=== PATIENT | female | born 1945 | race Two or more races ===

== ENCOUNTER 2024-02-01 18:48 | Inpatient (IN) | payer MEDICARE, MEDICAID ==
[~2024-02-01] VITALS: Ht 170.2 cm; Wt 106.0 kg
[~2024-02-01 18:48] MED LIST: ALBU108A5 IN; BRIM0.2S17 EACHEYE; CLOT1CRE7 EX; DICL1GEL73 TD; FLUT115A IN; FOLI-119 PO; FURO40TA4 PO; INSUINJ37 SC; LATA0.008 EACHEYE; LEFL20TA PO; MAGN400T40 PO; METH2.5T PO; METO25TA93 PO; MONT-8 PO; OMEP-448 PO; SEMA2INJ3 SC; TRAM50TA2 PO
[2024-02-01] MEDS: NOREPINEPHRINE 8 MG/250ML KIT 250 ML IV SCH (19:00)
[2024-02-01] MEDS: MIDAZOLAM DRIP 50 mg/50mL 50 ML IV SCH (19:00)
[2024-02-01] MEDS: MIDAZOLAM DRIP 50 mg/50mL 50 ML IV ONE (19:05)
--- NOTE | 2024-02-01 19:05 | ED.PDOC ---
CPR-HPI HPI Comments 78-year-old female with available history of COPD, Asthma brought in by EMS presents s/p cardiac arrest. Per EMS, initial call was to [facility] for patient having SOB and difficulty breathing. Per EMS, patient was slowly declining en route to ER and then lost pulses on their arrival at 1847. CPR commenced as EMS was wheeling patient into the ER. ROSC was obtained in the ER after CPR and intubation. No family at bedside to provide further medical information at this time. 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 Family History Family History: Unknown, Unobtainable Social History Smoker: Unknown, Unobtainable Alcohol: Unknown, Unobtainable Drugs: Unknown, Unobtainable Lives In: Correction Constitutional: denies: chills, diaphoresis, fatigue, fever, malaise, sweats, weakness, others EENTM: denies: blurred vision, double vision, ear bleeding, ear discharge, ear drainage, ear pain, ear ringing, eye pain, eye redness, hearing loss, mouth pain, mouth swelling, nasal discharge, nose bleeding, nose congestion, nose pain, photophobia, tearing, throat pain, throat swelling, voice changes, others Respiratory: denies: cough, hemoptysis, orthopnea, SOB at rest, shortness of breath, SOB with excertion, stridor, wheezing, others Cardiovascular: denies: chest pain, dizzy spells, diaphoresis, Dyspnea on exertion, edema, irregular heart beat, left arm pain, lightheadedness, palpitations, PND, syncope, others Gastrointestinal: denies: abdomen distended, abdominal pain, blood streaked bowels, constipated, diarrhea, dysphagia, difficulty swallowing, hematemesis, melena, nausea, poor appetite, poor fluid intake, rectal bleeding, rectal pain, vomiting, others Genitourinary: denies: abnormal vagina bleeding, burning, dyspareunia, dysuria, flank pain, frequency, hematuria, incontinence, pain, , vagina discharge, urgency, others Neurological: denies: dizziness, fainting, headache, left sided numbness, left sided weakness, numbness, paresthesia, pre-existing deficit, right sided numbness, right sided weakness, seizure, speech problems, tingling, tremors, weakness, others Musculoskeletal: denies: back pain, gout, joint pain, joint swelling, muscle pain, muscle stiffness, neck pain, others Integumetry: denies: bruises, change in color, change in hair/nails, dryness, laceration, lesions, lumps, rash, wounds, others Allergic/Immunocompromised: denies: Difficulty Healing, Frequent Infections, Hives, Itching, others Hematologic/Lymphatic: denies: anemia, blood clots, easy bleeding, easy bruising, swollen glands, others Endocrine: denies: excessive hunger, excessive sweating, excessive thirst, excessive urination, flushing, intolerance to cold, intolerance to heat, unex plained weight gain, unexplained weight loss, others Psychiatric: denies: anxiety, bipolar disorder, depression, hopeless, panic disorder, schizophrenia, sleepless, suicidal, others Unable to Obtain due to: Medical Urgency All Other Systems: Reviewed and Negative Physical Exam General Appearance: Other (CPR in progress) HEENT: PERRL/EOMI Neck: Full Range of Motion, Non-Tender, Normal, Normal Inspection Respiratory: Other (Patient was being bagged) Cardiovascular: Other (CPR in progress) Breast Exam: Deferred Gastrointestinal: No Organomegaly, Non Tender, No Pulsatile Mass, Normal Bowel Sounds, Soft Genitalia: Deferred Pelvic: Deferred Rectal: Deferred Extremities: No calf tenderness, Normal capillary refill, Normal inspection, Normal range of motion, Non-tender, No pedal edema Neurologic: Other (Patient unresponsive) Cerebellar Function: NOT DONE Reflexes: NOT DONE Skin: Dry, Normal Color, Warm Lymphatic: No Adenopathy Was a procedure done? Was a procedure done?: No Differential Dx CPR Differential Diagnosis: Cardiopulmonary arrest, Cardiogenic shock, Dysrhythmia, Electrolyte disorder, Myocardial Infarction, Pneumothorax, Respiratory Failure X-Ray, Labs, Meds, VS Vital Signs Date Time Temp Pulse Resp B/P (MAP) Pulse Ox O2 Delivery O2 Flow Rate FiO2 02/01/24 20:45 106 17 131/58 (82) 99 02/01/24 20:30 101 18 154/73 (100) 100 02/01/24 20:30 154/73 02/01/24 20:25 101 18 154/73 (100) 99 50 02/01/24 20:15 98.8 101 17 117/69 (85) 100 98.8 02/01/24 20:00 99 15 77/41 (53) 100 02/01/24 20:00 77/41 02/01/24 20:00 77/41 02/01/24 19:58 71/41 02/01/24 19:55 101 13 71/41 (51) 95 02/01/24 19:50 Mechanical Ventilator+ 100 100 02/01/24 19:45 124/68 02/01/24 19:42 176 Ambu-Bag 02/01/24 19:40 90 17 117/52 (73) 97 02/01/24 19:40 129/57 02/01/24 19:35 86 19 117/52 (73) 95 02/01/24 19:33 86 02/01/24 19:30 97.8 86 17 125/63 (83) 100 97.8 02/01/24 19:30 125/53 02/01/24 19:05 131 25 156/86 (109) 100 100 02/01/24 19:01 140 14 156/86 (109) 100 02/01/24 19:00 0 0 0/0 (0) 0 02/01/24 19:00 135/80 02/01/24 19:00 135/80 02/01/24 19:00 Mechanical Ventilator+ 100 100 02/01/24 18:54 186 02/01/24 18:54 145 18 159/115 (130) 88 Lab Test 02/01/24 20:35 02/01/24 20:18 02/01/24 19:51 02/01/24 19:42 Range/Units Lactic Acid Level 1.1 0.4-2.0 mmol/L Blood Gas Specimen Type Arterial Blood Gas Sample Site Left radial Blood Gas Patient Temperature 37.0 Arterial Blood Date Drawn [id number] Arterial Blood pH 7.316 L 7.350-7.450 Arterial Blood Partial Pressure CO2 64.3 *H 32.0-45.0 mmHg Arterial Blood Partial Pressure O2 403.6 *H 83.0-108.0 mmHg Arterial Blood HCO3 32.1 H 21.0-28.0 mmol/L Arterial Blood Oxygen Saturation 97.9 94.0-98.0 % Arterial Blood Base Excess 4.7 H -2.0-3.0 mmol/L Arterial Blood Oxyhemoglobin 96.9 94.0-98.0 % Arterial Blood Carboxyhemoglobin 0.9 0.5-1.5 % Arterial Blood Methemoglobin 0.1 0.0-1.5 % Maximino Test Modified Blood Gas Total Hemoglobin 9.90 L 12.0-16.0 g/dL Blood Gas Set Respiration Rate 18.0 Blood Gas Modality Vent - ac FiO2 % 100.0 Blood Gas Tidal Volume 450.0 Blood Gas PEEP or CPAP 5.0 Blood Gas Critical Value Read Back Yes Blood Gas Notified Whom Dr. pilo dougherty Blood Gas Notified Time [id number] Blood Gas Notified By Rt b meet Troponin I High Sensitivity 9 </=34 ng/L Urine Color Light-yellow Yellow Urine Clarity Clear Clear Urine pH 6.0 5.0-9.0 Urine Specific [place] 1.009 1.001-1.035 Urine Protein Negative Negative Urine Ketones Negative Negative Urine Blood Negative Negative /uL Urine Nitrite Negative Negative Urine Bilirubin Negative Negative Urine Urobilinogen Normal Negative mg/dL Urine Leukocyte Esterase Negative Negative /uL Urine RBC 1 0 - 4 /hpf Urine WBC <1 0 - 5 /hpf Urine Squamous Epithelial Cells Few <5 /hpf Urine Bacteria None seen None Seen /hpf Urine Glucose Normal Normal mg/dL Test 02/01/24 19:05 Range/Units White Blood Count 9.0 4.4-10.8 10^3/uL Red Blood Count 3.77 L 4.0-5.20 10^6/uL Hemoglobin 11.0 L 12.2-16.2 g/dL Hematocrit 36.3 36.0-46.0 % Mean Corpuscular Volume 96.3 80.0-100.0 fL Mean Corpuscular Hemoglobin 29.2 28.0-32.0 pg Mean Corpuscular Hemoglobin Concent 30.3 L 32.0-36.0 g/dL Red Cell Distribution Width 17.0 H 11.8-14.3 % Platelet Count 221 140-450 10^3/uL Mean Platelet Volume 9.6 6.9-10.8 fL Neutrophils (%) (Auto) 37.0-80.0 % Lymphocytes (%) (Auto) 10.0-50.0 % Monocytes (%) (Auto) 0.0-12.0 % Basophils (%) (Auto) 0.0-2.0 % Neutrophils # (Auto) 1.6-8.6 10 ^3/uL Lymphocytes # (Auto) 0.4-5.4 10 ^3/uL Monocytes # (Auto) 0-1.3 10 ^3/uL Differential Total Cells Counted 100.0 100 Neutrophils % (Manual) 29 L 37.0-80.0 Band Neutrophils % (Manual) 0 Lymphocytes % (Manual) 51 H 10.0-50.0 Monocytes % (Manual) 10 0-12 Eosinophils % (Manual) 10 H 0-7 Basophils % (Manual) 0 0.0-2.0 Metamyelocytes % (manual) 0 Myelocytes % (Manual) 0 Promyelocytes % (Manual) 0 Blast Cells % (Manual) 0 Reactive Lymphocytes 0 Platelet Estimate Adequate Poikilocytosis (manual) Slight Anisocytosis (manual) Slight Prothrombin Time 10.3 9.3-11.8 sec Prothrombin Time INR 0.97 0.9-1.15 Activated Partial Thromboplast Time 23.1 L 24.5-34.5 SEC D-Dimer, Quantitative > 35.20 H 0.0-0.49 mg/L FEU Sodium Level 143 136-145 mmol/L Potassium Level 5.9 *H 3.5-5.1 mmol/L Chloride Level 100 98-107 mmol/L Carbon Dioxide Level 32 H 20-31 mmol/L Anion Gap 11 5-15 Blood Urea Nitrogen 23 9-23 mg/dL Creatinine 1.34 H 0.550-1.02 mg/dL Glomerular Filtration Rate Calc 41 >90 mL/min BUN/Creatinine Ratio 17.2 10.0-20.0 Serum Glucose 217 H 74-106 mg/dL Lactic Acid Level 5.5 *H 0.4-2.0 mmol/L Calcium Level 11.0 H 8.7-10.4 mg/dL Total Bilirubin 0.2 0.2-1.0 mg/dL Aspartate Amino Transferase (AST) 75 H 13-40 U/L Alanine Aminotransferase (ALT) 99 H 7-40 U/L Alkaline Phosphatase 80 46-116 U/L Troponin I High Sensitivity 7 </=34 ng/L B-Type Natriuretic Peptide 68.68 0-100 pg/mL Total Protein 6.8 5.7-8.2 g/dL Albumin 4.4 3.2-4.8 g/dL Lipase 31 12-53 U/L Current Medications Medications (Trade) Dose Ordered Sig/Anastacio Route Start Time Stop Time Status Last Admin Albuterol (Ventolin Medneb) 5 mg ONCE ONCE NEB 02/01/24 19:15 02/01/24 19:16 DC 02/01/24 19:35 Ipratropium [place] (Atrovent Medneb) 0.5 mg ONCE ONCE NEB 02/01/24 19:15 02/01/24 19:16 DC 02/01/24 19:35 Methylprednisolone Sodium Succinate (Solu Medrol) 125 mg ONCE ONCE IV 02/01/24 19:15 02/01/24 19:16 DC 02/01/24 20:30 Midazolam HCl 50 ml @ 1 mls/hr Q24H IV 02/01/24 19:00 02/02/24 05:50 Norepinephrine Bitartrate 250 ml @ 3.75 mls/hr Q24H IV 02/01/24 19:00 02/01/24 19:00 Vancomycin HCl 250 ml @ 250 mls/hr ONCE ONCE IV 02/01/24 20:00 02/01/24 20:59 DC 02/01/24 20:38 Piperacillin Sod/ Tazobactam Sod 100 ml @ 100 mls/hr ONCE ONCE IV 02/01/24 20:00 02/01/24 20:59 DC 02/01/24 20:52 Insulin Human Regular (InsuLIN R) 10 units ONCE ONCE IV 02/01/24 20:15 02/01/24 20:58 DC 02/01/24 22:16 Dextrose 50 ml ONCE ONCE IV 02/01/24 20:15 02/01/24 20:58 DC 02/01/24 22:25 Sodium Bicarbonate 50 ml ONCE ONCE IV 02/01/24 20:15 02/01/24 20:58 DC 02/01/24 22:29 Furosemide (Lasix Injection) 40 mg ONCE ONCE IV 02/01/24 20:15 02/01/24 20:58 DC 02/01/24 22:34 Calcium Gluconate/ Sodium Chloride 50 ml @ 120 mls/hr ONCE ONCE IV 02/01/24 20:15 02/01/24 20:58 DC 02/01/24 22:06 Fentanyl Citrate 250 ml @ 2.5 mls/hr Q24H IV 02/01/24 20:15 02/01/24 21:10 Time of 1ST Reevaluation: 19:17 Reevaluation 1ST: Unchanged Patient Education/Counseling: Pt Unresponsive Family Education/Counseling: Diagnosis, Treatment, Prognosis Departure 1 Departure Time of Disposition: 06:15 (Patient presented as a cardiac arrest. Ross was achieved. Patient was intubated central line placed emergently. Patient was admitted to the ICU for further workup) Impression: Primary Impression: Cardiac arrest Additional Impression: Acute respiratory failure Qualified Codes: J96.01 - Acute respiratory failure with hypoxia Disposition: ADMITTED INPATIENT Admit to: ICU Condition: Critical Critical Care Note Critical Care Time?: Yes Critical care comment: Ross Authorized and Performed by: Junaid Dougherty MD Total critical care time: Approximately 144 minutes Due to a high probability of clinically significant, life threatening deterioration, the patient required my highest level of preparedness to intervene emergently and I personally spent this critical care time directly and personally managing the patient. This critical care time included obtaining a history; examining the patient; pulse oximetry; ordering and review of studies; arranging urgent treatment with development of a management plan; evaluation of patient's response to treatment; frequent reassessment; and, discussions with other providers. This critical care time was performed to assess and manage the high probability of imminent, life-threatening deterioration that could result in multi-organ failure. It was exclusive of separately billable procedures and treating other patients and teaching time. Please see my other sections and the rest of the note for further information on patient assessment and treatment. Heart Score Heart Score: Heart Score Response (Comments) Value History N/A 0 EKG N/A 0 Age N/A 0 Risk Factors N/A 0 Troponin N/A 0 Total 0 Stability Stability form required: No I personally scribed for JUNAID DOUGHERTY MD ([email or web address]) on 02/01/24 at 19:05. Electronically submitted by Alton Morillo ([email or web address]). JUNAID DOUGHERTY MD Feb 01, 2024 19:05
[2024-02-01 19:30] LABS: Hematocrit 36.3 % (36.0-46.0); Mean Corpuscular Hemoglobin 29.2 pg (28.0-32.0); Mean Corpuscular Hgb Conc. 30.3 g/dL (32.0-36.0); Mean Corpuscular Volume 96.3 fL (80.0-100.0); Platelet Count (auto) 221 10^3/uL (140-450); Red Blood Cells 3.77 10^6/uL (4.0-5.20)
[2024-02-01 19:33] LABS: Band Neutrophils % (manual) 0; Basophils % (manual) 0 (0.0-2.0); Blast Cells 0; Metamyelocytes % 0; Myelocytes % 0; Promyelocytes % 0; Reactive Lymphocytes 0
[2024-02-01] MEDS: ALBUTEROL SULF 2.5 MG/0.5ML(0.5%) NEB SOLN NEB ONE ×2 (19:35→20:15)
[2024-02-01] MEDS: IPRATROPIUM BROM 0.5 MG/2.5ML INH SOL NEB ONE (19:35)
--- NOTE | 2024-02-01 19:38 | DVH ---
CHEST RADIOGRAPH Indication: s/p rosc Technique: Single frontal view of the chest was obtained Comparison: None FINDINGS: Lines and Tubes: Endotracheal tube terminating 4.5 cm above the lois. Enteric tube crosses the diap hragm near midline and descends into the left upper quadrant. Right neck central venous catheter term inates over the SVC. Lungs: No focal consolidation. Diffuse bilateral interstitial opacities. Pleura: No effusion. No pneumothorax. Cardiomediastinal contours: Unremarkable Bones: No acute osseous abnormality. IMPRESSION: 1. Lines and tubes as described. 2. Nonspecific diffuse bilateral interstitial opacities. HS:Y
--- NOTE | 2024-02-01 19:42 | RESUS ---
CODE BLUE ASSESSSMENT History of Events History of Events: Patient to ER via EMS. Per EMS, initial call was made for complaints of shortness of breath. EMS patient was alert, oriented and responsive en route ER requiring 5LPM O2 NC. EMS reports she became unresponsive and pulseless upon arriving to ER. CPR in progress upon arrival to ER bed 9. Dr Ramesh and nursing staff at bedside ACLS protocols resumed. Initial Information Date: Feb 01, 2024 Time: 18:48 Location of Arrest: ER Arrest Witnessed: Yes CPR started initial time: 18:46 CPR started by whom: EMS Last seen well: 1845 Pre-Hospital Care: ACLS Type of arrest: Cardiac, Respiratory Spontaneous Respirations: No Pulse Present: No Monitoring: Pulse Oximetry, Telemetry Crash Cart Opened and Supplies: Yes Airway Ventilation Breathing at Onset: Apneic Oxygen Delivery Method: Ambu-Bag Artificial Ventilation: Bag/Endo tube Intubation Time: 18:53 Intubation Size: 8.0 cuffed Intubated by: DR RAMESH Intubation Attempts: 1 Intubated orally: Yes Circulation Circulation : Time: 18:52 Pulse Rate (adult): 176 Blood Pressure Systolic: 159 Blood Pressure Diastolic: 115 Procedure - IV Procedure - IV : IV start time: 18:50 IV Side: Right IV Location: Wrist IV Catheter Type: Peripheral IV IV Placed: In Hospital IV Placed by EMMA ORTIZ IV Gauge: 22 IV Line Care: Saline Flush Medications & Response Medications and Responses : Medication Time: 18:51 ADULT Medications Given ADULT: Epinephrine 1 mg Route of Administration: IV EKG Rhythm: Asystole Nurses Notes [place] Coma Scale Eye Opening: None (1) [place] Coma Scale Verbal: None (1) [place] Coma Scale Motor: None (1) [place] Total: 3 Pupil Reaction: Sluggish Bedside Blood Glucose: 210 EKG Rhythm: Sinus Tachycardia Time Code Ended Time Code Ended: 18:52 Post Arrest Status: Unconscious, Ventilated Outcome of code: Successful Family notified: Yes Code Team [facility] Marian Garcia Feb 01, 2024 19:42
--- NOTE | 2024-02-01 19:44 | DVHNC2 ---
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 physician ) Room prepared for procedure: Yes Mechanical Engineering Specialist performed hand hygien: Yes Maximal sterile barrier precau: Mask/Eye shield, Sterile gown, Cap, Sterlie gloves, Large sterlie drape Skin Preparation: Chlorhexidine gluconate Skin preparation completely dr: Yes Insertion site: Right, Internal jugular Central line catheter type: [id number] dialysis Number of lumens: 3 Post Assessment: Chest X-Ray, Proper placement Intubation Indication: Respiratory Insufficiency Prep: Preoxygenation Medicated with: Other (etomidate and rocuronium) Intubation Approach: Orotracheal (8cm) Intubation size: cm (8cm ) Date of Service: Feb 01, 2024 Billing Provider: ALEXANDER SPENCE Common Visit Codes: PROCEDURE ONLY Procedure Codes: 82944-[id number], 88993-QOOPQH NON-TUNNEL CV CATH ALEXANDER SPENCE Feb 01, 2024 19:44
[2024-02-01 19:47] LABS: Alkaline Phosphatase 80 U/L (46-116); Anion Gap 11 (5-15); BUN/Creatinine Ratio 17.2 (10.0-20.0); Blood Urea Nitrogen 23 mg/dL (9-23); Chloride 100 mmol/L (98-107); Lipase 31 U/L (12-53); Sodium 143 mmol/L (136-145)
[2024-02-01 19:48] LABS: Albumin 4.4 g/dL (3.2-4.8); Bilirubin, Total 0.2 mg/dL (0.2-1.0); Total Protein 6.8 g/dL (5.7-8.2)
[2024-02-01 19:55] LABS: Alanine Aminotransferase 99 U/L (7-40); Aspartate Aminotransferase 75 U/L (13-40); Carbon Dioxide 32 mmol/L (20-31); Glucose 217 mg/dL (74-106)
[2024-02-01 20:06] LABS: Potassium 5.9 mmol/L (3.5-5.1)
[2024-02-01 20:07] LABS: Lactic Acid w/Reflex 5.5 mmol/L (0.4-2.0)
[2024-02-01 20:11] LABS: Anisocytosis Slight; Eosinophils % (manual) 10 (0-7); Lymphocytes % (manual) 51 (10.0-50.0); Monocytes % (manual) 10 (0-12); Platelet Estimate Adequate
[2024-02-01 20:20] LABS: INR 0.97 (0.9-1.15); Partial Thromboplastin Time 23.1 SEC (24.5-34.5); Prothrombin Time 10.3 sec (9.3-11.8)
[2024-02-01 20:22] LABS: Urine Bacteria None Seen /hpf (None Seen)
[2024-02-01] MEDS: methylPREDNISolone SOD SUCC 125 MG/2 ML VL IV ONE (20:30)
[2024-02-01 20:32] LABS: Base Excess 4.7 mmol/L (-2.0-3.0)
--- NOTE | 2024-02-01 20:35 | DVH ---
Bilateral lower extremity venous duplex Clinical History: rule out DVT Comparison: None Technique: Duplex Doppler evaluation of the deep venous systems of both lower extremities from the common femora l veins to the popliteal veins including color Doppler and spectral/pulsed waveform analysis was perf ormed. Findings: RIGHT SIDE: The common femoral vein demonstrates appropriate compressibility and waveform variability. There is compressibility/patency of the great saphenous vein at the proximal thigh. The femoral vein demonstrates appropriate compressibility and waveform variability. The deep femoral vein demonstrates appropriate compressibility and waveform variability. The popliteal vein demonstrates appropriate compressibility and waveform variability. There is normal compressibility at the tibioperoneal trunk. LEFT SIDE: The common femoral vein demonstrates appropriate compressibility and waveform variability. There is compressibility/patency of the great saphenous vein at the proximal thigh. The femoral vein demonstrates appropriate compressibility and waveform variability. The deep femoral vein demonstrates appropriate compressibility and waveform variability. The popliteal vein demonstrates appropriate compressibility and waveform variability. There is normal compressibility at the tibioperoneal trunk. Impression: 1. No right or left femoropopliteal venous thrombosis. HS:Y
[2024-02-01] MEDS: VANCOMYCIN 1GM/250ML KIT 250 ML IV ONE (20:38)
[2024-02-01] MEDS: PIPERACILLIN-TAZO 4.5GM 100 ML IV ONE (20:52)
[2024-02-01] MEDS ORDERED: NITROGLYCERIN 0.4 MG SL TAB SL PRN ×2 (21:00→21:45)
[2024-02-01] MEDS ORDERED: MORPHINE SULFATE INJ 2 MG/ml SYRG IV PRN ×2 (21:00→21:45)
[2024-02-01] MEDS: fentaNYL Drip 2500mCg/250mlNS 250 ML IV SCH (21:10)
[2024-02-01 21:31] LABS: Urine Blood Negative /uL (Negative); Urine Clarity Clear (Clear); Urine Color Light-Yellow (Yellow); Urine Protein, UAD Negative (Negative); Urine Specific Gravity 1.009 (1.001-1.035); Urine Urobilinogen Normal (Negative); Urine WBC <1 /hpf (0 - 5)
[2024-02-01] MEDS ORDERED: ACETAMINOPHEN 325 MG TAB PO PRN (21:45)
--- NOTE | 2024-02-01 21:53 | DVHHP2 ---
Admitting Diagnosis: Admission date: 02/01/2024 S/P Cardiac arrest History of Present Illness Patient is a 78-year-old female with a history of COPD and asthma who came to the ED through EMS and presents status postcardiac arrest. EMS states that the initial call was to [facility] due to patient having difficulty breathing and shortness of breath. EMS states on arrival to the ED patient was slowly declining and then lost pulses on arrival at 1847. CPR continued as EMS was willing patient into the ER. ROSC was obtained in the ER after intubation and CPR. Patient has no family at bedside to provide more information at this time. While in the emergency department the patient was evaluated by the provider, As per provider: Labs, vital signs, and imagining monitored. Patient will be admitted for further evaluation and treatment. I discussed admission with the patient/family and is in agreement to treatment plan Allergies: Coded Allergies: UNOBTAINABLE (Unverified , 02/01/24) Home Meds Reported Medications Clotrimazole (Topical) (Clotrimazole Anti-Fungal) 1 % Cre, 1 APPLIC EX UD for 30 Days, #45 02/02/24 Fluticasone-Salmeterol (Advair Hfa 115-21 Mcg/Act) 1 Aer Aer, 1 AER IN UD for 90 Days, #12 02/02/24 Diclofenac Sodium (Topical) (Diclofenac Sodium) 1 % Gel, 1 APPLIC TD UD for 30 Days, #100 02/02/24 Insulin Glargine (Lantus Solostar) 100 Unit/Ml Inj, UNIT SC UD for 60 Days, #15 02/02/24 Montelukast Sodium (MONTELUKAST SODIUM) 10 Mg Tab, 1 TAB PO DAILY for 90 Days, #90 02/02/24 Semaglutide (Ozempic) 2 Mg/3 Ml Inj, 0.5 MG SC QWEEKLY for 28 Days, #3 02/02/24 Brinzolamide (Brinzolamide) 1 % Libby, 1 DROP LEFTEYE TID for 55 Days, #10 02/02/24 Folic Acid (Folic Acid) 1 Mg Tab, 1 TAB PO DAILY for 30 Days, #30 02/02/24 Magnesium Oxide (MAGNESIUM OXIDE) 400 Mg Tab, 1 TAB PO QPM for 30 Days, #30 02/02/24 Brimonidine Tartrate (Brimonidine Tartrate) 0.2 % Sydni, 1 DROP EACHEYE Q8HR for 30 Days, #5 02/02/24 Latanoprost (LATANOPROST) 0.005 % Sydni, 1 DROP EACHEYE QPM for 30 Days, #2.5 02/02/24 Furosemide (Furosemide) 40 Mg Tab, 1 TAB PO DAILY for 30 Days, #30 02/02/24 Tramadol Hcl (Tramadol Hcl) 50 Mg Tab, 1 TAB PO BID PRN for 15 Days, #30 02/02/24 Omeprazole (Omeprazole Dr) 40 Mg Cap, 1 CAP PO DAILY for 30 Days, #30 02/02/24 Leflunomide (Arava) 20 Mg Tab, 1 TAB PO DAILY for 30 Days, #30 02/02/24 Metoprolol Succinate (Metoprolol Succinate Er) 25 Mg Tab, 1 TAB PO DAILY for 30 Days, #30 02/02/24 Albuterol Sulfate (Albuterol Sulfate Hfa) 108 Mcg/Act Aer, 2 PUFF IN Q6HR PRN for 25 Days, #18 02/02/24 Methotrexate (Methotrexate) 2.5 Mg Tab, 4 TAB PO QWEEKLY for 28 Days, #16 02/02/24 Current Medications Current Medications Medications (Trade) Dose Ordered Sig/Anastacio Route PRN Reason Start Time Stop Time Status Last Admin Fentanyl Citrate 250 ml @ 2.5 mls/hr Q24H IV 02/01/24 20:15 02/01/24 21:10 Nitroglycerin (Ntrostat Sublingual) 0.4 mg Q5MINP PRN SL FOR CHEST PAIN 02/01/24 21:00 02/01/24 22:05 DC Morphine Sulfate 2 mg Q30M PRN IV FOR CHEST PAIN 02/01/24 21:00 Acetaminophen/ Hydrocodone Bitart ([place] 5/325MG Tab) 1 tab Q4HP PRN PO MODERATE PAIN (4-6 PAIN SCALE) 02/01/24 21:45 Ondansetron HCl (Zofran) 4 mg Q4HP PRN IV NAUSEA / VOMITING 02/01/24 21:45 Acetaminophen (Tylenol Tablet) 650 mg Q6HP PRN PO PAIN SCALE 1-3 OR TEMP>100.4 02/01/24 21:45 Morphine Sulfate 2 mg Q4HPRN PRN IV SEVERE PAIN (7-10 PAIN SCALE) 02/01/24 21:45 Enoxaparin Sodium (Lovenox) 40 mg DAILY SC 02/02/24 10:00 02/02/24 14:11 DC 02/02/24 10:28 Nitroglycerin (Ntrostat Sublingual) 0.4 mg Q5MINP PRN SL FOR CHEST PAIN 02/01/24 21:45 Morphine Sulfate 2 mg Q30M PRN IV FOR CHEST PAIN 02/01/24 21:45 Piperacillin Sod/ Tazobactam Sod 100 ml @ 25 mls/hr Q8HR IV 02/01/24 22:00 02/02/24 15:57 Pantoprazole Sodium (Protonix) 40 mg DAILY IV 02/02/24 10:00 02/02/24 10:28 Atorvastatin Calcium (Lipitor) 10 mg HS PO 02/02/24 22:00 Aspirin 81 mg DAILY NG 02/02/24 10:00 02/02/24 11:22 Enoxaparin Sodium (Lovenox) 100 mg DAILY SC 02/03/24 10:00 Sodium Chloride 1,000 ml @ 60 mls/hr [id number] IV 02/02/24 14:45 02/02/24 15:17 Review of Systems Constitutional: denies chills, denies fever, denies malaise Eyes: denies eye pain, denies vision change ENT: denies ear pain, denies headache, denies nasal congestion, denies painful swallowing, denies voice change Cardiovascular: denies chest pain, denies edema, denies orthopnea, denies palpitations, denies paroxysmal nocturnal dyspnea Respiratory: denies cough, denies shortness of breath Gastrointestinal: denies constipation, denies diarrhea, denies nausea, denies vomiting Genitourinary: denies dysuria, denies frequent urination, denies urethral discharge Musculoskeletal: denies back pain, denies joint pain, denies muscle pain Skin: denies bruising, denies itching, denies rash Neurological: denies focal weakness, denies headache, denies sensory changes Psychiatric: denies anxiety, denies depression Endocrine: denies polydipsia, denies polyuria Hematologic/Lymphatic: denies easy bleeding, denies easy bruising, denies enlarged lymph nodes Allergic/Immunologic: denies allergy, denies hives Vital Signs Vital Signs Date Time Temp Pulse Resp B/P (MAP) Pulse Ox O2 Delivery O2 Flow Rate FiO2 02/02/24 19:18 133/56 02/02/24 18:30 96 18 02/02/24 18:00 97 02/02/24 16:03 30 02/02/24 07:45 97.6 97.6 02/02/24 07:45 Mechanical Ventilator+ Physical Exam General Appearance: alert, no distress HEENT: EOMI, PERRLA, normal external inspect of ears, no icterus, no nasal sukhdeep inage Neck: no carotid bruit, no jugular venous distention (JVD), no lymphadenopathy Chest: normal thorax Respiratory: clear to auscultation, normal air movement Cardiovascular: regular rate and rhythm, no diastolic murmur, no jugular venous distention (JVD), no rub, no systolic murmur Abdominal: soft, no hepatomegaly, no mass, no splenomegaly, no tenderness Genitourinary: grossly normal external Musculoskeletal: no joint tenderness, no swelling Extremities: normal pulses, no calf tenderness, no clubbing, no cyanosis, no edema Skin: no bruising, no jaundice, no rash Neurological: alert, No focal deficit Results Labs Test 02/02/24 08:55 02/02/24 06:50 02/02/24 04:30 02/02/24 00:30 Range/Units Blood Gas Specimen Type Arterial Blood Gas Sample Site Right radial Blood Gas Patient Temperature 37.0 Arterial Blood Date Drawn [id number] Arterial Blood pH 7.508 H 7.350-7.450 Arterial Blood Partial Pressure CO2 44.6 32.0-45.0 mmHg Arterial Blood Partial Pressure O2 73.7 L 83.0-108.0 mmHg Arterial Blood HCO3 34.6 H 21.0-28.0 mmol/L Arterial Blood Oxygen Saturation 92.8 L 94.0-98.0 % Arterial Blood Base Excess 10.5 H -2.0-3.0 mmol/L Arterial Blood Oxyhemoglobin 91.0 L 94.0-98.0 % Arterial Blood Carboxyhemoglobin 1.9 H 0.5-1.5 % Arterial Blood Methemoglobin 0.0 0.0-1.5 % Maximino Test Modified Blood Gas Total Hemoglobin 9.60 L 12.0-16.0 g/dL Blood Gas Set Respiration Rate 18.0 Blood Gas Modality Vent - ac FiO2 % 30.0 Blood Gas Tidal Volume 500.0 Blood Gas PEEP or CPAP 5.0 Influenza Type A Antigen Negative Negative Influenza Type B Antigen Negative Negative SARS-CoV-2 Antigen (Rapid) Negative NEGATIVE White Blood Count 9.4 4.4-10.8 10^3/uL Red Blood Count 3.95 L 4.0-5.20 10^6/uL Hemoglobin 11.5 L 12.2-16.2 g/dL Hematocrit 36.8 36.0-46.0 % Mean Corpuscular Volume 93.2 80.0-100.0 fL Mean Corpuscular Hemoglobin 29.1 28.0-32.0 pg Mean Corpuscular Hemoglobin Concent 31.2 L 32.0-36.0 g/dL Red Cell Distribution Width 16.4 H 11.8-14.3 % Platelet Count 219 140-450 10^3/uL Mean Platelet Volume 9.1 6.9-10.8 fL Neutrophils (%) (Auto) 88.1 H 37.0-80.0 % Lymphocytes (%) (Auto) 7.0 L 10.0-50.0 % Monocytes (%) (Auto) 4.4 0.0-12.0 % Eosinophils (%) (Auto) 0.3 0.0-7.0 % Basophils (%) (Auto) 0.2 0.0-2.0 % Neutrophils # (Auto) 8.3 1.6-8.6 10 ^3/uL Lymphocytes # (Auto) 0.7 0.4-5.4 10 ^3/uL Monocytes # (Auto) 0.4 0-1.3 10 ^3/uL Eosinophils # (Auto) 0 0-0.8 10 ^3/uL Basophils # (Auto) 0 0-0.2 10 ^3/uL Nucleated Red Blood Cells 0.1 % Sodium Level 142 136-145 mmol/L Potassium Level 4.7 3.5-5.1 mmol/L Chloride Level 96 L 98-107 mmol/L Carbon Dioxide Level 37 H 20-31 mmol/L Anion Gap 9 5-15 Blood Urea Nitrogen 25 H 9-23 mg/dL Creatinine 1.33 H 0.550-1.02 mg/dL Glomerular Filtration Rate Calc 41 >90 mL/min BUN/Creatinine Ratio 18.8 10.0-20.0 Serum Glucose 232 H 74-106 mg/dL Calcium Level 11.0 H 8.7-10.4 mg/dL Total Bilirubin 0.4 0.2-1.0 mg/dL Aspartate Amino Transferase (AST) 94 H 13-40 U/L Alanine Aminotransferase (ALT) 135 H 7-40 U/L Alkaline Phosphatase 88 46-116 U/L Total Protein 6.9 5.7-8.2 g/dL Albumin 4.4 3.2-4.8 g/dL Triglycerides Level 55 < 150 mg/dL Cholesterol Level 125 < 200 mg/dL LDL Cholesterol 48 < 100 mg/dL HDL Cholesterol 55 40-59 mg/dL Thyroid Stimulating Hormone (TSH) 0.96 0.55-4.78 uIU/mL Troponin I High Sensitivity 39 *H </=34 ng/L Test 02/01/24 21:58 02/01/24 20:35 02/01/24 20:18 02/01/24 19:42 Range/Units Lactic Acid Level 1.1 0.4-2.0 mmol/L Blood Gas Critical Value Read Back Yes Blood Gas Notified Whom Dr. pilo dougherty Blood Gas Notified Time [id number] Blood Gas Notified By Rt b meet Urine Color Light-yellow Yellow Urine Clarity Clear Clear Urine pH 6.0 5.0-9.0 Urine Specific [place] 1.009 1.001-1.035 Urine Protein Negative Negative Urine Ketones Negative Negative Urine Blood Negative Negative /uL Urine Nitrite Negative Negative Urine Bilirubin Negative Negative Urine Urobilinogen Normal Negative mg/dL Urine Leukocyte Esterase Negative Negative /uL Urine RBC 1 0 - 4 /hpf Urine WBC <1 0 - 5 /hpf Urine Squamous Epithelial Cells Few <5 /hpf Urine Bacteria None seen None Seen /hpf Urine Glucose Normal Normal mg/dL Test 02/01/24 19:05 Range/Units Differential Total Cells Counted 100.0 100 Neutrophils % (Manual) 29 L 37.0-80.0 Band Neutrophils % (Manual) 0 Lymphocytes % (Manual) 51 H 10.0-50.0 Monocytes % (Manual) 10 0-12 Eosinophils % (Manual) 10 H 0-7 Basophils % (Manual) 0 0.0-2.0 Metamyelocytes % (manual) 0 Myelocytes % (Manual) 0 Promyelocytes % (Manual) 0 Blast Cells % (Manual) 0 Reactive Lymphocytes 0 Platelet Estimate Adequate Poikilocytosis (manual) Slight Anisocytosis (manual) Slight Prothrombin Time 10.3 9.3-11.8 sec Prothrombin Time INR 0.97 0.9-1.15 Activated Partial Thromboplast Time 23.1 L 24.5-34.5 SEC D-Dimer, Quantitative > 35.20 H 0.0-0.49 mg/L FEU B-Type Natriuretic Peptide 68.68 0-100 pg/mL Lipase 31 12-53 U/L Microbiology Date/Time Source Procedure Growth Status 02/01/24 19:42 Voided Urine Urine Culture - Preliminary Resulted 02/01/24 19:42 Sputum Gram Stain Pending Resulted 02/01/24 19:42 Sputum Respiratory Culture - Preliminary Resulted Plan 1. Acute hypoxic respiratory failure Monitor, pulmonary consult 2. Status post cardio pulmonology arrest Monitor, cardiology consult, neurology consult, echocardiogram, CTA of chest, Doppler BLE to rule out DVT, full dose Lovenox 3. COPD exacerbation Monitor, IV antibiotics, IV fluids 4. Obesity Monitor, PPI 5. Benign essential hypertension Monitor Plan discussed with: Patient, Other JORY LINDSEY NP Feb 01, 2024 21:53
[2024-02-01] MEDS: CALCIUM GLUC 1,000mg/50ml-NS 50 ML IV ONE (22:06)
[2024-02-01 22:16] VITALS: BP 143/67; PULSE 104; RESP 18; O2SAT 99
[2024-02-01] MEDS: InsuLIN REG 1unit/0.01ml Soln (100units/ml) IV ONE (22:16)
[2024-02-01 22:23] VITALS: BP 143/67; PULSE 104; RESP 18; O2SAT 99
[2024-02-01 22:23] LABS: Base Excess 3.2 mmol/L (-2.0-3.0)
[2024-02-01] MEDS: DEXTROSE (50%) 50ML SYRG IV ONE (22:25)
[2024-02-01] MEDS: SODIUM BICARB 8.4% 50Meq/50ml SYR INJ IV ONE (22:29)
[2024-02-01] MEDS: FUROSEMIDE 40 MG/4 ML VIAL IV ONE (22:34)
[2024-02-01] MEDS: PIPERACILLIN-TAZOB 3.375GM 100 ML IV SCH (23:03)
[2024-02-02] VITALS (14 sets, daily range): BP systolic 109–151; BP diastolic 44–89; PULSE 69–101; RESP 18–19; O2SAT 94–100
[2024-02-02 04:44] LABS: Basophils # (auto) 0 10 ^3/uL (0-0.2); Basophils % (auto) 0.2 % (0.0-2.0); Eosinophils # (auto) 0 10 ^3/uL (0-0.8); Eosinophils % (auto) 0.3 % (0.0-7.0); Hematocrit 36.8 % (36.0-46.0); Hemoglobin 11.5 g/dL (12.2-16.2); Lymphocytes # (auto) 0.7 10 ^3/uL (0.4-5.4); Mean Corpuscular Hemoglobin 29.1 pg (28.0-32.0); Mean Corpuscular Hgb Conc. 31.2 g/dL (32.0-36.0); Mean Corpuscular Volume 93.2 fL (80.0-100.0); Monocytes # (auto) 0.4 10 ^3/uL (0-1.3); Monocytes % (auto) 4.4 % (0.0-12.0); Neutrophils # (auto) 8.3 10 ^3/uL (1.6-8.6); Neutrophils % (auto) 88.1 % (37.0-80.0); Nucleated Red Blood Cells % 0.1 %; Platelet Count (auto) 219 10^3/uL (140-450); Red Blood Cells 3.95 10^6/uL (4.0-5.20); Red Cell Distribution Width 16.4 % (11.8-14.3); White Blood Cell 9.4 10^3/uL (4.4-10.8)
[2024-02-02 04:57] LABS: Albumin 4.4 g/dL (3.2-4.8); Alkaline Phosphatase 88 U/L (46-116); Anion Gap 9 (5-15); BUN/Creatinine Ratio 18.8 (10.0-20.0); Bilirubin, Total 0.4 mg/dL (0.2-1.0); Potassium 4.7 mmol/L (3.5-5.1); Sodium 142 mmol/L (136-145); Total Protein 6.9 g/dL (5.7-8.2)
[2024-02-02 05:02] LABS: Alanine Aminotransferase 135 U/L (7-40); Aspartate Aminotransferase 94 U/L (13-40); Blood Urea Nitrogen 25 mg/dL (9-23); Carbon Dioxide 37 mmol/L (20-31); Chloride 96 mmol/L (98-107); Glucose 232 mg/dL (74-106)
--- NOTE | 2024-02-02 06:43 | ECG ---
[facility] Test Date: 2024-02-01 Test Time: 19:33:17 Pat Name: INESSA GODOY Department: ED Room: [address] [place] [address] Gender: F Nitrogen Operator: JOSE MARTIN : 1945 Requested By: ALEXANDER SPENCE Order Number: [id number] Reading MD: Ren Benavides Measurements Intervals [place] Rate: 86 P: 81 NV: 141 QRS: 70 QRSD: 84 T: 66 QT: 360 QTc: 431 Interpretive Statements Sinus rhythm Low voltage, precordial leads Abnormal R-wave progression, early transition Baseline wander in lead(s) V5 Electronically Signed On 02-04-2024 12:40:04 PST by Ren Benavides Please click the below link to view image of tracing.
[2024-02-02 07:43] LABS: Rapid Influenza A Negative (Negative); Rapid Influenza B Negative (Negative)
[2024-02-02 07:44] LABS: COVID19 ANTIGEN SOFIA FIA NEGATIVE (NEGATIVE)
[2024-02-02 08:59] LABS: Base Excess 10.5 mmol/L (-2.0-3.0)
[2024-02-02] MEDS ORDERED: ASPirin 300 MG RECTAL SUPP PR ONE (09:00)
[2024-02-02 09:20] LABS: Triglycerides 55 mg/dL (< 150)
[2024-02-02 09:21] LABS: LDL Cholesterol 48 mg/dL (< 100)
[2024-02-02 09:22] LABS: Cholesterol 125 mg/dL (< 200); HDL Cholesterol 55 mg/dL (40-59)
--- NOTE | 2024-02-02 09:40 | DVHINCON2 ---
Date of service: Feb 01, 2024 Referring Physician Rhea Gibson NP Reason for Consultation Cardiopulmonary arrest, acute hypoxic/hypercarbic respiratory failure requiring mechanical ventilator. History of Present Illness A 78-year-old woman with past medical history of COPD and asthma who presents to the ED via EMS status post cardiac arrest. EMS states that the initial call was to [facility] due to patient having difficulty breathing and shortness of breath. Per EMS, on arrival to the ED patient was slowly declining and then lost pulses on arrival at 1847. CPR continued as EMS was wheeling patient into the ER. ROSC was obtained in the ER after intubation and CPR. Patient has no family at bedside to provide more information at this time. Patient was admitted for further care and pulmonary consultation is requested for evaluation and management of acute hypoxic/hypercarbic respiratory failure requiring mechanical ventilator. Review of Systems: Unable to be obtained d/t intubated status. Past Medical History: COPD and asthma Past Surgical History: Unknown. Medications: Reviewed. Allergies: No known drug allergies. Family History: Unable to be obtained d/t intubated status. Social History: Nonsmoker. No alcohol or illicit drug use. Allergies: Coded Allergies: UNOBTAINABLE (Unverified , 02/01/24) Home Meds Reported Medications Clotrimazole (Topical) (Clotrimazole Anti-Fungal) 1 % Cre, 1 APPLIC EX UD for 30 Days, #45 02/02/24 Fluticasone-Salmeterol (Advair Hfa 115-21 Mcg/Act) 1 Aer Aer, 1 AER IN UD for 90 Days, #12 02/02/24 Diclofenac Sodium (Topical) (Diclofenac Sodium) 1 % Gel, 1 APPLIC TD UD for 30 Days, #100 02/02/24 Insulin Glargine (Lantus Solostar) 100 Unit/Ml Inj, UNIT SC UD for 60 Days, #15 02/02/24 Montelukast Sodium (MONTELUKAST SODIUM) 10 Mg Tab, 1 TAB PO DAILY for 90 Days, #90 02/02/24 Semaglutide (Ozempic) 2 Mg/3 Ml Inj, 0.5 MG SC QWEEKLY for 28 Days, #3 02/02/24 Brinzolamide (Brinzolamide) 1 % Libby, 1 DROP LEFTEYE TID for 55 Days, #10 02/02/24 Folic Acid (Folic Acid) 1 Mg Tab, 1 TAB PO DAILY for 30 Days, #30 02/02/24 Magnesium Oxide (MAGNESIUM OXIDE) 400 Mg Tab, 1 TAB PO QPM for 30 Days, #30 02/02/24 Brimonidine Tartrate (Brimonidine Tartrate) 0.2 % Sydni, 1 DROP EACHEYE Q8HR for 30 Days, #5 02/02/24 Latanoprost (LATANOPROST) 0.005 % Sydni, 1 DROP EACHEYE QPM for 30 Days, #2.5 02/02/24 Furosemide (Furosemide) 40 Mg Tab, 1 TAB PO DAILY for 30 Days, #30 02/02/24 Tramadol Hcl (Tramadol Hcl) 50 Mg Tab, 1 TAB PO BID PRN for 15 Days, #30 02/02/24 Omeprazole (Omeprazole Dr) 40 Mg Cap, 1 CAP PO DAILY for 30 Days, #30 02/02/24 Leflunomide (Arava) 20 Mg Tab, 1 TAB PO DAILY for 30 Days, #30 02/02/24 Metoprolol Succinate (Metoprolol Succinate Er) 25 Mg Tab, 1 TAB PO DAILY for 30 Days, #30 02/02/24 Albuterol Sulfate (Albuterol Sulfate Hfa) 108 Mcg/Act Aer, 2 PUFF IN Q6HR PRN for 25 Days, #18 02/02/24 Methotrexate (Methotrexate) 2.5 Mg Tab, 4 TAB PO QWEEKLY for 28 Days, #16 02/02/24 Current Medications Current Medications Medications (Trade) Dose Ordered Sig/Anastacio Route PRN Reason Start Time Stop Time Status Last Admin Midazolam HCl 50 ml @ 1 mls/hr Q24H IV 02/01/24 19:00 02/02/24 09:24 Norepinephrine Bitartrate 250 ml @ 3.75 mls/hr Q24H IV 02/01/24 19:00 02/01/24 19:00 Fentanyl Citrate 250 ml @ 2.5 mls/hr Q24H IV 02/01/24 20:15 02/01/24 21:10 Nitroglycerin (Ntrostat Sublingual) 0.4 mg Q5MINP PRN SL FOR CHEST PAIN 02/01/24 21:00 02/01/24 22:05 DC Morphine Sulfate 2 mg Q30M PRN IV FOR CHEST PAIN 02/01/24 21:00 Acetaminophen/ Hydrocodone Bitart ([place] 5/325MG Tab) 1 tab Q4HP PRN PO MODERATE PAIN (4-6 PAIN SCALE) 02/01/24 21:45 Ondansetron HCl (Zofran) 4 mg Q4HP PRN IV NAUSEA / VOMITING 02/01/24 21:45 Acetaminophen (Tylenol Tablet) 650 mg Q6HP PRN PO PAIN SCALE 1-3 OR TEMP>100.4 02/01/24 21:45 Morphine Sulfate 2 mg Q4HPRN PRN IV SEVERE PAIN (7-10 PAIN SCALE) 02/01/24 21:45 Enoxaparin Sodium (Lovenox) 40 mg DAILY SC 02/02/24 10:00 Nitroglycerin (Ntrostat Sublingual) 0.4 mg Q5MINP PRN SL FOR CHEST PAIN 02/01/24 21:45 Morphine Sulfate 2 mg Q30M PRN IV FOR CHEST PAIN 02/01/24 21:45 Piperacillin Sod/ Tazobactam Sod 100 ml @ 25 mls/hr Q8HR IV 02/01/24 22:00 02/02/24 06:42 Pantoprazole Sodium (Protonix) 40 mg DAILY IV 02/02/24 10:00 Atorvastatin Calcium (Lipitor) 10 mg HS PO 02/02/24 22:00 Aspirin 81 mg DAILY NG 02/02/24 10:00 Vital Signs Vital Signs Date Time Temp Pulse Resp B/P (MAP) Pulse Ox O2 Delivery O2 Flow Rate FiO2 02/02/24 09:24 126/46 02/02/24 09:00 92 18 97 02/02/24 08:18 30 02/02/24 07:45 97.6 97.6 02/02/24 07:45 Mechanical Ventilator+ Physical Exam Gen.: Patient lying in bed in medical ICU. Sedated, intubated on mechanical ventilator. Head: Normocephalic, atraumatic. Eyes: PERRLA. Ears: Normal external anatomy. Throat: Endotracheal tube and orogastric tube in place. Neck: Supple, trachea midline. Chest: Transmitted breath sounds bilaterally. Decreased air entry bilaterally. No wheezing. Bibasilar crackles. Cardiovascular: Positive S1, positive S2. Regular rate and rhythm. Abdomen: Positive bowel sounds in all 4 quadrants. Soft, nontender, nondistended. : Méndez in place. Normal external genitalia. Rectal: Deferred. Skin: Warm, dry. Intact. Extremities: 2+ radial pulses bilaterally. No lower extremity edema. Neuro: Sedated. Labs/Diagnostic Data Labs Test 02/02/24 08:55 02/02/24 06:50 02/02/24 04:30 02/02/24 00:30 Range/Units Blood Gas Specimen Type Arterial Blood Gas Sample Site Right radial Blood Gas Patient Temperature 37.0 Arterial Blood Date Drawn [id number] Arterial Blood pH 7.508 H 7.350-7.450 Arterial Blood Partial Pressure CO2 44.6 32.0-45.0 mmHg Arterial Blood Partial Pressure O2 73.7 L 83.0-108.0 mmHg Arterial Blood HCO3 34.6 H 21.0-28.0 mmol/L Arterial Blood Oxygen Saturation 92.8 L 94.0-98.0 % Arterial Blood Base Excess 10.5 H -2.0-3.0 mmol/L Arterial Blood Oxyhemoglobin 91.0 L 94.0-98.0 % Arterial Blood Carboxyhemoglobin 1.9 H 0.5-1.5 % Arterial Blood Methemoglobin 0.0 0.0-1.5 % Maximino Test Modified Blood Gas Total Hemoglobin 9.60 L 12.0-16.0 g/dL Blood Gas Set Respiration Rate 18.0 Blood Gas Modality Vent - ac FiO2 % 30.0 Blood Gas Tidal Volume 500.0 Blood Gas PEEP or CPAP 5.0 Influenza Type A Antigen Negative Negative Influenza Type B Antigen Negative Negative SARS-CoV-2 Antigen (Rapid) Negative NEGATIVE White Blood Count 9.4 4.4-10.8 10^3/uL Red Blood Count 3.95 L 4.0-5.20 10^6/uL Hemoglobin 11.5 L 12.2-16.2 g/dL Hematocrit 36.8 36.0-46.0 % Mean Corpuscular Volume 93.2 80.0-100.0 fL Mean Corpuscular Hemoglobin 29.1 28.0-32.0 pg Mean Corpuscular Hemoglobin Concent 31.2 L 32.0-36.0 g/dL Red Cell Distribution Width 16.4 H 11.8-14.3 % Platelet Count 219 140-450 10^3/uL Mean Platelet Volume 9.1 6.9-10.8 fL Neutrophils (%) (Auto) 88.1 H 37.0-80.0 % Lymphocytes (%) (Auto) 7.0 L 10.0-50.0 % Monocytes (%) (Auto) 4.4 0.0-12.0 % Eosinophils (%) (Auto) 0.3 0.0-7.0 % Basophils (%) (Auto) 0.2 0.0-2.0 % Neutrophils # (Auto) 8.3 1.6-8.6 10 ^3/uL Lymphocytes # (Auto) 0.7 0.4-5.4 10 ^3/uL Monocytes # (Auto) 0.4 0-1.3 10 ^3/uL Eosinophils # (Auto) 0 0-0.8 10 ^3/uL Basophils # (Auto) 0 0-0.2 10 ^3/uL Nucleated Red Blood Cells 0.1 % Sodium Level 142 136-145 mmol/L Potassium Level 4.7 3.5-5.1 mmol/L Chloride Level 96 L 98-107 mmol/L Carbon Dioxide Level 37 H 20-31 mmol/L Anion Gap 9 5-15 Blood Urea Nitrogen 25 H 9-23 mg/dL Creatinine 1.33 H 0.550-1.02 mg/dL Glomerular Filtration Rate Calc 41 >90 mL/min BUN/Creatinine Ratio 18.8 10.0-20.0 Serum Glucose 232 H 74-106 mg/dL Calcium Level 11.0 H 8.7-10.4 mg/dL Total Bilirubin 0.4 0.2-1.0 mg/dL Aspartate Amino Transferase (AST) 94 H 13-40 U/L Alanine Aminotransferase (ALT) 135 H 7-40 U/L Alkaline Phosphatase 88 46-116 U/L Total Protein 6.9 5.7-8.2 g/dL Albumin 4.4 3.2-4.8 g/dL Triglycerides Level 55 < 150 mg/dL Cholesterol Level 125 < 200 mg/dL LDL Cholesterol 48 < 100 mg/dL HDL Cholesterol 55 40-59 mg/dL Troponin I High Sensitivity 39 *H </=34 ng/L Test 02/01/24 21:58 02/01/24 20:35 02/01/24 20:18 02/01/24 19:42 Range/Units Lactic Acid Level 1.1 0.4-2.0 mmol/L Blood Gas Critical Value Read Back Yes Blood Gas Notified Whom Dr. pilo dougherty Blood Gas Notified Time [id number] Blood Gas Notified By Rt b dsouza Urine Color Light-yellow Yellow Urine Clarity Clear Clear Urine pH 6.0 5.0-9.0 Urine Specific [place] 1.009 1.001-1.035 Urine Protein Negative Negative Urine Ketones Negative Negative Urine Blood Negative Negative /uL Urine Nitrite Negative Negative Urine Bilirubin Negative Negative Urine Urobilinogen Normal Negative mg/dL Urine Leukocyte Esterase Negative Negative /uL Urine RBC 1 0 - 4 /hpf Urine WBC <1 0 - 5 /hpf Urine Squamous Epithelial Cells Few <5 /hpf Urine Bacteria None seen None Seen /hpf Urine Glucose Normal Normal mg/dL Test 02/01/24 19:05 Range/Units Differential Total Cells Counted 100.0 100 Neutrophils % (Manual) 29 L 37.0-80.0 Band Neutrophils % (Manual) 0 Lymphocytes % (Manual) 51 H 10.0-50.0 Monocytes % (Manual) 10 0-12 Eosinophils % (Manual) 10 H 0-7 Basophils % (Manual) 0 0.0-2.0 Metamyelocytes % (manual) 0 Myelocytes % (Manual) 0 Promyelocytes % (Manual) 0 Blast Cells % (Manual) 0 Reactive Lymphocytes 0 Platelet Estimate Adequate Poikilocytosis (manual) Slight Anisocytosis (manual) Slight Prothrombin Time 10.3 9.3-11.8 sec Prothrombin Time INR 0.97 0.9-1.15 Activated Partial Thromboplast Time 23.1 L 24.5-34.5 SEC D-Dimer, Quantitative > 35.20 H 0.0-0.49 mg/L FEU B-Type Natriuretic Peptide 68.68 0-100 pg/mL Lipase 31 12-53 U/L Microbiology Date/Time Source Procedure Growth Status 02/01/24 19:42 Sputum Gram Stain Pending Resulted 02/01/24 19:42 Sputum Respiratory Culture - Preliminary Resulted Assessment Impression: Acute hypoxic respiratory failure Acute hypercarbic respiratory failure On mechanical ventilator S/p cardiopulmonary arrest Elevated troponin Septic shock Obesity BMI 38.3 Pulmonary edema Plan: s/p intubation on mechanical ventilator. CXR image and report reviewed. Devices in place. Nonspecific diffuse bilateral interstitial opacities.. No pneumothorax. No pleural effusion. ABG reviewed, notable for acidemia d/t hypercarbia. On AC mode; RR 18, VT 500, PEEP 5, FiO2 100% Titrate FIO2 to keep O2 saturation above 90%. VAP bundle. Daily ABG and CXR while intubated Sedate for ventilator synchrony - On Versed and Fentanyl S/p right IJ central line placement. Elevated troponin - Follow up Cardiology recommendations. Continue antibiotics. F/u cultures. On pressors (Levophed) for hemodynamic support Titrate to keep mean arterial pressure greater than 65 mmHg. Monitor renal function Monitor electrolytes. Supplement as necessary. Monitor ins and outs. GI/DVT prophylaxis. Prognosis: Poor given patient's multiple co-morbidities. Condition: Critical Rest of plan per hospitalist and other consultants. A total of 35 minutes of critical care time was spent reviewing the patient record, examining the patient, making a diagnostic and therapeutic plan, discussing this plan with the medical personnel, following up on diagnostic studies and following the patient for clinical stability excluding any and all procedures. At least 50% of this time was spent in direct, [id number] contact. Thank you, Rhea Gibson NP, for allowing me to participate in this patient's care. Further recommendations will depend on the patient's clinical course. Please do not hesitate to contact me if you have any questions or concerns. This medical document was created using an electronic medical record system with [employer] dictation system. Although these documentations are being carefully reviewed, there may still be some phonetic and typographical changes. The errors are purely typographical, due to imperfection on the software progr am, and do not reflect any compromise in the patient's medical care. Plan discussed with: Other (RN/AMIRA Gibson/) MARI KILGORE MD Feb 02, 2024 09:40
--- NOTE | 2024-02-02 09:47 | DVHINCON2 ---
Date of service: Feb 02, 2024 History of Present Illness HPI Patient is a 78-year-old female who presented with shortness of breath. She is intubated at the time of evaluation and not source of history. Information was obtained by reviewing the chart and communicating with staff. Reportedly, the patient lives in a nursing facility and EMS were called because the patient had used all of her medications for asthma and was still short of breath. Repor tedly, while transferring the patient to the hospital the patient suffered Arrest and CPR was performed successfully. Patient was intubated. There has been no tele/EKG rhythm at the time of arrest to review. At the time of evaluation patient is nonresponsive. Cardiology is involved for cardiac aspects of care. There is questionable old history of myocardial infarction as per s taff. Review of the transfer notes from nursing facility do not comment on any coronary artery disease. Past Medical History Others Reported past medical history includes COPD/asthma, cataract, osteoarthritis, diabetes mellitus, obstructive sleep apnea. As per communications from nursing facility, the patient uses walker for ambulation and reportedly patient has been frail prior to this presentation. Family History As the patient is intubated and noncommunicative, family history can not be obtained Review of Systems Comments As the patient is intubated and noncommunicative, family history/social history/review of system can not be obtained H&P Exam Vital Signs Vital Signs Date Time Temp Pulse Resp B/P (MAP) Pulse Ox O2 Delivery O2 Flow Rate FiO2 02/02/24 09:24 126/46 02/02/24 09:00 92 18 97 02/02/24 08:18 30 02/02/24 07:45 97.6 97.6 02/02/24 07:45 Mechanical Ventilator+ General Appeara: Other (Intubated) Pulmonary/Respiratory: Rhonci, Wheezing Cardiovascular/Chest: Normal inspection, Systolic murmur Peripheral Pulses: 2+ carotid (R), 2+ carotid (L), 2+ femoral (R), 2+ femoral (L), 2+ dorsalis pedis (R), 2+ dorsalis pedis (L), 2+ Radial (R), 2+ Radial (L) Abdominal Exam: Normal bowel sounds, Soft Labs/Xrays Labs Test 02/02/24 08:55 02/02/24 06:50 02/02/24 04:02/02/24 00:30 Range/Units Blood Gas Specimen Type Arterial Blood Gas Sample Site Right radial Blood Gas Patient Temperature 37.0 Arterial Blood Date Drawn [id number] Arterial Blood pH 7.508 H 7.350-7.450 Arterial Blood Partial Pressure CO2 44.6 32.0-45.0 mmHg Arterial Blood Partial Pressure O2 73.7 L 83.0-108.0 mmHg Arterial Blood HCO3 34.6 H 21.0-28.0 mmol/L Arterial Blood Oxygen Saturation 92.8 L 94.0-98.0 % Arterial Blood Base Excess 10.5 H -2.0-3.0 mmol/L Arterial Blood Oxyhemoglobin 91.0 L 94.0-98.0 % Arterial Blood Carboxyhemoglobin 1.9 H 0.5-1.5 % Arterial Blood Methemoglobin 0.0 0.0-1.5 % Maximino Test Modified Blood Gas Total Hemoglobin 9.60 L 12.0-16.0 g/dL Blood Gas Set Respiration Rate 18.0 Blood Gas Modality Vent - ac FiO2 % 30.0 Blood Gas Tidal Volume 500.0 Blood Gas PEEP or CPAP 5.0 Influenza Type A Antigen Negative Negative Influenza Type B Antigen Negative Negative SARS-CoV-2 Antigen (Rapid) Negative NEGATIVE White Blood Count 9.4 4.4-10.8 10^3/uL Red Blood Count 3.95 L 4.0-5.20 10^6/uL Hemoglobin 11.5 L 12.2-16.2 g/dL Hematocrit 36.8 36.0-46.0 % Mean Corpuscular Volume 93.2 80.0-100.0 fL Mean Corpuscular Hemoglobin 29.1 28.0-32.0 pg Mean Corpuscular Hemoglobin Concent 31.2 L 32.0-36.0 g/dL Red Cell Distribution Width 16.4 H 11.8-14.3 % Platelet Count 219 140-450 10^3/uL Mean Platelet Volume 9.1 6.9-10.8 fL Neutrophils (%) (Auto) 88.1 H 37.0-80.0 % Lymphocytes (%) (Auto) 7.0 L 10.0-50.0 % Monocytes (%) (Auto) 4.4 0.0-12.0 % Eosinophils (%) (Auto) 0.3 0.0-7.0 % Basophils (%) (Auto) 0.2 0.0-2.0 % Neutrophils # (Auto) 8.3 1.6-8.6 10 ^3/uL Lymphocytes # (Auto) 0.7 0.4-5.4 10 ^3/uL Monocytes # (Auto) 0.4 0-1.3 10 ^3/uL Eosinophils # (Auto) 0 0-0.8 10 ^3/uL Basophils # (Auto) 0 0-0.2 10 ^3/uL Nucleated Red Blood Cells 0.1 % Sodium Level 142 136-145 mmol/L Potassium Level 4.7 3.5-5.1 mmol/L Chloride Level 96 L 98-107 mmol/L Carbon Dioxide Level 37 H 20-31 mmol/L Anion Gap 9 5-15 Blood Urea Nitrogen 25 H 9-23 mg/dL Creatinine 1.33 H 0.550-1.02 mg/dL Glomerular Filtration Rate Calc 41 >90 mL/min BUN/Creatinine Ratio 18.8 10.0-20.0 Serum Glucose 232 H 74-106 mg/dL Calcium Level 11.0 H 8.7-10.4 mg/dL Total Bilirubin 0.4 0.2-1.0 mg/dL Aspartate Amino Transferase (AST) 94 H 13-40 U/L Alanine Aminotransferase (ALT) 135 H 7-40 U/L Alkaline Phosphatase 88 46-116 U/L Total Protein 6.9 5.7-8.2 g/dL Albumin 4.4 3.2-4.8 g/dL Triglycerides Level 55 < 150 mg/dL Cholesterol Level 125 < 200 mg/dL LDL Cholesterol 48 < 100 mg/dL HDL Cholesterol 55 40-59 mg/dL Troponin I High Sensitivity 39 *H </=34 ng/L Test 02/01/24 21:58 02/01/24 20:35 02/01/24 20:18 02/01/24 19:42 Range/Units Lactic Acid Level 1.1 0.4-2.0 mmol/L Blood Gas Critical Value Read Back Yes Blood Gas Notified Whom Dr. pilo dougherty Blood Gas Notified Time [id number] Blood Gas Notified By Rt don dsouza Urine Color Light-yellow Yellow Urine Clarity Clear Clear Urine pH 6.0 5.0-9.0 Urine Specific [place] 1.009 1.001-1.035 Urine Protein Negative Negative Urine Ketones Negative Negative Urine Blood Negative Negative /uL Urine Nitrite Negative Negative Urine Bilirubin Negative Negative Urine Urobilinogen Normal Negative mg/dL Urine Leukocyte Esterase Negative Negative /uL Urine RBC 1 0 - 4 /hpf Urine WBC <1 0 - 5 /hpf Urine Squamous Epithelial Cells Few <5 /hpf Urine Bacteria None seen None Seen /hpf Urine Glucose Normal Normal mg/dL Test 02/01/24 19:05 Range/Units Differential Total Cells Counted 100.0 100 Neutrophils % (Manual) 29 L 37.0-80.0 Band Neutrophils % (Manual) 0 Lymphocytes % (Manual) 51 H 10.0-50.0 Monocytes % (Manual) 10 0-12 Eosinophils % (Manual) 10 H 0-7 Basophils % (Manual) 0 0.0-2.0 Metamyelocytes % (manual) 0 Myelocytes % (Manual) 0 Promyelocytes % (Manual) 0 Blast Cells % (Manual) 0 Reactive Lymphocytes 0 Platelet Estimate Adequate Poikilocytosis (manual) Slight Anisocytosis (manual) Slight Prothrombin Time 10.3 9.3-11.8 sec Prothrombin Time INR 0.97 0.9-1.15 Activated Partial Thromboplast Time 23.1 L 24.5-34.5 SEC D-Dimer, Quantitative > 35.20 H 0.0-0.49 mg/L FEU B-Type Natriuretic Peptide 68.68 0-100 pg/mL Lipase 31 12-53 U/L Assessment/Plan Plan Patient is a 78-year-old female who presented with shortness of breath. She is intubated at the time of evaluation and not source of history. Information was obtained by reviewing the chart and communicating with staff. Reportedly, the patient lives in a nursing facility and EMS were called because the patient had used all of her medications for asthma and was still short of breath. Reportedly, while transferring the patient to the hospital the patient suffered Arrest and CPR was performed successfully. Patient was intubated. There has been no tele/EKG rhythm at the time of arrest to review. At the time of evaluation patient is nonresponsive. Cardiology is involved for cardiac aspects of care. There is questionable old history of myocardial infarction as per staff. Review of the transfer notes from nursing facility do not comment on any coronary artery disease. female, intubated. No JVD. Left pupil is small. Right pupil does have a oval-shaped in favor of prior eye problems. No JVD. Mucosa is pink and wet. Scattered rhonchi in the lungs is heard. Cardiac: Regular, no thrill/gallop. Systolic murmur 2/6 in apex is heard. Abdomen is soft. Bowel sound is positive. There is no gross mass/hepatomegaly. Extremities do not r eveal edema. Dorsalis pedis is 1+ bilateral Reported past medical history includes COPD/asthma, cataract, osteoarthritis, diabetes mellitus, obstructive sleep apnea. As per communications from nursing facility, the patient uses walker for ambulation and reportedly patient has been frail prior to this presentation. Creatinine: 1.34 - 1.33 Potassium: 5.9 - 3.9 - 4.7 Lactic acid: 5.5 - 1.1 AST/ALT: 75/99 - 94/135 BNP: 68.68 Troponin (high sensitive): 7 - 9 - 26 - 39 LDL: 48 D-dimer: >35 Chest x-ray revealed: Lines and Tubes: Endotracheal tube terminating 4.5 cm above the lois. Enteric tube crosses the diaphragm near midline and descends into the left upper quadrant. Right neck central venous catheter terminates over the SVC. Lungs: No focal consolidation. Diffuse bilateral interstitial opacities. Pleura: No effusion. No pneumothorax. Cardiomediastinal contours: Unremarkable Bones: No acute osseous abnormality. IMPRESSION: 1. Lines and tubes as described. 2. Nonspecific diffuse bilateral interstitial opacities. Venous Doppler of lower extremities reported: Impression: 1. No right or left femoropopliteal venous thrombosis. EKG revealed sinus rhythm with no ST-T changes Tele reveals sinus rhythm Patient is a 78-year-old female who presented to the hospital with shortness of breath/respiratory distress. Reportedly, the patient had arrest. She is intubated and on vent support. At the time of evaluation patient is nonresponsive and there is question of encephalopathy. Presentation and troponin is against acute coronary syndrome. Patient's D-dimer has been elevated and pulmonary emboli as a cause for presentation should be ruled out. It is of note that venous Doppler of lower extremities have been nonrevealing. Evaluation and management depends on regaining higher brain function status Arrest Respiratory failure, acute History of asthma/COPD Encephalopathy, anoxic? Diabetes mellitus Cataract Osteoarthritis Cardiac suggestion for management: Manage in unit Follow-up electrolytes and kidney function tests and correct abnormalities. Keep potassium above 4 and magnesium above 2. Avoid hyperkalemia. Echocardiogram CT angiography of the lungs to rule out pulmonary emboli suggested Request for thyroid function test Aspirin: 81 mg daily suggested Lipitor: 10 mg at night is suggested Lovenox for now Pulmonary evaluation is suggested Neurology evaluation is suggested Cardiac evaluation and management depends on regaining higher brain function Further evaluation and management depends on the above and clinical course Thank you for consultation A total of 75 minutes was spent reviewing the patient record, examining the patient, making a diagnostic and therapeutic plan, discussing this plan with medical personnel, following up on diagnostic studies and following the patient for clinical stability excluding any and all procedures. At least 50% of this time was spent in direct, [id number] contact. Thank you for allowing me to participate in this patient's care. Further recommendations will depend on patient's clinical course. Please do not hesitate to contact me if you have any questions or concerns. This medical document was created using electronic medical record system with [employer] computerized dictation system. Although this document has been carefully reviewed, there may still be some phonetic and typographical errors. These areas are purely typographical due to the imperfection of the software programs, and do not reflect any compromise in the patient's medical care. Plan discussed with: Other (Nurse) DEBORAH FREIRE MD Feb 02, 2024 09:47
[2024-02-02] MEDS: ENOXAPARIN SOD 40 MG/0.4 ML SYRINGE SC SCH (10:28)
[2024-02-02] MEDS: PANTOPRAZOLE 40 MG/10 ML VIAL INJ IV SCH (10:28)
[2024-02-02] MEDS: ASPirin 81 mg TAB NG SCH (11:22)
--- NOTE | 2024-02-02 13:21 | DVH ---
EXAM: CT HEAD WITHOUT CONTRAST HISTORY: POST CARDIAC ARREST COMPARISON: None TECHNIQUE: Axial images of the head were obtained and reformatted in coronal and sagittal planes. All CT scans at this medical facility are performed using dose modulation techniques as appropriate t o a performed exam including the following: Automated exposure control was utilized; adjustment of th e MA and/or KV according to patient size; and use of iterative reconstruction technique. CT Dose: CTDI volume is 63.79 mGy. Dose-length product is 1384.45 mGy*cm FINDINGS: There is no evidence of acute intracranial hemorrhage, mass, mass effect midline shift. There is no h ydrocephalus or extra-axial fluid collection. Coleman-white matter differentiation is maintained. There is mild mucosal thickening in the paranasal sinuses. Mastoid air cells are clear. The mastoid air cells are clear. An endotracheal and enteric tube are in place. The calvarium is intact. IMPRESSION: 1. No acute intracranial process. HS:Y
--- NOTE | 2024-02-02 14:39 | DVHPN2 ---
Progress Note - Dictate Date Seen: Feb 02, 2024 Medical Necessity Reason Pt with a Central, PICC or Fol: No vital signs Vital Sign Date Time Temp Pulse Resp B/P (MAP) Pulse Ox O2 Delivery O2 Flow Rate FiO2 02/02/24 14:00 139/54 02/02/24 13:52 94 18 96 30 02/02/24 07:45 97.6 97.6 02/02/24 07:45 Mechanical Ventilator+ Total Intake and Output 02/01/24 02/01/24 02/02/24 15:00 23:00 07:00 Intake Total 89.0 ml 72.5 ml Output Total 2700 ml Balance 89.0 ml -2627.5 ml medications Current Medications Medications Dose Ordered Sig/Anastacio Route Start Time Stop Time Status Last Admin Dose Admin Midazolam HCl 50 ml @ 1 mls/hr Q24H IV 02/01/24 19:00 02/02/24 09:24 1 MLS/HR Norepinephrine Bitartrate 250 ml @ 3.75 mls/hr Q24H IV 02/01/24 19:00 02/01/24 19:00 3.75 MLS/HR Fentanyl Citrate 250 ml @ 2.5 mls/hr Q24H IV 02/01/24 20:15 02/01/24 21:10 2.5 MLS/HR Morphine Sulfate 2 mg Q30M PRN IV 02/01/24 21:00 Acetaminophen/ Hydrocodone Bitart 1 tab Q4HP PRN PO 02/01/24 21:45 Ondansetron HCl 4 mg Q4HP PRN IV 02/01/24 21:45 Acetaminophen 650 mg Q6HP PRN PO 02/01/24 21:45 Morphine Sulfate 2 mg Q4HPRN PRN IV 02/01/24 21:45 Nitroglycerin 0.4 mg Q5MINP PRN SL 02/01/24 21:45 Morphine Sulfate 2 mg Q30M PRN IV 02/01/24 21:45 Piperacillin Sod/ Tazobactam Sod 100 ml @ 25 mls/hr Q8HR IV 02/01/24 22:00 02/02/24 06:42 25 MLS/HR Pantoprazole Sodium 40 mg DAILY IV 02/02/24 10:00 02/02/24 10:28 40 MG Atorvastatin Calcium 10 mg HS PO 02/02/24 22:00 Aspirin 81 mg DAILY NG 02/02/24 10:00 02/02/24 11:22 81 MG Enoxaparin Sodium 100 mg DAILY SC 02/03/24 10:00 objective General Appearance: alert, no distress HEENT: EOMI, PERRLA, normal external inspect of ears, no icterus, no nasal drainage Neck: no carotid bruit, no jugular venous distention (JVD), no lymphadenopathy Chest: normal thorax Respiratory: clear to auscultation, normal air movement Cardiovascular: regular rate and rhythm, no diastolic murmur, no jugular venous distention (JVD), no rub, no systolic murmur Abdominal: soft, no hepatomegaly, no mass, no splenomegaly, no tenderness Genitourinary: grossly normal external Musculoskeletal: no joint tenderness, no swelling Extremities: normal pulses, no calf tenderness, no clubbing, no cyanosis, no edema Skin: no bruising, no jaundice, no rash Neurological: alert, No focal deficit laboratory and microbiology Laboratory Tests 02/02/24 04:30 Test 02/02/24 04:30 Range/Units Serum Glucose 232 H 74-106 mg/dL Problem List 1. Acute hypoxic respiratory failure Monitor, pulmonary consult 2. Status post cardio pulmonology arrest Monitor, cardiology consult, neurology consult, echocardiogram, CTA of chest, Doppler BLE to rule out DVT, full dose Lovenox 3. COPD exacerbation Monitor, IV antibiotics, IV fluids 4. Obesity Monitor, PPI 5. Benign essential hypertension Monitor Assessment/Plan Subjective: Patient remains intubated and sedated on the ventilator. Objective: Patient was admitted status post cardiac arrest. Patient apparently lives at assisted living facility. Patient lives at [facility] assisted living facility. Patient has a history of COPD and asthma. Patient has an elevated D-dimer. Per family, patient is allergic to contrast. Unable to do VQ scan at this time due to to patient being intubated. Pulmonary has been consulted for ventilator management. Patient was started on IV antibiotics. Plan: Neurology consult. Cardiology recommendations appreciated. Echocardiogram is pending. Continue antibiotics. Continue Med-Neb treatments. IV steroids. Plan discussed with: Patient, Other JORY LINDSEY NP Feb 02, 2024 14:39
[2024-02-02] MEDS ORDERED: BRIN1SUS LEFTEYE (15:14)
[2024-02-02] MEDS: SODIUM CHLORIDE 0.9% 1,000 ML IV SCH (15:17)
--- NOTE | 2024-02-02 20:01 | DVHINCON2 ---
Date of service: Feb 02, 2024 Referring Physician Rhea Reason for Consultation Cardiac arrest History of Present Illness Ms. Hardwick is a 78 years old female with a history of hypertension, diabetes, asthma, COPD, the patient was brought to the [facility] from her retirement for altered mental status/cardiopulmonary arrest. At that time, she was sedated, on pressor drip, sedation, the history is obtained from her son, the chart review, her nurse Apparently, the patient was experiencing respiratory distress, and she was mentally altered, when EMS came over, her problems deteriorated, and the on the way to the hospital, she coded but was resuscitated, but unfortunately, she coded again for 4 minutes (Blue code, 02/01/2024 18:48 - 02/01/2024 18:52) in the ER UDS, 02/01/2024: Urinalysis, 02/01/2024: Unremarkable ABG, 02/01/2024: Respiratory acidosis WBC/HB/PLT/MCV, 02/02/2024: 9.4/11.5/219/93.2 HCO3, 02/01/2024: 32, 02/02/2024: 37 BUN/CR, 02/01/2024: 23/1.34. 02/02/2024: 25/1.33 Lactic acid, 02/01/2024: 5.5 TG/HDL/LDL/HDL, 02/02/2024: 55/125/48/55 CT head, 02/02/2024:No acute intracranial process Hypertension, diabetes, asthma, COPD She has a surgical scar in the stomach Hypertension, diabetes She does not smoke, no history of alcohol or recreational substance abuse Unobtainable The patient is well-nourished and well-developed with no distress. The patient is intubated HEENT: Normocephalic, neck supple, no carotid bruits Lungs: Clear to auscultation Cardiovascular: Regular rate and region, S1, S2, no murmurs Abdomen: Soft, nontender, normal bowel sounds MENTAL STATUS: Responsive to strong painful stimuli CRANIAL NERVES: Pupils are equal, round and nonreactive, small. There are c orneal reflexes and doll's eyes phenomenon. No signs of facial weakness. There are gagging or coughing reflexes SENSATION: Responses to pain stimuli. MOTOR: Normal tone in the upper and lower extremity. Normal muscle bulk. No fasciculations. No spontaneous movement. REFLEXES: Deep tendon reflexes are symmetrical. No pathological reflexes. CEREBELLAR/COORDINATION: Deferred GAIT/STATION: deferred. Coma Hypoxic encephalopathy Metabolic encephalopathy Respiratory failure Respiratory acidosis Chronic kidney failure Monitoring Supportive treatment EEG Follow-up CT brain scan ICU care Stabilize vitals/pressor drip Respiratory support/vent management Oxygen GI prophylaxis Cardiology on case Pulmonology on case More recommendation per clinical course Progress: Guarded This medical document was created using an electronic medical record system with [employer] dictation system. Although this document has been carefully reviewed, there may still be some phonetic and typographical errors. These areas are purely typographical due to imperfections of the software programs, and do not reflect any compromise in the patient's medical care. Past Medical History Hypertension, diabetes, asthma, COPD Past Surgical History She has a surgical scar in the stomach Family History Hypertension, diabetes Social History She does not smoke, no history of alcohol or recreational substance abuse Allergies: Coded Allergies: UNOBTAINABLE (Unverified , 02/01/24) Home Meds Reported Medications Clotrimazole (Topical) (Clotrimazole Anti-Fungal) 1 % Cre, 1 APPLIC EX UD for 30 Days, #45 02/02/24 Fluticasone-Salmeterol (Advair Hfa 115-21 Mcg/Act) 1 Aer Aer, 1 AER IN UD for 90 Days, #12 02/02/24 Diclofenac Sodium (Topical) (Diclofenac Sodium) 1 % Gel, 1 APPLIC TD UD for 30 Days, #100 02/02/24 Insulin Glargine (Lantus Solostar) 100 Unit/Ml Inj, UNIT SC UD for 60 Days, #15 02/02/24 Montelukast Sodium (MONTELUKAST SODIUM) 10 Mg Tab, 1 TAB PO DAILY for 90 Days, #90 02/02/24 Semaglutide (Ozempic) 2 Mg/3 Ml Inj, 0.5 MG SC QWEEKLY for 28 Days, #3 02/02/24 Brinzolamide (Brinzolamide) 1 % Libby, 1 DROP LEFTEYE TID for 55 Days, #10 02/02/24 Folic Acid (Folic Acid) 1 Mg Tab, 1 TAB PO DAILY for 30 Days, #30 02/02/24 Magnesium Oxide (MAGNESIUM OXIDE) 400 Mg Tab, 1 TAB PO QPM for 30 Days, #30 02/02/24 Brimonidine Tartrate (Brimonidine Tartrate) 0.2 % Sydni, 1 DROP EACHEYE Q8HR for 30 Days, #5 02/02/24 Latanoprost (LATANOPROST) 0.005 % Sydni, 1 DROP EACHEYE QPM for 30 Days, #2.5 02/02/24 Furosemide (Furosemide) 40 Mg Tab, 1 TAB PO DAILY for 30 Days, #30 02/02/24 Tramadol Hcl (Tramadol Hcl) 50 Mg Tab, 1 TAB PO BID PRN for 15 Days, #30 02/02/24 Omeprazole (Omeprazole Dr) 40 Mg Cap, 1 CAP PO DAILY for 30 Days, #30 02/02/24 Leflunomide (Arava) 20 Mg Tab, 1 TAB PO DAILY for 30 Days, #30 02/02/24 Metoprolol Succinate (Metoprolol Succinate Er) 25 Mg Tab, 1 TAB PO DAILY for 30 Days, #30 02/02/24 Albuterol Sulfate (Albuterol Sulfate Hfa) 108 Mcg/Act Aer, 2 PUFF IN Q6HR PRN for 25 Days, #18 02/02/24 Methotrexate (Methotrexate) 2.5 Mg Tab, 4 TAB PO QWEEKLY for 28 Days, #16 02/02/24 Current Medications Current Medications Medications (Trade) Dose Ordered Sig/Anastacio Route PRN Reason Start Time Stop Time Status Last Admin Fentanyl Citrate 250 ml @ 2.5 mls/hr Q24H IV 02/01/24 20:15 02/01/24 21:10 Nitroglycerin (Ntrostat Sublingual) 0.4 mg Q5MINP PRN SL FOR CHEST PAIN 02/01/24 21:00 02/01/24 22:05 DC Morphine Sulfate 2 mg Q30M PRN IV FOR CHEST PAIN 02/01/24 21:00 Acetaminophen/ Hydrocodone Bitart (Reedy 5/325MG Tab) 1 tab Q4HP PRN PO MODERATE PAIN (4-6 PAIN SCALE) 02/01/24 21:45 Ondansetron HCl (Zofran) 4 mg Q4HP PRN IV NAUSEA / VOMITING 02/01/24 21:45 Acetaminophen (Tylenol Tablet) 650 mg Q6HP PRN PO PAIN SCALE 1-3 OR TEMP>100.4 02/01/24 21:45 Morphine Sulfate 2 mg Q4HPRN PRN IV SEVERE PAIN (7-10 PAIN SCALE) 02/01/24 21:45 Enoxaparin Sodium (Lovenox) 40 mg DAILY SC 02/02/24 10:00 02/02/24 14:11 DC 02/02/24 10:28 Nitroglycerin (Ntrostat Sublingual) 0.4 mg Q5MINP PRN SL FOR CHEST PAIN 02/01/24 21:45 Morphine Sulfate 2 mg Q30M PRN IV FOR CHEST PAIN 02/01/24 21:45 Piperacillin Sod/ Tazobactam Sod 100 ml @ 25 mls/hr Q8HR IV 02/01/24 22:00 02/02/24 15:57 Pantoprazole Sodium (Protonix) 40 mg DAILY IV 02/02/24 10:00 02/02/24 10:28 Atorvastatin Calcium (Lipitor) 10 mg HS PO 02/02/24 22:00 Aspirin 81 mg DAILY NG 02/02/24 10:00 02/02/24 11:22 Enoxaparin Sodium (Lovenox) 100 mg DAILY SC 02/03/24 10:00 Sodium Chloride 1,000 ml @ 60 mls/hr [id number] IV 02/02/24 14:45 02/02/24 15:17 Review of Systems Unobtainable Vital Signs Vital Signs Date Time Temp Pulse Resp B/P (MAP) Pulse Ox O2 Delivery O2 Flow Rate FiO2 02/02/24 19:18 133/56 02/02/24 19:06 95 18 97 30 02/02/24 07:45 97.6 97.6 02/02/24 07:45 Mechanical Ventilator+ Physical Exam The patient is well-nourished and well-developed with no distress. The patient is intubated HEENT: Normocephalic, neck supple, no carotid bruits Lungs: Clear to auscultation Cardiovascular: Regular rate and region, S1, S2, no murmurs Abdomen: Soft, nontender, normal bowel sounds MENTAL STATUS: Responsive to strong painful stimuli CRANIAL NERVES: Pupils are equal, round and nonreactive, small. There are corneal reflexes and doll's eyes phenomenon. No signs of facial weakness. There are gagging or coughing reflexes SENSATION: Responses to pain stimuli. MOTOR: Normal tone in the upper and lower extremity. Normal muscle bulk. No fasciculations. No spontaneous movement. REFLEXES: Deep tendon reflexes are symmetrical. No pathological reflexes. CEREBELLAR/COORDINATION: Deferred GAIT/STATION: deferred. Labs/Diagnostic Data Labs Test 02/02/24 08:55 02/02/24 06:50 02/02/24 04:30 02/02/24 00:30 Range/Units Blood Gas Specimen Type Arterial Blood Gas Sample Site Right radial Blood Gas Patient Temperature 37.0 Arterial Blood Date Drawn [id number] Arterial Blood pH 7.508 H 7.350-7.450 Arterial Blood Partial Pressure CO2 44.6 32.0-45.0 mmHg Arterial Blood Partial Pressure O2 73.7 L 83.0-108.0 mmHg Arterial Blood HCO3 34.6 H 21.0-28.0 mmol/L Arterial Blood Oxygen Saturation 92.8 L 94.0-98.0 % Arterial Blood Base Excess 10.5 H -2.0-3.0 mmol/L Arterial Blood Oxyhemoglobin 91.0 L 94.0-98.0 % Arterial Blood Carboxyhemoglobin 1.9 H 0.5-1.5 % Arterial Blood Methemoglobin 0.0 0.0-1.5 % Maximino Test Modified Blood Gas Total Hemoglobin 9.60 L 12.0-16.0 g/dL Blood Gas Set Respiration Rate 18.0 Blood Gas Modality Vent - ac FiO2 % 30.0 Blood Gas Tidal Volume 500.0 Blood Gas PEEP or CPAP 5.0 Influenza Type A Antigen Negative Negative Influenza Type B Antigen Negative Negative SARS-CoV-2 Antigen (Rapid) Negative NEGATIVE White Blood Count 9.4 4.4-10.8 10^3/uL Red Blood Count 3.95 L 4.0-5.20 10^6/uL Hemoglobin 11.5 L 12.2-16.2 g/dL Hematocrit 36.8 36.0-46.0 % Mean Corpuscular Volume 93.2 80.0-100.0 fL Mean Corpuscular Hemoglobin 29.1 28.0-32.0 pg Mean Corpuscular Hemoglobin Concent 31.2 L 32.0-36.0 g/dL Red Cell Distribution Width 16.4 H 11.8-14.3 % Platelet Count 219 140-450 10^3/uL Mean Platelet Volume 9.1 6.9-10.8 fL Neutrophils (%) (Auto) 88.1 H 37.0-80.0 % Lymphocytes (%) (Auto) 7.0 L 10.0-50.0 % Monocytes (%) (Auto) 4.4 0.0-12.0 % Eosinophils (%) (Auto) 0.3 0.0-7.0 % Basophils (%) (Auto) 0.2 0.0-2.0 % Neutrophils # (Auto) 8.3 1.6-8.6 10 ^3/uL Lymphocytes # (Auto) 0.7 0.4-5.4 10 ^3/uL Monocytes # (Auto) 0.4 0-1.3 10 ^3/uL Eosinophils # (Auto) 0 0-0.8 10 ^3/uL Basophils # (Auto) 0 0-0.2 10 ^3/uL Nucleated Red Blood Cells 0.1 % Sodium Level 142 136-145 mmol/L Potassium Level 4.7 3.5-5.1 mmol/L Chloride Level 96 L 98-107 mmol/L Carbon Dioxide Level 37 H 20-31 mmol/L Anion Gap 9 5-15 Blood Urea Nitrogen 25 H 9-23 mg/dL Creatinine 1.33 H 0.550-1.02 mg/dL Glomerular Filtration Rate Calc 41 >90 mL/min BUN/Creatinine Ratio 18.8 10.0-20.0 Serum Glucose 232 H 74-106 mg/dL Calcium Level 11.0 H 8.7-10.4 mg/dL Total Bilirubin 0.4 0.2-1.0 mg/dL Aspartate Amino Transferase (AST) 94 H 13-40 U/L Alanine Aminotransferase (ALT) 135 H 7-40 U/L Alkaline Phosphatase 88 46-116 U/L Total Protein 6.9 5.7-8.2 g/dL Albumin 4.4 3.2-4.8 g/dL Triglycerides Level 55 < 150 mg/dL Cholesterol Level 125 < 200 mg/dL LDL Cholesterol 48 < 100 mg/dL HDL Cholesterol 55 40-59 mg/dL Thyroid Stimulating Hormone (TSH) 0.96 0.55-4.78 uIU/mL Troponin I High Sensitivity 39 *H </=34 ng/L Test 02/01/24 21:58 02/01/24 20:35 02/01/24 20:18 02/01/24 19:42 Range/Units Lactic Acid Level 1.1 0.4-2.0 mmol/L Blood Gas Critical Value Read Back Yes Blood Gas Notified Whom Dr. pilo dougherty Blood Gas Notified Time [id number] Blood Gas Notified By Rt b meet Urine Color Light-yellow Yellow Urine Clarity Clear Clear Urine pH 6.0 5.0-9.0 Urine Specific Bejou 1.009 1.001-1.035 Urine Protein Negative Negative Urine Ketones Negative Negative Urine Blood Negative Negative /uL Urine Nitrite Negative Negative Urine Bilirubin Negative Negative Urine Urobilinogen Normal Negative mg/dL Urine Leukocyte Esterase Negative Negative /uL Urine RBC 1 0 - 4 /hpf Urine WBC <1 0 - 5 /hpf Urine Squamous Epithelial Cells Few <5 /hpf Urine Bacteria None seen None Seen /hpf Urine Glucose Normal Normal mg/dL Test 02/01/24 19:05 Range/Units Differential Total Cells Counted 100.0 100 Neutrophils % (Manual) 29 L 37.0-80.0 Band Neutrophils % (Manual) 0 Lymphocytes % (Manual) 51 H 10.0-50.0 Monocytes % (Manual) 10 0-12 Eosinophils % (Manual) 10 H 0-7 Basophils % (Manual) 0 0.0-2.0 Metamyelocytes % (manual) 0 Myelocytes % (Manual) 0 Promyelocytes % (Manual) 0 Blast Cells % (Manual) 0 Reactive Lymphocytes 0 Platelet Estimate Adequate Poikilocytosis (manual) Slight Anisocytosis (manual) Slight Prothrombin Time 10.3 9.3-11.8 sec Prothrombin Time INR 0.97 0.9-1.15 Activated Partial Thromboplast Time 23.1 L 24.5-34.5 SEC D-Dimer, Quantitative > 35.20 H 0.0-0.49 mg/L FEU B-Type Natriuretic Peptide 68.68 0-100 pg/mL Lipase 31 12-53 U/L Microbiology Date/Time Source Procedure Growth Status 02/01/24 19:42 Voided Urine Urine Culture - Preliminary Resulted 02/01/24 19:42 Sputum Gram Stain Pending Resulted 02/01/24 19:42 Sputum Respiratory Culture - Preliminary Resulted Assessment Coma Hypoxic encephalopathy Metabolic encephalopathy Respiratory failure Respiratory acidosis Chronic kidney failure Plan/Recommendation Monitoring Supportive treatment EEG Follow-up CT brain scan ICU care Stabilize vitals/pressor drip Respiratory support/vent management Oxygen GI prophylaxis Cardiology on case Pulmonology on case More recommendation per clinical course Progress: Guarded Critical care time spent is 45 minutes This medical document was created using an electronic medical record system with [employer] dictation system. Although this document has been carefully reviewed, there may still be some phonetic and typographical errors. These areas are purely typographical due to imperfections of the software programs, and do not reflect any compromise in the patient's medical care. Plan discussed with: Amy Jain QUANWEI MD Feb 02, 2024 20:01
[2024-02-02] MEDS: NOREPINEPHRINE 8 MG/250ML KIT 250 ML IV ONE (21:01)
[2024-02-02] MEDS: ATORVASTATIN 20 MG TAB PO SCH (22:00)
--- NOTE | 2024-02-02 22:48 | DVHPN2 ---
Progress Note - Dictate Date Seen: Feb 02, 2024 Medical Necessity Reason Pt with a Central, PICC or Fol: No Subjective Patient seen and examined at bedside. Sedated, intubated on mechanical ventilator. Overnight events reviewed. vital signs Vital Sign Date Time Temp Pulse Resp B/P (MAP) Pulse Ox O2 Delivery O2 Flow Rate FiO2 02/02/24 22:02 101 18 139/63 (88) 97 30 02/02/24 07:45 97.6 97.6 02/02/24 07:45 Mechanical Ventilator+ Total Intake and Output 02/01/24 02/01/24 02/02/24 15:00 23:00 07:00 Intake Total 89.0 ml 72.5 ml Output Total 2700 ml Balance 89.0 ml -2627.5 ml medications Current Medications Medications Dose Ordered Sig/Anastacio Route Start Time Stop Time Status Last Admin Dose Admin Midazolam HCl 50 ml @ 1 mls/hr Q24H IV 02/01/24 19:00 02/02/24 19:18 15 MLS/HR Norepinephrine Bitartrate 250 ml @ 3.75 mls/hr Q24H IV 02/01/24 19:00 02/01/24 19:00 3.75 MLS/HR Fentanyl Citrate 250 ml @ 2.5 mls/hr Q24H IV 02/01/24 20:15 02/01/24 21:10 2.5 MLS/HR Morphine Sulfate 2 mg Q30M PRN IV 02/01/24 21:00 Acetaminophen/ Hydrocodone Bitart 1 tab Q4HP PRN PO 02/01/24 21:45 Ondansetron HCl 4 mg Q4HP PRN IV 02/01/24 21:45 Acetaminophen 650 mg Q6HP PRN PO 02/01/24 21:45 Morphine Sulfate 2 mg Q4HPRN PRN IV 02/01/24 21:45 Nitroglycerin 0.4 mg Q5MINP PRN SL 02/01/24 21:45 Morphine Sulfate 2 mg Q30M PRN IV 02/01/24 21:45 Piperacillin Sod/ Tazobactam Sod 100 ml @ 25 mls/hr Q8HR IV 02/01/24 22:00 02/02/24 22:31 25 MLS/HR Pantoprazole Sodium 40 mg DAILY IV 02/02/24 10:00 02/02/24 10:28 40 MG Atorvastatin Calcium 10 mg HS PO 02/02/24 22:00 Aspirin 81 mg DAILY NG 02/02/24 10:00 02/02/24 11:22 81 MG Enoxaparin Sodium 100 mg DAILY SC 02/03/24 10:00 Sodium Chloride 1,000 ml @ 60 mls/hr [id number] IV 02/02/24 14:45 02/02/24 15:17 60 MLS/HR objective Gen.: Patient lying in bed in medical ICU. Sedated, intubated on mechanical ventilator. Head: Normocephalic, atraumatic. Eyes: PERRLA. Ears: Normal external anatomy. Throat: Endotracheal tube and orogastric tube in place. Neck: Supple, trachea midline. Chest: Transmitted breath sounds bilaterally. Decreased air entry bilaterally. No wheezing. Bibasilar crackles. Cardiovascular: Positive S1, positive S2. Regular rate and rhythm. Abdomen: Positive bowel sounds in all 4 quadrants. Soft, nontender, nondistended. : Méndez in place. Normal external genitalia. Rectal: Deferred. Skin: Warm, dry. Intact. Extremities: 2+ radial pulses bilaterally. No lower extremity edema. Neuro: Sedated. laboratory and microbiology Laboratory Tests 02/02/24 04:30 Test 02/02/24 04:30 Range/Units Serum Glucose 232 H 74-106 mg/dL Assessment/Plan Impression: Acute hypoxic respiratory failure On mechanical ventilator S/p cardiopulmonary arrest Acute hypercarbic respiratory failure Elevated troponin Septic shock Obesity Events: Remains on vent support On AC mode; RR 18, VT 500, PEEP 5, FiO2 30% Sedated on Versed On pressors for hemodynamic support On Levophed 2 mcg/min Titrate to keep mean arterial pressure greater than 65 mmHg. ABG reviewed, notable for alkalemia Follow up urine tox screen. Cardiology recs appreciated. Continue antibiotics F/u cultures. Labs and imaging reviewed. Rest of plan as noted below. Plan: s/p intubation on mechanical ventilator. CXR image and report reviewed. Devices in place. Nonspecific diffuse bilateral interstitial opacities.. No pneumothorax. No pleural effusion. On AC mode; RR 18, VT 500, PEEP 5, FiO2 30% Titrate FIO2 to keep O2 saturation above 90%. VAP bundle. Daily ABG and CXR while intubated Sedate for ventilator synchrony S/p right IJ central line placement. Elevated troponin - Cardiology recommendations appreciated. Continue antibiotics. F/u cultures. On pressors (Levophed) for hemodynamic support Titrate to keep mean arterial pressure greater than 65 mmHg. Monitor renal function Monitor electrolytes. Supplement as necessary. Monitor ins and outs. GI/DVT prophylaxis. Prognosis: Poor given patient's multiple co-morbidities. Condition: Critical Rest of plan per hospitalist and other consultants. A total of 35 minutes of critical care time was spent reviewing the patient record, examining the patient, making a diagnostic and therapeutic plan, discussing this plan with the medical personnel, following up on diagnostic studies and following the patient for clinical stability excluding any and all procedures. At least 50% of this time was spent in direct, [id number] contact. Thank you, Rhea Gibson NP, for allowing me to participate in this patient's care. Further recommendations will depend on the patient's clinical course. Please do not hesitate to contact me if you have any questions or concerns. This medical document was created using an electronic medical record system with [employer] dictation system. Although these documentations are being carefully reviewed, there may still be some phonetic and typographical changes. The errors are purely typographical, due to imperfection on the software program, and do not reflect any compromise in the patient's medical care. Plan discussed with: Other ([facility]) Critical Care Time(min): 35 MARI KILGORE MD Feb 02, 2024 22:48
[2024-02-03] VITALS (75 sets, daily range): BP systolic 102–152; BP diastolic 33–76; PULSE 67–111; RESP 14–23; TEMP 96.8–99.3; O2SAT 92–100
[2024-02-03] MEDS: ALBUTEROL SULF 2.5 MG/0.5ML(0.5%) NEB SOLN ONE (02:33)
[2024-02-03] MEDS: ALBUTEROL SULF 2.5 MG/0.5ML(0.5%) NEB SOLN NEB ONE (02:33)
--- NOTE | 2024-02-03 04:00 | DVH ---
CHEST RADIOGRAPH Indication: TUBE PLACEMENT Technique: Single frontal view of the chest was obtained Comparison: XY CHEST PORTABLE on DOS: 02/01/24, XY CHEST PORTABLE on DOS: 02/01/24 FINDINGS: Lines and Tubes: Endotracheal tube terminating 4.5 cm above the lois. Enteric tube crosses the diap hragm near midline and descends into the left upper quadrant. Right neck central venous catheter term inates over the SVC. Lungs: No focal consolidation. Diffuse bilateral interstitial opacities. Pleura: No effusion. No pneumothorax. Cardiomediastinal contours: Unremarkable Bones: No acute osseous abnormality. IMPRESSION: 1. Lines and tubes as described. 2. Nonspecific diffuse bilateral interstitial opacities.
[2024-02-03 05:23] LABS: Triglycerides 105 mg/dL (< 150)
[2024-02-03 05:24] LABS: LDL Cholesterol 38 mg/dL (< 100)
[2024-02-03 05:26] LABS: Cholesterol 101 mg/dL (< 200)
[2024-02-03 05:30] LABS: HDL Cholesterol 38 mg/dL (40-59)
--- NOTE | 2024-02-03 08:04 | DVHSR ---
APPROVED REPORT EXAM: Two-dimensional and M-mode echocardiogram with Doppler and color Doppler. Blood Pressure: 125/49 mmHg INDICATION Eval RISK FACTORS Obesity: Height: 5' 7", Weight: 220 DIMENSIONS LVDd3.5 (3.8-5.7cm)LA (2D)3.2 (1.9-4.0cm)Aortic Root (2.0-3.7cm) LVDs2.5 (2.5-4.0cm)LA (MM) (1.9-4.0cm)Aortic Cusp Exc (1.5-2.0cm) EF (%) 56.0 (55-70%)Rt. Atrium2.9 (1.9-4.0cm)Asc. Aorta cm IVSd1.0 (0.7-1.1cm)RV (D) (1.8-2.4cm) PWd1.0 (0.7-1.1cm) Mitral Valve MitralMitral Stenosis E wave0.70m/sMV Mean GR.mmHg A wave1.10m/sMV Peak GR.mmHg E/A ratio0.62D MVAcm2 Aortic Valve Aortic ValveAortic Stenosis V11.10m/Daisy Mean GR.3mmHg V21.10m/Daisy Peak GR.5mmHg LVOT Diameter2.0 (1.8-2.4cm)Doppler AVA3.14cm2 Tricuspid Valve TR Velocity2.60m/s [id number] Other Information Quality : Technically LimitedRhythm : Technically limited study due to on vent. Conclusion Left ventricle: Left ventricular systolic function was preserved. LDL was around 60% predicted ther e was no gross wall motion abnormality. Right ventricle was normal size with normal systolic function. Both atria were normal size. Aortic valve was not well visualized. There was no aortic insufficiency/stenosis. There was trivial mitral/tricuspid regurgitation. Pulmonic valve was not well visualized. Right ventricular systolic pressure was assessed around 38 mm Hg. There was no pericardial effusion.
--- NOTE | 2024-02-03 08:19 | DVHPN2 ---
Progress Note - Dictate Date Seen: Feb 03, 2024 Medical Necessity Reason Pt with a Central, PICC or Fol: Yes vital signs Vital Sign Date Time Temp Pulse Resp B/P (MAP) Pulse Ox O2 Delivery O2 Flow Rate FiO2 02/03/24 06:56 91 18 111/54 (73) 92 50 02/03/24 06:45 97.0 97.0 02/03/24 06:00 Mechanical Ventilator+ Total Intake and Output 02/02/24 02/02/24 02/03/24 15:00 23:00 07:00 Intake Total 95 ml 592.50 ml 654.25 ml Output Total 1100 ml 550 ml Balance 95 ml -507.50 ml 104.25 ml medications Current Medications Medications Dose Ordered Sig/Anastacio Route Start Time Stop Time Status Last Admin Dose Admin Midazolam HCl 50 ml @ 1 mls/hr Q24H IV 02/01/24 19:00 02/03/24 06:20 15 MLS/HR Norepinephrine Bitartrate 250 ml @ 3.75 mls/hr Q24H IV 02/01/24 19:00 02/01/24 19:00 3.75 MLS/HR Fentanyl Citrate 250 ml @ 2.5 mls/hr Q24H IV 02/01/24 20:15 02/01/24 21:10 2.5 MLS/HR Morphine Sulfate 2 mg Q30M PRN IV 02/01/24 21:00 Acetaminophen/ Hydrocodone Bitart 1 tab Q4HP PRN PO 02/01/24 21:45 Ondansetron HCl 4 mg Q4HP PRN IV 02/01/24 21:45 Acetaminophen 650 mg Q6HP PRN PO 02/01/24 21:45 Morphine Sulfate 2 mg Q4HPRN PRN IV 02/01/24 21:45 Nitroglycerin 0.4 mg Q5MINP PRN SL 02/01/24 21:45 Morphine Sulfate 2 mg Q30M PRN IV 02/01/24 21:45 Piperacillin Sod/ Tazobactam Sod 100 ml @ 25 mls/hr Q8HR IV 02/01/24 22:00 02/03/24 06:20 25 MLS/HR Pantoprazole Sodium 40 mg DAILY IV 02/02/24 10:00 02/02/24 10:28 40 MG Atorvastatin Calcium 10 mg HS PO 02/02/24 22:00 Aspirin 81 mg DAILY NG 02/02/24 10:00 02/02/24 11:22 81 MG Enoxaparin Sodium 100 mg DAILY SC 02/03/24 10:00 Sodium Chloride 1,000 ml @ 60 mls/hr [id number] IV 02/02/24 14:45 02/03/24 08:00 60 MLS/HR Albuterol 2.5 mg Q6HPRN PRN NEB 02/03/24 03:30 laboratory and microbiology Laboratory Tests 02/02/24 04:30 Test 02/02/24 04:30 Range/Units Serum Glucose 232 H 74-106 mg/dL Assessment/Plan Patient is a 78-year-old female who presented with shortness of breath. She is intubated at the time of evaluation and not source of history. Information was obtained by reviewing the chart and communicating with staff. Reportedly, the patient lives in a nursing facility and EMS were called because the patient had used all of her medications for asthma and was still short of breath. Reportedly, while transferring the patient to the hospital the patient suffered Arrest and CPR was performed successfully. Patient was intubated. There has been no tele/EKG rhythm at the time of arrest to review. At the time of evaluation patient is nonresponsive. Cardiology is involved for cardiac aspects of care. There is questionable old history of myocardial infarction as per staff. Review of the transfer notes from nursing facility do not comment on any coronary artery disease. female, intubated. No JVD. Left pupil is small. Right pupil does have a oval-shaped in favor of prior eye problems. No JVD. Mucosa is pink and wet. Scattered rhonchi in the lungs is heard. Cardiac: Regular, no thrill/gallop. Systolic murmur 2/6 in apex is heard. Abdomen is soft. Bowel sound is positive. There is no gross mass/hepatomegaly. Extremities do not reveal edema. Dorsalis pedis is 1+ bilateral Reported past medical history includes COPD/asthma, cataract, osteoarthritis, diabetes mellitus, obstructive sleep apnea. As per communications from nursing facility, the patient uses walker for ambulation and reportedly patient has been frail prior to this presentation. Creatinine: 1.34 - 1.33 Potassium: 5.9 - 3.9 - 4.7 Lactic acid: 5.5 - 1.1 AST/ALT: 75/99 - 94/135 BNP: 68.68 - 61.15 Troponin (high sensitive): 7 - 9 - 26 - 39 LDL: 48 - 38 TSH: 0.96 - 1.36 HgbA1c: 7.0 D-dimer: >35.20 Chest x-ray revealed: Lines and Tubes: Endotracheal tube terminating 4.5 cm above the lois. Enteric tube crosses the diaphragm near midline and descends into the left upper quadrant. Right neck central venous catheter terminates over the SVC. Lungs: No focal consolidation. Diffuse bilateral interstitial opacities. Pleura: No effusion. No pneumothorax. Cardiomediastinal contours: Unremarkable Bones: No acute osseous abnormality. IMPRESSION: 1. Lines and tubes as described. 2. Nonspecific diffuse bilateral interstitial opacities. Repeat chest xry reported: Lines and Tubes: Endotracheal tube terminating 4.5 cm above the lois. Enteric tube crosses the diaphragm near midline and descends into the left upper quadrant. Right neck central venous catheter terminates over the SVC. Lungs: No focal consolidation. Diffuse bilateral interstitial opacities. Pleura: No effusion. No pneumothorax. Cardiomediastinal contours: Unremarkable Bones: No acute osseous abnormality. IMPRESSION: 1. Lines and tubes as described. 2. Nonspecific diffuse bilateral interstitial opacities. CT of head reported: IMPRESSION: 1. No acute intracranial process. Venous Doppler of lower extremities reported: Impression: 1. No right or left femoropopliteal venous thrombosis. EKG revealed sinus rhythm with no ST-T changes Tele reveals sinus rhythm Echocardiogram revealed: Left ventricle: Left ventricular systolic function was preserved. LDL was around 60% predicted there was no gross wall motion abnormality. Right ventricle was normal size with normal systolic function. Both atria were normal size. Aortic valve was not well visualized. There was no aortic insufficiency/stenosis. There was trivial mitral/tricuspid regurgitation. Pulmonic valve was not well visualized. Right ventricular systolic pressure was assessed around 38 mm Hg. There was no pericardial effusion. Patient is a 78-year-old female who presented to the hospital with shortness of breath/respiratory distress. Reportedly, the patient had arrest. She is intubated and on vent support. At the time of evaluation patient is nonresponsive and there is question of encephalopathy. Presentation and troponin is against acute coronary syndrome. Patient's D-dimer has been elevated and pulmonary emboli as a cause for presentation should be ruled out. It is of note that venous Doppler of lower extremities have been nonrevealing. Evaluation and management depends on regaining higher brain function status. Also, as per son, patient had been specifically refusing any contrast/iodine related tests/CT scans (which by comparison include cardiac cath). Family wanted us to wait until patient regains consciousness and decide herself. Echo revealed good LV systolic function, valves are working ok. Patient is seen by Neurology who is contemplating Hypoxic Encephalopathy. Pulmonary on the case. For now, V/Q scan is suggested. Arrest Respiratory failure, acute History of asthma/COPD Encephalopathy, anoxic? Diabetes mellitus Cataract Osteoarthritis Septic shock Cardiac suggestion for management: Manage in unit Follow-up electrolytes and kidney function tests and correct abnormalities. Keep potassium above 4 and magnesium above 2. Avoid hyperkalemia. Aspirin: 81 mg daily suggested Lipitor: 10 mg at night is suggested Lovenox for now Pressure support to keep MAP above 65 mmHg Consider V/Q scan Pulmonary follow up Neurology follow up Cardiac evaluation and management depends on regaining higher brain function Further evaluation and management depends on the above and clinical course A total of 75 minutes was spent reviewing the patient record, examining the patient, making a diagnostic and therapeutic plan, discussing this plan with medical personnel, following up on diagnostic studies and following the patient for clinical stability excluding any and all procedures. At least 50% of this time was spent in direct, [id number] contact. Thank you for allowing me to participate in this patient's care. Further recommendations will depend on patient's clinical course. Please do not hesitate to contact me if you have any questions or concerns. This medical document was created using electronic medical record system with [employer] computerized dictation system. Although this document has been carefully reviewed, there may still be some phonetic and typographical errors. These areas are purely typographical due to the imperfection of the software programs, and do not reflect any compromise in the patient's medical care. Plan discussed with: Other (nurse) DEBORAH FREIRE MD Feb 03, 2024 08:19
[2024-02-03] MEDS: ALBUTEROL SULF 2.5 MG/0.5ML(0.5%) NEB SOLN NEB PRN (08:42)
--- NOTE | 2024-02-03 08:51 | DVHPN2 ---
Progress Note - Dictate Date Seen: Feb 03, 2024 Medical Necessity Reason Pt with a Central, PICC or Fol: Yes Subjective Ms. Hardwick is a 78 years old female with a history of hypertension, diabetes, asthma, COPD, the patient was brought to the [facility] for altered mental status/cardiopulmonary arrest. I have seen and examined the patient, discussed with her nurse, and respiratory therapist. The patient was remained sedated, intubated, only responsive to stroke painful stimuli his slightly, Fentanyl 75 mcg/hour UDS, 02/01/2024: Urinalysis, 02/01/2024: Unremarkable ABG, 02/01/2024: Respiratory acidosis WBC/HB/PLT/MCV, 02/02/2024: 9.4/11.5/219/93.2 HCO3, 02/01/2024: 32, 02/02/2024: 37 BUN/CR, 02/01/2024: 23/1.34. 02/02/2024: 25/1.33 Lactic acid, 02/01/2024: 5.5 TG/HDL/LDL/HDL, 02/02/2024: 55/125/48/55 TSH, 02/03/2024: 1.36 CT head, 02/02/2024:No acute intracranial process vital signs Vital Sign Date Time Temp Pulse Resp B/P (MAP) Pulse Ox O2 Delivery O2 Flow Rate FiO2 02/03/24 08:45 95 18 95 02/03/24 08:33 118/63 (81) 50 02/03/24 06:45 97.0 97.0 02/03/24 06:00 Mechanical Ventilator+ Total Intake and Output 02/02/24 02/02/24 02/03/24 15:00 23:00 07:00 Intake Total 95 ml 592.50 ml 654.25 ml Output Total 1100 ml 550 ml Balance 95 ml -507.50 ml 104.25 ml medications Current Medications Medications Dose Ordered Sig/Anastacio Route Start Time Stop Time Status Last Admin Dose Admin Midazolam HCl 50 ml @ 1 mls/hr Q24H IV 02/01/24 19:00 02/03/24 06:20 15 MLS/HR Norepinephrine Bitartrate 250 ml @ 3.75 mls/hr Q24H IV 02/01/24 19:00 02/01/24 19:00 3.75 MLS/HR Fentanyl Citrate 250 ml @ 2.5 mls/hr Q24H IV 02/01/24 20:15 02/01/24 21:10 2.5 MLS/HR Morphine Sulfate 2 mg Q30M PRN IV 02/01/24 21:00 Acetaminophen/ Hydrocodone Bitart 1 tab Q4HP PRN PO 02/01/24 21:45 Ondansetron HCl 4 mg Q4HP PRN IV 02/01/24 21:45 Acetaminophen 650 mg Q6HP PRN PO 02/01/24 21:45 Morphine Sulfate 2 mg Q4HPRN PRN IV 02/01/24 21:45 Nitroglycerin 0.4 mg Q5MINP PRN SL 02/01/24 21:45 Morphine Sulfate 2 mg Q30M PRN IV 02/01/24 21:45 Piperacillin Sod/ Tazobactam Sod 100 ml @ 25 mls/hr Q8HR IV 02/01/24 22:00 02/03/24 06:20 25 MLS/HR Pantoprazole Sodium 40 mg DAILY IV 02/02/24 10:00 02/02/24 10:28 40 MG Atorvastatin Calcium 10 mg HS PO 02/02/24 22:00 Aspirin 81 mg DAILY NG 02/02/24 10:00 02/02/24 11:22 81 MG Enoxaparin Sodium 100 mg DAILY SC 02/03/24 10:00 Sodium Chloride 1,000 ml @ 60 mls/hr [id number] IV 02/02/24 14:45 02/03/24 08:00 60 MLS/HR Albuterol 2.5 mg Q6HPRN PRN NEB 02/03/24 03:30 02/03/24 08:42 2.5 MG objective The patient is well-nourished and well-developed with no distress. The patient is intubated MENTAL STATUS: Responsive to strong painful stimuli CRANIAL NERVES: Pupils are equal, round and nonreactive, small. There are corneal reflexes and doll's eyes phenomenon. No signs of facial weakness. There are gagging or coughing reflexes SENSATION: Responses to pain stimuli. MOTOR: Normal tone in the upper and lower extremity. Normal muscle bulk. No fasciculations. No spontaneous movement. REFLEXES: Deep tendon reflexes are symmetrical. No pathological reflexes. CEREBELLAR/COORDINATION: Deferred GAIT/STATION: deferred. laboratory and microbiology Laboratory Tests 02/02/24 04:30 Test 02/02/24 04:30 Range/Units Serum Glucose 232 H 74-106 mg/dL Problem List Coma Hypoxic encephalopathy Metabolic encephalopathy Respiratory failure Respiratory acidosis Chronic kidney failure Assessment/Plan Monitoring Supportive treatment EEG Follow-up CT brain scan ICU care Stabilize vitals/pressor drip Respiratory support/vent management Oxygen GI prophylaxis Cardiology on case Pulmonology on case More recommendation per clinical course This medical document was created using an electronic medical record system with [employer] dictation system. Although this document has been carefully reviewed, there may still be some phonetic and typographical errors. These areas are purely typographical due to imperfections of the software programs, and do not reflect any compromise in the patient's medical care. Prognosis Guarded Plan discussed with: Other Critical Care Time(min): 35 SARAH LALA MD Feb 03, 2024 08:51
[2024-02-03 09:42] LABS: Base Excess 3.7 mmol/L (-2.0-3.0)
[2024-02-03] MEDS: ENOXAPARIN SOD 100 MG/1 ML SYRINGE SC SCH (09:44)
--- NOTE | 2024-02-03 12:53 | DVHPN2 ---
Progress Note - Dictate Date Seen: Feb 03, 2024 Medical Necessity Reason Pt with a Central, PICC or Fol: Yes vital signs Vital Sign Date Time Temp Pulse Resp B/P (MAP) Pulse Ox O2 Delivery O2 Flow Rate FiO2 02/03/24 12:01 96 18 133/61 (85) 93 50 02/03/24 10:15 97.3 207.1 02/03/24 10:00 Mechanical Ventilator+ Total Intake and Output 02/02/24 02/02/24 02/03/24 15:00 23:00 07:00 Intake Total 95 ml 592.50 ml 654.25 ml Output Total 1100 ml 550 ml Balance 95 ml -507.50 ml 104.25 ml medications Current Medications Medications Dose Ordered Sig/Anastacio Route Start Time Stop Time Status Last Admin Dose Admin Midazolam HCl 50 ml @ 1 mls/hr Q24H IV 02/01/24 19:00 02/03/24 09:44 7.5 MLS/HR Norepinephrine Bitartrate 250 ml @ 3.75 mls/hr Q24H IV 02/01/24 19:00 02/01/24 19:00 3.75 MLS/HR Fentanyl Citrate 250 ml @ 2.5 mls/hr Q24H IV 02/01/24 20:15 02/01/24 21:10 2.5 MLS/HR Morphine Sulfate 2 mg Q30M PRN IV 02/01/24 21:00 Acetaminophen/ Hydrocodone Bitart 1 tab Q4HP PRN PO 02/01/24 21:45 Ondansetron HCl 4 mg Q4HP PRN IV 02/01/24 21:45 Acetaminophen 650 mg Q6HP PRN PO 02/01/24 21:45 Morphine Sulfate 2 mg Q4HPRN PRN IV 02/01/24 21:45 Nitroglycerin 0.4 mg Q5MINP PRN SL 02/01/24 21:45 Morphine Sulfate 2 mg Q30M PRN IV 02/01/24 21:45 Piperacillin Sod/ Tazobactam Sod 100 ml @ 25 mls/hr Q8HR IV 02/01/24 22:00 02/03/24 06:20 25 MLS/HR Pantoprazole Sodium 40 mg DAILY IV 02/02/24 10:00 02/03/24 09:44 40 MG Atorvastatin Calcium 10 mg HS PO 02/02/24 22:00 Aspirin 81 mg DAILY NG 02/02/24 10:00 02/03/24 09:45 81 MG Enoxaparin Sodium 100 mg DAILY SC 02/03/24 10:00 02/03/24 09:44 100 MG Sodium Chloride 1,000 ml @ 60 mls/hr [id number] IV 02/02/24 14:45 02/03/24 08:00 60 MLS/HR Albuterol 2.5 mg Q6HPRN PRN NEB 02/03/24 03:30 02/03/24 08:42 2.5 MG objective General Appearance: alert, no distress HEENT: EOMI, PERRLA, normal external inspect of ears, no icterus, no nasal drainage Neck: no carotid bruit, no jugular venous distention (JVD), no lymphadenopathy Chest: normal thorax Respiratory: clear to auscultation, normal air movement Cardiovascular: regular rate and rhythm, no diastolic murmur, no jugular venous distention (JVD), no rub, no systolic murmur Abdominal: soft, no hepatomegaly, no mass, no splenomegaly, no tenderness Genitourinary: grossly normal external Musculoskeletal: no joint tenderness, no swelling Extremities: normal pulses, no calf tenderness, no clubbing, no cyanosis, no edema Skin: no bruising, no jaundice, no rash Neurological: alert, No focal deficit laboratory and microbiology Laboratory Tests 02/02/24 04:30 Test 02/02/24 04:30 Range/Units Serum Glucose 232 H 74-106 mg/dL Problem List 1. Acute hypoxic respiratory failure Monitor, pulmonary consult 2. Status post cardio pulmonology arrest Monitor, cardiology consult, neurology consult, echocardiogram, CTA of chest, Doppler BLE to rule out DVT, full dose Lovenox 3. COPD exacerbation Monitor, IV antibiotics, IV fluids 4. Obesity Monitor, PPI 5. Benign essential hypertension Monitor 6. Pneumonia Monitor, Pulmonary consult, IV antibiotics, Med-Neb treatments 7. Septic shock Monitor, IV antibiotics, IV fluids, vasopressors as needed 8. Elevated troponins Monitor, Cardiology consult, trend troponin levels, monitor EKG 9. Elevated D-dimer Monitor, VQ scan Assessment/Plan Subjective: Patient remains intubated and currently off sedation. Objective: Patient was admitted for acute hypoxic respiratory failure status post cardiac arrest. Patient does have an elevated D-dimer. Unable to do CTA of the chest due to family refusing IV contrast. Patient will need VQ scan once extubated. Plan: Continue IV antibiotics. Ventilator management per pulmonary. Monitor daily labs. Monitor EKG. Plan discussed with: Patient, Other JORY LINDSEY NP Feb 03, 2024 12:53
[2024-02-03] MEDS ORDERED: VANCOMYCIN PER PHARMACY 0 MG IV SCH (13:45)
[2024-02-03] MEDS: VANCOMYCIN 1GM/250mL NS or D5W KIT IV SCH (15:42)
[2024-02-03] MEDS: MUPIROCIN 2% OINT 15gm or 22gm FOR MRSA NARES EACHNOSTRI SCH (22:00)
--- NOTE | 2024-02-03 23:06 | DVHPN2 ---
Progress Note - Dictate Date Seen: Feb 03, 2024 Medical Necessity Reason Pt with a Central, PICC or Fol: Yes The following are medically ne: Meng Catheter Reason for meng catheter: Strict I&O Subjective Patient seen and examined at bedside. Sedated, intubated on mechanical ventilator. Overnight events reviewed. vital signs Vital Sign Date Time Temp Pulse Resp B/P (MAP) Pulse Ox O2 Delivery O2 Flow Rate FiO2 02/03/24 22:30 99.1 108 21 115/67 (83) 210.4 02/03/24 22:15 93 30 02/03/24 22:00 Mechanical Ventilator+ 02/03/24 10:00 30.0 Total Intake and Output 02/02/24 02/02/24 02/03/24 15:00 23:00 07:00 Intake Total 95 ml 592.50 ml 736.75 ml Output Total 1100 ml 550 ml Balance 95 ml -507.50 ml 186.75 ml medications Current Medications Medications Dose Ordered Sig/Anastacio Route Start Time Stop Time Status Last Admin Dose Admin Midazolam HCl 50 ml @ 1 mls/hr Q24H IV 02/01/24 19:00 02/03/24 09:44 7.5 MLS/HR Norepinephrine Bitartrate 250 ml @ 3.75 mls/hr Q24H IV 02/01/24 19:00 02/01/24 19:00 3.75 MLS/HR Fentanyl Citrate 250 ml @ 2.5 mls/hr Q24H IV 02/01/24 20:15 02/01/24 21:10 2.5 MLS/HR Morphine Sulfate 2 mg Q30M PRN IV 02/01/24 21:00 Acetaminophen/ Hydrocodone Bitart 1 tab Q4HP PRN PO 02/01/24 21:45 Ondansetron HCl 4 mg Q4HP PRN IV 02/01/24 21:45 Acetaminophen 650 mg Q6HP PRN PO 02/01/24 21:45 Morphine Sulfate 2 mg Q4HPRN PRN IV 02/01/24 21:45 Nitroglycerin 0.4 mg Q5MINP PRN SL 02/01/24 21:45 Morphine Sulfate 2 mg Q30M PRN IV 02/01/24 21:45 Piperacillin Sod/ Tazobactam Sod 100 ml @ 25 mls/hr Q8HR IV 02/01/24 22:00 02/03/24 22:15 25 MLS/HR Pantoprazole Sodium 40 mg DAILY IV 02/02/24 10:00 02/03/24 09:44 40 MG Atorvastatin Calcium 10 mg HS PO 02/02/24 22:00 02/03/24 22:15 10 MG Aspirin 81 mg DAILY NG 02/02/24 10:00 02/03/24 09:45 81 MG Enoxaparin Sodium 100 mg DAILY SC 02/03/24 10:00 02/03/24 09:44 100 MG Sodium Chloride 1,000 ml @ 60 mls/hr [id number] IV 02/02/24 14:45 02/03/24 08:00 60 MLS/HR Albuterol 2.5 mg Q6HPRN PRN NEB 02/03/24 03:30 02/03/24 08:42 2.5 MG Vancomycin HCl 0 ml @ 0 mls/hr UD IV 02/03/24 13:45 Mupirocin 1 applic BID EACHNOSTRI 02/03/24 22:00 02/08/24 21:59 Vancomycin HCl 250 ml @ 200 mls/hr Q18H IV 02/04/24 10:00 objective Gen.: Patient lying in bed in medical ICU. Sedated, intubated on mechanical ventilator. Head: Normocephalic, atraumatic. Eyes: PERRLA. Ears: Normal external anatomy. Throat: Endotracheal tube and orogastric tube in place. Neck: Supple, trachea midline. Chest: Transmitted breath sounds bilaterally. Decreased air entry bilaterally. No wheezing. Bibasilar crackles. Cardiovascular: Positive S1, positive S2. Regular rate and rhythm. Abdomen: Positive bowel sounds in all 4 quadrants. Soft, nontender, nondistended. : Meng in place. Normal external genitalia. Rectal: Deferred. Skin: Warm, dry. Intact. Extremities: 2+ radial pulses bilaterally. No lower extremity edema. Neuro: Sedated. laboratory and microbiology Laboratory Tests 02/02/24 04:30 Test 02/02/24 04:30 Range/Units Serum Glucose 232 H 74-106 mg/dL Assessment/Plan Impression: Acute hypoxic respiratory failure On mechanical ventilator S/p cardiopulmonary arrest Acute hypercarbic respiratory failure Elevated troponin Septic shock Obesity Pulmonary edema Events: Remains on vent support On AC mode; RR 18, VT 450, PEEP 5, FiO2 30% Sedated on Versed, Fentanyl Off Levophed, hemodynamically stable. ABG reviewed, compensated. Continue antibiotics Blood cultures w/ no growth after 48 hours. IV fluids at 60 ml/hr. Cardiology recs appreciated. CTA refused by family. We will obtain V/Q scan to r/o pulmonary embolism. Taper sedation as tolerated CPAP trial w/ PS 8, PEEP of 5 Obtain ABG in 1 hour Labs and imaging reviewed. Rest of plan as noted below. Plan: s/p intubation on mechanical ventilator. CXR image and report reviewed. Devices in place. Nonspecific diffuse bilateral interstitial opacities.. No pneumothorax. No pleural effusion. On AC mode; RR 18, VT 450, PEEP 5, FiO2 30% Titrate FIO2 to keep O2 saturation above 90%. VAP bundle. Daily ABG and CXR while intubated Sedate for ventilator synchrony S/p right IJ central line placement. Elevated troponin - Cardiology recommendations appreciated. Continue antibiotics. F/u cultures. Pressors as necessary for hemodynamic support Titrate to keep mean arterial pressure greater than 65 mmHg - currently off, hemodynamically stable. Monitor renal function Monitor electrolytes. Supplement as necessary. Monitor ins and outs. GI/DVT prophylaxis. Prognosis: Poor given patient's multiple co-morbidities. Condition: Critical Rest of plan per hospitalist and other consultants. A total of 35 minutes of critical care time was spent reviewing the patient record, examining the patient, making a diagnostic and therapeutic plan, discussing this plan with the medical personnel, following up on diagnostic studies and following the patient for clinical stability excluding any and all procedures. At least 50% of this time was spent in direct, [id number] contact. Thank you, Rhea Gibson NP, for allowing me to participate in this patient's care. Further recommendations will depend on the patient's clinical course. Please do not hesitate to contact me if you have any questions or concerns. This medical document was created using an electronic medical record system with [employer] system. Although these documentations are being carefully reviewed, there may still be some phonetic and typographical changes. The errors are purely typographical, due to imperfection on the software program, and do not reflect any compromise in the patient's medical care. Plan discussed with: Other ([facility]MA Ferreira) Critical Care Time(min): 35 MARI KILGORE MD Feb 03, 2024 23:06
[2024-02-04] VITALS (98 sets, daily range): BP systolic 104–172; BP diastolic 41–90; PULSE 98–115; RESP 10–39; TEMP 97.9–100.6; O2SAT 94–97
[2024-02-04 04:10] LABS: Basophils # (auto) 0.1 10 ^3/uL (0-0.2); Eosinophils # (auto) 0.6 10 ^3/uL (0-0.8); Eosinophils % (auto) 8.2 % (0.0-7.0); Hematocrit 28.4 % (36.0-46.0); Hemoglobin 8.9 g/dL (12.2-16.2); Lymphocytes # (auto) 0.8 10 ^3/uL (0.4-5.4); Lymphocytes % (auto) 11.8 % (10.0-50.0); Mean Corpuscular Hemoglobin 29.2 pg (28.0-32.0); Mean Corpuscular Hgb Conc. 31.5 g/dL (32.0-36.0); Mean Corpuscular Volume 92.7 fL (80.0-100.0); Monocytes # (auto) 0.7 10 ^3/uL (0-1.3); Monocytes % (auto) 10.7 % (0.0-12.0); Neutrophils # (auto) 4.7 10 ^3/uL (1.6-8.6); Neutrophils % (auto) 68.3 % (37.0-80.0); Platelet Count (auto) 164 10^3/uL (140-450); Red Blood Cells 3.06 10^6/uL (4.0-5.20); Red Cell Distribution Width 16.2 % (11.8-14.3); White Blood Cell 6.9 10^3/uL (4.4-10.8)
[2024-02-04] MEDS: ONDANSETRON HCL 4 MG/2 ML VIAL IV PRN (04:15)
[2024-02-04 04:19] LABS: Calcium 9.5 mg/dL (8.7-10.4); Potassium 3.9 mmol/L (3.5-5.1)
[2024-02-04 04:24] LABS: Albumin 3.3 g/dL (3.2-4.8)
[2024-02-04 04:26] LABS: BUN/Creatinine Ratio 17.4 (10.0-20.0)
[2024-02-04 04:28] LABS: Phosphorus 2.3 mg/dL (2.4-5.1)
--- NOTE | 2024-02-04 06:11 | DVHPN2 ---
Progress Note - Dictate Date Seen: Feb 04, 2024 Medical Necessity Reason Pt with a Central, PICC or Fol: Yes The following are medically ne: Meng Catheter Reason for meng catheter: Strict I&O vital signs Vital Sign Date Time Temp Pulse Resp B/P (MAP) Pulse Ox O2 Delivery O2 Flow Rate FiO2 02/04/24 04:30 98.8 115 22 159/77 (104) 209.8 02/04/24 04:00 96 Mechanical Ventilator+ 30 30 02/03/24 10:00 30.0 Total Intake and Output 02/03/24 02/03/24 02/04/24 15:00 23:00 07:00 Intake Total 501.25 ml 1055 ml 460 ml Output Total 800 ml Balance 501.25 ml 255 ml 460 ml medications Current Medications Medications Dose Ordered Sig/Anastacio Route Start Time Stop Time Status Last Admin Dose Admin Midazolam HCl 50 ml @ 1 mls/hr Q24H IV 02/01/24 19:00 02/03/24 09:44 7.5 MLS/HR Norepinephrine Bitartrate 250 ml @ 3.75 mls/hr Q24H IV 02/01/24 19:00 02/01/24 19:00 3.75 MLS/HR Fentanyl Citrate 250 ml @ 2.5 mls/hr Q24H IV 02/01/24 20:15 02/01/24 21:10 2.5 MLS/HR Morphine Sulfate 2 mg Q30M PRN IV 02/01/24 21:00 Acetaminophen/ Hydrocodone Bitart 1 tab Q4HP PRN PO 02/01/24 21:45 Ondansetron HCl 4 mg Q4HP PRN IV 02/01/24 21:45 02/04/24 04:15 4 MG Acetaminophen 650 mg Q6HP PRN PO 02/01/24 21:45 Morphine Sulfate 2 mg Q4HPRN PRN IV 02/01/24 21:45 Nitroglycerin 0.4 mg Q5MINP PRN SL 02/01/24 21:45 Morphine Sulfate 2 mg Q30M PRN IV 02/01/24 21:45 Piperacillin Sod/ Tazobactam Sod 100 ml @ 25 mls/hr Q8HR IV 02/01/24 22:00 02/03/24 22:15 25 MLS/HR Pantoprazole Sodium 40 mg DAILY IV 02/02/24 10:00 02/03/24 09:44 40 MG Atorvastatin Calcium 10 mg HS PO 02/02/24 22:00 02/03/24 22:15 10 MG Aspirin 81 mg DAILY NG 02/02/24 10:00 02/03/24 09:45 81 MG Enoxaparin Sodium 100 mg DAILY SC 02/03/24 10:00 02/03/24 09:44 100 MG Sodium Chloride 1,000 ml @ 60 mls/hr [id number] IV 02/02/24 14:45 02/04/24 00:44 60 MLS/HR Albuterol 2.5 mg Q6HPRN PRN NEB 02/03/24 03:30 02/03/24 08:42 2.5 MG Vancomycin HCl 0 ml @ 0 mls/hr UD IV 02/03/24 13:45 Mupirocin 1 applic BID EACHNOSTRI 02/03/24 22:00 02/08/24 21:59 Vancomycin HCl 250 ml @ 200 mls/hr Q18H IV 02/04/24 10:00 laboratory and microbiology Laboratory Tests 02/04/24 03:43 Test 02/04/24 03:43 Range/Units Serum Glucose 194 H 74-106 mg/dL Assessment/Plan Patient is a 78-year-old female who presented with shortness of breath. She is intubated at the time of evaluation and not source of history. Information was obtained by reviewing the chart and communicating with staff. Reportedly, the patient lives in a nursing facility and EMS were called because the patient had used all of her medications for asthma and was still short of breath. Reportedly, while transferring the patient to the hospital the patient suffered Arrest and CPR was performed successfully. Patient was intubated. There has been no tele/EKG rhythm at the time of arrest to review. At the time of evaluation patient is nonresponsive. Cardiology is involved for cardiac aspects of care. There is questionable old history of myocardial infarction as per staff. Review of the transfer notes from nursing facility do not comment on any coronary artery disease. female, intubated. No JVD. Left pupil is small. Right pupil does have a oval-shaped in favor of prior eye problems. No JVD. Mucosa is pink and wet. Scattered rhonchi in the lungs is heard. Cardiac: Regular, no thrill/gallop. Systolic murmur 2/6 in apex is heard. Abdomen is soft. Bowel sound is positive. There is no gross mass/hepatomegaly. Extremities do not reveal edema. Dorsalis pedis is 1+ bilateral Reported past medical history includes COPD/asthma, cataract, osteoarthritis, diabetes mellitus, obstructive sleep apnea. As per communications from nursing facility, the patient uses walker for ambulation and reportedly patient has been frail prior to this presentation. Creatinine: 1.34 - 1.33 - 0.92 Potassium: 5.9 - 3.9 - 4.7 - 3.9 Lactic acid: 5.5 - 1.1 AST/ALT: 75/99 - 94/135 BNP: 68.68 - 61.15 Troponin (high sensitive): 7 - 9 - 26 - 39 LDL: 48 - 38 TSH: 0.96 - 1.36 HgbA1c: 7.0 D-dimer: >35.20 Chest x-ray revealed: Lines and Tubes: Endotracheal tube terminating 4.5 cm above the lois. Enteric tube crosses the diaphragm near midline and descends into the left upper quadrant. Right neck central venous catheter terminates over the SVC. Lungs: No focal consolidation. Diffuse bilateral interstitial opacities. Pleura: No effusion. No pneumothorax. Cardiomediastinal contours: Unremarkable Bones: No acute osseous abnormality. IMPRESSION: 1. Lines and tubes as described. 2. Nonspecific diffuse bilateral interstitial opacities. Repeat chest xry reported: Lines and Tubes: Endotracheal tube terminating 4.5 cm above the lois. Enteric tube crosses the diaphragm near midline and descends into the left upper quadrant. Right neck central venous catheter terminates over the SVC. Lungs: No focal consolidation. Diffuse bilateral interstitial opacities. Pleura: No effusion. No pneumothorax. Cardiomediastinal contours: Unremarkable Bones: No acute osseous abnormality. IMPRESSION: 1. Lines and tubes as described. 2. Nonspecific diffuse bilateral interstitial opacities. CT of head reported: IMPRESSION: 1. No acute intracranial process. Venous Doppler of lower extremities reported: Impression: 1. No right or left femoropopliteal venous thrombosis. EKG revealed sinus rhythm with no ST-T changes Tele reveals sinus rhythm Echocardiogram revealed: Left ventricle: Left ventricular systolic function was preserved. LDL was around 60% predicted there was no gross wall motion abnormality. Right ventricle was normal size with normal systolic function. Both atria were normal size. Aortic valve was not well visualized. There was no aortic insufficiency/stenosis. There was trivial mitral/tricuspid regurgitation. Pulmonic valve was not well visualized. Right ventricular systolic pressure was assessed around 38 mm Hg. There was no pericardial effusion. Patient is a 78-year-old female who presented to the hospital with shortness of breath/respiratory distress. Reportedly, the patient had arrest. She is intubated and on vent support. At the time of evaluation patient is nonresponsive and there is question of encephalopathy. Presentation and troponin is against acute coronary syndrome. Patient's D-dimer has been elevated and pulmonary emboli as a cause for presentation should be ruled out. It is of note that venous Doppler of lower extremities have been nonrevealing. Evaluation and management depends on regaining higher brain function status. Also, as per son, patient had been specifically refusing any contrast/iodine related tests/CT scans (which by comparison include cardiac cath). Family wanted us to wait until patient regains consciousness and decide herself. Echo revealed good LV systolic function, valves are working ok. Patient is seen by Neurology who is contemplating Hypoxic Encephalopathy. Pulmonary on the case. For now, V/Q scan is suggested. Arrest Respiratory failure, acute History of asthma/COPD Encephalopathy, Hypoxic? , Metabolic? Diabetes mellitus Cataract Osteoarthritis Septic shock Cardiac suggestion for management: Manage in unit Follow-up electrolytes and kidney function tests and correct abnormalities. Keep potassium above 4 and magnesium above 2. Avoid hyperkalemia. Aspirin: 81 mg daily suggested Lipitor: 10 mg at night is suggested Lovenox for now Pressure support to keep MAP above 65 mmHg Consider V/Q scan Pulmonary follow up Neurology follow up Cardiac evaluation and management depends on regaining higher brain function Further evaluation and management depends on the above and clinical course A total of 75 minutes was spent reviewing the patient record, examining the patient, making a diagnostic and therapeutic plan, discussing this plan with medical personnel, following up on diagnostic studies and following the patient for clinical stability excluding any and all procedures. At least 50% of this time was spent in direct, [id number] contact. Thank you for allowing me to participate in this patient's care. Further recommendations will depend on patient's clinical course. Please do not hesitate to contact me if you have any questions or concerns. This medical document was created using electronic medical record system with [employer] dictation system. Although this document has been carefully reviewed, there may still be some phonetic and typographical errors. These areas are purely typographical due to the imperfection of the software programs, and do not reflect any compromise in the patient's medical care. Plan discussed with: Other (nurse) DEBORAH FREIRE MD Feb 04, 2024 06:11
[2024-02-04 07:36] LABS: Base Excess 2.1 mmol/L (-2.0-3.0)
[2024-02-04] MEDS: VANCOMYCIN 1.25gm/250mL PREMIX or KIT IV SCH (10:42)
--- NOTE | 2024-02-04 16:01 | DVHPN2 ---
Progress Note - Dictate Date Seen: Feb 04, 2024 Medical Necessity Reason Pt with a Central, PICC or Fol: Yes The following are medically ne: Meng Catheter Reason for meng catheter: Strict I&O Subjective Patient seen and examined at bedside. Intubated on mechanical ventilator. Overnight events reviewed. vital signs Vital Sign Date Time Temp Pulse Resp B/P (MAP) Pulse Ox O2 Delivery O2 Flow Rate FiO2 02/04/24 15:46 105 20 162/69 (100) 95 30 02/04/24 10:00 Mechanical Ventilator+ 02/04/24 10:00 30.0 02/04/24 06:45 99.0 210.2 Total Intake and Output 02/03/24 02/03/24 02/04/24 15:00 23:00 07:00 Intake Total 501.25 ml 1055 ml 580 ml Output Total 800 ml 600 ml Balance 501.25 ml 255 ml -20 ml medications Current Medications Medications Dose Ordered Sig/Anastacio Route Start Time Stop Time Status Last Admin Dose Admin Midazolam HCl 50 ml @ 1 mls/hr Q24H IV 02/01/24 19:00 02/03/24 09:44 7.5 MLS/HR Norepinephrine Bitartrate 250 ml @ 3.75 mls/hr Q24H IV 02/01/24 19:00 02/01/24 19:00 3.75 MLS/HR Fentanyl Citrate 250 ml @ 2.5 mls/hr Q24H IV 02/01/24 20:15 02/01/24 21:10 2.5 MLS/HR Morphine Sulfate 2 mg Q30M PRN IV 02/01/24 21:00 Acetaminophen/ Hydrocodone Bitart 1 tab Q4HP PRN PO 02/01/24 21:45 Ondansetron HCl 4 mg Q4HP PRN IV 02/01/24 21:45 02/04/24 04:15 4 MG Acetaminophen 650 mg Q6HP PRN PO 02/01/24 21:45 Morphine Sulfate 2 mg Q4HPRN PRN IV 02/01/24 21:45 Nitroglycerin 0.4 mg Q5MINP PRN SL 02/01/24 21:45 Morphine Sulfate 2 mg Q30M PRN IV 02/01/24 21:45 Piperacillin Sod/ Tazobactam Sod 100 ml @ 25 mls/hr Q8HR IV 02/01/24 22:00 02/04/24 06:10 25 MLS/HR Pantoprazole Sodium 40 mg DAILY IV 02/02/24 10:00 02/04/24 10:29 40 MG Atorvastatin Calcium 10 mg HS PO 02/02/24 22:00 02/03/24 22:15 10 MG Aspirin 81 mg DAILY NG 02/02/24 10:00 02/04/24 10:29 81 MG Enoxaparin Sodium 100 mg DAILY SC 02/03/24 10:00 02/04/24 10:29 100 MG Sodium Chloride 1,000 ml @ 60 mls/hr [id number] IV 02/02/24 14:45 02/04/24 00:44 60 MLS/HR Albuterol 2.5 mg Q6HPRN PRN NEB 02/03/24 03:30 02/03/24 08:42 2.5 MG Vancomycin HCl 0 ml @ 0 mls/hr UD IV 02/03/24 13:45 Mupirocin 1 applic BID EACHNOSTRI 02/03/24 22:00 02/08/24 21:59 Vancomycin HCl 250 ml @ 200 mls/hr Q18H IV 02/04/24 10:00 02/04/24 10:42 200 MLS/HR Dexmedetomidine HCl 400 mcg/ Dextrose 100 ml @ 5.51 mls/hr Q18H9M IV 02/04/24 14:45 Hydralazine HCl 10 mg Q6HP PRN IV 02/04/24 14:45 objective Gen.: Patient lying in bed in medical ICU. Intubated on mechanical ventilator. Head: Normocephalic, atraumatic. Eyes: PERRLA. Ears: Normal external anatomy. Throat: Endotracheal tube and orogastric tube in place. Neck: Supple, trachea midline. Chest: Transmitted breath sounds bilaterally. Decreased air entry bilaterally. No wheezing. Bibasilar crackles. Cardiovascular: Positive S1, positive S2. Regular rate and rhythm. Abdomen: Positive bowel sounds in all 4 quadrants. Soft, nontender, nondistended. : Meng in place. Normal external genitalia. Rectal: Deferred. Skin: Warm, dry. Intact. Extremities: 2+ radial pulses bilaterally. No lower extremity edema. Neuro: Off sedation. laboratory and microbiology Laboratory Tests 02/04/24 03:43 Test 02/04/24 03:43 Range/Units Serum Glucose 194 H 74-106 mg/dL Assessment/Plan Impression: Acute hypoxic respiratory failure On mechanical ventilator S/p cardiopulmonary arrest Acute hypercarbic respiratory failure Elevated troponin Septic shock Obesity Pulmonary edema Events: Remains on vent support On AC mode; RR 18, VT 450, PEEP 5, FiO2 30% Off sedation Off Levophed, hemodynamically stable. ABG reviewed, compensated. Continue antibiotics - vancomycin. Blood cultures w/ no growth after 72 hours. IV fluids at 60 ml/hr. Cardiology recs appreciated. CTA refused by family. We will obtain V/Q scan to r/o pulmonary embolism. CPAP trial once patient is awake, alert and following commands. Labs and imaging reviewed. Rest of plan as noted below. Plan: s/p intubation on mechanical ventilator. CXR image and report reviewed. Devices in place. Nonspecific diffuse bilateral interstitial opacities.. No pneumothorax. No pleural effusion. On AC mode; RR 18, VT 450, PEEP 5, FiO2 30% Titrate FIO2 to keep O2 saturation above 90%. VAP bundle. Daily ABG and CXR while intubated Off sedation S/p right IJ central line placement. Elevated troponin - Cardiology recommendations appreciated. Continue antibiotics. F/u cultures. Pressors as necessary for hemodynamic support Titrate to keep mean arterial pressure greater than 65 mmHg - currently off, hemodynamically stable. Monitor renal function Monitor electrolytes. Supplement as necessary. Monitor ins and outs. GI/DVT prophylaxis. Prognosis: Poor given patient's multiple co-morbidities. Condition: Critical Rest of plan per hospitalist and other consultants. A total of 35 minutes of critical care time was spent reviewing the patient record, examining the patient, making a diagnostic and therapeutic plan, discussing this plan with the medical personnel, following up on diagnostic studies and following the patient for clinical stability excluding any and all procedures. At least 50% of this time was spent in direct, [id number] contact. Thank you, Rhea Gibson NP, for allowing me to participate in this patient's care. Further recommendations will depend on the patient's clinical course. Please do not hesitate to contact me if you have any questions or concerns. This medical document was created using an electronic medical record system with [email or web address] dictation system. Although these documentations are being carefully reviewed, there may still be some phonetic and typographical changes. The errors are purely typographical, due to imperfection on the software program, and do not reflect any compromise in the patient's medical care. Plan discussed with: Other (RN) Critical Care Time(min): 35 MARI KILGORE MD Feb 04, 2024 16:01
--- NOTE | 2024-02-04 17:07 | DVHPN2 ---
Progress Note - Dictate Date Seen: Feb 04, 2024 Medical Necessity Reason Pt with a Central, PICC or Fol: Yes The following are medically ne: Meng Catheter Reason for meng catheter: Strict I&O vital signs Vital Sign Date Time Temp Pulse Resp B/P (MAP) Pulse Ox O2 Delivery O2 Flow Rate FiO2 02/04/24 16:00 21 96 Mechanical Ventilator+ 30 30 02/04/24 16:00 115 02/04/24 15:46 162/69 (100) 02/04/24 10:00 30.0 02/04/24 06:45 99.0 210.2 Total Intake and Output 02/03/24 02/03/24 02/04/24 15:00 23:00 07:00 Intake Total 501.25 ml 1055 ml 580 ml Output Total 800 ml 600 ml Balance 501.25 ml 255 ml -20 ml medications Current Medications Medications Dose Ordered Sig/Anastacio Route Start Time Stop Time Status Last Admin Dose Admin Midazolam HCl 50 ml @ 1 mls/hr Q24H IV 02/01/24 19:00 02/03/24 09:44 7.5 MLS/HR Norepinephrine Bitartrate 250 ml @ 3.75 mls/hr Q24H IV 02/01/24 19:00 02/01/24 19:00 3.75 MLS/HR Fentanyl Citrate 250 ml @ 2.5 mls/hr Q24H IV 02/01/24 20:15 02/01/24 21:10 2.5 MLS/HR Morphine Sulfate 2 mg Q30M PRN IV 02/01/24 21:00 Acetaminophen/ Hydrocodone Bitart 1 tab Q4HP PRN PO 02/01/24 21:45 Ondansetron HCl 4 mg Q4HP PRN IV 02/01/24 21:45 02/04/24 04:15 4 MG Acetaminophen 650 mg Q6HP PRN PO 02/01/24 21:45 Morphine Sulfate 2 mg Q4HPRN PRN IV 02/01/24 21:45 Nitroglycerin 0.4 mg Q5MINP PRN SL 02/01/24 21:45 Morphine Sulfate 2 mg Q30M PRN IV 02/01/24 21:45 Piperacillin Sod/ Tazobactam Sod 100 ml @ 25 mls/hr Q8HR IV 02/01/24 22:00 02/04/24 06:10 25 MLS/HR Pantoprazole Sodium 40 mg DAILY IV 02/02/24 10:00 02/04/24 10:29 40 MG Atorvastatin Calcium 10 mg HS PO 02/02/24 22:00 02/03/24 22:15 10 MG Aspirin 81 mg DAILY NG 02/02/24 10:00 02/04/24 10:29 81 MG Enoxaparin Sodium 100 mg DAILY SC 02/03/24 10:00 02/04/24 10:29 100 MG Sodium Chloride 1,000 ml @ 60 mls/hr [id number] IV 02/02/24 14:45 02/04/24 00:44 60 MLS/HR Albuterol 2.5 mg Q6HPRN PRN NEB 02/03/24 03:30 02/03/24 08:42 2.5 MG Vancomycin HCl 0 ml @ 0 mls/hr UD IV 02/03/24 13:45 Mupirocin 1 applic BID EACHNOSTRI 02/03/24 22:00 02/08/24 21:59 Vancomycin HCl 250 ml @ 200 mls/hr Q18H IV 02/04/24 10:00 02/04/24 10:42 200 MLS/HR Dexmedetomidine HCl 400 mcg/ Dextrose 100 ml @ 5.51 mls/hr Q18H9M IV 02/04/24 14:45 Hydralazine HCl 10 mg Q6HP PRN IV 02/04/24 14:45 objective General Appearance: alert, no distress HEENT: EOMI, PERRLA, normal external inspect of ears, no icterus, no nasal drainage Neck: no carotid bruit, no jugular venous distention (JVD), no lymphadenopathy Chest: normal thorax Respiratory: clear to auscultation, normal air movement Cardiovascular: regular rate and rhythm, no diastolic murmur, no jugular venous distention (JVD), no rub, no systolic murmur Abdominal: soft, no hepatomegaly, no mass, no splenomegaly, no tenderness Genitourinary: grossly normal external Musculoskeletal: no joint tenderness, no swelling Extremities: normal pulses, no calf tenderness, no clubbing, no cyanosis, no edema Skin: no bruising, no jaundice, no rash Neurological: alert, No focal deficit laboratory and microbiology Laboratory Tests 02/04/24 03:43 Test 02/04/24 03:43 Range/Units Serum Glucose 194 H 74-106 mg/dL Problem List 1. Acute hypoxic respiratory failure Monitor, pulmonary consult 2. Status post cardio pulmonology arrest Monitor, cardiology consult, neurology consult, echocardiogram, CTA of chest, Doppler BLE to rule out DVT, full dose Lovenox 3. COPD exacerbation Monitor, IV antibiotics, IV fluids 4. Obesity Monitor, PPI 5. Benign essential hypertension Monitor 6. Pneumonia Monitor, Pulmonary consult, IV antibiotics, Med-Neb treatments 7. Septic shock Monitor, IV antibiotics, IV fluids, vasopressors as needed 8. Elevated troponins Monitor, Cardiology consult, trend troponin levels, monitor EKG 9. Elevated D-dimer Monitor, VQ scan Assessment/Plan Subjective Patient remains intubated and sedated. Objective Patient is currently on 30% FiO2. She failed her CPAP today due to tachypnea. Patient was positive for MRSA. Patient's antibiotics were broadened to vancomycin and she is currently on Zosyn. Patient was admitted for sepsis with septic shock and COPD exacerbation. Patient has an elevated D-dimer. Family has refused CTA to rule out PE due to family member passing away from an allergic reaction to dye. Patient is unable to have VQ scan at this time due to being intubated. Patient currently has good urine output. Plan Continue current treatment. Continue IV antibiotics. Repeat chest x-ray to be ordered in a.m. Ventilator management per pulmonary. Continue IV Solu-Medrol for pulmonary edema. Plan discussed with: Patient, Other JORY LINDSEY NP Feb 04, 2024 17:07
[2024-02-04] MEDS: hydrALAZINE HCL 20 MG/ML VL IV PRN (17:13)
--- NOTE | 2024-02-04 20:51 | DVHPN2 ---
Progress Note - Dictate Date Seen: Feb 04, 2024 Medical Necessity Reason Pt with a Central, PICC or Fol: Yes The following are medically ne: Meng Catheter Reason for meng catheter: Strict I&O Subjective Ms. Hardwick is a 78 years old female with a history of hypertension, diabetes, asthma, COPD, the patient was brought to the [facility] from her [place] [facility] facility for altered mental status/cardiopulmonary arrest. I have seen and examined the patient, discussed with her nurse, she was sedated, intubated, responds to light painful stimuli Earlier today, the patient was able to follow verbal commands however she failed CPAP trial Fentanyl 25 mcg/hour, Precedex, 0.3 units UDS, 02/01/2024: Urinalysis, 02/01/2024: Unremarkable ABG, 02/01/2024: Respiratory acidosis WBC/HB/PLT/MCV, 02/02/2024: 9.4/11.5/219/93.2 HCO3, 02/01/2024: 32, 02/02/2024: 37 BUN/CR, 02/01/2024: 23/1.34. 02/02/2024: 25/1.33 Lactic acid, 02/01/2024: 5.5 TG/HDL/LDL/HDL, 02/02/2024: 55/125/48/55 TSH, 02/03/2024: 1.36 CT head, 02/02/2024:No acute intracranial process vital signs Vital Sign Date Time Temp Pulse Resp B/P (MAP) Pulse Ox O2 Delivery O2 Flow Rate FiO2 02/04/24 20:00 102 22 97 Mechanical Ventilator+ 30 30 02/04/24 19:56 113/49 (70) 02/04/24 19:00 99.9 211.8 02/04/24 10:00 30.0 Total Intake and Output 02/03/24 02/03/24 02/04/24 15:00 23:00 07:00 Intake Total 501.25 ml 1055 ml 580 ml Output Total 800 ml 600 ml Balance 501.25 ml 255 ml -20 ml medications Current Medications Medications Dose Ordered Sig/Anastacio Route Start Time Stop Time Status Last Admin Dose Admin Midazolam HCl 50 ml @ 1 mls/hr Q24H IV 02/01/24 19:00 02/03/24 09:44 7.5 MLS/HR Norepinephrine Bitartrate 250 ml @ 3.75 mls/hr Q24H IV 02/01/24 19:00 02/01/24 19:00 3.75 MLS/HR Fentanyl Citrate 250 ml @ 2.5 mls/hr Q24H IV 02/01/24 20:15 02/01/24 21:10 2.5 MLS/HR Morphine Sulfate 2 mg Q30M PRN IV 02/01/24 21:00 Acetaminophen/ Hydrocodone Bitart 1 tab Q4HP PRN PO 02/01/24 21:45 Ondansetron HCl 4 mg Q4HP PRN IV 02/01/24 21:45 02/04/24 04:15 4 MG Acetaminophen 650 mg Q6HP PRN PO 02/01/24 21:45 Morphine Sulfate 2 mg Q4HPRN PRN IV 02/01/24 21:45 Nitroglycerin 0.4 mg Q5MINP PRN SL 02/01/24 21:45 Morphine Sulfate 2 mg Q30M PRN IV 02/01/24 21:45 Piperacillin Sod/ Tazobactam Sod 100 ml @ 25 mls/hr Q8HR IV 02/01/24 22:00 02/04/24 17:17 25 MLS/HR Pantoprazole Sodium 40 mg DAILY IV 02/02/24 10:00 02/04/24 10:29 40 MG Atorvastatin Calcium 10 mg HS PO 02/02/24 22:00 02/03/24 22:15 10 MG Aspirin 81 mg DAILY NG 02/02/24 10:00 02/04/24 10:29 81 MG Enoxaparin Sodium 100 mg DAILY SC 02/03/24 10:00 02/04/24 10:29 100 MG Sodium Chloride 1,000 ml @ 60 mls/hr [id number] IV 02/02/24 14:45 02/04/24 17:17 60 MLS/HR Albuterol 2.5 mg Q6HPRN PRN NEB 02/03/24 03:30 02/03/24 08:42 2.5 MG Vancomycin HCl 0 ml @ 0 mls/hr UD IV 02/03/24 13:45 Mupirocin 1 applic BID EACHNOSTRI 02/03/24 22:00 02/08/24 21:59 Vancomycin HCl 250 ml @ 200 mls/hr Q18H IV 02/04/24 10:00 02/04/24 10:42 200 MLS/HR Dexmedetomidine HCl 400 mcg/ Dextrose 100 ml @ 5.51 mls/hr Q18H9M IV 02/04/24 14:45 02/04/24 17:10 5.51 MLS/HR Hydralazine HCl 10 mg Q6HP PRN IV 02/04/24 14:45 02/04/24 17:13 10 MG objective The patient is well-nourished and well-developed with no distress. The patient is intubated MENTAL STATUS: Subjective CRANIAL NERVES: Pupils are equal, round and nonreactive, small. There are corneal reflexes and doll's eyes phenomenon. No signs of facial weakness. There are gagging or coughing reflexes SENSATION: Responses to pain stimuli. MOTOR: Normal tone in the upper and lower extremity. Normal muscle bulk. No fasciculations. No spontaneous movement. REFLEXES: Deep tendon reflexes are symmetrical. No pathological reflexes. CEREBELLAR/COORDINATION: Deferred GAIT/STATION: deferred. laboratory and microbiology Laboratory Tests 02/04/24 03:43 Test 02/04/24 03:43 Range/Units Serum Glucose 194 H 74-106 mg/dL Problem List Coma Hypoxic encephalopathy Metabolic encephalopathy Respiratory failure Respiratory acidosis Chronic kidney failure Assessment/Plan Monitoring Supportive treatment EEG Follow-up CT brain scan ICU care Stabilize vitals/pressor drip Respiratory support/vent management Oxygen GI prophylaxis Cardiology on case Pulmonology on case More recommendation per clinical course This medical document was created using an electronic medical record system with [employer] computerized dictation system. Although this document has been carefully reviewed, there may still be some phonetic and typographical errors. These areas are purely typographical due to imperfections of the software programs, and do not reflect any compromise in the patient's medical care. Prognosis poor Plan discussed with: Other Critical Care Time(min): 30 SARAH LALA MD Feb 04, 2024 20:51
[2024-02-05] VITALS (92 sets, daily range): BP systolic 92–177; BP diastolic 32–90; PULSE 77–133; RESP 14–35; TEMP 97.7–100.2; O2SAT 93–99
[2024-02-05] MEDS: PIPERACILLIN-TAZOB 3.375GM 100 ML IV SCH (02:00)
[2024-02-05 04:07] LABS: Eosinophils # (auto) 0.4 10 ^3/uL (0-0.8); Hemoglobin 8.5 g/dL (12.2-16.2); Monocytes # (auto) 0.8 10 ^3/uL (0-1.3)
[2024-02-05 04:09] LABS: Basophils # (auto) 0 10 ^3/uL (0-0.2); Basophils % (auto) 0.7 % (0.0-2.0); Eosinophils % (auto) 5.3 % (0.0-7.0); Hematocrit 27.2 % (36.0-46.0); Lymphocytes % (auto) 13.5 % (10.0-50.0); Mean Corpuscular Hemoglobin 29.1 pg (28.0-32.0); Mean Corpuscular Hgb Conc. 31.3 g/dL (32.0-36.0); Mean Corpuscular Volume 93.2 fL (80.0-100.0); Monocytes % (auto) 10.9 % (0.0-12.0); Neutrophils % (auto) 69.6 % (37.0-80.0); Platelet Count (auto) 160 10^3/uL (140-450); Red Blood Cells 2.92 10^6/uL (4.0-5.20); Red Cell Distribution Width 16.5 % (11.8-14.3); White Blood Cell 7.1 10^3/uL (4.4-10.8)
[2024-02-05 10:21] LABS: Base Excess 3.5 mmol/L (-2.0-3.0)
--- NOTE | 2024-02-05 11:35 | DVHPN2 ---
Progress Note - Dictate Date Seen: Feb 05, 2024 Medical Necessity Reason Pt with a Central, PICC or Fol: Yes The following are medically ne: Meng Catheter Reason for meng catheter: Strict I&O Subjective Ms. Hardwick is a 78 years old female with a history of hypertension, diabetes, asthma, COPD, the patient was brought to the [facility] from her custodial for altered mental status/cardiopulmonary arrest. I have seen and examined the patient, discussed with her nurse, she responds to verbal stimuli, she follows some of my verbal commands, overall looks weak but better than before Precedex, 0.3 units UDS, 02/01/2024: Urinalysis, 02/01/2024: Unremarkable ABG, 02/01/2024: Respiratory acidosis WBC/HB/PLT/MCV, 02/02/2024: 9.4/11.5/219/93.2 HCO3, 02/01/2024: 32, 02/02/2024: 37 BUN/CR, 02/01/2024: 23/1.34. 02/02/2024: 25/1.33 Lactic acid, 02/01/2024: 5.5 TG/HDL/LDL/HDL, 02/02/2024: 55/125/48/55 TSH, 02/03/2024: 1.36 CT head, 02/02/2024:No acute intracranial process vital signs Vital Sign Date Time Temp Pulse Resp B/P (MAP) Pulse Ox O2 Delivery O2 Flow Rate FiO2 02/05/24 11:23 20 02/05/24 11:21 97 02/05/24 11:15 98.1 90 139/65 (89) 208.6 02/05/24 10:00 30 02/05/24 10:00 Mechanical Ventilator+ 02/04/24 10:00 30.0 Total Intake and Output 02/04/24 02/04/24 02/05/24 15:00 23:00 07:00 Intake Total 480 ml 677.090 ml 906.120 ml Output Total 1000 ml 400 ml Balance 480 ml -322.910 ml 506.120 ml medications Current Medications Medications Dose Ordered Sig/Anastacio Route Start Time Stop Time Status Last Admin Dose Admin Midazolam HCl 50 ml @ 1 mls/hr Q24H IV 02/01/24 19:00 02/03/24 09:44 7.5 MLS/HR Norepinephrine Bitartrate 250 ml @ 3.75 mls/hr Q24H IV 02/01/24 19:00 02/01/24 19:00 3.75 MLS/HR Fentanyl Citrate 250 ml @ 2.5 mls/hr Q24H IV 02/01/24 20:15 02/01/24 21:10 2.5 MLS/HR Morphine Sulfate 2 mg Q30M PRN IV 02/01/24 21:00 Acetaminophen/ Hydrocodone Bitart 1 tab Q4HP PRN PO 02/01/24 21:45 Ondansetron HCl 4 mg Q4HP PRN IV 02/01/24 21:45 02/04/24 04:15 4 MG Acetaminophen 650 mg Q6HP PRN PO 02/01/24 21:45 Morphine Sulfate 2 mg Q4HPRN PRN IV 02/01/24 21:45 Nitroglycerin 0.4 mg Q5MINP PRN SL 02/01/24 21:45 Morphine Sulfate 2 mg Q30M PRN IV 02/01/24 21:45 Pantoprazole Sodium 40 mg DAILY IV 02/02/24 10:00 02/05/24 09:47 40 MG Atorvastatin Calcium 10 mg HS PO 02/02/24 22:00 02/04/24 22:11 10 MG Aspirin 81 mg DAILY NG 02/02/24 10:00 02/05/24 09:47 81 MG Enoxaparin Sodium 100 mg DAILY SC 02/03/24 10:00 02/05/24 09:47 100 MG Sodium Chloride 1,000 ml @ 60 mls/hr [id number] IV 02/02/24 14:45 02/05/24 09:47 60 MLS/HR Albuterol 2.5 mg Q6HPRN PRN NEB 02/03/24 03:30 02/03/24 08:42 2.5 MG Vancomycin HCl 0 ml @ 0 mls/hr UD IV 02/03/24 13:45 Mupirocin 1 applic BID EACHNOSTRI 02/03/24 22:00 02/08/24 21:59 Vancomycin HCl 250 ml @ 200 mls/hr Q18H IV 02/04/24 10:00 02/05/24 03:59 200 MLS/HR Dexmedetomidine HCl 400 mcg/ Dextrose 100 ml @ 5.51 mls/hr Q18H9M IV 02/04/24 14:45 02/05/24 04:31 8.265 MLS/HR Hydralazine HCl 10 mg Q6HP PRN IV 02/04/24 14:45 02/04/24 17:13 10 MG Piperacillin Sod/ Tazobactam Sod 100 ml @ 25 mls/hr Q8HR IV 02/05/24 01:00 02/05/24 07:22 25 MLS/HR objective The patient is well-nourished and well-developed with no distress. The patient is intubated MENTAL STATUS: Subjective CRANIAL NERVES: Pupils are equal, round and nonreactive, small. There are corneal reflexes and doll's eyes phenomenon. No signs of facial weakness. There are gagging or coughing reflexes SENSATION: Responses to pain stimuli. MOTOR: Normal tone in the upper and lower extremity. Normal muscle bulk. No fasciculations. Able to move the hands and feet a little bit REFLEXES: Deep tendon reflexes are symmetrical. No pathological reflexes. CEREBELLAR/COORDINATION: Deferred GAIT/STATION: deferred. laboratory and microbiology Laboratory Tests 02/05/24 03:00 02/04/24 03:43 Test 02/04/24 03:43 Range/Units Serum Glucose 194 H 74-106 mg/dL Problem List Coma Hypoxic encephalopathy Metabolic encephalopathy Respiratory failure Respiratory acidosis Chronic kidney failure Overall improving Assessment/Plan Monitoring Supportive treatment EEG D/C CT brain scan ICU care Stabilize vitals/pressor drip Respiratory support/vent management Oxygen GI prophylaxis Cardiology on case Pulmonology on case More recommendation per clinical course CPAP trial This medical document was created using an electronic medical record system with [employer] dictation system. Although this document has been carefully reviewed, there may still be some phonetic and typographical errors. These areas are purely typographical due to imperfections of the software programs, and do not reflect any compromise in the patient's medical care. Prognosis guarded Plan discussed with: Other Critical Care Time(min): 30 SARAH LALA MD Feb 05, 2024 11:35
--- NOTE | 2024-02-05 11:43 | DVH ---
CHEST RADIOGRAPH Indication: INTUBATED Technique: Single frontal view of the chest was obtained COMPARISON: XY CHEST XRAY 1 VIEW on DOS: 02/03/24, XY CHEST PORTABLE on DOS: 02/01/24, XY CHEST XRAY 1 VIEW on DOS: 02/03/24 FINDINGS: Lines and Tubes: Endotracheal tube terminating 4.5 cm above the lois. Enteric tube crosses the diap hragm near midline and descends into the left upper quadrant. Right neck central venous catheter term inates over the SVC. Lungs: No focal consolidation. Diffuse bilateral interstitial opacities. Pleura: No effusion. No pneumothorax. Cardiomediastinal contours: Unremarkable Bones: No acute osseous abnormality. IMPRESSION: 1. Lines and tubes as described. 2. Nonspecific diffuse bilateral interstitial opacities.
[2024-02-05] MEDS: MORPHINE SULFATE INJ 2 MG/ml SYRG IV PRN (12:32)
--- NOTE | 2024-02-05 13:56 | DVHPN2 ---
Progress Note - Dictate Date Seen: Feb 05, 2024 Medical Necessity Reason Pt with a Central, PICC or Fol: Yes The following are medically ne: Meng Catheter Reason for meng catheter: Strict I&O vital signs Vital Sign Date Time Temp Pulse Resp B/P (MAP) Pulse Ox O2 Delivery O2 Flow Rate FiO2 02/05/24 13:02 109 17 132/58 02/05/24 12:10 96 Facial BiPAP Mask 40 02/05/24 12:00 0 02/05/24 11:15 98.1 208.6 Total Intake and Output 02/04/24 02/04/24 02/05/24 15:00 23:00 07:00 Intake Total 480 ml 677.090 ml 906.120 ml Output Total 1000 ml 400 ml Balance 480 ml -322.910 ml 506.120 ml medications Current Medications Medications Dose Ordered Sig/Anastacio Route Start Time Stop Time Status Last Admin Dose Admin Midazolam HCl 50 ml @ 1 mls/hr Q24H IV 02/01/24 19:00 02/03/24 09:44 7.5 MLS/HR Norepinephrine Bitartrate 250 ml @ 3.75 mls/hr Q24H IV 02/01/24 19:00 02/01/24 19:00 3.75 MLS/HR Fentanyl Citrate 250 ml @ 2.5 mls/hr Q24H IV 02/01/24 20:15 02/01/24 21:10 2.5 MLS/HR Morphine Sulfate 2 mg Q30M PRN IV 02/01/24 21:00 Acetaminophen/ Hydrocodone Bitart 1 tab Q4HP PRN PO 02/01/24 21:45 Ondansetron HCl 4 mg Q4HP PRN IV 02/01/24 21:45 02/05/24 12:39 4 MG Acetaminophen 650 mg Q6HP PRN PO 02/01/24 21:45 Morphine Sulfate 2 mg Q4HPRN PRN IV 02/01/24 21:45 02/05/24 12:32 2 MG Nitroglycerin 0.4 mg Q5MINP PRN SL 02/01/24 21:45 Morphine Sulfate 2 mg Q30M PRN IV 02/01/24 21:45 Pantoprazole Sodium 40 mg DAILY IV 02/02/24 10:00 02/05/24 09:47 40 MG Atorvastatin Calcium 10 mg HS PO 02/02/24 22:00 02/04/24 22:11 10 MG Enoxaparin Sodium 100 mg DAILY SC 02/03/24 10:00 02/05/24 09:47 100 MG Sodium Chloride 1,000 ml @ 60 mls/hr [id number] IV 02/02/24 14:45 02/05/24 09:47 60 MLS/HR Albuterol 2.5 mg Q6HPRN PRN NEB 02/03/24 03:30 02/03/24 08:42 2.5 MG Vancomycin HCl 0 ml @ 0 mls/hr UD IV 02/03/24 13:45 Mupirocin 1 applic BID EACHNOSTRI 02/03/24 22:00 02/08/24 21:59 Vancomycin HCl 250 ml @ 200 mls/hr Q18H IV 02/04/24 10:00 02/05/24 03:59 200 MLS/HR Dexmedetomidine HCl 400 mcg/ Dextrose 100 ml @ 5.51 mls/hr Q18H9M IV 02/04/24 14:45 02/05/24 04:31 8.265 MLS/HR Hydralazine HCl 10 mg Q6HP PRN IV 02/04/24 14:45 02/04/24 17:13 10 MG Piperacillin Sod/ Tazobactam Sod 100 ml @ 25 mls/hr Q8HR IV 02/05/24 01:00 02/05/24 07:22 25 MLS/HR objective General Appearance: alert, no distress HEENT: EOMI, PERRLA, normal external inspect of ears, no icterus, no nasal drainage Neck: no carotid bruit, no jugular venous distention (JVD), no lymphadenopathy Chest: normal thorax Respiratory: clear to auscultation, normal air movement Cardiovascular: regular rate and rhythm, no diastolic murmur, no jugular venous distention (JVD), no rub, no systolic murmur Abdominal: soft, no hepatomegaly, no mass, no splenomegaly, no tenderness Genitourinary: grossly normal external Musculoskeletal: no joint tenderness, no swelling Extremities: normal pulses, no calf tenderness, no clubbing, no cyanosis, no edema Skin: no bruising, no jaundice, no rash Neurological: alert, No focal deficit laboratory and microbiology Laboratory Tests 02/05/24 03:00 02/04/24 03:43 Test 02/04/24 03:43 Range/Units Serum Glucose 194 H 74-106 mg/dL Problem List 1. Acute hypoxic respiratory failure Monitor, pulmonary consult 2. Status post cardio pulmonology arrest Monitor, cardiology consult, neurology consult, echocardiogram, CTA of chest, Doppler BLE to rule out DVT, full dose Lovenox 3. COPD exacerbation Monitor, IV antibiotics, IV fluids 4. Obesity Monitor, PPI 5. Benign essential hypertension Monitor 6. Pneumonia Monitor, Pulmonary consult, IV antibiotics, Med-Neb treatments 7. Septic shock Monitor, IV antibiotics, IV fluids, vasopressors as needed 8. Elevated troponins Monitor, Cardiology consult, trend troponin levels, monitor EKG 9. Elevated D-dimer Monitor, VQ scan Assessment/Plan Subjective Patient remains intubated and sedated. Objective Patient was extubated at 11:45 today. She is currently on BiPAP. Patient's hemoglobin has dropped from 11 to 8.5. Stool for occult blood is pending. Platelet count has dropped from 2 21-1 60. I did speak with cardiology. They will hold anticoagulation at this time. GI was consulted. Plan Continue current treatment. Monitor daily labs. Hold anticoagulation. Repeat ABG pending. Plan discussed with: Patient, Other JORY LINDSEY NP Feb 05, 2024 13:56
[2024-02-05] MEDS: FUROSEMIDE 40 MG/4 ML VIAL IV ONE (14:28)
[2024-02-05 14:35] LABS: Base Excess 1.5 mmol/L (-2.0-3.0)
[2024-02-05] MEDS ORDERED: MORPHINE SULFATE INJ 2 MG/ml SYRG IM ONE (16:15)
--- NOTE | 2024-02-05 16:18 | DVHPN ---
DATE: 02/05/2024 PULMONARY FOLLOWUP SUBJECTIVE: The patient was given a trial of CPAP with a pressure support of 8, 30% of FIO2, 5 of PEEP, which she tolerated quite well. Weaning parameters were adequate. The patient was extubated. The patient did complain of some shortness of breath after extubation. No significant secretions. The patient was put on BiPAP 14/7 at 40% FIO2. The patient is currently on BiPAP, appears to be comfortable. Denies any pain. Denies any significant expectoration. OBJECTIVE: VITAL SIGNS: Stable. Heart rate is 83, saturations are 96% on BiPAP 14/7 with 40% FIO2. Intake and output is positive 652 yesterday. Overall, weight appears significantly increased from 01/31, but stable for the last few days. Other lab work was reviewed. WBC 7.1, hematocrit 27, platelet count 160. Blood gases prior to extubation revealed pH 7.35, pCO2 of 54, pO2 of 106, bicarb is 29, saturations were 95. The patient's serum chemistry is significant for CO2 of 33, phosphorus is 2.5. Influenza A, B; and COVID antigen test have been negative. Cultures have all been unremarkable. A chest x-ray from this morning revealed diffuse increase in interstitial markings. A head CT done a few days ago shows no acute intracranial disease. A Doppler study done on 01/31 has shown no right or left fem-pop arterial venous thrombosis. ASSESSMENT AND PLAN: History of COPD, acute exacerbation, acute respiratory failure, status post cardiac arrest; also has a history of hypertension, sepsis. Plan, the patient was mildly short of breath after extubation, appears to be in fluid overload. We will decrease IV fluids to KVO. We will give her 20 mg of Lasix. We will continue current BiPAP settings. Titrate to keep saturations greater than 90%. Check another blood. We will also check a BNP. Cardiac evaluation may be useful if not previously undertaken. The patient has been apparently seen by Dr. Puente in the past. Continue Zosyn. Continue Lovenox. Continue albuterol. Rest of the medical management per response and course in hospital. Critical time 35 minutes. MD RENÉE Killian/SHANNAN TID: [id number] RECEIPT: [id number]
--- NOTE | 2024-02-05 16:34 | DVHPN2 ---
Progress Note - Dictate Date Seen: Feb 05, 2024 Medical Necessity Reason Pt with a Central, PICC or Fol: Yes The following are medically ne: Meng Catheter Reason for meng catheter: Strict I&O vital signs Vital Sign Date Time Temp Pulse Resp B/P (MAP) Pulse Ox O2 Delivery O2 Flow Rate FiO2 02/05/24 16:16 94 Nasal Cannula* 3 32 02/05/24 16:00 22 02/05/24 16:00 130 02/05/24 14:45 98.4 209.1 Total Intake and Output 02/04/24 02/04/24 02/05/24 15:00 23:00 07:00 Intake Total 480 ml 677.090 ml 906.120 ml Output Total 1000 ml 400 ml Balance 480 ml -322.910 ml 506.120 ml medications Current Medications Medications Dose Ordered Sig/Anastacio Route Start Time Stop Time Status Last Admin Dose Admin Midazolam HCl 50 ml @ 1 mls/hr Q24H IV 02/01/24 19:00 02/03/24 09:44 7.5 MLS/HR Norepinephrine Bitartrate 250 ml @ 3.75 mls/hr Q24H IV 02/01/24 19:00 02/01/24 19:00 3.75 MLS/HR Fentanyl Citrate 250 ml @ 2.5 mls/hr Q24H IV 02/01/24 20:15 02/01/24 21:10 2.5 MLS/HR Morphine Sulfate 2 mg Q30M PRN IV 02/01/24 21:00 Acetaminophen/ Hydrocodone Bitart 1 tab Q4HP PRN PO 02/01/24 21:45 Ondansetron HCl 4 mg Q4HP PRN IV 02/01/24 21:45 02/05/24 12:39 4 MG Acetaminophen 650 mg Q6HP PRN PO 02/01/24 21:45 Morphine Sulfate 2 mg Q4HPRN PRN IV 02/01/24 21:45 02/05/24 12:32 2 MG Nitroglycerin 0.4 mg Q5MINP PRN SL 02/01/24 21:45 Morphine Sulfate 2 mg Q30M PRN IV 02/01/24 21:45 Pantoprazole Sodium 40 mg DAILY IV 02/02/24 10:00 02/05/24 09:47 40 MG Atorvastatin Calcium 10 mg HS PO 02/02/24 22:00 02/04/24 22:11 10 MG Enoxaparin Sodium 100 mg DAILY SC 02/03/24 10:00 02/05/24 09:47 100 MG Albuterol 2.5 mg Q6HPRN PRN NEB 02/03/24 03:30 02/03/24 08:42 2.5 MG Vancomycin HCl 0 ml @ 0 mls/hr UD IV 02/03/24 13:45 Mupirocin 1 applic BID EACHNOSTRI 02/03/24 22:00 02/08/24 21:59 Vancomycin HCl 250 ml @ 200 mls/hr Q18H IV 02/04/24 10:00 02/05/24 03:59 200 MLS/HR Dexmedetomidine HCl 400 mcg/ Dextrose 100 ml @ 5.51 mls/hr Q18H9M IV 02/04/24 14:45 02/05/24 04:31 8.265 MLS/HR Hydralazine HCl 10 mg Q6HP PRN IV 02/04/24 14:45 02/04/24 17:13 10 MG Piperacillin Sod/ Tazobactam Sod 100 ml @ 25 mls/hr Q8HR IV 02/05/24 01:00 02/05/24 14:28 25 MLS/HR Lorazepam 0.5 mg Q6HP PRN IV 02/05/24 14:15 Metoprolol Tartrate 2.5 mg BID IV 02/05/24 16:24 UNV laboratory and microbiology Laboratory Tests 02/05/24 03:00 02/04/24 03:43 Test 02/04/24 03:43 Range/Units Serum Glucose 194 H 74-106 mg/dL Assessment/Plan Patient is a 78-year-old female who presented with shortness of breath. She is intubated at the time of initial evaluation and not source of history. Information was obtained by reviewing the chart and communicating with staff. Reportedly, the patient lives in a nursing facility and EMS were called because the patient had used all of her medications for asthma and was still short of breath. Reportedly, while transferring the patient to the hospital the patient suffered Arrest and CPR was performed successfully. Patient was intubated. There has been no tele/EKG rhythm at the time of arrest to review. At the time of evaluation patient is nonresponsive. Cardiology is involved for cardiac aspects of care. There is questionable old history of myocardial infarction as per staff. Review of the transfer notes from nursing facility do not comment on any coronary artery disease. female, now extubated (02/05/24). No JVD. Left pupil is small. Right pupil does have a oval-shaped in favor of prior eye problems. No JVD. Mucosa is pink and wet. Scattered rhonchi in the lungs is heard. Cardiac: Regular, no thrill/gallop. Systolic murmur 2/6 in apex is heard. Abdomen is soft. Bowel sound is positive. There is no gross mass/hepatomegaly. Extremities do not reveal edema. Dorsalis pedis is 1+ bilateral Reported past medical history includes COPD/asthma, cataract, osteoarthritis, diabetes mellitus, obstructive sleep apnea. As per communications from nursing facility, the patient uses walker for ambulation and reportedly patient has been frail prior to this presentation. Creatinine: 1.34 - 1.33 - 0.92 - 0.96 Potassium: 5.9 - 3.9 - 4.7 - 3.9 Lactic acid: 5.5 - 1.1 AST/ALT: 75/99 - 94/135 BNP: 68.68 - 61.15 - 44.75 Troponin (high sensitive): 7 - 9 - 26 - 39 LDL: 48 - 38 TSH: 0.96 - 1.36 HgbA1c: 7.0 Hgb 11.0 - 11.5 - 8.9 - 8.5 D-dimer: >35.20 Chest x-ray revealed: Lines and Tubes: Endotracheal tube terminating 4.5 cm above the lois. Enteric tube crosses the diaphragm near midline and descends into the left upper quadrant. Right neck central venous catheter terminates over the SVC. Lungs: No focal consolidation. Diffuse bilateral interstitial opacities. Pleura: No effusion. No pneumothorax. Cardiomediastinal contours: Unremarkable Bones: No acute osseous abnormality. IMPRESSION: 1. Lines and tubes as described. 2. Nonspecific diffuse bilateral interstitial opacities. Repeat chest xry reported: Lines and Tubes: Endotracheal tube terminating 4.5 cm above the lois. Enteric tube crosses the diaphragm near midline and descends into the left upper quadrant. Right neck central venous catheter terminates over the SVC. Lungs: No focal consolidation. Diffuse bilateral interstitial opacities. Pleura: No effusion. No pneumothorax. Cardiomediastinal contours: Unremarkable Bones: No acute osseous abnormality. IMPRESSION: 1. Lines and tubes as described. 2. Nonspecific diffuse bilateral interstitial opacities. Repeat CXR revealed nonspecific diffuse bilateral interstitial opacities. CT of head reported: IMPRESSION: 1. No acute intracranial process. Venous Doppler of lower extremities reported: Impression: 1. No right or left femoropopliteal venous thrombosis. EKG revealed sinus rhythm with no ST-T changes Tele reveals sinus tachycardia post intubation Echocardiogram revealed: Left ventricle: Left ventricular systolic function was preserved. LDL was around 60% predicted there was no gross wall motion abnormality. Right ventricle was normal size with normal systolic function. Both atria were normal size. Aortic valve was not well visualized. There was no aortic insufficiency/stenosis. There was trivial mitral/tricuspid regurgitation. Pulmonic valve was not well visualized. Right ventricular systolic pressure was assessed around 38 mm Hg. There was no pericardial effusion. Patient is a 78-year-old female who presented to the hospital with shortness of breath/respiratory distress. Reportedly, the patient had arrest. She is intubated and on vent support. At the time of evaluation patient is nonresponsive and there is question of encephalopathy. Presentation and troponin is against acute coronary syndrome. Patient's D-dimer has been elevated and pulmonary emboli as a cause for presentation should be ruled out. It is of note that venous Doppler of lower extremities have been nonrevealing. Evaluation and management depends on regaining higher brain function status. Also, as per son, patient had been specifically refusing any contrast/iodine related tests/CT scans (which by comparison include cardiac cath). Family wanted us to wait until patient regains consciousness and decide herself. Echo revealed good LV systolic function, valves are working ok. Patient is seen by Neurology who is contemplating Hypoxic Encephalopathy. Pulmonary on the case. For now, V/Q scan is suggested. Arrest Respiratory failure, acute History of asthma/COPD Encephalopathy, Hypoxic? , Metabolic? Diabetes mellitus Cataract Osteoarthritis Septic shock Anemia Sinus tachycardia Cardiac suggestion for management: Manage in ICU Follow-up electrolytes and kidney function tests and correct abnormalities. Keep potassium above 4 and magnesium above 2. Avoid hyperkalemia. Aspirin: 81 mg daily suggested - on hold due to drop in Hgb over past few days ( 11.5 to 8.5 ) Lipitor: 10 mg at night is suggested Lovenox for now - on hold due to drop in Hgb over past few days ( 11.5 to 8.5 ) Pressure support to keep MAP above 65 mmHg - pt off pressors 02/05/24 Sinus tachycardia present post extubation - Metoprolol tartrate 5mg IVP Q2H prn while NPO pending swallow evaluation. - Suggest resuming Metoprolol succinate 25mg daily ( home med) once no longer NPO. Consider V/Q scan - pending Pulmonary follow up Neurology follow up Cardiac evaluation and management depends on regaining higher brain function Further evaluation and management depends on the above and clinical course A total of 75 minutes was spent reviewing the patient record, examining the patient, making a diagnostic and therapeutic plan, discussing this plan with medical personnel, following up on diagnostic studies and following the patient for clinical stability excluding any and all procedures. At least 50% of this time was spent in direct, [id number] contact. Thank you for allowing me to participate in this patient's care. Further recommendations will depend on patient's clinical course. Please do not hesitate to contact me if you have any questions or concerns. This medical document was created using electronic medical record system with [employer] computerized dictation system. Although this document has been carefully reviewed, there may still be some phonetic and typographical errors. These areas are purely typographical due to the imperfection of the software programs, and do not reflect any compromise in the patient's medical care. Dietary Evaluation Review Comments: 1) If GI is accessible consider Glucerna 1.2 @ 50ml/hr x 24hr goal rate as tolerated 2) If pt remains NPO >7 days consider TPN to meet 75% of estimated needs 3) Advance pt diet when medically feasible to a CCHO 45g/Cardiac diet 4) Continue current plan of care Expected Outcomes/Goals: 1) Pt to receive adequate nutrition support within 7 days of NPO status 2) Pt diet to advance 3) F/U in 2-3 days Plan discussed with: Patient, Other (RN) Provider Statement: I have reviewed the case with my supervising physician. We have agreed with the plan of care. JEANETTE QUIJANOP Feb 05, 2024 16:34
[2024-02-05] MEDS: METOPROLOL TARTRATE 1MG/1ML-5ML VIAL IV SCH (16:36)
[2024-02-05] MEDS: METOPROLOL TARTRATE 1MG/1ML-5ML VIAL IV ONE (16:44)
[2024-02-05] MEDS: METOPROLOL TARTRATE 1MG/1ML-5ML VIAL IV PRN (18:36)
[2024-02-05] MEDS: LORazepam 2MG/ML-1ML VIAL IV PRN (21:52)
[2024-02-05] MEDS: IPRATROPIUM BROM 0.5 MG/2.5ML INH SOL ONE (22:50)
[2024-02-06] VITALS (56 sets, daily range): BP systolic 108–172; BP diastolic 33–82; PULSE 106–129; RESP 14–49; TEMP 98.8–100.9; O2SAT 71–100
[2024-02-06 08:22] LABS: Basophils # (auto) 0 10 ^3/uL (0-0.2); Lymphocytes # (auto) 0.9 10 ^3/uL (0.4-5.4); Monocytes # (auto) 1.2 10 ^3/uL (0-1.3); Nucleated Red Blood Cells % 0.1 %
[2024-02-06 08:25] LABS: Basophils % (auto) 0.3 % (0.0-2.0); Eosinophils # (auto) 0.4 10 ^3/uL (0-0.8); Eosinophils % (auto) 5.8 % (0.0-7.0); Hematocrit 29.6 % (36.0-46.0); Hemoglobin 9.2 g/dL (12.2-16.2); Mean Corpuscular Hemoglobin 29.5 pg (28.0-32.0); Mean Corpuscular Volume 95.1 fL (80.0-100.0); Monocytes % (auto) 16.6 % (0.0-12.0); Neutrophils # (auto) 4.6 10 ^3/uL (1.6-8.6); Neutrophils % (auto) 64.3 % (37.0-80.0); Platelet Count (auto) 183 10^3/uL (140-450); Red Blood Cells 3.12 10^6/uL (4.0-5.20); Red Cell Distribution Width 16.4 % (11.8-14.3); White Blood Cell 7.1 10^3/uL (4.4-10.8)
[2024-02-06 08:29] LABS: Anion Gap 8 (5-15); Carbon Dioxide 30 mmol/L (20-31); Chloride 105 mmol/L (98-107); Potassium 3.7 mmol/L (3.5-5.1); Sodium 143 mmol/L (136-145)
[2024-02-06 08:30] LABS: Calcium 9.8 mg/dL (8.7-10.4)
[2024-02-06 08:35] LABS: BUN/Creatinine Ratio 13.1 (10.0-20.0); Blood Urea Nitrogen 13 mg/dL (9-23); Glucose 157 mg/dL (74-106); Magnesium 1.8 mg/dL (1.6-2.6)
[2024-02-06 08:37] LABS: Phosphorus 2.5 mg/dL (2.4-5.1)
[2024-02-06] MEDS: FUROSEMIDE 40 MG/4 ML VIAL IV ONE (09:40)
--- NOTE | 2024-02-06 10:24 | DVHPN2 ---
Progress Note - Dictate Date Seen: Feb 06, 2024 Medical Necessity Reason Pt with a Central, PICC or Fol: Yes The following are medically ne: Meng Catheter Reason for meng catheter: Strict I&O Subjective Ms. Hardwick is a 78 years old female with a history of hypertension, diabetes, asthma, COPD, the patient was brought to the [facility] from her [facility] for altered mental status/cardiopulmonary arrest. I have seen and examined the patient, discussed with her nurse, she has been extubated, she was awake, oriented x3, she follows verbal commands, she can move the arms legs, overall she still weak She was spiked temperature and has tachycardia UDS, 02/01/2024: Urinalysis, 02/01/2024: Unremarkable ABG, 02/01/2024: Respiratory acidosis WBC/HB/PLT/MCV, 02/02/2024: 9.4/11.5/219/93.2 HCO3, 02/01/2024: 32, 02/02/2024: 37 BUN/CR, 02/01/2024: 23/1.34. 02/02/2024: 25/1.33 Lactic acid, 02/01/2024: 5.5 TG/HDL/LDL/HDL, 02/02/2024: 55/125/48/55 TSH, 02/03/2024: 1.36 CT head, 02/02/2024:No acute intracranial process vital signs Vital Sign Date Time Temp Pulse Resp B/P (MAP) Pulse Ox O2 Delivery O2 Flow Rate FiO2 02/06/24 09:40 108/36 02/06/24 08:00 20 95 Nasal Cannula* 3 32 02/06/24 08:00 125 02/06/24 04:00 100.2 100.2 Total Intake and Output 02/05/24 02/05/24 02/06/24 15:00 23:00 07:00 Intake Total 280.560 ml 60 ml 350 ml Output Total 5200 ml 1485 ml Balance 280.560 ml -5140 ml -1135 ml medications Current Medications Medications Dose Ordered Sig/Anastacio Route Start Time Stop Time Status Last Admin Dose Admin Midazolam HCl 50 ml @ 1 mls/hr Q24H IV 02/01/24 19:00 02/03/24 09:44 7.5 MLS/HR Norepinephrine Bitartrate 250 ml @ 3.75 mls/hr Q24H IV 02/01/24 19:00 02/01/24 19:00 3.75 MLS/HR Fentanyl Citrate 250 ml @ 2.5 mls/hr Q24H IV 02/01/24 20:15 02/01/24 21:10 2.5 MLS/HR Acetaminophen/ Hydrocodone Bitart 1 tab Q4HP PRN PO 02/01/24 21:45 Ondansetron HCl 4 mg Q4HP PRN IV 02/01/24 21:45 02/06/24 05:55 4 MG Acetaminophen 650 mg Q6HP PRN PO 02/01/24 21:45 Morphine Sulfate 2 mg Q4HPRN PRN IV 02/01/24 21:45 02/06/24 05:55 2 MG Nitroglycerin 0.4 mg Q5MINP PRN SL 02/01/24 21:45 Morphine Sulfate 2 mg Q30M PRN IV 02/01/24 21:45 Pantoprazole Sodium 40 mg DAILY IV 02/02/24 10:00 02/06/24 09:40 40 MG Atorvastatin Calcium 10 mg HS PO 02/02/24 22:00 02/04/24 22:11 10 MG Enoxaparin Sodium 100 mg DAILY SC 02/03/24 10:00 02/05/24 09:47 100 MG Albuterol 2.5 mg Q6HPRN PRN NEB 02/03/24 03:30 02/06/24 07:38 2.5 MG Vancomycin HCl 0 ml @ 0 mls/hr UD IV 02/03/24 13:45 Mupirocin 1 applic BID EACHNOSTRI 02/03/24 22:00 02/08/24 21:59 Vancomycin HCl 250 ml @ 200 mls/hr Q18H IV 02/04/24 10:00 02/05/24 22:09 200 MLS/HR Dexmedetomidine HCl 400 mcg/ Dextrose 100 ml @ 5.51 mls/hr Q18H9M IV 02/04/24 14:45 02/05/24 04:31 8.265 MLS/HR Hydralazine HCl 10 mg Q6HP PRN IV 02/04/24 14:45 02/04/24 17:13 10 MG Piperacillin Sod/ Tazobactam Sod 100 ml @ 25 mls/hr Q8HR IV 02/05/24 01:00 02/06/24 06:26 25 MLS/HR Lorazepam 0.5 mg Q6HP PRN IV 02/05/24 14:15 02/05/24 21:52 0.5 MG Metoprolol Tartrate 5 mg Q2HP PRN IV 02/05/24 17:30 02/05/24 18:36 5 MG Ipratropium [place] 0.5 mg Q4HP PRN NEB 02/05/24 21:45 Acetaminophen 650 mg Q6HP PRN ID 02/06/24 09:45 UNV objective The patient is well-nourished and well-developed with no distress. MENTAL STATUS: Subjective CRANIAL NERVES: Pupils are equal round and reactive to light briskly, normal external eye movement, normal sensation and motor examination in the lateral trigeminal nerve distribution, no facial weakness SENSATION: Normal to pinprick and light touch MOTOR: Normal tone in the upper and lower extremity. Normal muscle bulk. No fasciculations. He moves the arms and legs REFLEXES: Deep tendon reflexes are symmetrical. No pathological reflexes. CEREBELLAR/COORDINATION: Deferred GAIT/STATION: deferred. laboratory and microbiology Laboratory Tests 02/06/24 07:54 Test 02/06/24 07:54 Range/Units Serum Glucose 157 H 74-106 mg/dL Problem List Coma, resolved Hypoxic encephalopathy Metabolic encephalopathy Respiratory failure, resolved Respiratory acidosis resolved Chronic kidney failure She keeps improving Assessment/Plan Monitoring Supportive treatment EEG ICU care Stabilize vitals p.r.n. Respiratory support p.r.n. Oxygen GI prophylaxis Cardiology on case Pulmonology on case More recommendation per clinical course This medical document was created using an electronic medical record system with [employer] dictation system. Although this document has been carefully reviewed, there may still be some phonetic and typographical errors. These areas are purely typographical due to imperfections of the software programs, and do not reflect any compromise in the patient's medical care. Prognosis poor Dietary Evaluation Review Comments: 1) If GI is accessible consider Glucerna 1.2 @ 50ml/hr x 24hr goal rate as tolerated 2) If pt remains NPO >7 days consider TPN to meet 75% of estimated needs 3) Advance pt diet when medically feasible to a CCHO 45g/Cardiac diet 4) Continue current plan of care Expected Outcomes/Goals: 1) Pt to receive adequate nutrition support within 7 days of NPO status 2) Pt diet to advance 3) F/U in 2-3 days Plan discussed with: Other SARAH LALA MD Feb 06, 2024 10:24
[2024-02-06] MEDS: ACETAMINOPHEN 650 MG RECT SUPP PR PRN (11:14)
--- NOTE | 2024-02-06 12:25 | DVHPN2 ---
Progress Note - Dictate Date Seen: Feb 06, 2024 Medical Necessity Reason Pt with a Central, PICC or Fol: Yes The following are medically ne: Meng Catheter Reason for meng catheter: Strict I&O vital signs Vital Sign Date Time Temp Pulse Resp B/P (MAP) Pulse Ox O2 Delivery O2 Flow Rate FiO2 02/06/24 11:14 100.4 02/06/24 10:30 127 16 02/06/24 10:00 95 Nasal Cannula* 3 32 Total Intake and Output 02/05/24 02/05/24 02/06/24 15:00 23:00 07:00 Intake Total 280.560 ml 60 ml 350 ml Output Total 5200 ml 1485 ml Balance 280.560 ml -5140 ml -1135 ml medications Current Medications Medications Dose Ordered Sig/Anastacio Route Start Time Stop Time Status Last Admin Dose Admin Midazolam HCl 50 ml @ 1 mls/hr Q24H IV 02/01/24 19:00 02/03/24 09:44 7.5 MLS/HR Norepinephrine Bitartrate 250 ml @ 3.75 mls/hr Q24H IV 02/01/24 19:00 02/01/24 19:00 3.75 MLS/HR Fentanyl Citrate 250 ml @ 2.5 mls/hr Q24H IV 02/01/24 20:15 02/01/24 21:10 2.5 MLS/HR Acetaminophen/ Hydrocodone Bitart 1 tab Q4HP PRN PO 02/01/24 21:45 Ondansetron HCl 4 mg Q4HP PRN IV 02/01/24 21:45 02/06/24 05:55 4 MG Acetaminophen 650 mg Q6HP PRN PO 02/01/24 21:45 Hold Morphine Sulfate 2 mg Q4HPRN PRN IV 02/01/24 21:45 02/06/24 05:55 2 MG Nitroglycerin 0.4 mg Q5MINP PRN SL 02/01/24 21:45 Morphine Sulfate 2 mg Q30M PRN IV 02/01/24 21:45 Pantoprazole Sodium 40 mg DAILY IV 02/02/24 10:00 02/06/24 09:40 40 MG Atorvastatin Calcium 10 mg HS PO 02/02/24 22:00 02/04/24 22:11 10 MG Enoxaparin Sodium 100 mg DAILY SC 02/03/24 10:00 12/14/24 09:47 100 MG Albuterol 2.5 mg Q6HPRN PRN NEB 02/03/24 03:30 02/06/24 07:38 2.5 MG Vancomycin HCl 0 ml @ 0 mls/hr UD IV 02/03/24 13:45 Mupirocin 1 applic BID EACHNOSTRI 02/03/24 22:00 02/08/24 21:59 Vancomycin HCl 250 ml @ 200 mls/hr Q18H IV 02/04/24 10:00 02/05/24 22:09 200 MLS/HR Dexmedetomidine HCl 400 mcg/ Dextrose 100 ml @ 5.51 mls/hr Q18H9M IV 02/04/24 14:45 02/05/24 04:31 8.265 MLS/HR Hydralazine HCl 10 mg Q6HP PRN IV 02/04/24 14:45 02/04/24 17:13 10 MG Piperacillin Sod/ Tazobactam Sod 100 ml @ 25 mls/hr Q8HR IV 02/05/24 01:00 02/06/24 06:26 25 MLS/HR Lorazepam 0.5 mg Q6HP PRN IV 02/05/24 14:15 02/05/24 21:52 0.5 MG Metoprolol Tartrate 5 mg Q2HP PRN IV 02/05/24 17:30 02/05/24 18:36 5 MG Ipratropium [place] 0.5 mg Q4HP PRN NEB 02/05/24 21:45 Acetaminophen 650 mg Q6HP PRN [place] 02/06/24 09:45 02/06/24 11:14 650 MG Diagnostic Test (Pha) 1 strip ACHS 02/06/24 17:00 UNV Insulin Human Regular ACHS SC 02/06/24 17:00 UNV Dextrose 50 ml UD PRN IV 02/06/24 12:30 UNV objective General Appearance: alert, no distress HEENT: EOMI, PERRLA, normal external inspect of ears, no icterus, no nasal drainage Neck: no carotid bruit, no jugular venous distention (JVD), no lymphadenopathy Chest: normal thorax Respiratory: clear to auscultation, normal air movement Cardiovascular: regular rate and rhythm, no diastolic murmur, no jugular venous distention (JVD), no rub, no systolic murmur Abdominal: soft, no hepatomegaly, no mass, no splenomegaly, no tenderness Genitourinary: grossly normal external Musculoskeletal: no joint tenderness, no swelling Extremities: normal pulses, no calf tenderness, no clubbing, no cyanosis, no edema Skin: no bruising, no jaundice, no rash Neurological: alert, No focal deficit laboratory and microbiology Laboratory Tests 02/06/24 07:54 Test 02/06/24 07:54 Range/Units Serum Glucose 157 H 74-106 mg/dL Problem List 1. Acute hypoxic respiratory failure Monitor, pulmonary consult 2. Status post cardio pulmonology arrest Monitor, cardiology consult, neurology consult, echocardiogram, CTA of chest, Doppler BLE to rule out DVT, full dose Lovenox 3. COPD exacerbation Monitor, IV antibiotics, IV fluids 4. Obesity Monitor, PPI 5. Benign essential hypertension Monitor 6. Pneumonia Monitor, Pulmonary consult, IV antibiotics, Med-Neb treatments 7. Septic shock Monitor, IV antibiotics, IV fluids, vasopressors as needed 8. Elevated troponins Monitor, Cardiology consult, trend troponin levels, monitor EKG 9. Elevated D-dimer Monitor, VQ scan Assessment/Plan Subjective Patient is awake and alert. Objective I spoke with patient at length in regards to plan of care. Patient was successfully extubated yesterday. Patient is status post cardiac arrest. Patient had an elevated D-dimer. Patient is refusing a CT angiogram to rule out PE at this time. Patient states she lives at [facility] living [facility] and she normally uses a walker. Patient has +3 pitting edema to her lower extremities. BNP was within normal limits. Plan Continue IV diuretics. Continue Med-Neb treatments. Will need to discuss goals of care with patient tomorrow for possible angiogram with cardiology. I did update patient's son Imtiaz in regards to plan of care. Dietary Evaluation Review Comments: 1) If GI is accessible consider Glucerna 1.2 @ 50ml/hr x 24hr goal rate as tolerated 2) If pt remains NPO >7 days consider TPN to meet 75% of estimated needs 3) Advance pt diet when medically feasible to a CCHO 45g/Cardiac diet 4) Continue current plan of care Expected Outcomes/Goals: 1) Pt to receive adequate nutrition support within 7 days of NPO status 2) Pt diet to advance 3) F/U in 2-3 days Plan discussed with: Patient, Other JORY LINDSEY NP Feb 06, 2024 12:25
[2024-02-06] MEDS ORDERED: DEXTROSE (50%) 50ML SYRG IV PRN (12:30)
--- NOTE | 2024-02-06 13:20 | DVH ---
CLINICAL INFORMATION: 78 years old, Female; follow-up. TECHNIQUE: Single AP portable chest radiograph was obtained. COMPARISON: XY CHEST PORTABLE on DOS: 02/05/24, XY CHEST XRAY 1 VIEW on DOS: 02/03/24, XY CHEST TAISHA BLE on DOS: 02/01/24 FINDINGS: Interval removal of the endotracheal tube and enteric tube. Stable satisfactory positioning of the r ight internal jugular central venous catheter. Low lung volumes. Bilateral perihilar opacities appear slightly more conspicuous compared to the prior exam. Opacities in the left lung base also appear mo re prominent. No pneumothorax. No other significant interval change. IMPRESSION: 1. Interval removal of the endotracheal tube and enteric tube. Stable satisfactory positioning of th e right internal jugular central venous catheter. 2. Mild perihilar opacities and left basilar opacity appear slightly more conspicuous compared to deneen or exams.
[2024-02-06] MEDS: METOPROLOL SUCCINATE XL 50 MG TAB PO SCH (13:47)
--- NOTE | 2024-02-06 16:18 | DVHPN2 ---
Progress Note - Dictate Date Seen: Feb 06, 2024 Medical Necessity Reason Pt with a Central, PICC or Fol: Yes The following are medically ne: Meng Catheter Reason for meng catheter: Strict I&O Subjective Pt is extubated and AAO x 3 without distress. She is febrile today with sinus tachycardia note. She has passed swallow evaluation. vital signs Vital Sign Date Time Temp Pulse Resp B/P (MAP) Pulse Ox O2 Delivery O2 Flow Rate FiO2 02/06/24 14:00 25 100 Nasal Cannula* 3 32 02/06/24 14:00 114 02/06/24 13:47 145/62 02/06/24 11:14 100.4 Total Intake and Output 02/05/24 02/05/24 02/06/24 15:00 23:00 07:00 Intake Total 280.560 ml 60 ml 350 ml Output Total 5200 ml 1485 ml Balance 280.560 ml -5140 ml -1135 ml medications Current Medications Medications Dose Ordered Sig/Anastacio Route Start Time Stop Time Status Last Admin Dose Admin Midazolam HCl 50 ml @ 1 mls/hr Q24H IV 02/01/24 19:00 02/03/24 09:44 7.5 MLS/HR Norepinephrine Bitartrate 250 ml @ 3.75 mls/hr Q24H IV 02/01/24 19:00 02/01/24 19:00 3.75 MLS/HR Fentanyl Citrate 250 ml @ 2.5 mls/hr Q24H IV 02/01/24 20:15 02/01/24 21:10 2.5 MLS/HR Acetaminophen/ Hydrocodone Bitart 1 tab Q4HP PRN PO 02/01/24 21:45 Ondansetron HCl 4 mg Q4HP PRN IV 02/01/24 21:45 02/06/24 05:55 4 MG Acetaminophen 650 mg Q6HP PRN PO 02/01/24 21:45 Hold Morphine Sulfate 2 mg Q4HPRN PRN IV 02/01/24 21:45 02/06/24 05:55 2 MG Nitroglycerin 0.4 mg Q5MINP PRN SL 02/01/24 21:45 Morphine Sulfate 2 mg Q30M PRN IV 02/01/24 21:45 Pantoprazole Sodium 40 mg DAILY IV 02/02/24 10:00 02/06/24 09:40 40 MG Atorvastatin Calcium 10 mg HS PO 02/02/24 22:00 02/04/24 22:11 10 MG Enoxaparin Sodium 100 mg DAILY SC 02/03/24 10:00 02/06/24 13:40 100 MG Albuterol 2.5 mg Q6HPRN PRN NEB 02/03/24 03:30 02/06/24 07:38 2.5 MG Vancomycin HCl 0 ml @ 0 mls/hr UD IV 02/03/24 13:45 Mupirocin 1 applic BID EACHNOSTRI 02/03/24 22:00 02/08/24 21:59 02/06/24 15:16 1 APPLIC Vancomycin HCl 250 ml @ 200 mls/hr Q18H IV 02/04/24 10:00 02/05/24 22:09 200 MLS/HR Hydralazine HCl 10 mg Q6HP PRN IV 02/04/24 14:45 02/04/24 17:13 10 MG Piperacillin Sod/ Tazobactam Sod 100 ml @ 25 mls/hr Q8HR IV 02/05/24 01:00 02/06/24 13:47 25 MLS/HR Lorazepam 0.5 mg Q6HP PRN IV 02/05/24 14:15 02/05/24 21:52 0.5 MG Ipratropium [place] 0.5 mg Q4HP PRN NEB 02/05/24 21:45 Acetaminophen 650 mg Q6HP PRN [place] 02/06/24 09:45 02/06/24 11:14 650 MG Diagnostic Test (Pha) 1 strip ACHS 02/06/24 17:00 Insulin Human Regular ACHS SC 02/06/24 17:00 Dextrose 50 ml UD PRN IV 02/06/24 12:30 Metoprolol Succinate 25 mg DAILY PO 02/06/24 13:00 02/06/24 13:47 25 MG Furosemide 40 mg BIDD IV 02/06/24 18:00 laboratory and microbiology Laboratory Tests 02/06/24 07:54 Test 02/06/24 07:54 Range/Units Serum Glucose 157 H 74-106 mg/dL Assessment/Plan Patient is a 78-year-old female who presented with shortness of breath. She is intubated at the time of initial evaluation and not source of history. Information was obtained by reviewing the chart and communicating with staff. Reportedly, the patient lives in a nursing facility and EMS were called because the patient had used all of her medications for asthma and was still short of breath. Reportedly, while transferring the patient to the hospital the patient suffered Arrest and CPR was performed successfully. Patient was intubated. There has been no tele/EKG rhythm at the time of arrest to review. At the time of evaluation patient is nonresponsive. Cardiology is involved for cardiac aspects of care. There is questionable old history of myocardial infarction as per staff. Review of the transfer notes from nursing facility do not comment on any coronary artery disease. female, now extubated (02/05/24). No JVD. Left pupil is small. Right pupil does have a oval-shaped in favor of prior eye problems. No JVD. Mucosa is pink and wet. Scattered rhonchi in the lungs is heard. Cardiac: Regular, no thrill/gallop. Systolic murmur 2/6 in apex is heard. Abdomen is soft. Bowel sound is positive. There is no gross mass/hepatomegaly. Extremities do not reveal edema. Dorsalis pedis is 1+ bilateral Reported past medical history includes COPD/asthma, cataract, osteoarthritis, diabetes mellitus, obstructive sleep apnea. As per communications from nursing facility, the patient uses walker for ambulation and reportedly patient has been frail prior to this presentation. Creatinine: 1.34 - 1.33 - 0.92 - 0.96 Potassium: 5.9 - 3.9 - 4.7 - 3.9 Lactic acid: 5.5 - 1.1 AST/ALT: 75/99 - 94/135 BNP: 68.68 - 61.15 - 44.75 Troponin (high sensitive): 7 - 9 - 26 - 39 LDL: 48 - 38 TSH: 0.96 - 1.36 HgbA1c: 7.0 Hgb 11.0 - 11.5 - 8.9 - 8.5 D-dimer: >35.20 Chest x-ray revealed: Lines and Tubes: Endotracheal tube terminating 4.5 cm above the lois. Enteric tube crosses the diaphragm near midline and descends into the left upper quadrant. Right neck central venous catheter terminates over the SVC. Lungs: No focal consolidation. Diffuse bilateral interstitial opacities. Pleura: No effusion. No pneumothorax. Cardiomediastinal contours: Unremarkable Bones: No acute osseous abnormality. IMPRESSION: 1. Lines and tubes as described. 2. Nonspecific diffuse bilateral interstitial opacities. Repeat chest xry reported: Lines and Tubes: Endotracheal tube terminating 4.5 cm above the lois. Enteric tube crosses the diaphragm near midline and descends into the left upper quadrant. Right neck central venous catheter terminates over the SVC. Lungs: No focal consolidation. Diffuse bilateral interstitial opacities. Pleura: No effusion. No pneumothorax. Cardiomediastinal contours: Unremarkable Bones: No acute osseous abnormality. IMPRESSION: 1. Lines and tubes as described. 2. Nonspecific diffuse bilateral interstitial opacities. Repeat CXR revealed nonspecific diffuse bilateral interstitial opacities. Repeat CXR revealed: 1. Interval removal of the endotracheal tube and enteric tube. Stable satisfactory positioning of the right internal jugular central venous catheter. 2. Mild perihilar opacities and left basilar opacity appear slightly more conspicuous compared to prior exams. CT of head reported: IMPRESSION: 1. No acute intracranial process. Venous Doppler of lower extremities reported: Impression: 1. No right or left femoropopliteal venous thrombosis. EKG revealed sinus rhythm with no ST-T changes Tele reveals sinus tachycardia post intubation Echocardiogram revealed: Left ventricle: Left ventricular systolic function was preserved. LDL was around 60% predicted there was no gross wall motion abnormality. Right ventricle was normal size with normal systolic function. Both atria were normal size. Aortic valve was not well visualized. There was no aortic insufficiency/stenosis. There was trivial mitral/tricuspid regurgitation. Pulmonic valve was not well visualized. Right ventricular systolic pressure was assessed around 38 mm Hg. There was no pericardial effusion. Patient is a 78-year-old female who presented to the hospital with shortness of breath/respiratory distress. Reportedly, the patient had arrest. She is intubated and on vent support. At the time of evaluation patient is nonresponsive and there is question of encephalopathy. Presentation and troponin is against acute coronary syndrome. Patient's D-dimer has been elevated and pulmonary emboli as a cause for presentation should be ruled out. It is of note that venous Doppler of lower extremities have been nonrevealing. Evaluation and management depends on regaining higher brain function status. Also, as per son, patient had been specifically refusing any contrast/iodine related tests/CT scans (which by comparison include cardiac cath). Family wanted us to wait until patient regains consciousness and decide herself. Echo revealed good LV systolic function, valves are working ok. Patient is seen by Neurology who is contemplating Hypoxic Encephalopathy. Pulmonary on the case. For now, V/Q scan is suggested. Arrest Respiratory failure, acute History of asthma/COPD Encephalopathy, Hypoxic? , Metabolic? Diabetes mellitus Cataract Osteoarthritis Septic shock Anemia Sinus tachycardia Cardiac suggestion for management: Manage in ICU Follow-up electrolytes and kidney function tests and correct abnormalities. Keep potassium above 4 and magnesium above 2. Avoid hyperkalemia. Aspirin: 81 mg daily suggested - on hold due to drop in Hgb over past few days ( 11.5 to 8.5 ) Lipitor: 10 mg at night is suggested Lovenox for now - on hold due to drop in Hgb over past few days ( 11.5 to 8.5 ) Pressure support to keep MAP above 65 mmHg - pt off pressors 02/05/24 Sinus tachycardia present post extubation - Metoprolol tartrate 5mg IVP Q2H prn while NPO pending swallow evaluation. - Suggest resuming Metoprolol succinate 25mg daily ( home med) once no longer NPO. -- pt now passed swallow eval with PO medications resumed. Consider V/Q scan - pending Pulmonary follow up Neurology follow up Cardiac evaluation and management depends on regaining higher brain function Further evaluation and management depends on the above and clinical course A total of 75 minutes was spent reviewing the patient record, examining the patient, making a diagnostic and therapeutic plan, discussing this plan with medical personnel, following up on diagnostic studies and following the patient for clinical stability excluding any and all procedures. At least 50% of this time was spent in direct, [id number] contact. Thank you for allowing me to participate in this patient's care. Further recommendations will depend on patient's clinical course. Please do not hesitate to contact me if you have any questions or concerns. This medical document was created using electronic medical record system with [employer] computerized dictation system. Although this document has been carefully reviewed, there may still be some phonetic and typographical errors. These areas are purely typographical due to the imperfection of the software programs, and do not reflect any compromise in the patient's medical care. Dietary Evaluation Review Comments: 1) If GI is accessible consider Glucerna 1.2 @ 50ml/hr x 24hr goal rate as tolerated 2) If pt remains NPO >7 days consider TPN to meet 75% of estimated needs 3) Advance pt diet when medically feasible to a CCHO 45g/Cardiac diet 4) Continue current plan of care Expected Outcomes/Goals: 1) Pt to receive adequate nutrition support within 7 days of NPO status 2) Pt diet to advance 3) F/U in 2-3 days Plan discussed with: Patient, Other (RN) Provider Statement: I have reviewed the case with my supervising physician. We have agreed with the plan of care. JEANETTE QUIJANO Feb 06, 2024 16:18
[2024-02-06] MEDS: HYDROcodone-ACET 5/325MG TAB PO PRN (16:41)
[2024-02-06] MEDS: InsuLIN REG 1unit/0.01ml Soln (100units/ml) SC SCH (17:23)
[2024-02-06] MEDS: ACCU-CHEK COMFORT CURVE STRIP VI SCH (17:25)
[2024-02-06] MEDS: FUROSEMIDE 40 MG/4 ML VIAL IV SCH (18:58)
--- NOTE | 2024-02-06 20:24 | DVHPN ---
DATE: 02/05/2024 PULMONARY FOLLOWUP SUBJECTIVE: The patient has a history of respiratory failure, was extubated yesterday, was put on BiPAP. Today, she is doing better. She has been off BiPAP. She, however, tells me that she uses CPAP at night. She is on nasal cannula. She does complain of some cough. Denies any wheezing. She tells me she is on home oxygen as well. She has passed swallowing evaluation, and has been started on p.o. She denies any chest pain or hemoptysis. PHYSICAL EXAMINATION: VITAL SIGNS: The patient's physical examination reveals afebrile, heart rate 110, respiratory rate 25, blood pressure 140/76, saturations 99 to 100% on 2 L. NECK: Supple. No JVD. CHEST: Examination reveals prolonged exhalation. Diminished air entry at bases. Left-sided rales posteriorly. ABDOMEN: Soft, obese, nontender. Bowel sounds normal. COR: S1, S2. No murmurs. EXTREMITIES: No edema or clubbing. LABORATORY DATA: Lab work was noted. WBC 7.1, hematocrit 29, platelet count 183, 64% neutrophils. Serum chemistries were largely unremarkable. Glucose Other lab work were all reviewed. IMPRESSION: Acute respiratory failure, COPD exacerbation on extubated, status post cardiac arrest. Also, possibly has underlying sleep apnea. Also, has history of pneumonia and sepsis, now improved. The patient may have an element of congestive heart failure as well. The patient continue Cardiac followup. Minimize any sedation. Would use CPAP at night. Incentive spirometry. I would recommend titrating oxygen, keep saturations 88 to 92%. Avoid over oxygenation. Continue Medinebs, Lovenox for DVT prophylaxis. Continue Zosyn for 7 days. Rest of the medical management per response. Dr. Kothari will resume pulmonary care in the morning. MD RENÉE Killian/SHANNAN TID: [id number] RECEIPT: [id number]
--- NOTE | 2024-02-06 21:05 | DVHINCON2 ---
Date of service: Feb 06, 2024 Referring Physician Rhea Gibson Reason for Consultation Anemia History of Present Illness A 78-year-old woman with past medical history of COPD and asthma who presents to the ED via EMS status post cardiac arrest. EMS states that the initial call was to [facility] due to patient having difficulty breathing and shortness of breath. Per EMS, on arrival to the ED patient was slowly declining and then lost pulses on arrival at 1847. CPR continued as EMS was wheeling patient into the ER. ROSC was obtained in the ER after intubation and CPR. Patient was admitted to ICU and was intubated for four days for ventilatory support. Patient was treated with antibiotics.. Patient was extubated today. She has passed her swallow eval has been started on a pureed diet GI consult was placed yesterday for anemia. There was no overt signs of GI bleeding and her H&H is actually stable at this time Past Medical History Hypertension COPD asthma bronchitis Past Surgical History Unknown Family History: Patient reports no known family medical history. Allergies: Coded Allergies: Penicillins (Verified Allergy, Unknown, 02/05/24) Sulfa Antibiotics (Verified Allergy, Unknown, 02/05/24) Home Meds Reported Medications Clotrimazole (Topical) (Clotrimazole Anti-Fungal) 1 % Cre, 1 APPLIC EX UD for 30 Days, #45 02/02/24 Fluticasone-Salmeterol (Advair Hfa 115-21 Mcg/Act) 1 Aer Aer, 1 AER IN UD for 90 Days, #12 02/02/24 Diclofenac Sodium (Topical) (Diclofenac Sodium) 1 % Gel, 1 APPLIC TD UD for 30 Days, #100 02/02/24 Insulin Glargine (Lantus Solostar) 100 Unit/Ml Inj, UNIT SC UD for 60 Days, #15 02/02/24 Montelukast Sodium (MONTELUKAST SODIUM) 10 Mg Tab, 1 TAB PO DAILY for 90 Days, #90 02/02/24 Semaglutide (Ozempic) 2 Mg/3 Ml Inj, 0.5 MG SC QWEEKLY for 28 Days, #3 02/02/24 Brinzolamide (Brinzolamide) 1 % Libby, 1 DROP LEFTEYE TID for 55 Days, #10 02/02/24 Folic Acid (Folic Acid) 1 Mg Tab, 1 TAB PO DAILY for 30 Days, #30 02/02/24 Magnesium Oxide (MAGNESIUM OXIDE) 400 Mg Tab, 1 TAB PO QPM for 30 Days, #30 02/02/24 Brimonidine Tartrate (Brimonidine Tartrate) 0.2 % Sydni, 1 DROP EACHEYE Q8HR for 30 Days, #5 02/02/24 Latanoprost (LATANOPROST) 0.005 % Sydni, 1 DROP EACHEYE QPM for 30 Days, #2.5 02/02/24 Furosemide (Furosemide) 40 Mg Tab, 1 TAB PO DAILY for 30 Days, #30 02/02/24 Tramadol Hcl (Tramadol Hcl) 50 Mg Tab, 1 TAB PO BID PRN for 15 Days, #30 02/02/24 Omeprazole (Omeprazole Dr) 40 Mg Cap, 1 CAP PO DAILY for 30 Days, #30 02/02/24 Leflunomide (Arava) 20 Mg Tab, 1 TAB PO DAILY for 30 Days, #30 02/02/24 Metoprolol Succinate (Metoprolol Succinate Er) 25 Mg Tab, 1 TAB PO DAILY for 30 Days, #30 02/02/24 Albuterol Sulfate (Albuterol Sulfate Hfa) 108 Mcg/Act Aer, 2 PUFF IN Q6HR PRN for 25 Days, #18 02/02/24 Methotrexate (Methotrexate) 2.5 Mg Tab, 4 TAB PO QWEEKLY for 28 Days, #16 02/02/24 Current Medications Current Medications Medications (Trade) Dose Ordered Sig/Anastacio Route PRN Reason Start Time Stop Time Status Last Admin Ipratropium Ellinger (Atrovent Medneb) 0.5 mg Q4HP PRN NEB SHORTNESS OF BREATH 02/05/24 21:45 Acetaminophen (Tylenol Suppository) 650 mg Q6HP PRN [place] PAIN SCALE 1-3 OR TEMP>100.4 02/06/24 09:45 02/06/24 11:14 Diagnostic Test (Pha) (Accu-Chek Comfort Curve T) 1 strip ACHS 02/06/24 17:00 02/06/24 17:25 Insulin Human Regular (InsuLIN R) ACHS SC 02/06/24 17:00 02/06/24 17:23 Dextrose 50 ml UD PRN IV Blood Sugar LESS THAN 60 02/06/24 12:30 Metoprolol Succinate (Toprol Xl) 25 mg DAILY PO 02/06/24 13:00 02/06/24 13:47 Furosemide (Lasix Injection) 40 mg BIDD IV 02/06/24 18:00 02/06/24 18:58 Vital Signs Vital Signs Date Time Temp Pulse Resp B/P (MAP) Pulse Ox O2 Delivery O2 Flow Rate FiO2 02/06/24 20:00 20 100 Nasal Cannula* 2 28 02/06/24 20:00 114 02/06/24 18:58 157/70 02/06/24 16:00 98.8 98.8 Physical Exam Pt is extubated and AAO x 3 without distress. She was febrile today with sinus tachycardia HEENT: EOMI, PERRLA, normal external inspect of ears, no icterus, no nasal drainage Neck: no carotid bruit, no jugular venous distention (JVD), no lymphadenopathy Respiratory: clear to auscultation, normal air movement Cardiovascular: regular rate and rhythm, no diastolic murmur, no jugular venous distention (JVD), Abdominal: soft, no hepatomegaly, no mass, no splenomegaly, no tenderness Musculoskeletal: no joint tenderness, no swelling Extremities: normal pulses, no calf tenderness, no clubbing, no cyanosis, no edema Skin: no bruising, no jaundice, no rash Neurological: alert, No focal deficit Labs/Diagnostic Data Labs Test 02/06/24 17:11 02/06/24 07:54 02/05/24 21:13 02/05/24 19:40 Range/Units POC Glucose 212 H 70-106 mg/dl White Blood Count 7.1 4.4-10.8 10^3/uL Red Blood Count 3.12 L 4.0-5.20 10^6/uL Hemoglobin 9.2 L 12.2-16.2 g/dL Hematocrit 29.6 L 36.0-46.0 % Mean Corpuscular Volume 95.1 80.0-100.0 fL Mean Corpuscular Hemoglobin 29.5 28.0-32.0 pg Mean Corpuscular Hemoglobin Concent 31.0 L 32.0-36.0 g/dL Red Cell Distribution Width 16.4 H 11.8-14.3 % Platelet Count 183 140-450 10^3/uL Mean Platelet Volume 9.3 6.9-10.8 fL Neutrophils (%) (Auto) 64.3 37.0-80.0 % Lymphocytes (%) (Auto) 13.0 10.0-50.0 % Monocytes (%) (Auto) 16.6 H 0.0-12.0 % Eosinophils (%) (Auto) 5.8 0.0-7.0 % Basophils (%) (Auto) 0.3 0.0-2.0 % Neutrophils # (Auto) 4.6 1.6-8.6 10 ^3/uL Lymphocytes # (Auto) 0.9 0.4-5.4 10 ^3/uL Monocytes # (Auto) 1.2 0-1.3 10 ^3/uL Eosinophils # (Auto) 0.4 0-0.8 10 ^3/uL Basophils # (Auto) 0 0-0.2 10 ^3/uL Nucleated Red Blood Cells 0.1 % Sodium Level 143 136-145 mmol/L Potassium Level 3.7 3.5-5.1 mmol/L Chloride Level 105 98-107 mmol/L Carbon Dioxide Level 30 20-31 mmol/L Anion Gap 8 5-15 Blood Urea Nitrogen 13 9-23 mg/dL Creatinine 0.99 0.550-1.02 mg/dL Glomerular Filtration Rate Calc 59 >90 mL/min BUN/Creatinine Ratio 13.1 10.0-20.0 Serum Glucose 157 H 74-106 mg/dL Calcium Level 9.8 8.7-10.4 mg/dL Phosphorus Level 2.5 2.4-5.1 mg/dL Magnesium Level 1.8 1.6-2.6 mg/dL B-Type Natriuretic Peptide 109.22 0-100 pg/mL Vancomycin Level Trough 18.0 H 5-10 ug/mL Stool Occult Blood Negative Negative Stool Occult Blood Sample #3 Negative Test 02/05/24 14:27 02/05/24 10:05 02/04/24 03:43 02/03/24 09:30 Range/Units Blood Gas Specimen Type Arterial Blood Gas Sample Site Right radial Blood Gas Patient Temperature 37.0 Arterial Blood Date Drawn [id number] Arterial Blood pH 7.335 L 7.350-7.450 Arterial Blood Partial Pressure CO2 53.6 H 32.0-45.0 mmHg Arterial Blood Partial Pressure O2 117.1 H 83.0-108.0 mmHg Arterial Blood HCO3 27.9 21.0-28.0 mmol/L Arterial Blood Oxygen Saturation 95.6 94.0-98.0 % Arterial Blood Base Excess 1.5 -2.0-3.0 mmol/L Arterial Blood Oxyhemoglobin 94.4 94.0-98.0 % Arterial Blood Carboxyhemoglobin 1.2 0.5-1.5 % Arterial Blood Methemoglobin 0.1 0.0-1.5 % Maximino Test Yes Blood Gas Total Hemoglobin 10.10 L 12.0-16.0 g/dL Blood Gas Set Respiration Rate 14.0 Blood Gas Modality Mask - bipap FiO2 % 40.0 Blood Gas Pressure Support 7 Blood Gas EPAP 7 Blood Gas IPAP 14 Blood Gas Tidal Volume 450.0 Blood Gas PEEP or CPAP 5.0 Estimated GFR () 76 mL/min Estimated GFR (Non- 63 mL/min Albumin 3.3 3.2-4.8 g/dL Blood Gas Spontaneous Rate 18 Test 02/03/24 04:49 02/02/24 06:50 02/02/24 04:30 02/02/24 00:30 Range/Units Hemoglobin A1c 7.0 H <5.7 % A1C Triglycerides Level 105 < 150 mg/dL Cholesterol Level 101 < 200 mg/dL LDL Cholesterol 38 < 100 mg/dL HDL Cholesterol 38 L 40-59 mg/dL Thyroid Stimulating Hormone (TSH) 1.36 0.55-4.78 uIU/mL Influenza Type A Antigen Negative Negative Influenza Type B Antigen Negative Negative SARS-CoV-2 Antigen (Rapid) Negative NEGATIVE Total Bilirubin 0.4 0.2-1.0 mg/dL Aspartate Amino Transferase (AST) 94 H 13-40 U/L Alanine Aminotransferase (ALT) 135 H 7-40 U/L Alkaline Phosphatase 88 46-116 U/L Total Protein 6.9 5.7-8.2 g/dL Troponin I High Sensitivity 39 *H </=34 ng/L Test 02/01/24 20:35 02/01/24 20:18 02/01/24 19:42 02/01/24 19:05 Range/Units Lactic Acid Level 1.1 0.4-2.0 mmol/L Blood Gas Critical Value Read Back Yes Blood Gas Notified Whom Dr. pilo dougherty Blood Gas Notified Time [id number] Blood Gas Notified By Rt b dsouza Urine Color Light-yellow Yellow Urine Clarity Clear Clear Urine pH 6.0 5.0-9.0 Urine Specific [place] 1.009 1.001-1.035 Urine Protein Negative Negative Urine Ketones Negative Negative Urine Blood Negative Negative /uL Urine Nitrite Negative Negative Urine Bilirubin Negative Negative Urine Urobilinogen Normal Negative mg/dL Urine Leukocyte Esterase Negative Negative /uL Urine RBC 1 0 - 4 /hpf Urine WBC <1 0 - 5 /hpf Urine Squamous Epithelial Cells Few <5 /hpf Urine Bacteria None seen None Seen /hpf Urine Glucose Normal Normal mg/dL Differential Total Cells Counted 100.0 100 Neutrophils % (Manual) 29 L 37.0-80.0 Band Neutrophils % (Manual) 0 Lymphocytes % (Manual) 51 H 10.0-50.0 Monocytes % (Manual) 10 0-12 Eosinophils % (Manual) 10 H 0-7 Basophils % (Manual) 0 0.0-2.0 Metamyelocytes % (manual) 0 Myelocytes % (Manual) 0 Promyelocytes % (Manual) 0 Blast Cells % (Manual) 0 Reactive Lymphocytes 0 Platelet Estimate Adequate Poikilocytosis (manual) Slight Anisocytosis (manual) Slight Prothrombin Time 10.3 9.3-11.8 sec Prothrombin Time INR 0.97 0.9-1.15 Activated Partial Thromboplast Time 23.1 L 24.5-34.5 SEC D-Dimer, Quantitative > 35.20 H 0.0-0.49 mg/L FEU Lipase 31 12-53 U/L Microbiology Date/Time Source Procedure Growth Status 02/03/24 04:44 Nose MRSA Screen - Final Complete 02/01/24 20:35 Blood Blood Culture - Preliminary NO GROWTH AFTER 72 HOURS OF INCUBATION. Resulted 02/01/24 19:42 Voided Urine Urine Culture - Final Complete 02/01/24 19:42 Sputum Gram Stain - Final Complete 02/01/24 19:42 Sputum Respiratory Culture - Final Complete CXR IMPRESSION: 1. Interval removal of the endotracheal tube and enteric tube. Stable satisfactory positioning of the right internal jugular central venous catheter. 2. Mild perihilar opacities and left basilar opacity appear slightly more conspicuous compared to prior exams. CT Head Negative Problems(with codes): (1) Lung infiltrate (2) Anemia (3) Cardiac arrest (4) Acute respiratory failure Plan/Recommendation Plan Patient is H&H is stable and improved today There was no signs of overt GI bleeding Continue conservative observation Protonix 40 mg IV daily Check stool for occult blood, iron profile, vitamin B12 and serum folate Recommend likely outpatient elective colonoscopy an endoscopy once medically stabilized Once again thank you for allowing me to participate in the care of this patient I will follow up patient with you Plan discussed with: Other (Nurse) JIMMY SINGH MD Feb 06, 2024 21:05
[2024-02-06] MEDS: IPRATROPIUM BROM 0.5 MG/2.5ML INH SOL NEB PRN (21:44)
[2024-02-07] VITALS (43 sets, daily range): BP systolic 110–150; BP diastolic 43–89; PULSE 72–119; RESP 11–27; TEMP 98.3–99.9; O2SAT 94–100
[2024-02-07 03:52] LABS: Basophils # (auto) 0.1 10 ^3/uL (0-0.2); Basophils % (auto) 0.9 % (0.0-2.0); Eosinophils # (auto) 0.3 10 ^3/uL (0-0.8); Eosinophils % (auto) 4.4 % (0.0-7.0); Hematocrit 27.2 % (36.0-46.0); Hemoglobin 8.6 g/dL (12.2-16.2); Lymphocytes % (auto) 14.4 % (10.0-50.0); Mean Corpuscular Hemoglobin 29.6 pg (28.0-32.0); Mean Corpuscular Hgb Conc. 31.8 g/dL (32.0-36.0); Monocytes # (auto) 1.2 10 ^3/uL (0-1.3); Monocytes % (auto) 17.2 % (0.0-12.0); Neutrophils # (auto) 4.4 10 ^3/uL (1.6-8.6); Neutrophils % (auto) 63.1 % (37.0-80.0); Nucleated Red Blood Cells % 0.1 %; Platelet Count (auto) 202 10^3/uL (140-450); Red Blood Cells 2.93 10^6/uL (4.0-5.20); Red Cell Distribution Width 16.6 % (11.8-14.3)
[2024-02-07 04:06] LABS: % Iron Saturation 11.2 % (15-50)
[2024-02-07 04:11] LABS: Alanine Aminotransferase 36 U/L (7-40); Albumin 3.4 g/dL (3.2-4.8); Alkaline Phosphatase 64 U/L (46-116); Anion Gap 6 (5-15); Aspartate Aminotransferase 16 U/L (13-40); BUN/Creatinine Ratio 12.3 (10.0-20.0); Blood Urea Nitrogen 13 mg/dL (9-23); Calcium 9.9 mg/dL (8.7-10.4); Chloride 102 mmol/L (98-107); Magnesium 1.7 mg/dL (1.6-2.6); Sodium 143 mmol/L (136-145); Total Protein 5.8 g/dL (5.7-8.2)
[2024-02-07 04:13] LABS: Bilirubin, Total 0.3 mg/dL (0.2-1.0); Carbon Dioxide 35 mmol/L (20-31); Glucose 154 mg/dL (74-106); Phosphorus 2.1 mg/dL (2.4-5.1); Potassium 3.1 mmol/L (3.5-5.1)
--- NOTE | 2024-02-07 08:54 | DVHPN2 ---
Progress Note - Dictate Date Seen: Feb 07, 2024 Medical Necessity Reason Pt with a Central, PICC or Fol: Yes The following are medically ne: Meng Catheter Reason for meng catheter: Strict I&O vital signs Vital Sign Date Time Temp Pulse Resp B/P (MAP) Pulse Ox O2 Delivery O2 Flow Rate FiO2 02/07/24 08:00 114 22 100 Nasal Cannula* 2 28 02/07/24 06:00 139/71 02/07/24 04:00 99.7 99.7 Total Intake and Output 02/06/24 02/06/24 02/07/24 15:00 23:00 07:00 Intake Total 25 ml 525 ml 250 ml Output Total 2200 ml 1850 ml Balance 25 ml -1675 ml -1600 ml medications Current Medications Medications Dose Ordered Sig/Anastacio Route Start Time Stop Time Status Last Admin Dose Admin Midazolam HCl 50 ml @ 1 mls/hr Q24H IV 02/01/24 19:00 02/03/24 09:44 7.5 MLS/HR Norepinephrine Bitartrate 250 ml @ 3.75 mls/hr Q24H IV 02/01/24 19:00 02/01/24 19:00 3.75 MLS/HR Fentanyl Citrate 250 ml @ 2.5 mls/hr Q24H IV 02/01/24 20:15 02/01/24 21:10 2.5 MLS/HR Acetaminophen/ Hydrocodone Bitart 1 tab Q4HP PRN PO 02/01/24 21:45 02/07/24 06:55 1 TAB Ondansetron HCl 4 mg Q4HP PRN IV 02/01/24 21:45 02/06/24 05:55 4 MG Acetaminophen 650 mg Q6HP PRN PO 02/01/24 21:45 Hold Morphine Sulfate 2 mg Q4HPRN PRN IV 02/01/24 21:45 02/06/24 05:55 2 MG Nitroglycerin 0.4 mg Q5MINP PRN SL 02/01/24 21:45 Morphine Sulfate 2 mg Q30M PRN IV 02/01/24 21:45 Pantoprazole Sodium 40 mg DAILY IV 02/02/24 10:00 02/06/24 09:40 40 MG Atorvastatin Calcium 10 mg HS PO 02/02/24 22:00 02/06/24 22:00 10 MG Enoxaparin Sodium 100 mg DAILY SC 02/03/24 10:00 02/06/24 13:40 100 MG Albuterol 2.5 mg Q6HPRN PRN NEB 02/03/24 03:30 02/06/24 21:44 2.5 MG Vancomycin HCl 0 ml @ 0 mls/hr UD IV 02/03/24 13:45 Mupirocin 1 applic BID EACHNOSTRI 02/03/24 22:00 02/08/24 21:59 02/06/24 22:00 1 APPLIC Vancomycin HCl 250 ml @ 200 mls/hr Q18H IV 02/04/24 10:00 02/06/24 16:30 200 MLS/HR Hydralazine HCl 10 mg Q6HP PRN IV 02/04/24 14:45 02/04/24 17:13 10 MG Piperacillin Sod/ Tazobactam Sod 100 ml @ 25 mls/hr Q8HR IV 02/05/24 01:00 02/07/24 06:00 25 MLS/HR Lorazepam 0.5 mg Q6HP PRN IV 02/05/24 14:15 02/05/24 21:52 0.5 MG Ipratropium Eden 0.5 mg Q4HP PRN NEB 02/05/24 21:45 02/06/24 21:44 0.5 MG Acetaminophen 650 mg Q6HP PRN [place] 02/06/24 09:45 02/06/24 11:14 650 MG Diagnostic Test (Pha) 1 strip ACHS 02/06/24 17:00 02/07/24 06:59 1 STRIP Insulin Human Regular ACHS SC 02/06/24 17:00 02/07/24 06:58 3 UNITS Dextrose 50 ml UD PRN IV 02/06/24 12:30 Metoprolol Succinate 25 mg DAILY PO 02/06/24 13:00 02/06/24 13:47 25 MG Furosemide 40 mg BIDD IV 02/06/24 18:00 02/07/24 06:00 40 MG laboratory and microbiology Laboratory Tests 02/07/24 03:15 Test 02/07/24 03:15 Range/Units Serum Glucose 154 H 74-106 mg/dL Assessment/Plan Patient is a 78-year-old female who presented with shortness of breath. She is intubated at the time of evaluation and not source of history. Information was obtained by reviewing the chart and communicating with staff. Reportedly, the patient lives in a nursing facility and EMS were called because the patient had used all of her medications for asthma and was still short of breath. Reportedly, while transferring the patient to the hospital the patient suffered Arrest and CPR was performed successfully. Patient was intubated. There has been no tele/EKG rhythm at the time of arrest to review. At the time of evaluation patient is nonresponsive. Cardiology is involved for cardiac aspects of care. There is questionable old history of myocardial infarction as per staff. Review of the transfer notes from nursing facility do not comment on any coronary artery disease. female, Extubated. No JVD. No JVD. Mucosa is pink and wet. Scattered rhonchi in the lungs is heard. Cardiac: Regular, no thrill/gallop. Systolic murmur 2/6 in apex is heard. Abdomen is soft. Bowel sound is positive. There is no gross mass/hepatomegaly. Extremities do not reveal edema. Dorsalis pedis is 1+ bilateral Reported past medical history includes COPD/asthma, cataract, osteoarthritis, diabetes mellitus, obstructive sleep apnea. As per communications from nursing facility, the patient uses walker for ambulation and reportedly patient has been frail prior to this presentation. Creatinine: 1.34 - 1.33 - 0.92 - 0.96 - 0.99 - 1.06 Potassium: 5.9 - 3.9 - 4.7 - 3.9 - 3.7 - 3.1 Lactic acid: 5.5 - 1.1 AST/ALT: 75/99 - 94/135 - 16/36 BNP: 68.68 - 61.15 - 44.75 - 109.22 Troponin (high sensitive): 7 - 9 - 26 - 39 LDL: 48 - 38 TSH: 0.96 - 1.36 HgbA1c: 7.0 D-dimer: >35.20 Chest x-ray revealed: Lines and Tubes: Endotracheal tube terminating 4.5 cm above the lois. Enteric tube crosses the diaphragm near midline and descends into the left upper quadrant. Right neck central venous catheter terminates over the SVC. Lungs: No focal consolidation. Diffuse bilateral interstitial opacities. Pleura: No effusion. No pneumothorax. Cardiomediastinal contours: Unremarkable Bones: No acute osseous abnormality. IMPRESSION: 1. Lines and tubes as described. 2. Nonspecific diffuse bilateral interstitial opacities. Repeat chest xry reported: Lines and Tubes: Endotracheal tube terminating 4.5 cm above the lois. Enteric tube crosses the diaphragm near midline and descends into the left upper quadrant. Right neck central venous catheter terminates over the SVC. Lungs: No focal consolidation. Diffuse bilateral interstitial opacities. Pleura: No effusion. No pneumothorax. Cardiomediastinal contours: Unremarkable Bones: No acute osseous abnormality. IMPRESSION: 1. Lines and tubes as described. 2. Nonspecific diffuse bilateral interstitial opacities. Repeat chest xry revealed: Lines and Tubes: Endotracheal tube terminating 4.5 cm above the lois. Enteric tube crosses the diaphragm near midline and descends into the left upper quadrant. Right neck central venous catheter terminates over the SVC. Lungs: No focal consolidation. Diffuse bilateral interstitial opacities. Pleura: No effusion. No pneumothorax. Cardiomediastinal contours: Unremarkable Bones: No acute osseous abnormality. IMPRESSION: 1. Lines and tubes as described. 2. Nonspecific diffuse bilateral interstitial opacities. Repeat chest xry revealed: 1. Interval removal of the endotracheal tube and enteric tube. Stable satisfactory positioning of the right internal jugular central venous catheter. 2. Mild perihilar opacities and left basilar opacity appear slightly more conspicuous compared to prior exams. CT of head reported: IMPRESSION: 1. No acute intracranial process. Venous Doppler of lower extremities reported: Impression: 1. No right or left femoropopliteal venous thrombosis. EKG revealed sinus rhythm with no ST-T changes Tele reveals sinus rhythm Echocardiogram revealed: Left ventricle: Left ventricular systolic function was preserved. LDL was around 60% predicted there was no gross wall motion abnormality. Right ventricle was normal size with normal systolic function. Both atria were normal size. Aortic valve was not well visualized. There was no aortic insufficiency/stenosis. There was trivial mitral/tricuspid regurgitation. Pulmonic valve was not well visualized. Right ventricular systolic pressure was assessed around 38 mm Hg. There was no pericardial effusion. Patient is a 78-year-old female who presented to the hospital with shortness of breath/respiratory distress. Reportedly, the patient had arrest. She is intubated and on vent support. At the time of evaluation patient is nonresponsive and there is question of encephalopathy. Presentation and troponin is against acute coronary syndrome. Patient's D-dimer has been elevated and pulmonary emboli as a cause for presentation should be ruled out. It is of note that venous Doppler of lower extremities have been nonrevealing. Evaluation and management depends on regaining higher brain function status. Also, as per son, patient had been specifically refusing any contrast/iodine related tests/CT scans (which by comparison include cardiac cath). Family wanted us to wait until patient regains consciousness and decide herself. Echo revealed good LV systolic function, valves are working ok. Patient is seen by Neurology who is contemplating Hypoxic Encephalopathy. Pulmonary on the case. For now, V/Q scan is suggested. Patient was later extubated. She has regained higher brain function and communicates. We had long discussion about the presentation and abnormal labs (D-dimer). She was told about suggestions for possible left heart catheterization and also CT angio of the lungs. She verbalized understanding. She is refusing any kind of contrast/iodine related study. She mentioned that she understands the risks but does not want contrast related tests. 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 She was told that V/Q scan can still be performed and she agreed. Arrest Respiratory failure, acute s/p Intubation and later extubation History of asthma/COPD Encephalopathy, Hypoxic? , Metabolic? Diabetes mellitus Cataract Osteoarthritis Septic shock Cardiac suggestion for management: Manage in unit Follow-up electrolytes and kidney function tests and correct abnormalities. Keep potassium above 4 and magnesium above 2. Avoid hyperkalemia. Aspirin: 81 mg daily suggested Lipitor: 10 mg at night is suggested Lovenox for now Pressure support to keep MAP above 65 mmHg V/Q scan Pulmonary follow up Neurology follow up Cardiac evaluation and management depends on regaining higher brain function Further evaluation and management depends on the above and clinical course A total of 75 minutes was spent reviewing the patient record, examining the patient, making a diagnostic and therapeutic plan, discussing this plan with medical personnel, following up on diagnostic studies and following the patient for clinical stability excluding any and all procedures. At least 50% of this time was spent in direct, [id number] contact. Thank you for allowing me to participate in this patient's care. Further recommendations will depend on patient's clinical course. Please do not hesitate to contact me if you have any questions or concerns. This medical document was created using electronic medical record system with [employer] dictation system. Although this document has been carefully reviewed, there may still be some phonetic and typographical errors. These areas are purely typographical due to the imperfection of the software programs, and do not reflect any compromise in the patient's medical care. Dietary Evaluation Review Comments: 1) If GI is accessible consider Glucerna 1.2 @ 50ml/hr x 24hr goal rate as tolerated 2) If pt remains NPO >7 days consider TPN to meet 75% of estimated needs 3) Advance pt diet when medically feasible to a CCHO 45g/Cardiac diet 4) Continue current plan of care Expected Outcomes/Goals: 1) Pt to receive adequate nutrition support within 7 days of NPO status 2) Pt diet to advance 3) F/U in 2-3 days Plan discussed with: Patient, Other (nurse) DEBORAH FREIRE MD Feb 07, 2024 08:54
--- NOTE | 2024-02-07 09:06 | DVHPN2 ---
Progress Note - Dictate Date Seen: Feb 07, 2024 Medical Necessity Reason Pt with a Central, PICC or Fol: Yes The following are medically ne: Meng Catheter Reason for meng catheter: Strict I&O Subjective Ms. Hardwick is a 78 years old female with a history of hypertension, diabetes, asthma, COPD, the patient was brought to the [facility] from her retirement for altered mental status/cardiopulmonary arrest. I have seen and examined the patient, discussed with her nurse, she keeps improving, she was alert, oriented x3, no new complaint. She reports having glaucoma in the left eye and she was on eyedrops, but she does not remember the name I have tried, but could not get hold of her family for her glaucoma treatment, according to our record, she should be on Brimonidine eyedrops [phone], Busy, no answer. [phone], answered, but did not talk to me UDS, 02/01/2024: Urinalysis, 02/01/2024: Unremarkable ABG, 02/01/2024: Respiratory acidosis WBC/HB/PLT/MCV, 02/02/2024: 9.4/11.5/219/93.2 HCO3, 02/01/2024: 32, 02/02/2024: 37 BUN/CR, 02/01/2024: 23/1.34. 02/02/2024: 25/1.33 Lactic acid, 02/01/2024: 5.5 TG/HDL/LDL/HDL, 02/02/2024: 55/125/48/55 TSH, 02/03/2024: 1.36 CT head, 02/02/2024:No acute intracranial process vital signs Vital Sign Date Time Temp Pulse Resp B/P (MAP) Pulse Ox O2 Delivery O2 Flow Rate FiO2 02/07/24 08:00 114 22 100 Nasal Cannula* 2 28 02/07/24 06:00 139/71 02/07/24 04:00 99.7 99.7 Total Intake and Output 02/06/24 02/06/24 02/07/24 15:00 23:00 07:00 Intake Total 25 ml 525 ml 250 ml Output Total 2200 ml 1850 ml Balance 25 ml -1675 ml -1600 ml medications Current Medications Medications Dose Ordered Sig/Anastacio Route Start Time Stop Time Status Last Admin Dose Admin Midazolam HCl 50 ml @ 1 mls/hr Q24H IV 02/01/24 19:00 02/03/24 09:44 7.5 MLS/HR Norepinephrine Bitartrate 250 ml @ 3.75 mls/hr Q24H IV 02/01/24 19:00 02/01/24 19:00 3.75 MLS/HR Fentanyl Citrate 250 ml @ 2.5 mls/hr Q24H IV 02/01/24 20:15 02/01/24 21:10 2.5 MLS/HR Acetaminophen/ Hydrocodone Bitart 1 tab Q4HP PRN PO 02/01/24 21:45 02/07/24 06:55 1 TAB Ondansetron HCl 4 mg Q4HP PRN IV 02/01/24 21:45 02/06/24 05:55 4 MG Acetaminophen 650 mg Q6HP PRN PO 02/01/24 21:45 Hold Morphine Sulfate 2 mg Q4HPRN PRN IV 02/01/24 21:45 02/06/24 05:55 2 MG Nitroglycerin 0.4 mg Q5MINP PRN SL 02/01/24 21:45 Morphine Sulfate 2 mg Q30M PRN IV 02/01/24 21:45 Pantoprazole Sodium 40 mg DAILY IV 02/02/24 10:00 02/06/24 09:40 40 MG Atorvastatin Calcium 10 mg HS PO 02/02/24 22:00 02/06/24 22:00 10 MG Enoxaparin Sodium 100 mg DAILY SC 02/03/24 10:00 02/06/24 13:40 100 MG Albuterol 2.5 mg Q6HPRN PRN NEB 02/03/24 03:30 02/06/24 21:44 2.5 MG Vancomycin HCl 0 ml @ 0 mls/hr UD IV 02/03/24 13:45 Mupirocin 1 applic BID EACHNOSTRI 02/03/24 22:00 02/08/24 21:59 02/06/24 22:00 1 APPLIC Vancomycin HCl 250 ml @ 200 mls/hr Q18H IV 02/04/24 10:00 02/06/24 16:30 200 MLS/HR Hydralazine HCl 10 mg Q6HP PRN IV 02/04/24 14:45 12/13/24 17:13 10 MG Piperacillin Sod/ Tazobactam Sod 100 ml @ 25 mls/hr Q8HR IV 02/05/24 01:00 02/07/24 06:00 25 MLS/HR Lorazepam 0.5 mg Q6HP PRN IV 02/05/24 14:15 02/05/24 21:52 0.5 MG Ipratropium [place] 0.5 mg Q4HP PRN NEB 02/05/24 21:45 02/06/24 21:44 0.5 MG Acetaminophen 650 mg Q6HP PRN [place] 02/06/24 09:45 02/06/24 11:14 650 MG Diagnostic Test (Pha) 1 strip ACHS 02/06/24 17:00 02/07/24 06:59 1 STRIP Insulin Human Regular ACHS SC 02/06/24 17:00 02/07/24 06:58 3 UNITS Dextrose 50 ml UD PRN IV 02/06/24 12:30 Metoprolol Succinate 25 mg DAILY PO 02/06/24 13:00 02/06/24 13:47 25 MG Furosemide 40 mg BIDD IV 02/06/24 18:00 02/07/24 06:00 40 MG objective The patient is well-nourished and well-developed with no distress. MENTAL STATUS: Subjective CRANIAL NERVES: Pupils are equal round and reactive to light briskly, normal external eye movement, normal sensation and motor examination in the lateral trigeminal nerve distribution, no facial weakness SENSATION: Normal to pinprick and light touch MOTOR: Normal tone in the upper and lower extremity. Normal muscle bulk. No fasciculations. She moves the arms and legs REFLEXES: Deep tendon reflexes are symmetrical. No pathological reflexes. CEREBELLAR/COORDINATION: Deferred GAIT/STATION: deferred. laboratory and microbiology Laboratory Tests 02/07/24 03:15 Test 02/07/24 03:15 Range/Units Serum Glucose 154 H 74-106 mg/dL Problem List Coma, resolved Hypoxic encephalopathy Metabolic encephalopathy Respiratory failure, resolved Respiratory acidosis resolved Chronic kidney failure Glaucoma She keeps improving Assessment/Plan Monitoring Supportive treatment EEG ICU care Stabilize vitals p.r.n. Respiratory support p.r.n. Oxygen GI prophylaxis Cardiology on case Pulmonology on case More recommendation per clinical course I am prescribing Brimonidine eyedrop for her left eye glaucoma, meanwhile She is to call family confirm her glaucoma eye drop This medical document was created using an electronic medical record system with [employer] computerized dictation system. Although this document has been carefully reviewed, there may still be some phonetic and typographical errors. These areas are purely typographical due to imperfections of the software programs, and do not reflect any compromise in the patient's medical care. Prognosis poor Dietary Evaluation Review Comments: 1) If GI is accessible consider Glucerna 1.2 @ 50ml/hr x 24hr goal rate as tolerated 2) If pt remains NPO >7 days consider TPN to meet 75% of estimated needs 3) Advance pt diet when medically feasible to a CCHO 45g/Cardiac diet 4) Continue current plan of care Expected Outcomes/Goals: 1) Pt to receive adequate nutrition support within 7 days of NPO status 2) Pt diet to advance 3) F/U in 2-3 days Plan discussed with: Patient, Other SARAH LALA MD Feb 07, 2024 09:06
[2024-02-07] MEDS: MAGNESIUM SULFATE 1GM/100ML 100 ML IV SCH (10:20)
[2024-02-07] MEDS: POTASSIUM CHL 20MEQ/100ML 100 ML IV SCH (10:21)
[2024-02-07] MEDS: BRIMONIDINE 0.2% OPTH Soln 5ml LEFTEYE SCH (10:28)
--- NOTE | 2024-02-07 10:59 | DVHPN2 ---
Progress Note - Dictate Date Seen: Feb 07, 2024 Medical Necessity Reason Pt with a Central, PICC or Fol: Yes The following are medically ne: Meng Catheter Reason for meng catheter: Strict I&O vital signs Vital Sign Date Time Temp Pulse Resp B/P (MAP) Pulse Ox O2 Delivery O2 Flow Rate FiO2 02/07/24 09:20 120 148/81 02/07/24 09:01 11 98 02/07/24 08:01 99.7 99.7 02/07/24 08:00 Nasal Cannula* 2 28 Total Intake and Output 02/06/24 02/06/24 02/07/24 15:00 23:00 07:00 Intake Total 25 ml 525 ml 250 ml Output Total 2200 ml 1850 ml Balance 25 ml -1675 ml -1600 ml medications Current Medications Medications Dose Ordered Sig/Anastacio Route Start Time Stop Time Status Last Admin Dose Admin Midazolam HCl 50 ml @ 1 mls/hr Q24H IV 02/01/24 19:00 02/03/24 09:44 7.5 MLS/HR Norepinephrine Bitartrate 250 ml @ 3.75 mls/hr Q24H IV 02/01/24 19:00 02/01/24 19:00 3.75 MLS/HR Fentanyl Citrate 250 ml @ 2.5 mls/hr Q24H IV 02/01/24 20:15 02/01/24 21:10 2.5 MLS/HR Acetaminophen/ Hydrocodone Bitart 1 tab Q4HP PRN PO 02/01/24 21:45 02/07/24 06:55 1 TAB Ondansetron HCl 4 mg Q4HP PRN IV 02/01/24 21:45 02/06/24 05:55 4 MG Acetaminophen 650 mg Q6HP PRN PO 02/01/24 21:45 Hold Morphine Sulfate 2 mg Q4HPRN PRN IV 02/01/24 21:45 02/06/24 05:55 2 MG Nitroglycerin 0.4 mg Q5MINP PRN SL 02/01/24 21:45 Morphine Sulfate 2 mg Q30M PRN IV 02/01/24 21:45 Pantoprazole Sodium 40 mg DAILY IV 02/02/24 10:00 02/07/24 09:20 40 MG Atorvastatin Calcium 10 mg HS PO 02/02/24 22:00 02/06/24 22:00 10 MG Enoxaparin Sodium 100 mg DAILY SC 02/03/24 10:00 02/07/24 09:21 100 MG Albuterol 2.5 mg Q6HPRN PRN NEB 02/03/24 03:30 02/06/24 21:44 2.5 MG Vancomycin HCl 0 ml @ 0 mls/hr UD IV 02/03/24 13:45 Mupirocin 1 applic BID EACHNOSTRI 02/03/24 22:00 02/08/24 21:59 02/07/24 09:21 1 APPLIC Vancomycin HCl 250 ml @ 200 mls/hr Q18H IV 02/04/24 10:00 02/07/24 09:53 200 MLS/HR Hydralazine HCl 10 mg Q6HP PRN IV 02/04/24 14:45 02/04/24 17:13 10 MG Piperacillin Sod/ Tazobactam Sod 100 ml @ 25 mls/hr Q8HR IV 02/05/24 01:00 02/07/24 06:00 25 MLS/HR Lorazepam 0.5 mg Q6HP PRN IV 02/05/24 14:15 02/05/24 21:52 0.5 MG Ipratropium [place] 0.5 mg Q4HP PRN NEB 02/05/24 21:45 02/06/24 21:44 0.5 MG Acetaminophen 650 mg Q6HP PRN [place] 02/06/24 09:45 02/06/24 11:14 650 MG Diagnostic Test (Pha) 1 strip ACHS 02/06/24 17:00 02/07/24 06:59 1 STRIP Insulin Human Regular ACHS SC 02/06/24 17:00 02/07/24 06:58 3 UNITS Dextrose 50 ml UD PRN IV 02/06/24 12:30 Metoprolol Succinate 25 mg DAILY PO 02/06/24 13:00 02/07/24 09:20 25 MG Furosemide 40 mg BIDD IV 02/06/24 18:00 02/07/24 06:00 40 MG Brimonidine Tartrate 1 drop BID LEFTEYE 02/07/24 10:00 02/07/24 10:28 1 DROP Magnesium Sulfate/ Dextrose 100 ml @ 100 mls/hr Q1HR IV 02/07/24 10:00 02/07/24 13:59 02/07/24 10:20 100 MLS/HR Potassium Chloride 100 ml @ 50 mls/hr Q2H IV 02/07/24 09:45 02/07/24 13:44 02/07/24 10:21 50 MLS/HR objective General Appearance: alert, no distress HEENT: EOMI, PERRLA, normal external inspect of ears, no icterus, no nasal drainage Neck: no carotid bruit, no jugular venous distention (JVD), no lymphadenopathy Chest: normal thorax Respiratory: clear to auscultation, normal air movement Cardiovascular: regular rate and rhythm, no diastolic murmur, no jugular venous distention (JVD), no rub, no systolic murmur Abdominal: soft, no hepatomegaly, no mass, no splenomegaly, no tenderness Genitourinary: grossly normal external Musculoskeletal: no joint tenderness, no swelling Extremities: normal pulses, no calf tenderness, no clubbing, no cyanosis, no edema Skin: no bruising, no jaundice, no rash Neurological: alert, No focal deficit laboratory and microbiology Laboratory Tests 02/07/24 03:15 Test 02/07/24 03:15 Range/Units Serum Glucose 154 H 74-106 mg/dL Problem List 1. Acute hypoxic respiratory failure Monitor, pulmonary consult 2. Status post cardio pulmonology arrest Monitor, cardiology consult, neurology consult, echocardiogram, CTA of chest, Doppler BLE to rule out DVT, full dose Lovenox 3. COPD exacerbation Monitor, IV antibiotics, IV fluids 4. Obesity Monitor, PPI 5. Benign essential hypertension Monitor 6. Pneumonia Monitor, Pulmonary consult, IV antibiotics, Med-Neb treatments 7. Septic shock Monitor, IV antibiotics, IV fluids, vasopressors as needed 8. Elevated troponins Monitor, Cardiology consult, trend troponin levels, monitor EKG 9. Elevated D-dimer Monitor, VQ scan Assessment/Plan Subjective: Patient is awake and alert. Objective: Patient is status post cardiac arrest and extubation. Currently doing well. Cardiology spoke with the patient, who is still refusing a cardiac cath. Outpatient refrigeration engineering teacher is Rubens Ramires NP. Patient was informed that an ICT DEVELOPER cannot perform a heart cath but still refuses the procedure. Family has also refused a CT angiogram. VQ scan is pending. Plan: Continue current treatment. Most likely proceed with medical management as the patient refuses invasive procedures. Dietary Evaluation Review Comments: 1) If GI is accessible consider Glucerna 1.2 @ 50ml/hr x 24hr goal rate as tolerated 2) If pt remains NPO >7 days consider TPN to meet 75% of estimated needs 3) Advance pt diet when medically feasible to a CCHO 45g/Cardiac diet 4) Continue current plan of care Expected Outcomes/Goals: 1) Pt to receive adequate nutrition support within 7 days of NPO status 2) Pt diet to advance 3) F/U in 2-3 days Plan discussed with: Patient, Other JORY LINDSEY ICT DEVELOPER Feb 07, 2024 10:59
[2024-02-07 11:20] LABS: Folate (Folic Acid) 16.07 ng/mL (>5.38)
--- NOTE | 2024-02-07 17:49 | DVH ---
EXAM: NM NM VQ SCAN HISTORY: PULMONARY EMBOLISM COMPARISON: None TECHNIQUE: Following the administration of the ventilation agent, standard projections of the lungs were acquired. The same images were repeated after administration of the perfusion agent. Findings: Ventilation images demonstrate homogenous distribution of radiotracer throughout both lungs. Perfusion images demonstrate homogeneous distribution of radiotracer throughout both lungs. Moderate peripheral wedge-shaped segmental mismatched perfusion defect in the lateral right lower lung field. Impression: 1. Based on PIOPED criteria, intermediate probability for pulmonary embolism.
[2024-02-07] MEDS: MAGNESIUM SULFATE 1GM/100ML 100 ML IV ONE (18:12)
--- NOTE | 2024-02-07 19:47 | DVHPN2 ---
Progress Note - Dictate Date Seen: Feb 07, 2024 Medical Necessity Reason Pt with a Central, PICC or Fol: Yes The following are medically ne: Meng Catheter Reason for meng catheter: Strict I&O Subjective Patient seen and examined at bedside. S/p extubation, on supplemental oxygen. Overnight events reviewed. vital signs Vital Sign Date Time Temp Pulse Resp B/P (MAP) Pulse Ox O2 Delivery O2 Flow Rate FiO2 02/07/24 18:46 100 19 124/84 (97) 100 02/07/24 18:00 Nasal Cannula* 2 28 02/07/24 17:30 98.6 98.6 Total Intake and Output 02/06/24 02/06/24 02/07/24 15:00 23:00 07:00 Intake Total 25 ml 525 ml 275 ml Output Total 2200 ml 1850 ml Balance 25 ml -1675 ml -1575 ml medications Current Medications Medications Dose Ordered Sig/Anastacio Route Start Time Stop Time Status Last Admin Dose Admin Midazolam HCl 50 ml @ 1 mls/hr Q24H IV 02/01/24 19:00 02/03/24 09:44 7.5 MLS/HR Norepinephrine Bitartrate 250 ml @ 3.75 mls/hr Q24H IV 02/01/24 19:00 02/01/24 19:00 3.75 MLS/HR Fentanyl Citrate 250 ml @ 2.5 mls/hr Q24H IV 02/01/24 20:15 02/01/24 21:10 2.5 MLS/HR Acetaminophen/ Hydrocodone Bitart 1 tab Q4HP PRN PO 02/01/24 21:45 02/07/24 12:06 1 TAB Ondansetron HCl 4 mg Q4HP PRN IV 02/01/24 21:45 02/06/24 05:55 4 MG Acetaminophen 650 mg Q6HP PRN PO 02/01/24 21:45 Hold Morphine Sulfate 2 mg Q4HPRN PRN IV 02/01/24 21:45 02/06/24 05:55 2 MG Nitroglycerin 0.4 mg Q5MINP PRN SL 02/01/24 21:45 Morphine Sulfate 2 mg Q30M PRN IV 02/01/24 21:45 Pantoprazole Sodium 40 mg DAILY IV 02/02/24 10:00 02/07/24 09:20 40 MG Atorvastatin Calcium 10 mg HS PO 02/02/24 22:00 02/06/24 22:00 10 MG Enoxaparin Sodium 100 mg DAILY SC 02/03/24 10:00 02/07/24 09:21 100 MG Albuterol 2.5 mg Q6HPRN PRN NEB 02/03/24 03:30 02/07/24 15:12 2.5 MG Vancomycin HCl 0 ml @ 0 mls/hr UD IV 02/03/24 13:45 Mupirocin 1 applic BID EACHNOSTRI 02/03/24 22:00 02/08/24 21:59 02/07/24 09:21 1 APPLIC Vancomycin HCl 250 ml @ 200 mls/hr Q18H IV 02/04/24 10:00 02/07/24 09:53 200 MLS/HR Hydralazine HCl 10 mg Q6HP PRN IV 02/04/24 14:45 02/04/24 17:13 10 MG Piperacillin Sod/ Tazobactam Sod 100 ml @ 25 mls/hr Q8HR IV 02/05/24 01:00 02/07/24 15:47 25 MLS/HR Lorazepam 0.5 mg Q6HP PRN IV 02/05/24 14:15 02/05/24 21:52 0.5 MG Ipratropium [place] 0.5 mg Q4HP PRN NEB 02/05/24 21:45 02/07/24 15:12 0.5 MG Acetaminophen 650 mg Q6HP PRN [place] 02/06/24 09:45 02/06/24 11:14 650 MG Diagnostic Test (Pha) 1 strip ACHS 02/06/24 17:00 02/07/24 17:00 1 STRIP Insulin Human Regular ACHS SC 02/06/24 17:00 02/07/24 18:04 3 UNITS Dextrose 50 ml UD PRN IV 02/06/24 12:30 Metoprolol Succinate 25 mg DAILY PO 02/06/24 13:00 02/07/24 09:20 25 MG Furosemide 40 mg BIDD IV 02/06/24 18:00 02/07/24 18:05 40 MG Brimonidine Tartrate 1 drop BID LEFTEYE 02/07/24 10:00 02/07/24 10:28 1 DROP Latanoprost 1 drop HS LEFTEYE 02/07/24 22:00 objective Gen.: Patient lying in bed in no apparent distress. On supplemental oxygen. Head: Normocephalic, atraumatic. Eyes: EOMI/PERRLA. Ears: Normal hearing. Normal anatomy. Neck/trachea: Trachea midline, supple. Nose: Normal external anatomy. Mouth: Moist mucous membranes. Chest: Decreased air entry bilaterally. No wheezing or rhonchi. Bilateral crackles. Cardiovascular: Positive S1, positive S2. Regular rate and rhythm. Abdomen: Positive bowel sounds in all 4 quadrants. Soft, non-tender, non- distended. : Deferred. Rectal: Deferred. Skin: Warm, dry. Intact. Extremities: 2+ radial pulses bilaterally. No lower extremity edema. Neuro: Awake, alert, oriented x3. No gross motor or sensory deficits. Cranial nerves II through XII intact. Gait not assessed. laboratory and microbiology Laboratory Tests 02/07/24 03:15 Test 02/07/24 03:15 Range/Units Serum Glucose 154 H 74-106 mg/dL Assessment/Plan Impression: Acute hypoxic respiratory failure S/p cardiopulmonary arrest Acute hypercarbic respiratory failure Elevated troponin Septic shock Obesity Pulmonary edema Events: Currently patient is extubated On supplemental oxygen, 2 LPM NC Taper O2 as tolerated CXR on 02/06/24 demonstrates mild perihilar opacities and left basilar opacity appear slightly more conspicuous compared to prior. Fluid overload - crackles noted on exam. Diurese w/ Lasix 40 mg BID as tolerated Monitor renal function. Monitor electrolytes. Supplement as necessary. Magnesium, potassium supplementation. Physical therapy. Pt passed swallow evaluation. Of note, patient refused CTA of chest and cardiac catheterization. V/Q scan shows intermediate probability for pulmonary embolism. Remains EMRE status. Continue antibiotics - Zosyn, vancomycin. Blood cultures show no growth after 5 days. Labs and imaging reviewed. Rest of plan as noted below. Plan: s/p extubation on 02/05/24. On supplemental oxygen, 2 LPM NC Taper O2 as tolerated Off sedation S/p right IJ central line placement. Elevated troponin - Cardiology recommendations appreciated. Continue antibiotics. F/u cultures. Pressors if necessary for hemodynamic support Titrate to keep mean arterial pressure greater than 65 mmHg - currently off, hemodynamically stable. Monitor renal function Monitor electrolytes. Supplement as necessary. Monitor ins and outs. GI/DVT prophylaxis. Prognosis: Poor given patient's multiple co-morbidities. Condition: Critical Rest of plan per hospitalist and other consultants. A total of 35 minutes of critical care time was spent reviewing the patient record, examining the patient, making a diagnostic and therapeutic plan, discussing this plan with the medical personnel, following up on diagnostic studies and following the patient for clinical stability excluding any and all procedures. At least 50% of this time was spent in direct, [id number] contact. Thank you, Rhea Gibson NP, for allowing me to participate in this patient's care. Further recommendations will depend on the patient's clinical course. Please do not hesitate to contact me if you have any questions or concerns. This medical document was created using an electronic medical record system with [employer] dictation system. Although these documentations are being carefully reviewed, there may still be some phonetic and typographical changes. The errors are purely typographical, due to imperfection on the software program, and do not reflect any compromise in the patient's medical care. Dietary Evaluation Review Comments: 1) If GI is accessible consider Glucerna 1.2 @ 50ml/hr x 24hr goal rate as tolerated 2) If pt remains NPO >7 days consider TPN to meet 75% of estimated needs 3) Advance pt diet when medically feasible to a CCHO 45g/Cardiac diet 4) Continue current plan of care Expected Outcomes/Goals: 1) Pt to receive adequate nutrition support within 7 days of NPO status 2) Pt diet to advance 3) F/U in 2-3 days Plan discussed with: Other ([facility]) Critical Care Time(min): 35 MARI KILGORE MD Feb 07, 2024 19:47
[2024-02-07] MEDS: LATANOPROST 0.005 % OPTH(EYE) SOL 2.5ML LEFTEYE SCH (22:41)
[2024-02-08] VITALS (21 sets, daily range): BP systolic 113–148; BP diastolic 54–81; PULSE 48–113; RESP 16–22; TEMP 98–99.2; O2SAT 92–100
[2024-02-08 07:25] LABS: Alanine Aminotransferase 32 U/L (7-40); Albumin 3.3 g/dL (3.2-4.8); Alkaline Phosphatase 65 U/L (46-116); Anion Gap 13 (5-15); Aspartate Aminotransferase 24 U/L (13-40); BUN/Creatinine Ratio 8.9 (10.0-20.0); Blood Urea Nitrogen 10 mg/dL (9-23); Calcium 9.8 mg/dL (8.7-10.4); Carbon Dioxide 29 mmol/L (20-31); Chloride 103 mmol/L (98-107); Potassium 3.9 mmol/L (3.5-5.1)
[2024-02-08 07:40] LABS: Bilirubin, Total 0.2 mg/dL (0.2-1.0); Glucose 157 mg/dL (74-106); Sodium 145 mmol/L (136-145); Total Protein 5.7 g/dL (5.7-8.2)
--- NOTE | 2024-02-08 08:14 | DVHPN2 ---
Progress Note - Dictate Date Seen: Feb 08, 2024 Medical Necessity Reason Pt with a Central, PICC or Fol: Yes The following are medically ne: Meng Catheter Reason for meng catheter: Strict I&O vital signs Vital Sign Date Time Temp Pulse Resp B/P (MAP) Pulse Ox O2 Delivery O2 Flow Rate FiO2 02/08/24 06:15 113 95 Facial BiPAP Mask 30 02/08/24 06:11 20 02/08/24 06:05 3.0 02/08/24 05:42 146/76 02/08/24 05:00 98.0 98.0 Total Intake and Output 02/07/24 02/07/24 02/08/24 15:00 23:00 07:00 Intake Total 775 ml 880 ml 450 ml Output Total 2700 ml 700 ml Balance 775 ml -1820 ml -250 ml medications Current Medications Medications Dose Ordered Sig/Anastacio Route Start Time Stop Time Status Last Admin Dose Admin Midazolam HCl 50 ml @ 1 mls/hr Q24H IV 02/01/24 19:00 02/03/24 09:44 7.5 MLS/HR Norepinephrine Bitartrate 250 ml @ 3.75 mls/hr Q24H IV 02/01/24 19:00 02/01/24 19:00 3.75 MLS/HR Fentanyl Citrate 250 ml @ 2.5 mls/hr Q24H IV 02/01/24 20:15 02/01/24 21:10 2.5 MLS/HR Acetaminophen/ Hydrocodone Bitart 1 tab Q4HP PRN PO 02/01/24 21:45 02/07/24 22:40 1 TAB Ondansetron HCl 4 mg Q4HP PRN IV 02/01/24 21:45 02/07/24 20:34 4 MG Acetaminophen 650 mg Q6HP PRN PO 02/01/24 21:45 Hold Morphine Sulfate 2 mg Q4HPRN PRN IV 02/01/24 21:45 02/06/24 05:55 2 MG Nitroglycerin 0.4 mg Q5MINP PRN SL 02/01/24 21:45 Morphine Sulfate 2 mg Q30M PRN IV 02/01/24 21:45 Pantoprazole Sodium 40 mg DAILY IV 02/02/24 10:00 02/07/24 09:20 40 MG Atorvastatin Calcium 10 mg HS PO 02/02/24 22:00 02/07/24 23:05 10 MG Enoxaparin Sodium 100 mg DAILY SC 02/03/24 10:00 02/07/24 09:21 100 MG Albuterol 2.5 mg Q6HPRN PRN NEB 02/03/24 03:30 02/08/24 06:05 2.5 MG Vancomycin HCl 0 ml @ 0 mls/hr UD IV 02/03/24 13:45 Mupirocin 1 applic BID EACHNOSTRI 02/03/24 22:00 02/08/24 21:59 02/07/24 23:04 1 APPLIC Vancomycin HCl 250 ml @ 200 mls/hr Q18H IV 02/04/24 10:00 02/08/24 03:36 200 MLS/HR Hydralazine HCl 10 mg Q6HP PRN IV 02/04/24 14:45 02/04/24 17:13 10 MG Piperacillin Sod/ Tazobactam Sod 100 ml @ 25 mls/hr Q8HR IV 02/05/24 01:00 02/08/24 05:41 25 MLS/HR Lorazepam 0.5 mg Q6HP PRN IV 02/05/24 14:15 02/05/24 21:52 0.5 MG Ipratropium [place] 0.5 mg Q4HP PRN NEB 02/05/24 21:45 02/08/24 06:05 0.5 MG Acetaminophen 650 mg Q6HP PRN [place] 02/06/24 09:45 02/06/24 11:14 650 MG Diagnostic Test (Pha) 1 strip ACHS 02/06/24 17:00 02/08/24 05:42 1 STRIP Insulin Human Regular ACHS SC 02/06/24 17:00 02/07/24 22:00 4 UNITS Dextrose 50 ml UD PRN IV 02/06/24 12:30 Metoprolol Succinate 25 mg DAILY PO 02/06/24 13:00 02/07/24 09:20 25 MG Furosemide 40 mg BIDD IV 02/06/24 18:00 02/08/24 05:42 40 MG Brimonidine Tartrate 1 drop BID LEFTEYE 02/07/24 10:00 02/07/24 22:41 1 DROP Latanoprost 1 drop HS LEFTEYE 02/07/24 22:00 02/07/24 22:41 1 DROP laboratory and microbiology Laboratory Tests 02/08/24 03:00 Test 02/08/24 03:00 Range/Units Serum Glucose 157 H 74-106 mg/dL Assessment/Plan Patient is a 78-year-old female who presented with shortness of breath. She is intubated at the time of evaluation and not source of history. Information was obtained by reviewing the chart and communicating with staff. Reportedly, the patient lives in a nursing facility and EMS were called because the patient had used all of her medications for asthma and was still short of breath. Reportedly, while transferring the patient to the hospital the patient suffered Arrest and CPR was performed successfully. Patient was intubated. There has been no tele/EKG rhythm at the time of arrest to review. At the time of evaluation patient is nonresponsive. Cardiology is involved for cardiac aspects of care. There is questionable old history of myocardial infarction as per staff. Review of the transfer notes from nursing facility do not comment on any coronary artery disease. female, Extubated. No JVD. No JVD. Mucosa is pink and wet. Scattered rhonchi in the lungs is heard. Cardiac: Regular, no thrill/gallop. Systolic murmur 2/6 in apex is heard. Abdomen is soft. Bowel sound is positive. There is no gross mass/hepatomegaly. Extremities do not reveal edema. Dorsalis pedis is 1+ bilateral Reported past medical history includes COPD/asthma, cataract, osteoarthritis, diabetes mellitus, obstructive sleep apnea. As per communications from nursing facility, the patient uses walker for ambulation and reportedly patient has been frail prior to this presentation. Creatinine: 1.34 - 1.33 - 0.92 - 0.96 - 0.99 - 1.06 - 1.12 Potassium: 5.9 - 3.9 - 4.7 - 3.9 - 3.7 - 3.1 - 3.9 Lactic acid: 5.5 - 1.1 AST/ALT: 75/99 - 94/135 - 16/36 - 24/32 BNP: 68.68 - 61.15 - 44.75 - 109.22 Troponin (high sensitive): 7 - 9 - 26 - 39 LDL: 48 - 38 TSH: 0.96 - 1.36 HgbA1c: 7.0 D-dimer: >35.20 Chest x-ray revealed: Lines and Tubes: Endotracheal tube terminating 4.5 cm above the lois. Enteric tube crosses the diaphragm near midline and descends into the left upper quadrant. Right neck central venous catheter terminates over the SVC. Lungs: No focal consolidation. Diffuse bilateral interstitial opacities. Pleura: No effusion. No pneumothorax. Cardiomediastinal contours: Unremarkable Bones: No acute osseous abnormality. IMPRESSION: 1. Lines and tubes as described. 2. Nonspecific diffuse bilateral interstitial opacities. Repeat chest xry reported: Lines and Tubes: Endotracheal tube terminating 4.5 cm above the lois. Enteric tube crosses the diaphragm near midline and descends into the left upper quadrant. Right neck central venous catheter terminates over the SVC. Lungs: No focal consolidation. Diffuse bilateral interstitial opacities. Pleura: No effusion. No pneumothorax. Cardiomediastinal contours: Unremarkable Bones: No acute osseous abnormality. IMPRESSION: 1. Lines and tubes as described. 2. Nonspecific diffuse bilateral interstitial opacities. Repeat chest xry revealed: Lines and Tubes: Endotracheal tube terminating 4.5 cm above the lois. Enteric tube crosses the diaphragm near midline and descends into the left upper quadrant. Right neck central venous catheter terminates over the SVC. Lungs: No focal consolidation. Diffuse bilateral interstitial opacities. Pleura: No effusion. No pneumothorax. Cardiomediastinal contours: Unremarkable Bones: No acute osseous abnormality. IMPRESSION: 1. Lines and tubes as described. 2. Nonspecific diffuse bilateral interstitial opacities. Repeat chest xry revealed: 1. Interval removal of the endotracheal tube and enteric tube. Stable satisfactory positioning of the right internal jugular central venous catheter. 2. Mild perihilar opacities and left basilar opacity appear slightly more conspicuous compared to prior exams. CT of head reported: IMPRESSION: 1. No acute intracranial process. Venous Doppler of lower extremities reported: Impression: 1. No right or left femoropopliteal venous thrombosis. V/Q scan: Impression: 1. Based on PIOPED criteria, intermediate probability for pulmonary embolism. EKG revealed sinus rhythm with no ST-T changes Tele reveals sinus rhythm Echocardiogram revealed: Left ventricle: Left ventricular systolic function was preserved. LDL was around 60% predicted there was no gross wall motion abnormality. Right ventricle was normal size with normal systolic function. Both atria were normal size. Aortic valve was not well visualized. There was no aortic insufficiency/stenosis. There was trivial mitral/tricuspid regurgitation. Pulmonic valve was not well visualized. Right ventricular systolic pressure was assessed around 38 mm Hg. There was no pericardial effusion. Patient is a 78-year-old female who presented to the hospital with shortness of breath/respiratory distress. Reportedly, the patient had arrest. She is intubated and on vent support. At the time of evaluation patient is nonresponsive and there is question of encephalopathy. Presentation and troponin is against acute coronary syndrome. Patient's D-dimer has been elevated and pulmonary emboli as a cause for presentation should be ruled out. It is of note that venous Doppler of lower extremities have been nonrevealing. Evaluation and management depends on regaining higher brain function status. Also, as per son, patient had been specifically refusing any contrast/iodine related tests/CT scans (which by comparison include cardiac cath). Family wanted us to wait until patient regains consciousness and decide herself. Echo revealed good LV systolic function, valves are working ok. Patient is seen by Neurology who is contemplating Hypoxic Encephalopathy. Pulmonary on the case. For now, V/Q scan is suggested. Patient was later extubated. She has regained higher brain function and communicates. We had long discussion about the presentation and abnormal labs (D-dimer). She was told about suggestions for possible left heart catheterization and also CT angio of the lungs. She verbalized understanding. She is refusing any kind of contrast/iodine related study. She mentioned that she understands the risks but does not want contrast related tests. 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 She was told that V/Q scan can still be performed and she agreed. V/Q scan was intermediate probability for PE. A/C is advised. Pulmonary follow up and advise for A/C. I communicated the result of V/Q scan with patient, she again, refused CTA study (does not want contrast study). Arrest Respiratory failure, acute s/p Intubation and later extubation History of asthma/COPD Encephalopathy, Hypoxic? , Metabolic? Diabetes mellitus Cataract Osteoarthritis Septic shock Cardiac suggestion for management: Manage in unit Follow-up electrolytes and kidney function tests and correct abnormalities. Keep potassium above 4 and magnesium above 2. Avoid hyperkalemia. Aspirin: 81 mg daily suggested Lipitor: 10 mg at night is suggested For now: full anticoagulation is advised. Pulmonary follow up for the result of V/Q scan is suggested Neurology follow up Cardiac evaluation and management depends on regaining higher brain function Further evaluation and management depends on the above and clinical course A total of 55 minutes was spent reviewing the patient record, examining the patient, making a diagnostic and therapeutic plan, discussing this plan with medical personnel, following up on diagnostic studies and following the patient for clinical stability excluding any and all procedures. At least 50% of this time was spent in direct, [id number] contact. Thank you for allowing me to participate in this patient's care. Further recommendations will depend on patient's clinical course. Please do not hesitate to contact me if you have any questions or concerns. This medical document was created using electronic medical record system with [employer] dictation system. Although this document has been carefully reviewed, there may still be some phonetic and typographical errors. These areas are purely typographical due to the imperfection of the software programs, and do not reflect any compromise in the patient's medical care. Dietary Evaluation Review Comments: 1) If GI is accessible consider Glucerna 1.2 @ 50ml/hr x 24hr goal rate as tolerated 2) If pt remains NPO >7 days consider TPN to meet 75% of estimated needs 3) Advance pt diet when medically feasible to a CCHO 45g/Cardiac diet 4) Continue current plan of care Expected Outcomes/Goals: 1) Pt to receive adequate nutrition support within 7 days of NPO status 2) Pt diet to advance 3) F/U in 2-3 days Plan discussed with: Other (nurse) DEBORAH FREIRE MD Feb 08, 2024 08:14
[2024-02-08 09:40] LABS: Basophils # (auto) 0 10 ^3/uL (0-0.2); Eosinophils # (auto) 0.5 10 ^3/uL (0-0.8); Lymphocytes # (auto) 0.9 10 ^3/uL (0.4-5.4); Mean Corpuscular Hemoglobin 28.9 pg (28.0-32.0); Neutrophils # (auto) 4.6 10 ^3/uL (1.6-8.6); Nucleated Red Blood Cells % 0.1 %
[2024-02-08 09:41] LABS: Basophils % (auto) 0.6 % (0.0-2.0); Eosinophils % (auto) 6.8 % (0.0-7.0); Hematocrit 29.1 % (36.0-46.0); Lymphocytes % (auto) 12.5 % (10.0-50.0); Mean Corpuscular Volume 93.4 fL (80.0-100.0); Monocytes # (auto) 0.9 10 ^3/uL (0-1.3); Monocytes % (auto) 13.6 % (0.0-12.0); Neutrophils % (auto) 66.5 % (37.0-80.0); Platelet Count (auto) 245 10^3/uL (140-450); Red Blood Cells 3.11 10^6/uL (4.0-5.20); Red Cell Distribution Width 16.1 % (11.8-14.3); White Blood Cell 6.9 10^3/uL (4.4-10.8)
--- NOTE | 2024-02-08 10:04 | DVHPN2 ---
Progress Note - Dictate Date Seen: Feb 08, 2024 Medical Necessity Reason Pt with a Central, PICC or Fol: Yes The following are medically ne: Meng Catheter Reason for meng catheter: Strict I&O vital signs Vital Sign Date Time Temp Pulse Resp B/P (MAP) Pulse Ox O2 Delivery O2 Flow Rate FiO2 02/08/24 09:47 110 139/64 02/08/24 09:02 98.6 18 100 98.6 02/08/24 08:13 Nasal Cannula* 2 28 Total Intake and Output 02/07/24 02/07/24 02/08/24 15:00 23:00 07:00 Intake Total 775 ml 880 ml 450 ml Output Total 2700 ml 700 ml Balance 775 ml -1820 ml -250 ml medications Current Medications Medications Dose Ordered Sig/Anastacio Route Start Time Stop Time Status Last Admin Dose Admin Midazolam HCl 50 ml @ 1 mls/hr Q24H IV 02/01/24 19:00 02/03/24 09:44 7.5 MLS/HR Norepinephrine Bitartrate 250 ml @ 3.75 mls/hr Q24H IV 02/01/24 19:00 02/01/24 19:00 3.75 MLS/HR Fentanyl Citrate 250 ml @ 2.5 mls/hr Q24H IV 02/01/24 20:15 02/01/24 21:10 2.5 MLS/HR Acetaminophen/ Hydrocodone Bitart 1 tab Q4HP PRN PO 02/01/24 21:45 02/07/24 22:40 1 TAB Ondansetron HCl 4 mg Q4HP PRN IV 02/01/24 21:45 02/07/24 20:34 4 MG Acetaminophen 650 mg Q6HP PRN PO 02/01/24 21:45 Hold Morphine Sulfate 2 mg Q4HPRN PRN IV 02/01/24 21:45 02/06/24 05:55 2 MG Nitroglycerin 0.4 mg Q5MINP PRN SL 02/01/24 21:45 Morphine Sulfate 2 mg Q30M PRN IV 02/01/24 21:45 Pantoprazole Sodium 40 mg DAILY IV 02/02/24 10:00 02/08/24 09:44 40 MG Atorvastatin Calcium 10 mg HS PO 02/02/24 22:00 02/07/24 23:05 10 MG Enoxaparin Sodium 100 mg DAILY SC 02/03/24 10:00 02/08/24 09:46 100 MG Albuterol 2.5 mg Q6HPRN PRN NEB 02/03/24 03:30 02/08/24 06:05 2.5 MG Vancomycin HCl 0 ml @ 0 mls/hr UD IV 02/03/24 13:45 Mupirocin 1 applic BID EACHNOSTRI 02/03/24 22:00 02/08/24 21:59 02/08/24 09:44 1 APPLIC Vancomycin HCl 250 ml @ 200 mls/hr Q18H IV 02/04/24 10:00 02/08/24 03:36 200 MLS/HR Hydralazine HCl 10 mg Q6HP PRN IV 02/04/24 14:45 02/04/24 17:13 10 MG Piperacillin Sod/ Tazobactam Sod 100 ml @ 25 mls/hr Q8HR IV 02/05/24 01:00 02/08/24 05:41 25 MLS/HR Lorazepam 0.5 mg Q6HP PRN IV 02/05/24 14:15 02/05/24 21:52 0.5 MG Ipratropium [place] 0.5 mg Q4HP PRN NEB 02/05/24 21:45 02/08/24 06:05 0.5 MG Acetaminophen 650 mg Q6HP PRN [place] 02/06/24 09:45 02/06/24 11:14 650 MG Diagnostic Test (Pha) 1 strip ACHS 02/06/24 17:00 02/08/24 05:42 1 STRIP Insulin Human Regular ACHS SC 02/06/24 17:00 02/07/24 22:00 4 UNITS Dextrose 50 ml UD PRN IV 02/06/24 12:30 Metoprolol Succinate 25 mg DAILY PO 02/06/24 13:00 02/08/24 09:47 25 MG Furosemide 40 mg BIDD IV 02/06/24 18:00 02/08/24 05:42 40 MG Brimonidine Tartrate 1 drop BID LEFTEYE 02/07/24 10:00 02/08/24 09:44 1 DROP Latanoprost 1 drop HS LEFTEYE 02/07/24 22:00 02/07/24 22:41 1 DROP objective General Appearance: alert, no distress HEENT: EOMI, PERRLA, normal external inspect of ears, no icterus, no nasal drainage Neck: no carotid bruit, no jugular venous distention (JVD), no lymphadenopathy Chest: normal thorax Respiratory: clear to auscultation, normal air movement Cardiovascular: regular rate and rhythm, no diastolic murmur, no jugular venous distention (JVD), no rub, no systolic murmur Abdominal: soft, no hepatomegaly, no mass, no splenomegaly, no tenderness Genitourinary: grossly normal external Musculoskeletal: no joint tenderness, no swelling Extremities: normal pulses, no calf tenderness, no clubbing, no cyanosis, no edema Skin: no bruising, no jaundice, no rash Neurological: alert, No focal deficit laboratory and microbiology Laboratory Tests 02/08/24 09:28 02/08/24 03:00 Test 02/08/24 03:00 Range/Units Serum Glucose 157 H 74-106 mg/dL Problem List 1. Acute hypoxic respiratory failure Monitor, pulmonary consult 2. Status post cardio pulmonology arrest Monitor, cardiology consult, neurology consult, echocardiogram, CTA of chest, Doppler BLE to rule out DVT, full dose Lovenox 3. COPD exacerbation Monitor, IV antibiotics, IV fluids 4. Obesity Monitor, PPI 5. Benign essential hypertension Monitor 6. Pneumonia Monitor, Pulmonary consult, IV antibiotics, Med-Neb treatments 7. Septic shock Monitor, IV antibiotics, IV fluids, vasopressors as needed 8. Elevated troponins Monitor, Cardiology consult, trend troponin levels, monitor EKG 9. Elevated D-dimer Monitor, VQ scan Assessment/Plan Subjective: Patient is awake and alert. Objective: Patient is status post cardiac arrest. Patient was successfully extubated several days ago. Patient remains on 2 L nasal cannula. VQ scan shows intermediate probability for PE. Patient did refuse CTA due to contrast she states her mother from a stroke while undergoing an angiogram. I did speak with patient's primary cardiovascular provider Rubens Covington who stated he would call her. Patient is refusing angiogram as well. Patient has been offered angiogram several times by Dr. Puente. Currently she is medical management with aspirin 81 mg daily and Lipitor 10 mg daily. Hemoglobin is 9 and stable. Plan: Continue current treatment. Patient to determine if she will be medical management or if she will undergo heart cath. PT eval and DC planning. Dietary Evaluation Review Comments: 1) If GI is accessible consider Glucerna 1.2 @ 50ml/hr x 24hr goal rate as tolerated 2) If pt remains NPO >7 days consider TPN to meet 75% of estimated needs 3) Advance pt diet when medically feasible to a CCHO 45g/Cardiac diet 4) Continue current plan of care Expected Outcomes/Goals: 1) Pt to receive adequate nutrition support within 7 days of NPO status 2) Pt diet to advance 3) F/U in 2-3 days Plan discussed with: Patient, Other JORY LINDSEY [employer] Feb 08, 2024 10:04
--- NOTE | 2024-02-08 10:06 | DVHPN2 ---
Progress Note - Dictate Date Seen: Feb 08, 2024 Medical Necessity Reason Pt with a Central, PICC or Fol: Yes The following are medically ne: Meng Catheter Reason for meng catheter: Strict I&O Subjective Ms. Hardwick is a 78 years old female with a history of hypertension, diabetes, asthma, COPD, the patient was brought to the [facility] from her [place] [facility] care facility for altered mental status/cardiopulmonary arrest. I have seen and examined the patient, discussed with her nurse, she keeps improving, she was alert, oriented x3, still looks weak, no new complaint. UDS, 02/01/2024: Urinalysis, 02/01/2024: Unremarkable ABG, 02/01/2024: Respiratory acidosis WBC/HB/PLT/MCV, 02/02/2024: 9.4/11.5/219/93.2 HCO3, 02/01/2024: 32, 02/02/2024: 37 BUN/CR, 02/01/2024: 23/1.34. 02/02/2024: 25/1.33 Lactic acid, 02/01/2024: 5.5 TG/HDL/LDL/HDL, 02/02/2024: 55/125/48/55 TSH, 02/03/2024: 1.36 VQ, 02/07/2024: Based on PIOPED criteria, intermediate probability for pulmonary embolism CT head, 02/02/2024:No acute intracranial process vital signs Vital Sign Date Time Temp Pulse Resp B/P (MAP) Pulse Ox O2 Delivery O2 Flow Rate FiO2 02/08/24 09:47 110 139/64 02/08/24 09:02 98.6 18 100 98.6 02/08/24 08:13 Nasal Cannula* 2 28 Total Intake and Output 02/07/24 02/07/24 02/08/24 15:00 23:00 07:00 Intake Total 775 ml 880 ml 450 ml Output Total 2700 ml 700 ml Balance 775 ml -1820 ml -250 ml medications Current Medications Medications Dose Ordered Sig/Anastacio Route Start Time Stop Time Status Last Admin Dose Admin Midazolam HCl 50 ml @ 1 mls/hr Q24H IV 02/01/24 19:00 02/03/24 09:44 7.5 MLS/HR Norepinephrine Bitartrate 250 ml @ 3.75 mls/hr Q24H IV 02/01/24 19:00 02/01/24 19:00 3.75 MLS/HR Fentanyl Citrate 250 ml @ 2.5 mls/hr Q24H IV 02/01/24 20:15 02/01/24 21:10 2.5 MLS/HR Acetaminophen/ Hydrocodone Bitart 1 tab Q4HP PRN PO 02/01/24 21:45 02/07/24 22:40 1 TAB Ondansetron HCl 4 mg Q4HP PRN IV 02/01/24 21:45 02/07/24 20:34 4 MG Acetaminophen 650 mg Q6HP PRN PO 02/01/24 21:45 Hold Morphine Sulfate 2 mg Q4HPRN PRN IV 02/01/24 21:45 02/06/24 05:55 2 MG Nitroglycerin 0.4 mg Q5MINP PRN SL 02/01/24 21:45 Morphine Sulfate 2 mg Q30M PRN IV 02/01/24 21:45 Pantoprazole Sodium 40 mg DAILY IV 02/02/24 10:00 02/08/24 09:44 40 MG Atorvastatin Calcium 10 mg HS PO 02/02/24 22:00 02/07/24 23:05 10 MG Enoxaparin Sodium 100 mg DAILY SC 02/03/24 10:00 02/08/24 09:46 100 MG Albuterol 2.5 mg Q6HPRN PRN NEB 02/03/24 03:30 02/08/24 06:05 2.5 MG Vancomycin HCl 0 ml @ 0 mls/hr UD IV 02/03/24 13:45 Mupirocin 1 applic BID EACHNOSTRI 02/03/24 22:00 02/08/24 21:59 02/08/24 09:44 1 APPLIC Vancomycin HCl 250 ml @ 200 mls/hr Q18H IV 02/04/24 10:00 02/08/24 03:36 200 MLS/HR Hydralazine HCl 10 mg Q6HP PRN IV 02/04/24 14:45 02/04/24 17:13 10 MG Piperacillin Sod/ Tazobactam Sod 100 ml @ 25 mls/hr Q8HR IV 02/05/24 01:00 02/08/24 05:41 25 MLS/HR Lorazepam 0.5 mg Q6HP PRN IV 02/05/24 14:15 02/05/24 21:52 0.5 MG Ipratropium [place] 0.5 mg Q4HP PRN NEB 02/05/24 21:45 02/08/24 06:05 0.5 MG Acetaminophen 650 mg Q6HP PRN ID 02/06/24 09:45 02/06/24 11:14 650 MG Diagnostic Test (Pha) 1 strip ACHS 02/06/24 17:00 02/08/24 05:42 1 STRIP Insulin Human Regular ACHS SC 02/06/24 17:00 02/07/24 22:00 4 UNITS Dextrose 50 ml UD PRN IV 02/06/24 12:30 Metoprolol Succinate 25 mg DAILY PO 02/06/24 13:00 02/08/24 09:47 25 MG Furosemide 40 mg BIDD IV 02/06/24 18:00 02/08/24 05:42 40 MG Brimonidine Tartrate 1 drop BID LEFTEYE 02/07/24 10:00 02/08/24 09:44 1 DROP Latanoprost 1 drop HS LEFTEYE 02/07/24 22:00 02/07/24 22:41 1 DROP objective The patient is well-nourished and well-developed with no distress. MENTAL STATUS: Subjective CRANIAL NERVES: Pupils are equal round and reactive to light briskly, normal external eye movement, normal sensation and motor examination in the lateral trigeminal nerve distribution, no facial weakness SENSATION: Normal to pinprick and light touch MOTOR: Normal tone in the upper and lower extremity. Normal muscle bulk. No fasciculations. She moves the arms and legs REFLEXES: Deep tendon reflexes are symmetrical. No pathological reflexes. CEREBELLAR/COORDINATION: Deferred GAIT/STATION: deferred. laboratory and microbiology Laboratory Tests 02/08/24 09:28 02/08/24 03:00 Test 02/08/24 03:00 Range/Units Serum Glucose 157 H 74-106 mg/dL Problem List Coma, resolved Hypoxic encephalopathy Metabolic encephalopathy Respiratory failure, resolved Respiratory acidosis resolved Chronic kidney failure Glaucoma She keeps improving Assessment/Plan Monitoring Supportive treatment Oxygen Headaches Xalatan eye drops Brimonidine eyedrops GI prophylaxis Cardiology on case Pulmonology on case Physical therapy evaluation later More recommendation per clinical course I am prescribing Brimonidine eyedrop for her left eye glaucoma, meanwhile She is to call family confirm her glaucoma eye drop This medical document was created using an electronic medical record system with [employer] dictation system. Although this document has been carefully reviewed, there may still be some phonetic and typographical errors. These areas are purely typographical due to imperfections of the software programs, and do not reflect any compromise in the patient's medical care. Prognosis poor Dietary Evaluation Review Comments: 1) If GI is accessible consider Glucerna 1.2 @ 50ml/hr x 24hr goal rate as tolerated 2) If pt remains NPO >7 days consider TPN to meet 75% of estimated needs 3) Advance pt diet when medically feasible to a CCHO 45g/Cardiac diet 4) Continue current plan of care Expected Outcomes/Goals: 1) Pt to receive adequate nutrition support within 7 days of NPO status 2) Pt diet to advance 3) F/U in 2-3 days Plan discussed with: Patient, Other SARAH LALA MD Feb 08, 2024 10:06
--- NOTE | 2024-02-08 18:15 | DVHPN2 ---
Progress Note - Dictate Date Seen: Feb 08, 2024 Medical Necessity Reason Pt with a Central, PICC or Fol: Yes The following are medically ne: Meng Catheter Reason for meng catheter: Strict I&O Subjective Patient seen at bedside She is currently on supplemental oxygen and appears to be stable She denies any GI bleeding She has not had any prior endoscopy or colonoscopy as per her recollection vital signs Vital Sign Date Time Temp Pulse Resp B/P (MAP) Pulse Ox O2 Delivery O2 Flow Rate FiO2 02/08/24 17:15 113/67 02/08/24 16:56 98.1 107 18 92 98.1 02/08/24 10:00 Nasal Cannula 2.0 02/08/24 10:00 28 Total Intake and Output 02/07/24 02/07/24 02/08/24 15:00 23:00 07:00 Intake Total 775 ml 880 ml 450 ml Output Total 2700 ml 700 ml Balance 775 ml -1820 ml -250 ml medications Current Medications Medications Dose Ordered Sig/Anastacio Route Start Time Stop Time Status Last Admin Dose Admin Midazolam HCl 50 ml @ 1 mls/hr Q24H IV 02/01/24 19:00 02/03/24 09:44 7.5 MLS/HR Norepinephrine Bitartrate 250 ml @ 3.75 mls/hr Q24H IV 02/01/24 19:00 02/01/24 19:00 3.75 MLS/HR Fentanyl Citrate 250 ml @ 2.5 mls/hr Q24H IV 02/01/24 20:15 02/01/24 21:10 2.5 MLS/HR Acetaminophen/ Hydrocodone Bitart 1 tab Q4HP PRN PO 02/01/24 21:45 02/08/24 10:11 1 TAB Ondansetron HCl 4 mg Q4HP PRN IV 02/01/24 21:45 02/07/24 20:34 4 MG Acetaminophen 650 mg Q6HP PRN PO 02/01/24 21:45 Hold Morphine Sulfate 2 mg Q4HPRN PRN IV 02/01/24 21:45 02/06/24 05:55 2 MG Nitroglycerin 0.4 mg Q5MINP PRN SL 02/01/24 21:45 Morphine Sulfate 2 mg Q30M PRN IV 02/01/24 21:45 Pantoprazole Sodium 40 mg DAILY IV 02/02/24 10:00 02/08/24 09:44 40 MG Atorvastatin Calcium 10 mg HS PO 02/02/24 22:00 02/07/24 23:05 10 MG Enoxaparin Sodium 100 mg DAILY SC 02/03/24 10:00 02/08/24 09:46 100 MG Albuterol 2.5 mg Q6HPRN PRN NEB 02/03/24 03:30 02/08/24 06:05 2.5 MG Vancomycin HCl 0 ml @ 0 mls/hr UD IV 02/03/24 13:45 Mupirocin 1 applic BID EACHNOSTRI 02/03/24 22:00 02/08/24 21:59 02/08/24 09:44 1 APPLIC Hydralazine HCl 10 mg Q6HP PRN IV 02/04/24 14:45 02/04/24 17:13 10 MG Piperacillin Sod/ Tazobactam Sod 100 ml @ 25 mls/hr Q8HR IV 02/05/24 01:00 02/08/24 15:22 25 MLS/HR Lorazepam 0.5 mg Q6HP PRN IV 02/05/24 14:15 02/05/24 21:52 0.5 MG Ipratropium [place] 0.5 mg Q4HP PRN NEB 02/05/24 21:45 02/08/24 06:05 0.5 MG Acetaminophen 650 mg Q6HP PRN DC 02/06/24 09:45 02/06/24 11:14 650 MG Diagnostic Test (Pha) 1 strip ACHS 02/06/24 17:00 02/08/24 17:14 1 STRIP Insulin Human Regular ACHS SC 02/06/24 17:00 02/08/24 17:51 4 UNITS Dextrose 50 ml UD PRN IV 02/06/24 12:30 Metoprolol Succinate 25 mg DAILY PO 02/06/24 13:00 02/08/24 09:47 25 MG Furosemide 40 mg BIDD IV 02/06/24 18:00 02/08/24 17:15 40 MG Brimonidine Tartrate 1 drop BID LEFTEYE 02/07/24 10:00 02/08/24 09:44 1 DROP Latanoprost 1 drop HS LEFTEYE 02/07/24 22:00 02/07/24 22:41 1 DROP Vancomycin HCl 250 ml @ 200 mls/hr Q20H IV 02/09/24 00:00 Throat Lozenges 1 vannessa Q2HP PRN MT 02/08/24 16:30 objective Awake and alert x3 HEENT: EOMI, PERRLA, normal external inspect of ears, no icterus, no nasal drainage Neck: no carotid bruit, no jugular venous distention (JVD), no lymphadenopathy Respiratory: clear to auscultation, normal air movement Cardiovascular: regular rate and rhythm, no diastolic murmur, no jugular venous distention (JVD), Abdominal: soft, no hepatomegaly, no mass, no splenomegaly, no tenderness Musculoskeletal: no joint tenderness, no swelling Extremities: normal pulses, no calf tenderness, no clubbing, no cyanosis, no edema Skin: no bruising, no jaundice, no rash Neurological: alert, No focal deficit laboratory and microbiology Laboratory Tests 02/08/24 09:28 02/08/24 03:00 Test 02/08/24 03:00 Range/Units Serum Glucose 157 H 74-106 mg/dL Problems(with codes): (1) Anemia (2) Cardiac arrest (3) Lung infiltrate (4) Acute respiratory failure Prognosis Assessment plan Her H&H is stable and stool for occult blood is negative Continue supportive care Patient likely has anemia of chronic disease Monitor labs Outpatient follow up once she has recovered completely from her current illness to discuss elective colonoscopy Dietary Evaluation Review Comments: 1) If GI is accessible consider Glucerna 1.2 @ 50ml/hr x 24hr goal rate as tolerated 2) If pt remains NPO >7 days consider TPN to meet 75% of estimated needs 3) Advance pt diet when medically feasible to a CCHO 45g/Cardiac diet 4) Continue current plan of care Expected Outcomes/Goals: 1) Pt to receive adequate nutrition support within 7 days of NPO status 2) Pt diet to advance 3) F/U in 2-3 days Plan discussed with: Patient JIMMY SINGH MD Feb 08, 2024 18:14
[2024-02-08] MEDS: THROAT LOZENGES(CEPASTAT) MT PRN (18:48)
--- NOTE | 2024-02-08 20:35 | DVHPN2 ---
Progress Note - Dictate Date Seen: Feb 08, 2024 Medical Necessity Reason Pt with a Central, PICC or Fol: Yes The following are medically ne: Meng Catheter Reason for meng catheter: Strict I&O Subjective Patient seen and examined at bedside. Remains on supplemental oxygen. Overnight events reviewed. vital signs Vital Sign Date Time Temp Pulse Resp B/P (MAP) Pulse Ox O2 Delivery O2 Flow Rate FiO2 02/08/24 19:04 100 18 100 02/08/24 18:57 Nasal Cannula* 3 32 02/08/24 17:15 113/67 02/08/24 16:56 98.1 98.1 Total Intake and Output 02/07/24 02/07/24 02/08/24 15:00 23:00 07:00 Intake Total 775 ml 880 ml 450 ml Output Total 2700 ml 700 ml Balance 775 ml -1820 ml -250 ml medications Current Medications Medications Dose Ordered Sig/Anastacio Route Start Time Stop Time Status Last Admin Dose Admin Midazolam HCl 50 ml @ 1 mls/hr Q24H IV 02/01/24 19:00 02/03/24 09:44 7.5 MLS/HR Norepinephrine Bitartrate 250 ml @ 3.75 mls/hr Q24H IV 02/01/24 19:00 02/01/24 19:00 3.75 MLS/HR Fentanyl Citrate 250 ml @ 2.5 mls/hr Q24H IV 02/01/24 20:15 02/01/24 21:10 2.5 MLS/HR Acetaminophen/ Hydrocodone Bitart 1 tab Q4HP PRN PO 02/01/24 21:45 02/08/24 18:50 1 TAB Ondansetron HCl 4 mg Q4HP PRN IV 02/01/24 21:45 02/07/24 20:34 4 MG Acetaminophen 650 mg Q6HP PRN PO 02/01/24 21:45 Hold Morphine Sulfate 2 mg Q4HPRN PRN IV 02/01/24 21:45 02/06/24 05:55 2 MG Nitroglycerin 0.4 mg Q5MINP PRN SL 02/01/24 21:45 Morphine Sulfate 2 mg Q30M PRN IV 02/01/24 21:45 Pantoprazole Sodium 40 mg DAILY IV 02/02/24 10:00 12/17/24 09:44 40 MG Atorvastatin Calcium 10 mg HS PO 02/02/24 22:00 02/07/24 23:05 10 MG Enoxaparin Sodium 100 mg DAILY SC 02/03/24 10:00 02/08/24 09:46 100 MG Albuterol 2.5 mg Q6HPRN PRN NEB 02/03/24 03:30 02/08/24 18:56 2.5 MG Vancomycin HCl 0 ml @ 0 mls/hr UD IV 02/03/24 13:45 Mupirocin 1 applic BID EACHNOSTRI 02/03/24 22:00 02/08/24 21:59 02/08/24 09:44 1 APPLIC Hydralazine HCl 10 mg Q6HP PRN IV 02/04/24 14:45 02/04/24 17:13 10 MG Piperacillin Sod/ Tazobactam Sod 100 ml @ 25 mls/hr Q8HR IV 02/05/24 01:00 02/08/24 15:22 25 MLS/HR Lorazepam 0.5 mg Q6HP PRN IV 02/05/24 14:15 02/05/24 21:52 0.5 MG Ipratropium [place] 0.5 mg Q4HP PRN NEB 02/05/24 21:45 02/08/24 18:56 0.5 MG Acetaminophen 650 mg Q6HP PRN [place] 02/06/24 09:45 02/06/24 11:14 650 MG Diagnostic Test (Pha) 1 strip ACHS 02/06/24 17:00 02/08/24 17:14 1 STRIP Insulin Human Regular ACHS SC 02/06/24 17:00 02/08/24 17:51 4 UNITS Dextrose 50 ml UD PRN IV 02/06/24 12:30 Metoprolol Succinate 25 mg DAILY PO 02/06/24 13:00 02/08/24 09:47 25 MG Furosemide 40 mg BIDD IV 02/06/24 18:00 02/08/24 17:15 40 MG Brimonidine Tartrate 1 drop BID LEFTEYE 02/07/24 10:00 02/08/24 09:44 1 DROP Latanoprost 1 drop HS LEFTEYE 02/07/24 22:00 02/07/24 22:41 1 DROP Vancomycin HCl 250 ml @ 200 mls/hr Q20H IV 02/09/24 00:00 Throat Lozenges 1 onel Q2HP PRN MT 02/08/24 16:30 02/08/24 18:48 1 ONEL objective Gen.: Patient lying in bed in no apparent distress. On supplemental oxygen. Head: Normocephalic, atraumatic. Eyes: EOMI/PERRLA. Ears: Normal hearing. Normal anatomy. Neck/trachea: Trachea midline, supple. Nose: Normal external anatomy. Mouth: Moist mucous membranes. Chest: Decreased air entry bilaterally. No wheezing or rhonchi. Bilateral crackles. Cardiovascular: Positive S1, positive S2. Regular rate and rhythm. Abdomen: Positive bowel sounds in all 4 quadrants. Soft, non-tender, non- distended. : Deferred. Rectal: Deferred. Skin: Warm, dry. Intact. Extremities: 2+ radial pulses bilaterally. No lower extremity edema. Neuro: Awake, alert, oriented x3. No gross motor or sensory deficits. Cranial nerves II through XII intact. Gait not assessed. laboratory and microbiology Laboratory Tests 02/08/24 09:28 02/08/24 03:00 Test 02/08/24 03:00 Range/Units Serum Glucose 157 H 74-106 mg/dL Assessment/Plan Impression: Acute hypoxic respiratory failure S/p cardiopulmonary arrest Acute hypercarbic respiratory failure Elevated troponin Septic shock Obesity Pulmonary edema Events: Remains on supplemental oxygen, 3 LPM NC Taper O2 as tolerated V/Q scan shows intermediate probability for pulmonary embolism. Patient refused CTA of chest and cardiac catheterization due to concerns of allergy. Recommend to start Eliquis Diurese w/ Lasix 40 mg BID as tolerated Monitor renal function. Monitor electrolytes. Supplement as necessary. Continue antibiotics - Zosyn, vancomycin. Physical therapy eval. Disposition per hospitalist. Labs and imaging reviewed. Rest of plan as noted below. Plan: s/p extubation on 02/05/24. Supplemental oxygen Titrate to keep O2 sats above 92%. Off sedation S/p right IJ central line placement. Elevated troponin - Cardiology recommendations appreciated. Continue antibiotics. F/u cultures. Pressors if necessary for hemodynamic support Titrate to keep mean arterial pressure greater than 65 mmHg - currently off, hemodynamically stable. Monitor renal function Monitor electrolytes. Supplement as necessary. Monitor ins and outs. GI/DVT prophylaxis. Prognosis: Poor given patient's multiple co-morbidities. Rest of plan per hospitalist and other consultants. Thank you, Rhea Gibson NP, for allowing me to participate in this patient's care. Further recommendations will depend on the patient's clinical course. Please do not hesitate to contact me if you have any questions or concerns. This medical document was created using an electronic medical record system with [employer] dictation system. Although these documentations are being carefully reviewed, there may still be some phonetic and typographical changes. The errors are purely typographical, due to imperfection on the software program, and do not reflect any compromise in the patient's medical care. Dietary Evaluation Review Comments: 1) If GI is accessible consider Glucerna 1.2 @ 50ml/hr x 24hr goal rate as tolerated 2) If pt remains NPO >7 days consider TPN to meet 75% of estimated needs 3) Advance pt diet when medically feasible to a CCHO 45g/Cardiac diet 4) Continue current plan of care Expected Outcomes/Goals: 1) Pt to receive adequate nutrition support within 7 days of NPO status 2) Pt diet to advance 3) F/U in 2-3 days Plan discussed with: Patient, Other ([facility]) MARI KILGORE MD Feb 08, 2024 20:35
[2024-02-09] VITALS (18 sets, daily range): BP systolic 111–174; BP diastolic 61–77; PULSE 90–112; RESP 15–22; TEMP 97.4–98.8; O2SAT 94–100
[2024-02-09] MEDS: VANCOMYCIN 1.25GM/250ML 250 ML IV SCH (00:21)
--- NOTE | 2024-02-09 06:33 | DVHPN2 ---
Progress Note - Dictate Date Seen: Feb 09, 2024 Medical Necessity Reason Pt with a Central, PICC or Fol: Yes The following are medically ne: Meng Catheter Reason for meng catheter: Strict I&O vital signs Vital Sign Date Time Temp Pulse Resp B/P (MAP) Pulse Ox O2 Delivery O2 Flow Rate FiO2 02/09/24 05:54 161/77 02/09/24 05:00 98.8 97 20 100 98.8 02/09/24 02:22 Facial BiPAP Mask 30 02/08/24 19:30 2 Total Intake and Output 02/08/24 02/08/24 02/09/24 15:00 23:00 07:00 Intake Total 100 ml 675 ml 500 ml Output Total 1850 ml 1850 ml Balance 100 ml -1175 ml -1350 ml medications Current Medications Medications Dose Ordered Sig/Anastacio Route Start Time Stop Time Status Last Admin Dose Admin Midazolam HCl 50 ml @ 1 mls/hr Q24H IV 02/01/24 19:00 02/03/24 09:44 7.5 MLS/HR Norepinephrine Bitartrate 250 ml @ 3.75 mls/hr Q24H IV 02/01/24 19:00 02/01/24 19:00 3.75 MLS/HR Fentanyl Citrate 250 ml @ 2.5 mls/hr Q24H IV 02/01/24 20:15 02/01/24 21:10 2.5 MLS/HR Acetaminophen/ Hydrocodone Bitart 1 tab Q4HP PRN PO 02/01/24 21:45 02/09/24 05:53 1 TAB Ondansetron HCl 4 mg Q4HP PRN IV 02/01/24 21:45 02/07/24 20:34 4 MG Acetaminophen 650 mg Q6HP PRN PO 02/01/24 21:45 Hold Morphine Sulfate 2 mg Q4HPRN PRN IV 02/01/24 21:45 02/06/24 05:55 2 MG Nitroglycerin 0.4 mg Q5MINP PRN SL 02/01/24 21:45 Morphine Sulfate 2 mg Q30M PRN IV 02/01/24 21:45 Pantoprazole Sodium 40 mg DAILY IV 02/02/24 10:00 02/08/24 09:44 40 MG Atorvastatin Calcium 10 mg HS PO 02/02/24 22:00 02/08/24 20:48 10 MG Enoxaparin Sodium 100 mg DAILY SC 02/03/24 10:00 02/08/24 09:46 100 MG Albuterol 2.5 mg Q6HPRN PRN NEB 02/03/24 03:30 02/08/24 18:56 2.5 MG Vancomycin HCl 0 ml @ 0 mls/hr UD IV 02/03/24 13:45 Hydralazine HCl 10 mg Q6HP PRN IV 02/04/24 14:45 02/04/24 17:13 10 MG Piperacillin Sod/ Tazobactam Sod 100 ml @ 25 mls/hr Q8HR IV 02/05/24 01:00 02/09/24 06:08 25 MLS/HR Lorazepam 0.5 mg Q6HP PRN IV 02/05/24 14:15 02/05/24 21:52 0.5 MG Ipratropium [place] 0.5 mg Q4HP PRN NEB 02/05/24 21:45 02/08/24 18:56 0.5 MG Acetaminophen 650 mg Q6HP PRN [place] 02/06/24 09:45 02/06/24 11:14 650 MG Diagnostic Test (Pha) 1 strip ACHS 02/06/24 17:00 02/09/24 05:58 1 STRIP Insulin Human Regular ACHS SC 02/06/24 17:00 02/09/24 06:10 3 UNITS Dextrose 50 ml UD PRN IV 02/06/24 12:30 Metoprolol Succinate 25 mg DAILY PO 02/06/24 13:00 02/08/24 09:47 25 MG Furosemide 40 mg BIDD IV 02/06/24 18:00 02/09/24 05:54 40 MG Brimonidine Tartrate 1 drop BID LEFTEYE 02/07/24 10:00 02/08/24 20:50 1 DROP Latanoprost 1 drop HS LEFTEYE 02/07/24 22:00 02/07/24 22:41 1 DROP Vancomycin HCl 250 ml @ 200 mls/hr Q20H IV 02/09/24 00:00 02/09/24 00:21 200 MLS/HR Throat Lozenges 1 onel Q2HP PRN MT 02/08/24 16:30 02/08/24 18:48 1 ONEL laboratory and microbiology Laboratory Tests 02/08/24 09:28 02/08/24 03:00 Test 02/08/24 03:00 Range/Units Serum Glucose 157 H 74-106 mg/dL Assessment/Plan Patient is a 78-year-old female who presented with shortness of breath. She is intubated at the time of evaluation and not source of history. Information was obtained by reviewing the chart and communicating with staff. Reportedly, the patient lives in a nursing facility and EMS were called because the patient had used all of her medications for asthma and was still short of breath. Reportedly, while transferring the patient to the hospital the patient suffered Arrest and CPR was performed successfully. Patient was intubated. There has been no tele/EKG rhythm at the time of arrest to review. At the time of evaluation patient is nonresponsive. Cardiology is involved for cardiac aspects of care. There is questionable old history of myocardial infarction as per staff. Review of the transfer notes from nursing facility do not comment on any coronary artery disease. female, Extubated. No JVD. No JVD. Mucosa is pink and wet. Scattered rhonchi in the lungs is heard. Cardiac: Regular, no thrill/gallop. Systolic murmur 2/6 in apex is heard. Abdomen is soft. Bowel sound is positive. There is no gross mass/hepatomegaly. Extremities do not reveal edema. Dorsalis pedis is 1+ bilateral Reported past medical history includes COPD/asthma, cataract, osteoarthritis, diabetes mellitus, obstructive sleep apnea. As per communications from nursing facility, the patient uses walker for ambulation and reportedly patient has been frail prior to this presentation. Creatinine: 1.34 - 1.33 - 0.92 - 0.96 - 0.99 - 1.06 - 1.12 Potassium: 5.9 - 3.9 - 4.7 - 3.9 - 3.7 - 3.1 - 3.9 Lactic acid: 5.5 - 1.1 AST/ALT: 75/99 - 94/135 - 16/36 - 24/32 BNP: 68.68 - 61.15 - 44.75 - 109.22 Troponin (high sensitive): 7 - 9 - 26 - 39 LDL: 48 - 38 TSH: 0.96 - 1.36 HgbA1c: 7.0 D-dimer: >35.20 Chest x-ray revealed: Lines and Tubes: Endotracheal tube terminating 4.5 cm above the lois. Enteric tube crosses the diaphragm near midline and descends into the left upper quadrant. Right neck central venous catheter terminates over the SVC. Lungs: No focal consolidation. Diffuse bilateral interstitial opacities. Pleura: No effusion. No pneumothorax. Cardiomediastinal contours: Unremarkable Bones: No acute osseous abnormality. IMPRESSION: 1. Lines and tubes as described. 2. Nonspecific diffuse bilateral interstitial opacities. Repeat chest xry reported: Lines and Tubes: Endotracheal tube terminating 4.5 cm above the lois. Enteric tube crosses the diaphragm near midline and descends into the left upper quadrant. Right neck central venous catheter terminates over the SVC. Lungs: No focal consolidation. Diffuse bilateral interstitial opacities. Pleura: No effusion. No pneumothorax. Cardiomediastinal contours: Unremarkable Bones: No acute osseous abnormality. IMPRESSION: 1. Lines and tubes as described. 2. Nonspecific diffuse bilateral interstitial opacities. Repeat chest xry revealed: Lines and Tubes: Endotracheal tube terminating 4.5 cm above the lois. Enteric tube crosses the diaphragm near midline and descends into the left upper quadrant. Right neck central venous catheter terminates over the SVC. Lungs: No focal consolidation. Diffuse bilateral interstitial opacities. Pleura: No effusion. No pneumothorax. Cardiomediastinal contours: Unremarkable Bones: No acute osseous abnormality. IMPRESSION: 1. Lines and tubes as described. 2. Nonspecific diffuse bilateral interstitial opacities. Repeat chest xry revealed: 1. Interval removal of the endotracheal tube and enteric tube. Stable satisfactory positioning of the right internal jugular central venous catheter. 2. Mild perihilar opacities and left basilar opacity appear slightly more conspicuous compared to prior exams. CT of head reported: IMPRESSION: 1. No acute intracranial process. Venous Doppler of lower extremities reported: Impression: 1. No right or left femoropopliteal venous thrombosis. V/Q scan: Impression: 1. Based on PIOPED criteria, intermediate probability for pulmonary embolism. EKG revealed sinus rhythm with no ST-T changes Tele reveals sinus rhythm Echocardiogram revealed: Left ventricle: Left ventricular systolic function was preserved. LDL was around 60% predicted there was no gross wall motion abnormality. Right ventricle was normal size with normal systolic function. Both atria were normal size. Aortic valve was not well visualized. There was no aortic insufficiency/stenosis. There was trivial mitral/tricuspid regurgitation. Pulmonic valve was not well visualized. Right ventricular systolic pressure was assessed around 38 mm Hg. There was no pericardial effusion. Patient is a 78-year-old female who presented to the hospital with shortness of breath/respiratory distress. Reportedly, the patient had arrest. She is intubated and on vent support. At the time of evaluation patient is nonresponsive and there is question of encephalopathy. Presentation and troponin is against acute coronary syndrome. Patient's D-dimer has been elevated and pulmonary emboli as a cause for presentation should be ruled out. It is of note that venous Doppler of lower extremities have been nonrevealing. Evaluation and management depends on regaining higher brain function status. Also, as per son, patient had been specifically refusing any contrast/iodine related tests/CT scans (which by comparison include cardiac cath). Family wanted us to wait until patient regains consciousness and decide herself. Echo revealed good LV systolic function, valves are working ok. Patient is seen by Neurology who is contemplating Hypoxic Encephalopathy. Pulmonary on the case. For now, V/Q scan is suggested. Patient was later extubated. She has regained higher brain function and communicates. We had long discussion about the presentation and abnormal labs (D-dimer). She was told about suggestions for possible left heart catheterization and also CT angio of the lungs. She verbalized understanding. She is refusing any kind of contrast/iodine related study. She mentioned that she understands the risks but does not want contrast related tests. 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 She was told that V/Q scan can still be performed and she agreed. V/Q scan was intermediate probability for PE. A/C is advised. Pulmonary follow up and advise for A/C. I communicated the result of V/Q scan with patient, she again, refused CTA study (does not want contrast study). Arrest Respiratory failure, acute s/p Intubation and later extubation History of asthma/COPD Encephalopathy, Hypoxic? , Metabolic? Diabetes mellitus Cataract Osteoarthritis Septic shock Cardiac suggestion for management: Manage in unit Follow-up electrolytes and kidney function tests and correct abnormalities. Keep potassium above 4 and magnesium above 2. Avoid hyperkalemia. Aspirin: 81 mg daily suggested Lipitor: 10 mg at night is suggested For now: full anticoagulation is advised. Pulmonary follow up for the result of V/Q scan is suggested Oral A/C at the time of discharge Neurology follow up Cardiac evaluation and management depends on regaining higher brain function Further evaluation and management depends on the above and clinical course A total of 55 minutes was spent reviewing the patient record, examining the patient, making a diagnostic and therapeutic plan, discussing this plan with medical personnel, following up on diagnostic studies and following the patient for clinical stability excluding any and all procedures. At least 50% of this time was spent in direct, [id number] contact. Thank you for allowing me to participate in this patient's care. Further recommendations will depend on patient's clinical course. Please do not hesitate to contact me if you have any questions or concerns. This medical document was created using electronic medical record system with [employer] dictation system. Although this document has been carefully reviewed, there may still be some phonetic and typographical errors. These areas are purely typographical due to the imperfection of the software programs, and do not reflect any compromise in the patient's medical care. Dietary Evaluation Review Comments: 1) If GI is accessible consider Glucerna 1.2 @ 50ml/hr x 24hr goal rate as tolerated 2) If pt remains NPO >7 days consider TPN to meet 75% of estimated needs 3) Advance pt diet when medically feasible to a CCHO 45g/Cardiac diet 4) Continue current plan of care Expected Outcomes/Goals: 1) Pt to receive adequate nutrition support within 7 days of NPO status 2) Pt diet to advance 3) F/U in 2-3 days Plan discussed with: Patient, Other (nurse) DEBORAH FREIRE MD Feb 09, 2024 06:33
[2024-02-09 07:51] LABS: Anion Gap 6 (5-15); Carbon Dioxide 37 mmol/L (20-31); Chloride 98 mmol/L (98-107); Potassium 3.3 mmol/L (3.5-5.1); Sodium 141 mmol/L (136-145)
[2024-02-09 07:52] LABS: Calcium 10.3 mg/dL (8.7-10.4)
[2024-02-09 07:57] LABS: BUN/Creatinine Ratio 12.1 (10.0-20.0); Blood Urea Nitrogen 14 mg/dL (9-23)
[2024-02-09 07:59] LABS: Glucose 182 mg/dL (74-106)
[2024-02-09] MEDS: APIXABAN 5 MG TAB PO SCH (09:23)
--- NOTE | 2024-02-09 13:08 | DVHPN2 ---
Progress Note - Dictate Date Seen: Feb 09, 2024 Medical Necessity Reason Pt with a Central, PICC or Fol: Yes The following are medically ne: Meng Catheter Reason for meng catheter: Strict I&O vital signs Vital Sign Date Time Temp Pulse Resp B/P (MAP) Pulse Ox O2 Delivery O2 Flow Rate FiO2 02/09/24 12:59 98.3 100 20 140/70 (93) 97 98.3 02/09/24 10:00 Nasal Cannula* 3 32 Total Intake and Output 02/08/24 02/08/24 02/09/24 15:00 23:00 07:00 Intake Total 100 ml 675 ml 550 ml Output Total 1850 ml 1850 ml Balance 100 ml -1175 ml -1300 ml medications Current Medications Medications Dose Ordered Sig/Anastacio Route Start Time Stop Time Status Last Admin Dose Admin Midazolam HCl 50 ml @ 1 mls/hr Q24H IV 02/01/24 19:00 02/03/24 09:44 7.5 MLS/HR Norepinephrine Bitartrate 250 ml @ 3.75 mls/hr Q24H IV 02/01/24 19:00 02/01/24 19:00 3.75 MLS/HR Fentanyl Citrate 250 ml @ 2.5 mls/hr Q24H IV 02/01/24 20:15 02/01/24 21:10 2.5 MLS/HR Acetaminophen/ Hydrocodone Bitart 1 tab Q4HP PRN PO 02/01/24 21:45 02/09/24 05:53 1 TAB Ondansetron HCl 4 mg Q4HP PRN IV 02/01/24 21:45 02/07/24 20:34 4 MG Acetaminophen 650 mg Q6HP PRN PO 02/01/24 21:45 Hold Morphine Sulfate 2 mg Q4HPRN PRN IV 02/01/24 21:45 02/06/24 05:55 2 MG Nitroglycerin 0.4 mg Q5MINP PRN SL 02/01/24 21:45 Morphine Sulfate 2 mg Q30M PRN IV 02/01/24 21:45 Pantoprazole Sodium 40 mg DAILY IV 02/02/24 10:00 02/09/24 09:23 40 MG Atorvastatin Calcium 10 mg HS PO 02/02/24 22:00 02/08/24 20:48 10 MG Albuterol 2.5 mg Q6HPRN PRN NEB 02/03/24 03:30 02/09/24 12:29 2.5 MG Vancomycin HCl 0 ml @ 0 mls/hr UD IV 02/03/24 13:45 Hydralazine HCl 10 mg Q6HP PRN IV 02/04/24 14:45 02/04/24 17:13 10 MG Piperacillin Sod/ Tazobactam Sod 100 ml @ 25 mls/hr Q8HR IV 02/05/24 01:00 02/09/24 06:08 25 MLS/HR Lorazepam 0.5 mg Q6HP PRN IV 02/05/24 14:15 02/05/24 21:52 0.5 MG Ipratropium [place] 0.5 mg Q4HP PRN NEB 02/05/24 21:45 02/09/24 12:29 0.5 MG Acetaminophen 650 mg Q6HP PRN AL 02/06/24 09:45 02/06/24 11:14 650 MG Diagnostic Test (Pha) 1 strip ACHS 02/06/24 17:00 02/09/24 12:02 1 STRIP Insulin Human Regular ACHS SC 02/06/24 17:00 02/09/24 12:02 8 UNITS Dextrose 50 ml UD PRN IV 02/06/24 12:30 Metoprolol Succinate 25 mg DAILY PO 02/06/24 13:00 02/09/24 09:24 25 MG Furosemide 40 mg BIDD IV 02/06/24 18:00 02/09/24 05:54 40 MG Brimonidine Tartrate 1 drop BID LEFTEYE 02/07/24 10:00 02/09/24 09:25 1 DROP Latanoprost 1 drop HS LEFTEYE 02/07/24 22:00 02/07/24 22:41 1 DROP Vancomycin HCl 250 ml @ 200 mls/hr Q20H IV 02/09/24 00:00 02/09/24 00:21 200 MLS/HR Throat Lozenges 1 onel Q2HP PRN MT 02/08/24 16:30 02/08/24 18:48 1 ONLE Apixaban 5 mg BID PO 02/09/24 10:00 02/09/24 09:23 5 MG objective General Appearance: alert, no distress HEENT: EOMI, PERRLA, normal external inspect of ears, no icterus, no nasal drainage Neck: no carotid bruit, no jugular venous distention (JVD), no lymphadenopathy Chest: normal thorax Respiratory: clear to auscultation, normal air movement Cardiovascular: regular rate and rhythm, no diastolic murmur, no jugular venous distention (JVD), no rub, no systolic murmur Abdominal: soft, no hepatomegaly, no mass, no splenomegaly, no tenderness Genitourinary: grossly normal external Musculoskeletal: no joint tenderness, no swelling Extremities: normal pulses, no calf tenderness, no clubbing, no cyanosis, no edema Skin: no bruising, no jaundice, no rash Neurological: alert, No focal deficit laboratory and microbiology Laboratory Tests 02/09/24 05:41 02/08/24 09:28 Test 02/09/24 05:41 Range/Units Serum Glucose 182 H 74-106 mg/dL Problem List 1. Acute hypoxic respiratory failure Monitor, pulmonary consult 2. Status post cardio pulmonology arrest Monitor, cardiology consult, neurology consult, echocardiogram, CTA of chest, Doppler BLE to rule out DVT, full dose Lovenox 3. COPD exacerbation Monitor, IV antibiotics, IV fluids 4. Obesity Monitor, PPI 5. Benign essential hypertension Monitor 6. Pneumonia Monitor, Pulmonary consult, IV antibiotics, Med-Neb treatments 7. Septic shock Monitor, IV antibiotics, IV fluids, vasopressors as needed 8. Elevated troponins Monitor, Cardiology consult, trend troponin levels, monitor EKG 9. Elevated D-dimer Monitor, VQ scan Assessment/Plan Subjective: Patient is awake and alert. Objective: Patient was admitted after cardiac arrest and has been successfully weaned from the ventilator. Currently on 2 liters nasal cannula. Refused CT angiogram but underwent VQ scan showing moderate probability for pulmonary embolism. Transitioned from Lovenox to Eliquis. Patient spoke with her cardiac provider, Rubens Ramires, who explained coronary angiogram on phone. Patient is considering the procedure and wants to consult her son, Imtiaz. Plan: Continue current treatment. Consider angiogram with Dr. Puente if patient consents. Continue medical management with aspirin and Lipitor. Dietary Evaluation Review Comments: 1) If GI is accessible consider Glucerna 1.2 @ 50ml/hr x 24hr goal rate as tolerated 2) If pt remains NPO >7 days consider TPN to meet 75% of estimated needs 3) Advance pt diet when medically feasible to a CCHO 45g/Cardiac diet 4) Continue current plan of care Expected Outcomes/Goals: 1) Pt to receive adequate nutrition support within 7 days of NPO status 2) Pt diet to advance 3) F/U in 2-3 days Plan discussed with: Patient, Other JORY LINDSEY NP Feb 09, 2024 13:08
[2024-02-09] MEDS: POTASSIUM CHL 20 Meq TABLET PO ONE (13:50)
--- NOTE | 2024-02-09 20:03 | DVHPN2 ---
Progress Note - Dictate Date Seen: Feb 09, 2024 Medical Necessity Reason Pt with a Central, PICC or Fol: Yes The following are medically ne: Meng Catheter Reason for meng catheter: Strict I&O Subjective Patient seen at bedside She is currently on supplemental oxygen and appears to be stable She denies any GI bleeding She has not had any prior endoscopy or colonoscopy as per her recollection vital signs Vital Sign Date Time Temp Pulse Resp B/P (MAP) Pulse Ox O2 Delivery O2 Flow Rate FiO2 02/09/24 18:52 95 Nasal Cannula 3.0 02/09/24 18:52 32 02/09/24 16:38 98.2 90 18 126/61 (82) 98.2 Total Intake and Output 02/08/24 02/08/24 02/09/24 15:00 23:00 07:00 Intake Total 100 ml 675 ml 550 ml Output Total 1850 ml 1850 ml Balance 100 ml -1175 ml -1300 ml medications Current Medications Medications Dose Ordered Sig/Anastacio Route Start Time Stop Time Status Last Admin Dose Admin Midazolam HCl 50 ml @ 1 mls/hr Q24H IV 02/01/24 19:00 02/03/24 09:44 7.5 MLS/HR Norepinephrine Bitartrate 250 ml @ 3.75 mls/hr Q24H IV 02/01/24 19:00 02/01/24 19:00 3.75 MLS/HR Fentanyl Citrate 250 ml @ 2.5 mls/hr Q24H IV 02/01/24 20:15 02/01/24 21:10 2.5 MLS/HR Acetaminophen/ Hydrocodone Bitart 1 tab Q4HP PRN PO 02/01/24 21:45 02/09/24 05:53 1 TAB Ondansetron HCl 4 mg Q4HP PRN IV 02/01/24 21:45 02/07/24 20:34 4 MG Acetaminophen 650 mg Q6HP PRN PO 02/01/24 21:45 Hold Morphine Sulfate 2 mg Q4HPRN PRN IV 02/01/24 21:45 02/06/24 05:55 2 MG Nitroglycerin 0.4 mg Q5MINP PRN SL 02/01/24 21:45 Morphine Sulfate 2 mg Q30M PRN IV 02/01/24 21:45 Pantoprazole Sodium 40 mg DAILY IV 02/02/24 10:00 02/09/24 09:23 40 MG Atorvastatin Calcium 10 mg HS PO 02/02/24 22:00 02/08/24 20:48 10 MG Albuterol 2.5 mg Q6HPRN PRN NEB 02/03/24 03:30 02/09/24 12:29 2.5 MG Vancomycin HCl 0 ml @ 0 mls/hr UD IV 02/03/24 13:45 Hydralazine HCl 10 mg Q6HP PRN IV 02/04/24 14:45 02/04/24 17:13 10 MG Piperacillin Sod/ Tazobactam Sod 100 ml @ 25 mls/hr Q8HR IV 02/05/24 01:00 02/09/24 13:50 25 MLS/HR Lorazepam 0.5 mg Q6HP PRN IV 02/05/24 14:15 02/05/24 21:52 0.5 MG Ipratropium [place] 0.5 mg Q4HP PRN NEB 02/05/24 21:45 02/09/24 12:29 0.5 MG Acetaminophen 650 mg Q6HP PRN DE 02/06/24 09:45 02/06/24 11:14 650 MG Diagnostic Test (Pha) 1 strip ACHS 02/06/24 17:00 02/09/24 17:04 1 STRIP Insulin Human Regular ACHS SC 02/06/24 17:00 02/09/24 17:05 4 UNITS Dextrose 50 ml UD PRN IV 02/06/24 12:30 Metoprolol Succinate 25 mg DAILY PO 02/06/24 13:00 02/09/24 09:24 25 MG Brimonidine Tartrate 1 drop BID LEFTEYE 02/07/24 10:00 02/09/24 09:25 1 DROP Latanoprost 1 drop HS LEFTEYE 02/07/24 22:00 02/07/24 22:41 1 DROP Vancomycin HCl 250 ml @ 200 mls/hr Q20H IV 02/09/24 00:00 02/09/24 00:21 200 MLS/HR Throat Lozenges 1 onel Q2HP PRN MT 02/08/24 16:30 02/08/24 18:48 1 ONEL Apixaban 5 mg BID PO 02/09/24 10:00 02/09/24 09:23 5 MG Furosemide 40 mg DAILY PO 02/10/24 10:00 objective Awake and alert x3 HEENT: EOMI, PERRLA, normal external inspect of ears, no icterus, no nasal drainage Neck: no carotid bruit, no jugular venous distention (JVD), no lymphadenopathy Respiratory: clear to auscultation, normal air movement Cardiovascular: regular rate and rhythm, no diastolic murmur, no jugular venous distention (JVD), Abdominal: soft, no hepatomegaly, no mass, no splenomegaly, no tenderness Musculoskeletal: no joint tenderness, no swelling Extremities: normal pulses, no calf tenderness, no clubbing, no cyanosis, no edema Skin: no bruising, no jaundice, no rash Neurological: alert, No focal deficit laboratory and microbiology Laboratory Tests 02/09/24 05:41 02/08/24 09:28 Test 02/09/24 05:41 Range/Units Serum Glucose 182 H 74-106 mg/dL Problems(with codes): (1) Lung infiltrate (2) Anemia (3) Cardiac arrest (4) Acute respiratory failure Prognosis Assessment plan Her H&H is stable and stool for occult blood is negative Continue supportive care Patient likely has anemia of chronic disease Monitor labs Outpatient follow up once she has recovered completely from her current illness to discuss elective colonoscopy Dietary Evaluation Review Comments: 1) If GI is accessible consider Glucerna 1.2 @ 50ml/hr x 24hr goal rate as tolerated 2) If pt remains NPO >7 days consider TPN to meet 75% of estimated needs 3) Advance pt diet when medically feasible to a CCHO 45g/Cardiac diet 4) Continue current plan of care Expected Outcomes/Goals: 1) Pt to receive adequate nutrition support within 7 days of NPO status 2) Pt diet to advance 3) F/U in 2-3 days Plan discussed with: Patient JIMMY SINGH MD Feb 09, 2024 20:03
--- NOTE | 2024-02-09 22:55 | DVHPN2 ---
Progress Note - Dictate Date Seen: Feb 09, 2024 Medical Necessity Reason Pt with a Central, PICC or Fol: Yes The following are medically ne: Meng Catheter Reason for meng catheter: Strict I&O Subjective Patient seen and examined at bedside. Remains on supplemental oxygen. Overnight events reviewed. vital signs Vital Sign Date Time Temp Pulse Resp B/P (MAP) Pulse Ox O2 Delivery O2 Flow Rate FiO2 02/09/24 22:16 98.2 108 15 174/70 (104) 97 98.2 02/09/24 20:59 Nasal Cannula* 3 32 Total Intake and Output 02/08/24 02/08/24 02/09/24 15:00 23:00 07:00 Intake Total 100 ml 675 ml 550 ml Output Total 1850 ml 1850 ml Balance 100 ml -1175 ml -1300 ml medications Current Medications Medications Dose Ordered Sig/Anastacio Route Start Time Stop Time Status Last Admin Dose Admin Midazolam HCl 50 ml @ 1 mls/hr Q24H IV 02/01/24 19:00 02/03/24 09:44 7.5 MLS/HR Norepinephrine Bitartrate 250 ml @ 3.75 mls/hr Q24H IV 02/01/24 19:00 02/01/24 19:00 3.75 MLS/HR Fentanyl Citrate 250 ml @ 2.5 mls/hr Q24H IV 02/01/24 20:15 02/01/24 21:10 2.5 MLS/HR Acetaminophen/ Hydrocodone Bitart 1 tab Q4HP PRN PO 02/01/24 21:45 02/09/24 20:34 1 TAB Ondansetron HCl 4 mg Q4HP PRN IV 02/01/24 21:45 02/07/24 20:34 4 MG Acetaminophen 650 mg Q6HP PRN PO 02/01/24 21:45 Hold Morphine Sulfate 2 mg Q4HPRN PRN IV 02/01/24 21:45 02/06/24 05:55 2 MG Nitroglycerin 0.4 mg Q5MINP PRN SL 02/01/24 21:45 Morphine Sulfate 2 mg Q30M PRN IV 02/01/24 21:45 Pantoprazole Sodium 40 mg DAILY IV 02/02/24 10:00 02/09/24 09:23 40 MG Atorvastatin Calcium 10 mg HS PO 02/02/24 22:00 02/09/24 21:53 10 MG Albuterol 2.5 mg Q6HPRN PRN NEB 02/03/24 03:30 02/09/24 20:59 2.5 MG Vancomycin HCl 0 ml @ 0 mls/hr UD IV 02/03/24 13:45 Hydralazine HCl 10 mg Q6HP PRN IV 02/04/24 14:45 02/09/24 20:35 10 MG Piperacillin Sod/ Tazobactam Sod 100 ml @ 25 mls/hr Q8HR IV 02/05/24 01:00 02/09/24 21:57 25 MLS/HR Lorazepam 0.5 mg Q6HP PRN IV 02/05/24 14:15 02/05/24 21:52 0.5 MG Ipratropium [place] 0.5 mg Q4HP PRN NEB 02/05/24 21:45 02/09/24 20:59 0.5 MG Acetaminophen [address] 02/06/24 09:45 02/06/24 11:14 650 MG Diagnostic Test (Pha) 1 strip ACHS 02/06/24 17:00 02/09/24 21:55 1 STRIP Insulin Human Regular ACHS SC 02/06/24 17:00 02/09/24 22:13 4 UNITS Dextrose 50 ml UD PRN IV 02/06/24 12:30 Metoprolol Succinate 25 mg DAILY PO 02/06/24 13:00 02/09/24 09:24 25 MG Brimonidine Tartrate 1 drop BID LEFTEYE 02/07/24 10:00 02/09/24 21:59 1 DROP Latanoprost 1 drop HS LEFTEYE 02/07/24 22:00 02/07/24 22:41 1 DROP Vancomycin HCl 250 ml @ 200 mls/hr Q20H IV 02/09/24 00:00 02/09/24 20:21 200 MLS/HR Throat Lozenges 1 onel Q2HP PRN MT 02/08/24 16:30 02/09/24 20:35 1 ONEL Apixaban 5 mg BID PO 02/09/24 10:00 02/09/24 21:52 5 MG Furosemide 40 mg DAILY PO 02/10/24 10:00 objective Gen.: Patient lying in bed in no apparent distress. On supplemental oxygen. Head: Normocephalic, atraumatic. Eyes: EOMI/PERRLA. Ears: Normal hearing. Normal anatomy. Neck/trachea: Trachea midline, supple. Nose: Normal external anatomy. Mouth: Moist mucous membranes. Chest: Decreased air entry bilaterally. No wheezing or rhonchi. Bilateral crackles. Cardiovascular: Positive S1, positive S2. Regular rate and rhythm. Abdomen: Positive bowel sounds in all 4 quadrants. Soft, non-tender, non- distended. : Deferred. Rectal: Deferred. Skin: Warm, dry. Intact. Extremities: 2+ radial pulses bilaterally. No lower extremity edema. Neuro: Awake, alert, oriented x3. No gross motor or sensory deficits. Cranial nerves II through XII intact. Gait not assessed. laboratory and microbiology Laboratory Tests 02/09/24 05:41 02/08/24 09:28 Test 02/09/24 05:41 Range/Units Serum Glucose 182 H 74-106 mg/dL Assessment/Plan Impression: Acute hypoxic respiratory failure S/p cardiopulmonary arrest Acute hypercarbic respiratory failure Elevated troponin Septic shock Obesity Pulmonary edema Events: Remains on supplemental oxygen, 3 LPM NC Taper O2 as tolerated V/Q scan shows intermediate probability for pulmonary embolism. Patient refused CTA of chest and cardiac catheterization due to concerns of allergy. Patient may consider it. Continue Eliquis Diurese w/ Lasix 40 mg BID as tolerated Monitor renal function. Monitor electrolytes. Supplement as necessary. Continue bronchodilators Continue antibiotics - Zosyn, vancomycin. IS. CPAP for JEREMY. Disposition per hospitalist. Labs and imaging reviewed. Rest of plan as noted below. Plan: s/p extubation on 02/05/24. Supplemental oxygen Titrate to keep O2 sats above 92%. Off sedation S/p right IJ central line placement. Elevated troponin - Cardiology recommendations appreciated. Continue antibiotics. F/u cultures. Pressors if necessary for hemodynamic support Titrate to keep mean arterial pressure greater than 65 mmHg - currently off, hemodynamically stable. Monitor renal function Monitor electrolytes. Supplement as necessary. Monitor ins and outs. GI/DVT prophylaxis. Prognosis: Poor given patient's multiple co-morbidities. Rest of plan per hospitalist and other consultants. Thank you, Rhea Gibson NP, for allowing me to participate in this patient's care. Further recommendations will depend on the patient's clinical course. Please do not hesitate to contact me if you have any questions or concerns. This medical document was created using an electronic medical record system with [employer] computerized dictation system. Although these documentations are being carefully reviewed, there may still be some phonetic and typographical changes. The errors are purely typographical, due to imperfection on the software program, and do not reflect any compromise in the patient's medical care. Dietary Evaluation Review Comments: 1) If GI is accessible consider Glucerna 1.2 @ 50ml/hr x 24hr goal rate as tolerated 2) If pt remains NPO >7 days consider TPN to meet 75% of estimated needs 3) Advance pt diet when medically feasible to a CCHO 45g/Cardiac diet 4) Continue current plan of care Expected Outcomes/Goals: 1) Pt to receive adequate nutrition support within 7 days of NPO status 2) Pt diet to advance 3) F/U in 2-3 days Plan discussed with: Patient, Other ([facility]) MARI KILGORE MD Feb 09, 2024 22:55
[2024-02-10] VITALS (15 sets, daily range): BP systolic 134–155; BP diastolic 69–77; PULSE 90–107; RESP 14–18; TEMP 97.5–98.1; O2SAT 94–100
[2024-02-10] MEDS: PIPERACILLIN-TAZOB 3.375GM 100 ML IV ONE (06:08)
[2024-02-10 06:43] LABS: Anion Gap 6 (5-15); Chloride 100 mmol/L (98-107); Potassium 3.9 mmol/L (3.5-5.1); Sodium 141 mmol/L (136-145)
[2024-02-10 06:44] LABS: Carbon Dioxide 35 mmol/L (20-31)
[2024-02-10 06:45] LABS: Calcium 10.5 mg/dL (8.7-10.4)
[2024-02-10 06:49] LABS: BUN/Creatinine Ratio 9.9 (10.0-20.0); Blood Urea Nitrogen 10 mg/dL (9-23); Glucose 195 mg/dL (74-106); Magnesium 1.9 mg/dL (1.6-2.6)
--- NOTE | 2024-02-10 07:39 | DVHPN2 ---
Progress Note - Dictate Date Seen: Feb 10, 2024 Medical Necessity Reason Pt with a Central, PICC or Fol: Yes The following are medically ne: Meng Catheter Reason for meng catheter: Strict I&O vital signs Vital Sign Date Time Temp Pulse Resp B/P (MAP) Pulse Ox O2 Delivery O2 Flow Rate FiO2 02/10/24 05:00 97.9 103 14 155/77 (103) 98 97.9 02/10/24 01:55 Facial BiPAP Mask 30 02/09/24 20:59 3 Total Intake and Output 02/09/24 02/09/24 02/10/24 15:00 23:00 07:00 Intake Total 100 ml 1350 ml 540 ml Output Total 900 ml 750 ml Balance 100 ml 450 ml -210 ml medications Current Medications Medications Dose Ordered Sig/Anastacio Route Start Time Stop Time Status Last Admin Dose Admin Midazolam HCl 50 ml @ 1 mls/hr Q24H IV 02/01/24 19:00 02/03/24 09:44 7.5 MLS/HR Norepinephrine Bitartrate 250 ml @ 3.75 mls/hr Q24H IV 02/01/24 19:00 02/01/24 19:00 3.75 MLS/HR Fentanyl Citrate 250 ml @ 2.5 mls/hr Q24H IV 02/01/24 20:15 02/01/24 21:10 2.5 MLS/HR Acetaminophen/ Hydrocodone Bitart 1 tab Q4HP PRN PO 02/01/24 21:45 02/10/24 06:59 1 TAB Ondansetron HCl 4 mg Q4HP PRN IV 02/01/24 21:45 02/07/24 20:34 4 MG Acetaminophen 650 mg Q6HP PRN PO 02/01/24 21:45 Hold Morphine Sulfate 2 mg Q4HPRN PRN IV 02/01/24 21:45 02/06/24 05:55 2 MG Nitroglycerin 0.4 mg Q5MINP PRN SL 02/01/24 21:45 Morphine Sulfate 2 mg Q30M PRN IV 02/01/24 21:45 Pantoprazole Sodium 40 mg DAILY IV 02/02/24 10:00 02/09/24 09:23 40 MG Atorvastatin Calcium 10 mg HS PO 02/02/24 22:00 02/09/24 21:53 10 MG Albuterol 2.5 mg Q6HPRN PRN NEB 02/03/24 03:30 02/09/24 20:59 2.5 MG Vancomycin HCl 0 ml @ 0 mls/hr UD IV 02/03/24 13:45 Hydralazine HCl 10 mg Q6HP PRN IV 02/04/24 14:45 02/09/24 20:35 10 MG Piperacillin Sod/ Tazobactam Sod 100 ml @ 25 mls/hr Q8HR IV 02/05/24 01:00 02/10/24 06:16 25 MLS/HR Lorazepam 0.5 mg Q6HP PRN IV 02/05/24 14:15 02/05/24 21:52 0.5 MG Ipratropium [place] 0.5 mg Q4HP PRN NEB 02/05/24 21:45 02/09/24 20:59 0.5 MG Acetaminophen 650 mg Q6HP PRN [place] 02/06/24 09:45 02/06/24 11:14 650 MG Diagnostic Test (Pha) 1 strip ACHS 02/06/24 17:00 02/10/24 06:16 1 STRIP Insulin Human Regular ACHS SC 02/06/24 17:00 02/10/24 06:53 4 UNITS Dextrose 50 ml UD PRN IV 02/06/24 12:30 Metoprolol Succinate 25 mg DAILY PO 02/06/24 13:00 02/09/24 09:24 25 MG Brimonidine Tartrate 1 drop BID LEFTEYE 02/07/24 10:00 02/09/24 21:59 1 DROP Latanoprost 1 drop HS LEFTEYE 02/07/24 22:00 02/07/24 22:41 1 DROP Vancomycin HCl 250 ml @ 200 mls/hr Q20H IV 02/09/24 00:00 02/09/24 20:21 200 MLS/HR Throat Lozenges 1 onel Q2HP PRN MT 02/08/24 16:30 02/09/24 20:35 1 ONEL Apixaban 5 mg BID PO 02/09/24 10:00 02/09/24 21:52 5 MG Furosemide 40 mg DAILY PO 02/10/24 10:00 laboratory and microbiology Laboratory Tests 02/10/24 05:17 02/08/24 09:28 Test 02/10/24 05:17 Range/Units Serum Glucose 195 H 74-106 mg/dL Assessment/Plan Patient is a 78-year-old female who presented with shortness of breath. She is intubated at the time of evaluation and not source of history. Information was obtained by reviewing the chart and communicating with staff. Reportedly, the patient lives in a nursing facility and EMS were called because the patient had used all of her medications for asthma and was still short of breath. Reportedly, while transferring the patient to the hospital the patient suffered Arrest and CPR was performed successfully. Patient was intubated. There has been no tele/EKG rhythm at the time of arrest to review. At the time of evaluation patient is nonresponsive. Cardiology is involved for cardiac aspects of care. There is questionable old history of myocardial infarction as per staff. Review of the transfer notes from nursing facility do not comment on any coronary artery disease. female, Extubated. No JVD. No JVD. Mucosa is pink and wet. Scattered rhonchi in the lungs is heard. Cardiac: Regular, no thrill/gallop. Systolic murmur 2/6 in apex is heard. Abdomen is soft. Bowel sound is positive. There is no gross mass/hepatomegaly. Extremities do not reveal edema. Dorsalis pedis is 1+ bilateral Reported past medical history includes COPD/asthma, cataract, osteoarthritis, diabetes mellitus, obstructive sleep apnea. As per communications from nursing facility, the patient uses walker for ambulation and reportedly patient has been frail prior to this presentation. Creatinine: 1.34 - 1.33 - 0.92 - 0.96 - 0.99 - 1.06 - 1.12 - 1.16 - 1.01 Potassium: 5.9 - 3.9 - 4.7 - 3.9 - 3.7 - 3.1 - 3.9 - 3.3 - 3.9 Lactic acid: 5.5 - 1.1 AST/ALT: 75/99 - 94/135 - 16/36 - 24/32 BNP: 68.68 - 61.15 - 44.75 - 109.22 Troponin (high sensitive): 7 - 9 - 26 - 39 LDL: 48 - 38 TSH: 0.96 - 1.36 HgbA1c: 7.0 D-dimer: >35.20 Chest x-ray revealed: Lines and Tubes: Endotracheal tube terminating 4.5 cm above the lois. Enteric tube crosses the diaphragm near midline and descends into the left upper quadrant. Right neck central venous catheter terminates over the SVC. Lungs: No focal consolidation. Diffuse bilateral interstitial opacities. Pleura: No effusion. No pneumothorax. Cardiomediastinal contours: Unremarkable Bones: No acute osseous abnormality. IMPRESSION: 1. Lines and tubes as described. 2. Nonspecific diffuse bilateral interstitial opacities. Repeat chest xry reported: Lines and Tubes: Endotracheal tube terminating 4.5 cm above the lois. Enteric tube crosses the diaphragm near midline and descends into the left upper quadrant. Right neck central venous catheter terminates over the SVC. Lungs: No focal consolidation. Diffuse bilateral interstitial opacities. Pleura: No effusion. No pneumothorax. Cardiomediastinal contours: Unremarkable Bones: No acute osseous abnormality. IMPRESSION: 1. Lines and tubes as described. 2. Nonspecific diffuse bilateral interstitial opacities. Repeat chest xry revealed: Lines and Tubes: Endotracheal tube terminating 4.5 cm above the lois. Enteric tube crosses the diaphragm near midline and descends into the left upper quadrant. Right neck central venous catheter terminates over the SVC. Lungs: No focal consolidation. Diffuse bilateral interstitial opacities. Pleura: No effusion. No pneumothorax. Cardiomediastinal contours: Unremarkable Bones: No acute osseous abnormality. IMPRESSION: 1. Lines and tubes as described. 2. Nonspecific diffuse bilateral interstitial opacities. Repeat chest xry revealed: 1. Interval removal of the endotracheal tube and enteric tube. Stable satisfactory positioning of the right internal jugular central venous catheter. 2. Mild perihilar opacities and left basilar opacity appear slightly more conspicuous compared to prior exams. CT of head reported: IMPRESSION: 1. No acute intracranial process. Venous Doppler of lower extremities reported: Impression: 1. No right or left femoropopliteal venous thrombosis. V/Q scan: Impression: 1. Based on PIOPED criteria, intermediate probability for pulmonary embolism. EKG revealed sinus rhythm with no ST-T changes Tele reveals sinus rhythm Echocardiogram revealed: Left ventricle: Left ventricular systolic function was preserved. LDL was around 60% predicted there was no gross wall motion abnormality. Right ventricle was normal size with normal systolic function. Both atria were normal size. Aortic valve was not well visualized. There was no aortic insufficiency/stenosis. There was trivial mitral/tricuspid regurgitation. Pulmonic valve was not well visualized. Right ventricular systolic pressure was assessed around 38 mm Hg. There was no pericardial effusion. Patient is a 78-year-old female who presented to the hospital with shortness of breath/respiratory distress. Reportedly, the patient had arrest. She is intubated and on vent support. At the time of evaluation patient is nonresponsive and there is question of encephalopathy. Presentation and troponin is against acute coronary syndrome. Patient's D-dimer has been elevated and pulmonary emboli as a cause for presentation should be ruled out. It is of note that venous Doppler of lower extremities have been nonrevealing. Evaluation and management depends on regaining higher brain function status. Also, as per son, patient had been specifically refusing any contrast/iodine related tests/CT scans (which by comparison include cardiac cath). Family wanted us to wait until patient regains consciousness and decide herself. Echo revealed good LV systolic function, valves are working ok. Patient is seen by Neurology who is contemplating Hypoxic Encephalopathy. Pulmonary on the case. For now, V/Q scan is suggested. Patient was later extubated. She has regained higher brain function and communicates. We had long discussion about the presentation and abnormal labs (D-dimer). She was told about suggestions for possible left heart catheterization and also CT angio of the lungs. She verbalized understanding. She is refusing any kind of contrast/iodine related study. She mentioned that she understands the risks but does not want contrast related tests. She mentions that she also has an outpatient mate first (does not recall the name). She was told that V/Q scan can still be performed and she agreed. V/Q scan was intermediate probability for PE. A/C is advised. Pulmonary follow up and advise for A/C. Patient talked to her outside physician on the phone yesterday and decided to proceed with contrast studies at this point. As she was on Eliquis, will hold Eliquis (restart Lovenox). Will arrange for possible LHC next week. CTA of lungs to be arranged now. Arrest Respiratory failure, acute s/p Intubation and later extubation History of asthma/COPD Encephalopathy, Hypoxic? , Metabolic? Diabetes mellitus Cataract Osteoarthritis Septic shock Cardiac suggestion for management: Manage in unit Follow-up electrolytes and kidney function tests and correct abnormalities. Keep potassium above 4 and magnesium above 2. Avoid hyperkalemia. Lipitor: 10 mg at night is suggested For now: full anticoagulation is advised. Was on Eliquis. As patient at this point agreed with contrast studies (she talked to her outside physician on the phone), will stop Eliquis, start Lovenox for now. To proceed with CTA of lungs. Possible LHC next week Continue ASA for now Neurology follow up Further evaluation and management depends on the above and clinical course A total of 55 minutes was spent reviewing the patient record, examining the patient, making a diagnostic and therapeutic plan, discussing this plan with medical personnel, following up on diagnostic studies and following the patient for clinical stability excluding any and all procedures. At least 50% of this time was spent in direct, [id number] contact. Thank you for allowing me to participate in this patient's care. Further recommendations will depend on patient's clinical course. Please do not hesitate to contact me if you have any questions or concerns. This medical document was created using electronic medical record system with [employer] computerized dictation system. Although this document has been carefully reviewed, there may still be some phonetic and typographical errors. These areas are purely typographical due to the imperfection of the software programs, and do not reflect any compromise in the patient's medical care. Dietary Evaluation Review Comments: 1) If GI is accessible consider Glucerna 1.2 @ 50ml/hr x 24hr goal rate as tolerated 2) If pt remains NPO >7 days consider TPN to meet 75% of estimated needs 3) Advance pt diet when medically feasible to a CCHO 45g/Cardiac diet 4) Continue current plan of care Expected Outcomes/Goals: 1) Pt to receive adequate nutrition support within 7 days of NPO status 2) Pt diet to advance 3) F/U in 2-3 days Plan discussed with: Patient, Other (nurse) DEBORAH FREIRE MD Feb 10, 2024 07:39
[2024-02-10] MEDS ORDERED: IOHEXOL 350 MG/ML 100ML IJ ONE (08:33)
--- NOTE | 2024-02-10 09:40 | DVHPN2 ---
Progress Note - Dictate Date Seen: Feb 10, 2024 Medical Necessity Reason Pt with a Central, PICC or Fol: Yes The following are medically ne: Meng Catheter Reason for meng catheter: Strict I&O Subjective Patient seen at bedside She is currently on supplemental oxygen and appears to be stable She denies any GI bleeding She has not had any prior endoscopy or colonoscopy as per her recollection No labs today vital signs Vital Sign Date Time Temp Pulse Resp B/P (MAP) Pulse Ox O2 Delivery O2 Flow Rate FiO2 02/10/24 09:08 100 18 100 02/10/24 08:58 Nasal Cannula* 3 32 02/10/24 08:27 98.1 151/72 (98) 98.1 Total Intake and Output 02/09/24 02/09/24 02/10/24 15:00 23:00 07:00 Intake Total 100 ml 1350 ml 540 ml Output Total 900 ml 750 ml Balance 100 ml 450 ml -210 ml medications Current Medications Medications Dose Ordered Sig/Anastacio Route Start Time Stop Time Status Last Admin Dose Admin Midazolam HCl 50 ml @ 1 mls/hr Q24H IV 02/01/24 19:00 02/03/24 09:44 7.5 MLS/HR Norepinephrine Bitartrate 250 ml @ 3.75 mls/hr Q24H IV 02/01/24 19:00 02/01/24 19:00 3.75 MLS/HR Fentanyl Citrate 250 ml @ 2.5 mls/hr Q24H IV 02/01/24 20:15 02/01/24 21:10 2.5 MLS/HR Acetaminophen/ Hydrocodone Bitart 1 tab Q4HP PRN PO 02/01/24 21:45 02/10/24 06:59 1 TAB Ondansetron HCl 4 mg Q4HP PRN IV 02/01/24 21:45 02/07/24 20:34 4 MG Acetaminophen 650 mg Q6HP PRN PO 02/01/24 21:45 Hold Morphine Sulfate 2 mg Q4HPRN PRN IV 02/01/24 21:45 02/06/24 05:55 2 MG Nitroglycerin 0.4 mg Q5MINP PRN SL 02/01/24 21:45 Morphine Sulfate 2 mg Q30M PRN IV 02/01/24 21:45 Pantoprazole Sodium 40 mg DAILY IV 02/02/24 10:00 02/09/24 09:23 40 MG Atorvastatin Calcium 10 mg HS PO 02/02/24 22:00 02/09/24 21:53 10 MG Albuterol 2.5 mg Q6HPRN PRN NEB 02/03/24 03:30 02/10/24 08:58 2.5 MG Vancomycin HCl 0 ml @ 0 mls/hr UD IV 02/03/24 13:45 Hydralazine HCl 10 mg Q6HP PRN IV 02/04/24 14:45 02/09/24 20:35 10 MG Piperacillin Sod/ Tazobactam Sod 100 ml @ 25 mls/hr Q8HR IV 02/05/24 01:00 02/10/24 06:16 25 MLS/HR Lorazepam 0.5 mg Q6HP PRN IV 02/05/24 14:15 02/05/24 21:52 0.5 MG Ipratropium [place] 0.5 mg Q4HP PRN NEB 02/05/24 21:45 02/10/24 08:58 0.5 MG Acetaminophen 650 mg Q6HP PRN [place] 02/06/24 09:45 02/06/24 11:14 650 MG Diagnostic Test (Pha) 1 strip ACHS 02/06/24 17:00 02/10/24 06:16 1 STRIP Insulin Human Regular ACHS SC 02/06/24 17:00 02/10/24 06:53 4 UNITS Dextrose 50 ml UD PRN IV 02/06/24 12:30 Metoprolol Succinate 25 mg DAILY PO 02/06/24 13:00 02/09/24 09:24 25 MG Brimonidine Tartrate 1 drop BID LEFTEYE 02/07/24 10:00 02/09/24 21:59 1 DROP Latanoprost 1 drop HS LEFTEYE 02/07/24 22:00 02/07/24 22:41 1 DROP Vancomycin HCl 250 ml @ 200 mls/hr Q20H IV 02/09/24 00:00 02/09/24 20:21 200 MLS/HR Throat Lozenges 1 onel Q2HP PRN MT 02/08/24 16:30 02/09/24 20:35 1 ONEL Furosemide 40 mg DAILY PO 02/10/24 10:00 Aspirin 81 mg DAILY PO 02/10/24 10:00 Enoxaparin Sodium 110 mg Q12HR SC 02/10/24 10:00 objective Awake and alert x3 HEENT: EOMI, PERRLA, normal external inspect of ears, no icterus, no nasal drainage Neck: no carotid bruit, no jugular venous distention (JVD), no lymphadenopathy Respiratory: clear to auscultation, normal air movement Cardiovascular: regular rate and rhythm, no diastolic murmur, no jugular venous distention (JVD), Abdominal: soft, no hepatomegaly, no mass, no splenomegaly, no tenderness Musculoskeletal: no joint tenderness, no swelling Extremities: normal pulses, no calf tenderness, no clubbing, no cyanosis, no edema Skin: no bruising, no jaundice, no rash Neurological: alert, No focal deficit laboratory and microbiology Laboratory Tests 02/10/24 05:17 02/08/24 09:28 Test 02/10/24 05:17 Range/Units Serum Glucose 195 H 74-106 mg/dL Problems(with codes): (1) Lung infiltrate (2) Anemia (3) Cardiac arrest (4) Acute respiratory failure Prognosis Plan Note cardiology recommendations Stop Eliquis, start Lovenox for now. To proceed with CTA of lungs. Possible LHC next week Continue ASA for now Her H&H is stable and stool for occult blood is negative Continue supportive care Patient likely has anemia of chronic disease Monitor labs Outpatient follow up once she has recovered completely from her current illness to discuss elective colonoscopy Dietary Evaluation Review Comments: 1) If GI is accessible consider Glucerna 1.2 @ 50ml/hr x 24hr goal rate as tolerated 2) If pt remains NPO >7 days consider TPN to meet 75% of estimated needs 3) Advance pt diet when medically feasible to a CCHO 45g/Cardiac diet 4) Continue current plan of care Expected Outcomes/Goals: 1) Pt to receive adequate nutrition support within 7 days of NPO status 2) Pt diet to advance 3) F/U in 2-3 days Plan discussed with: Patient, Other (Nurse Rosalinda) JIMMY SINGH MD Feb 10, 2024 09:40
[2024-02-10] MEDS: methylPREDNISolone SOD SUCC 125 MG/2 ML VL IV ONE (10:36)
[2024-02-10] MEDS: FAMOTIDINE 20 MG TAB PO ONE (10:37)
[2024-02-10] MEDS: diphenhdrAMINE HCL 25 MG CAP PO ONE (10:37)
--- NOTE | 2024-02-10 10:47 | DVHPN2 ---
Progress Note - Dictate Date Seen: Feb 10, 2024 Medical Necessity Reason Pt with a Central, PICC or Fol: Yes The following are medically ne: Meng Catheter Reason for meng catheter: Strict I&O Subjective Ms. Hardwick is a 78 years old female with a history of hypertension, diabetes, asthma, COPD, the patient was [facility] from her [facility] for altered mental status/cardiopulmonary arrest. I have seen and examined the patient, discussed with her nurse, she feels better, is stronger, she was alert, oriented x3, no new complaints UDS, 02/01/2024: Urinalysis, 02/01/2024: Unremarkable ABG, 02/01/2024: Respiratory acidosis WBC/HB/PLT/MCV, 02/02/2024: 9.4/11.5/219/93.2 HCO3, 02/01/2024: 32, 02/02/2024: 37 BUN/CR, 02/01/2024: 23/1.34. 02/02/2024: 25/1.33 Lactic acid, 02/01/2024: 5.5 TG/HDL/LDL/HDL, 02/02/2024: 55/125/48/55 TSH, 02/03/2024: 1.36 VQ, 02/07/2024: Based on PIOPED criteria, intermediate probability for pulmonary embolism CT head, 02/02/2024:No acute intracranial process vital signs Vital Sign Date Time Temp Pulse Resp B/P (MAP) Pulse Ox O2 Delivery O2 Flow Rate FiO2 02/10/24 09:54 100 18 151/72 96 3.0 32 02/10/24 08:58 Nasal Cannula* 02/10/24 08:27 98.1 98.1 Total Intake and Output 02/09/24 02/09/24 02/10/24 15:00 23:00 07:00 Intake Total 100 ml 1350 ml 540 ml Output Total 900 ml 750 ml Balance 100 ml 450 ml -210 ml medications Current Medications Medications Dose Ordered Sig/Anastacio Route Start Time Stop Time Status Last Admin Dose Admin Midazolam HCl 50 ml @ 1 mls/hr Q24H IV 02/01/24 19:00 02/03/24 09:44 7.5 MLS/HR Norepinephrine Bitartrate 250 ml @ 3.75 mls/hr Q24H IV 02/01/24 19:00 02/01/24 19:00 3.75 MLS/HR Fentanyl Citrate 250 ml @ 2.5 mls/hr Q24H IV 02/01/24 20:15 02/01/24 21:10 2.5 MLS/HR Acetaminophen/ Hydrocodone Bitart 1 tab Q4HP PRN PO 02/01/24 21:45 02/10/24 06:59 1 TAB Ondansetron HCl 4 mg Q4HP PRN IV 02/01/24 21:45 02/07/24 20:34 4 MG Acetaminophen 650 mg Q6HP PRN PO 02/01/24 21:45 Hold Morphine Sulfate 2 mg Q4HPRN PRN IV 02/01/24 21:45 02/06/24 05:55 2 MG Nitroglycerin 0.4 mg Q5MINP PRN SL 02/01/24 21:45 Morphine Sulfate 2 mg Q30M PRN IV 02/01/24 21:45 Pantoprazole Sodium 40 mg DAILY IV 02/02/24 10:00 02/09/24 09:23 40 MG Atorvastatin Calcium 10 mg HS PO 02/02/24 22:00 02/09/24 21:53 10 MG Albuterol 2.5 mg Q6HPRN PRN NEB 02/03/24 03:30 02/10/24 08:58 2.5 MG Vancomycin HCl 0 ml @ 0 mls/hr UD IV 02/03/24 13:45 Hydralazine HCl 10 mg Q6HP PRN IV 02/04/24 14:45 02/09/24 20:35 10 MG Piperacillin Sod/ Tazobactam Sod 100 ml @ 25 mls/hr Q8HR IV 02/05/24 01:00 02/10/24 06:16 25 MLS/HR Lorazepam 0.5 mg Q6HP PRN IV 02/05/24 14:15 02/05/24 21:52 0.5 MG Ipratropium [place] 0.5 mg Q4HP PRN NEB 02/05/24 21:45 02/10/24 08:58 0.5 MG Acetaminophen 650 mg Q6HP PRN [place] 02/06/24 09:45 02/06/24 11:14 650 MG Diagnostic Test (Pha) 1 strip ACHS 02/06/24 17:00 02/10/24 06:16 1 STRIP Insulin Human Regular ACHS SC 02/06/24 17:00 02/10/24 06:53 4 UNITS Dextrose 50 ml UD PRN IV 02/06/24 12:30 Metoprolol Succinate 25 mg DAILY PO 02/06/24 13:00 02/09/24 09:24 25 MG Brimonidine Tartrate 1 drop BID LEFTEYE 02/07/24 10:00 02/09/24 21:59 1 DROP Latanoprost 1 drop HS LEFTEYE 02/07/24 22:00 02/07/24 22:41 1 DROP Vancomycin HCl 250 ml @ 200 mls/hr Q20H IV 02/09/24 00:00 02/09/24 20:21 200 MLS/HR Throat Lozenges 1 onel Q2HP PRN MT 02/08/24 16:30 02/09/24 20:35 1 ONEL Furosemide 40 mg DAILY PO 02/10/24 10:00 Aspirin 81 mg DAILY PO 02/10/24 10:00 Enoxaparin Sodium 110 mg Q12HR SC 02/10/24 10:00 objective The patient is well-nourished and well-developed with no distress. MENTAL STATUS: Subjective CRANIAL NERVES: Pupils are equal round and reactive to light briskly, normal external eye movement, normal sensation and motor examination in the lateral trigeminal nerve distribution, no facial weakness SENSATION: Normal to pinprick and light touch MOTOR: Normal tone in the upper and lower extremity. Normal muscle bulk. No fasciculations. She moves the arms and legs REFLEXES: Deep tendon reflexes are symmetrical. No pathological reflexes. CEREBELLAR/COORDINATION: Deferred GAIT/STATION: deferred. laboratory and microbiology Laboratory Tests 02/10/24 05:17 02/08/24 09:28 Test 02/10/24 05:17 Range/Units Serum Glucose 195 H 74-106 mg/dL Problem List Coma, resolved Hypoxic encephalopathy Metabolic encephalopathy Respiratory failure, resolved Respiratory acidosis resolved Chronic kidney failure Glaucoma She keeps improving Assessment/Plan Monitoring Supportive treatment Oxygen Headaches Xalatan eye drops Brimonidine eyedrops GI prophylaxis Cardiology on case Pulmonology on case Of the chair Physical therapy evaluation More recommendation per clinical course I am prescribing Brimonidine eyedrop for her left eye glaucoma, meanwhile She is to call family confirm her glaucoma eye drop This medical document was created using an electronic medical record system with [employer] computerized dictation system. Although this document has been carefully reviewed, there may still be some phonetic and typographical errors. These areas are purely typographical due to imperfections of the software programs, and do not reflect any compromise in the patient's medical care. Prognosis poor Dietary Evaluation Review Comments: 1) If GI is accessible consider Glucerna 1.2 @ 50ml/hr x 24hr goal rate as tolerated 2) If pt remains NPO >7 days consider TPN to meet 75% of estimated needs 3) Advance pt diet when medically feasible to a CCHO 45g/Cardiac diet 4) Continue current plan of care Expected Outcomes/Goals: 1) Pt to receive adequate nutrition support within 7 days of NPO status 2) Pt diet to advance 3) F/U in 2-3 days Plan discussed with: Patient, Other SARAH LALA MD Feb 10, 2024 10:47
--- NOTE | 2024-02-10 11:58 | DVH ---
CTA Chest with intravenous contrast INDICATION: R/O Pulmonary emboli COMPARISON: None TECHNIQUE: Multidetector spiral CTA of the chest was performed of the chest with intravenous contrast . PULMONARY ANGIOGRAPHY PROTOCOL was utilized using a bolus-tracking technique centered on the main p ulmonary artery. Axial, coronal and sagittal multiplanar and MIP reformats were performed. CONTRAST: Type of contrast: Omni 350 Contrast injected: 100 ml Radiation dose : Chest: CTDI volume is 31 mGy. Dose-length product is 879 mGy*cm The dose indicators for CT are the volume computed Tomography (CT) dose Index (CTDIvol) and the dose Length product (DLP), and are measured in units of mGy and mGy-cm, respectively. These indicators are not patient dose, but values generated from the CT scanner acquisition factors. The report includes radiation exposure data for exposures received during this examination. Findings: Pulmonary artery: No pulmonary embolism Lower neck: Cyst or nodule in the left thyroid measuring up to 21 mm. Lungs: Nodular airspace disease bilateral upper lobes associated with the 1st costosternal junction. Small bilateral pleural effusions with associated bibasilar atelectasis and consolidation. Heart/Vascular Structures: Normal heart size. No pericardial effusion. Lymph Nodes: No adenopathy Pleura: Bilateral pleural effusions as above. Musculoskeletal: No acute osseous abnormality. Soft tissues: Normal. Upper abdomen: Limited portions of the upper abdomen are unremarkable. IMPRESSION: 1. No pulmonary embolism. 2. Bilateral pleural effusions with associated bibasilar atelectasis and consolidation. Nodular airs pace disease in the bilateral upper lobes associated with the 1st costosternal junction. Clinical cor relation and continued follow-up is recommended. Left thyroid nodule. Consider thyroid ultrasound. HS:Y
[2024-02-10] MEDS: ASPirin 81 mg TAB PO SCH (12:31)
[2024-02-10] MEDS: FUROSEMIDE 20 MG TAB PO SCH (12:31)
[2024-02-10] MEDS: ENOXAPARIN SOD 120 MG/0.8 ML SYRINGE SC SCH (12:32)
--- NOTE | 2024-02-10 12:59 | DVHPN2 ---
Progress Note - Dictate Date Seen: Feb 10, 2024 Medical Necessity Reason Pt with a Central, PICC or Fol: Yes The following are medically ne: Meng Catheter Reason for meng catheter: Strict I&O vital signs Vital Sign Date Time Temp Pulse Resp B/P (MAP) Pulse Ox O2 Delivery O2 Flow Rate FiO2 02/10/24 12:31 142/72 02/10/24 12:31 100 02/10/24 11:56 97.8 17 94 97.8 02/10/24 10:00 Nasal Cannula* 3 32 Total Intake and Output 02/09/24 02/09/24 02/10/24 15:00 23:00 07:00 Intake Total 100 ml 1350 ml 540 ml Output Total 900 ml 750 ml Balance 100 ml 450 ml -210 ml medications Current Medications Medications Dose Ordered Sig/Anastacio Route Start Time Stop Time Status Last Admin Dose Admin Midazolam HCl 50 ml @ 1 mls/hr Q24H IV 02/01/24 19:00 02/03/24 09:44 7.5 MLS/HR Norepinephrine Bitartrate 250 ml @ 3.75 mls/hr Q24H IV 02/01/24 19:00 02/01/24 19:00 3.75 MLS/HR Fentanyl Citrate 250 ml @ 2.5 mls/hr Q24H IV 02/01/24 20:15 02/01/24 21:10 2.5 MLS/HR Acetaminophen/ Hydrocodone Bitart 1 tab Q4HP PRN PO 02/01/24 21:45 02/10/24 06:59 1 TAB Ondansetron HCl 4 mg Q4HP PRN IV 02/01/24 21:45 02/07/24 20:34 4 MG Acetaminophen 650 mg Q6HP PRN PO 02/01/24 21:45 Hold Morphine Sulfate 2 mg Q4HPRN PRN IV 02/01/24 21:45 02/06/24 05:55 2 MG Nitroglycerin 0.4 mg Q5MINP PRN SL 02/01/24 21:45 Morphine Sulfate 2 mg Q30M PRN IV 02/01/24 21:45 Pantoprazole Sodium 40 mg DAILY IV 02/02/24 10:00 02/10/24 12:32 40 MG Atorvastatin Calcium 10 mg HS PO 02/02/24 22:00 02/09/24 21:53 10 MG Albuterol 2.5 mg Q6HPRN PRN NEB 02/03/24 03:30 02/10/24 08:58 2.5 MG Vancomycin HCl 0 ml @ 0 mls/hr UD IV 02/03/24 13:45 Hydralazine HCl 10 mg Q6HP PRN IV 02/04/24 14:45 02/09/24 20:35 10 MG Piperacillin Sod/ Tazobactam Sod 100 ml @ 25 mls/hr Q8HR IV 02/05/24 01:00 02/10/24 06:16 25 MLS/HR Lorazepam 0.5 mg Q6HP PRN IV 02/05/24 14:15 02/05/24 21:52 0.5 MG Ipratropium [place] 0.5 mg Q4HP PRN NEB 02/05/24 21:45 02/10/24 08:58 0.5 MG Acetaminophen 650 mg Q6HP PRN [place] 02/06/24 09:45 02/06/24 11:14 650 MG Diagnostic Test (Pha) 1 strip ACHS 02/06/24 17:00 02/10/24 12:32 1 STRIP Insulin Human Regular ACHS SC 02/06/24 17:00 02/10/24 12:44 3 UNITS Dextrose 50 ml UD PRN IV 02/06/24 12:30 Metoprolol Succinate 25 mg DAILY PO 02/06/24 13:00 02/10/24 12:31 25 MG Brimonidine Tartrate 1 drop BID LEFTEYE 02/07/24 10:00 02/10/24 12:49 1 DROP Latanoprost 1 drop HS LEFTEYE 02/07/24 22:00 02/07/24 22:41 1 DROP Vancomycin HCl 250 ml @ 200 mls/hr Q20H IV 02/09/24 00:00 02/09/24 20:21 200 MLS/HR Throat Lozenges 1 onel Q2HP PRN [place] 02/08/24 16:30 02/09/24 20:35 1 ONEL Furosemide 40 mg DAILY PO 02/10/24 10:00 02/10/24 12:31 40 MG Aspirin 81 mg DAILY PO 02/10/24 10:00 02/10/24 12:31 81 MG Enoxaparin Sodium 110 mg Q12HR SC 02/10/24 10:00 02/10/24 12:32 110 MG objective General Appearance: alert, no distress HEENT: EOMI, PERRLA, normal external inspect of ears, no icterus, no nasal drainage Neck: no carotid bruit, no jugular venous distention (JVD), no lymphadenopathy Chest: normal thorax Respiratory: clear to auscultation, normal air movement Cardiovascular: regular rate and rhythm, no diastolic murmur, no jugular venous distention (JVD), no rub, no systolic murmur Abdominal: soft, no hepatomegaly, no mass, no splenomegaly, no tenderness Genitourinary: grossly normal external Musculoskeletal: no joint tenderness, no swelling Extremities: normal pulses, no calf tenderness, no clubbing, no cyanosis, no edema Skin: no bruising, no jaundice, no rash Neurological: alert, No focal deficit laboratory and microbiology Laboratory Tests 02/10/24 05:17 02/08/24 09:28 Test 02/10/24 05:17 Range/Units Serum Glucose 195 H 74-106 mg/dL Problem List 1. Acute hypoxic respiratory failure Monitor, pulmonary consult 2. Status post cardio pulmonology arrest Monitor, cardiology consult, neurology consult, echocardiogram, CTA of chest, Doppler BLE to rule out DVT, full dose Lovenox 3. COPD exacerbation Monitor, IV antibiotics, IV fluids 4. Obesity Monitor, PPI 5. Benign essential hypertension Monitor 6. Pneumonia Monitor, Pulmonary consult, IV antibiotics, Med-Neb treatments 7. Septic shock Monitor, IV antibiotics, IV fluids, vasopressors as needed 8. Elevated troponins Monitor, Cardiology consult, trend troponin levels, monitor EKG 9. Elevated D-dimer Monitor, VQ scan Assessment/Plan Subjective Patient is awake and alert Objective Patient was admitted for shortness of breath. Patient is status post cardiac arrest with emergent intubation. Patient was successfully weaned off ventilator. Patient was septic with pneumonia. Patient had elevated D-dimer. Her son did refuse contrast studeies to evaluate for PE. Patient's VQ scan did show an intermediate probability for PE. Patient also was refusing to undergo heart cath given that she is status post cardiac arrest. Patient's plastics supervisor to speak with her at length. Plan Possible plan for angiogram next week. Patient to have CTA to rule out PE. Dietary Evaluation Review Comments: 1) If GI is accessible consider Glucerna 1.2 @ 50ml/hr x 24hr goal rate as tolerated 2) If pt remains NPO >7 days consider TPN to meet 75% of estimated needs 3) Advance pt diet when medically feasible to a CCHO 45g/Cardiac diet 4) Continue current plan of care Expected Outcomes/Goals: 1) Pt to receive adequate nutrition support within 7 days of NPO status 2) Pt diet to advance 3) F/U in 2-3 days Plan discussed with: Patient, Other JORY LINDSEY INTERVENTIONAL NEURORADIOLOGIST Feb 10, 2024 12:59
--- NOTE | 2024-02-10 14:00 | DVH ---
Exam: US CHEST ULTRASOUND Date: 02/10/2024 01:36 PM Clinical History: Eval if fluid amenable for thora Comparison: None Technique: Targeted sonographic evaluation of the right and left corin thorax was obtained utilizing grayscale an d color Doppler imaging. Findings: There is trace right pleural effusion. There is no significant left pleural effusion. IMPRESSION: 1. Trace right pleural effusion. HS:Y
--- NOTE | 2024-02-10 23:07 | DVHPN2 ---
Progress Note - Dictate Date Seen: Feb 10, 2024 Medical Necessity Reason Pt with a Central, PICC or Fol: No The following are medically ne: Meng Catheter Reason for meng catheter: Strict I&O Subjective Patient seen and examined at bedside. Remains on supplemental oxygen. Overnight events reviewed. vital signs Vital Sign Date Time Temp Pulse Resp B/P (MAP) Pulse Ox O2 Delivery O2 Flow Rate FiO2 02/10/24 21:00 98.0 91 15 150/76 (100) 96 98.0 02/10/24 19:08 Nasal Cannula 3.0 02/10/24 19:08 32 Total Intake and Output 02/09/24 02/09/24 02/10/24 15:00 23:00 07:00 Intake Total 100 ml 1350 ml 540 ml Output Total 900 ml 750 ml Balance 100 ml 450 ml -210 ml medications Current Medications Medications Dose Ordered Sig/Anastacio Route Start Time Stop Time Status Last Admin Dose Admin Acetaminophen/ Hydrocodone Bitart 1 tab Q4HP PRN PO 02/01/24 21:45 02/10/24 06:59 1 TAB Ondansetron HCl 4 mg Q4HP PRN IV 02/01/24 21:45 02/07/24 20:34 4 MG Morphine Sulfate 2 mg Q4HPRN PRN IV 02/01/24 21:45 02/06/24 05:55 2 MG Nitroglycerin 0.4 mg Q5MINP PRN SL 02/01/24 21:45 Morphine Sulfate 2 mg Q30M PRN IV 02/01/24 21:45 Pantoprazole Sodium 40 mg DAILY IV 02/02/24 10:00 02/10/24 12:32 40 MG Atorvastatin Calcium 10 mg HS PO 02/02/24 22:00 02/09/24 21:53 10 MG Albuterol 2.5 mg Q6HPRN PRN NEB 02/03/24 03:30 02/10/24 19:13 2.5 MG Vancomycin HCl 0 ml @ 0 mls/hr UD IV 02/03/24 13:45 Hydralazine HCl 10 mg Q6HP PRN IV 02/04/24 14:45 02/09/24 20:35 10 MG Piperacillin Sod/ Tazobactam Sod 100 ml @ 25 mls/hr Q8HR IV 02/05/24 01:00 02/10/24 13:42 25 MLS/HR Lorazepam 0.5 mg Q6HP PRN IV 02/05/24 14:15 02/05/24 21:52 0.5 MG Ipratropium [place] 0.5 mg Q4HP PRN NEB 02/05/24 21:45 02/10/24 19:13 0.5 MG Acetaminophen 650 mg Q6HP PRN [place] 02/06/24 09:45 02/06/24 11:14 650 MG Diagnostic Test (Pha) 1 strip ACHS 02/06/24 17:00 02/10/24 16:36 1 STRIP Insulin Human Regular ACHS SC 02/06/24 17:00 02/10/24 16:40 8 UNITS Dextrose 50 ml UD PRN IV 02/06/24 12:30 Metoprolol Succinate 25 mg DAILY PO 02/06/24 13:00 02/10/24 12:31 25 MG Brimonidine Tartrate 1 drop BID LEFTEYE 02/07/24 10:00 02/10/24 12:49 1 DROP Latanoprost 1 drop HS LEFTEYE 02/07/24 22:00 02/07/24 22:41 1 DROP Throat Lozenges 1 onel Q2HP PRN MT 02/08/24 16:30 02/09/24 20:35 1 ONEL Aspirin 81 mg DAILY PO 02/10/24 10:00 02/10/24 12:31 81 MG Enoxaparin Sodium 110 mg Q12HR SC 02/10/24 10:00 02/10/24 12:32 110 MG Furosemide 40 mg DAILY PO 02/11/24 10:00 Acetaminophen 650 mg Q4HP PRN PO 02/10/24 20:45 objective Gen.: Patient lying in bed in no apparent distress. On supplemental oxygen. Head: Normocephalic, atraumatic. Eyes: EOMI/PERRLA. Ears: Normal hearing. Normal anatomy. Neck/trachea: Trachea midline, supple. Nose: Normal external anatomy. Mouth: Moist mucous membranes. Chest: Decreased air entry bilaterally. No wheezing or rhonchi. Bilateral crackles. Cardiovascular: Positive S1, positive S2. Regular rate and rhythm. Abdomen: Positive bowel sounds in all 4 quadrants. Soft, non-tender, non- distended. : Deferred. Rectal: Deferred. Skin: Warm, dry. Intact. Extremities: 2+ radial pulses bilaterally. No lower extremity edema. Neuro: Awake, alert, oriented x3. No gross motor or sensory deficits. Cranial nerves II through XII intact. Gait not assessed. laboratory and microbiology Laboratory Tests 02/10/24 05:17 02/08/24 09:28 Test 02/10/24 05:17 Range/Units Serum Glucose 195 H 74-106 mg/dL Assessment/Plan Impression: Acute hypoxic respiratory failure S/p cardiopulmonary arrest Acute hypercarbic respiratory failure Elevated troponin Septic shock Obesity Pulmonary edema Events: Remains on supplemental oxygen, 3 LPM NC Taper O2 as tolerated CTA of chest revealed no evidence of pulmonary embolism. Bilateral pleural effusions with associated bibasilar atelectasis and consolidation. Nodular airspace disease in the bilateral upper lobes associated with the 1st costosternal junction. Left thyroid nodule. Chest ultrasound demonstrated trace right pleural effusion. Continue bronchodilators Continue antibiotics - Zosyn, vancomycin. IS. Diurese w/ Lasix as tolerated Monitor renal function. Monitor electrolytes. Supplement as necessary. CPAP for JEREMY. Disposition per hospitalist. Labs and imaging reviewed. Rest of plan as noted below. Plan: s/p extubation on 02/05/24. Supplemental oxygen Titrate to keep O2 sats above 92%. Off sedation S/p right IJ central line placement. Elevated troponin - Cardiology recommendations appreciated. Continue antibiotics. F/u cultures. Pressors if necessary for hemodynamic support Titrate to keep mean arterial pressure greater than 65 mmHg - currently off, hemodynamically stable. Monitor renal function Monitor electrolytes. Supplement as necessary. Monitor ins and outs. GI/DVT prophylaxis. Prognosis: Poor given patient's multiple co-morbidities. Rest of plan per hospitalist and other consultants. Thank you, Rhea Gibson NP, for allowing me to participate in this patient's care. Further recommendations will depend on the patient's clinical course. Please do not hesitate to contact me if you have any questions or concerns. This medical document was created using an electronic medical record system with [employer] dictation system. Although these documentations are being carefully reviewed, there may still be some phonetic and typographical changes. The errors are purely typographical, due to imperfection on the software program, and do not reflect any compromise in the patient's medical care. Dietary Evaluation Review Comments: 1) If GI is accessible consider Glucerna 1.2 @ 50ml/hr x 24hr goal rate as tolerated 2) If pt remains NPO >7 days consider TPN to meet 75% of estimated needs 3) Advance pt diet when medically feasible to a CCHO 45g/Cardiac diet 4) Continue current plan of care Expected Outcomes/Goals: 1) Pt to receive adequate nutrition support within 7 days of NPO status 2) Pt diet to advance 3) F/U in 2-3 days Plan discussed with: Patient, Other ([facility]) MARI KILGORE MD Feb 10, 2024 23:07
[2024-02-11] VITALS (18 sets, daily range): BP systolic 128–155; BP diastolic 64–78; PULSE 82–116; RESP 14–19; TEMP 97.5–99; O2SAT 93–100
[2024-02-11 05:28] LABS: Basophils # (auto) 0 10 ^3/uL (0-0.2); Basophils % (auto) 0.4 % (0.0-2.0); Eosinophils # (auto) 0 10 ^3/uL (0-0.8); Eosinophils % (auto) 0.1 % (0.0-7.0); Hematocrit 31.1 % (36.0-46.0); Hemoglobin 9.7 g/dL (12.2-16.2); Lymphocytes # (auto) 0.6 10 ^3/uL (0.4-5.4); Lymphocytes % (auto) 9.7 % (10.0-50.0); Mean Corpuscular Hemoglobin 28.9 pg (28.0-32.0); Mean Corpuscular Hgb Conc. 31.1 g/dL (32.0-36.0); Mean Corpuscular Volume 92.9 fL (80.0-100.0); Monocytes # (auto) 0.8 10 ^3/uL (0-1.3); Monocytes % (auto) 11.5 % (0.0-12.0); Neutrophils # (auto) 5.2 10 ^3/uL (1.6-8.6); Neutrophils % (auto) 78.3 % (37.0-80.0); Platelet Count (auto) 326 10^3/uL (140-450); Red Blood Cells 3.34 10^6/uL (4.0-5.20); Red Cell Distribution Width 16.7 % (11.8-14.3); White Blood Cell 6.7 10^3/uL (4.4-10.8)
--- NOTE | 2024-02-11 06:22 | DVHPN2 ---
Progress Note - Dictate Date Seen: Feb 11, 2024 Medical Necessity Reason Pt with a Central, PICC or Fol: No The following are medically ne: Meng Catheter Reason for meng catheter: Strict I&O vital signs Vital Sign Date Time Temp Pulse Resp B/P (MAP) Pulse Ox O2 Delivery O2 Flow Rate FiO2 02/11/24 05:00 97.5 91 17 151/66 (94) 99 97.5 02/11/24 01:36 Facial BiPAP Mask 30 02/10/24 20:00 2 Total Intake and Output 02/10/24 02/10/24 02/11/24 15:00 23:00 07:00 Intake Total 100 ml 780 ml 340 ml Output Total 800 ml 600 ml Balance 100 ml -20 ml -260 ml medications Current Medications Medications Dose Ordered Sig/Anastacio Route Start Time Stop Time Status Last Admin Dose Admin Ondansetron HCl 4 mg Q4HP PRN IV 02/01/24 21:45 02/07/24 20:34 4 MG Nitroglycerin 0.4 mg Q5MINP PRN SL 02/01/24 21:45 Pantoprazole Sodium 40 mg DAILY IV 02/02/24 10:00 02/10/24 12:32 40 MG Atorvastatin Calcium 10 mg HS PO 02/02/24 22:00 02/10/24 22:51 10 MG Albuterol 2.5 mg Q6HPRN PRN NEB 02/03/24 03:30 02/10/24 19:13 2.5 MG Vancomycin HCl 0 ml @ 0 mls/hr UD IV 02/03/24 13:45 Hydralazine HCl 10 mg Q6HP PRN IV 02/04/24 14:45 02/09/24 20:35 10 MG Piperacillin Sod/ Tazobactam Sod 100 ml @ 25 mls/hr Q8HR IV 02/05/24 01:00 02/10/24 22:50 25 MLS/HR Lorazepam 0.5 mg Q6HP PRN IV 02/05/24 14:15 02/05/24 21:52 0.5 MG Ipratropium [place] 0.5 mg Q4HP PRN NEB 02/05/24 21:45 02/10/24 19:13 0.5 MG Acetaminophen 650 mg Q6HP PRN [place] 02/06/24 09:45 02/06/24 11:14 650 MG Diagnostic Test (Pha) 1 strip ACHS 02/06/24 17:00 02/10/24 23:12 1 STRIP Insulin Human Regular ACHS SC 02/06/24 17:00 02/10/24 23:13 10 UNITS Dextrose 50 ml UD PRN IV 02/06/24 12:30 Metoprolol Succinate 25 mg DAILY PO 02/06/24 13:00 02/10/24 12:31 25 MG Brimonidine Tartrate 1 drop BID LEFTEYE 02/07/24 10:00 02/11/24 00:23 1 DROP Latanoprost 1 drop HS LEFTEYE 02/07/24 22:00 02/07/24 22:41 1 DROP Throat Lozenges 1 onel Q2HP PRN MT 02/08/24 16:30 02/09/24 20:35 1 ONEL Aspirin 81 mg DAILY PO 02/10/24 10:00 02/10/24 12:31 81 MG Enoxaparin Sodium 110 mg Q12HR SC 02/10/24 10:00 02/10/24 22:50 110 MG Furosemide 40 mg DAILY PO 02/11/24 10:00 Acetaminophen 650 mg Q4HP PRN PO 02/10/24 20:45 laboratory and microbiology Laboratory Tests 02/11/24 05:00 02/10/24 05:17 Test 02/10/24 05:17 Range/Units Serum Glucose 195 H 74-106 mg/dL Assessment/Plan Patient is a 78-year-old female who presented with shortness of breath. She is intubated at the time of evaluation and not source of history. Information was obtained by reviewing the chart and communicating with staff. Reportedly, the patient lives in a nursing facility and EMS were called because the patient had used all of her medications for asthma and was still short of breath. Reportedly, while transferring the patient to the hospital the patient suffered Arrest and CPR was performed successfully. Patient was intubated. There has been no tele/EKG rhythm at the time of arrest to review. At the time of evaluation patient is nonresponsive. Cardiology is involved for cardiac aspects of care. There is questionable old history of myocardial infarction as per staff. Review of the transfer notes from nursing facility do not comment on any coronary artery disease. female, Extubated. No JVD. No JVD. Mucosa is pink and wet. Scattered rhonchi in the lungs is heard. Cardiac: Regular, no thrill/gallop. Systolic murmur 2/6 in apex is heard. Abdomen is soft. Bowel sound is positive. There is no gross mass/hepatomegaly. Extremities do not reveal edema. Dorsalis pedis is 1+ bilateral Reported past medical history includes COPD/asthma, cataract, osteoarthritis, diabetes mellitus, obstructive sleep apnea. As per communications from nursing facility, the patient uses walker for ambulation and reportedly patient has been frail prior to this presentation. Creatinine: 1.34 - 1.33 - 0.92 - 0.96 - 0.99 - 1.06 - 1.12 - 1.16 - 1.01 - 1.14 Potassium: 5.9 - 3.9 - 4.7 - 3.9 - 3.7 - 3.1 - 3.9 - 3.3 - 3.9 Lactic acid: 5.5 - 1.1 AST/ALT: 75/99 - 94/135 - 16/36 - 24/32 BNP: 68.68 - 61.15 - 44.75 - 109.22 Troponin (high sensitive): 7 - 9 - 26 - 39 LDL: 48 - 38 TSH: 0.96 - 1.36 HgbA1c: 7.0 D-dimer: >35.20 Chest x-ray revealed: Lines and Tubes: Endotracheal tube terminating 4.5 cm above the lois. Enteric tube crosses the diaphragm near midline and descends into the left upper quadrant. Right neck central venous catheter terminates over the SVC. Lungs: No focal consolidation. Diffuse bilateral interstitial opacities. Pleura: No effusion. No pneumothorax. Cardiomediastinal contours: Unremarkable Bones: No acute osseous abnormality. IMPRESSION: 1. Lines and tubes as described. 2. Nonspecific diffuse bilateral interstitial opacities. Repeat chest xry reported: Lines and Tubes: Endotracheal tube terminating 4.5 cm above the lois. Enteric tube crosses the diaphragm near midline and descends into the left upper quadrant. Right neck central venous catheter terminates over the SVC. Lungs: No focal consolidation. Diffuse bilateral interstitial opacities. Pleura: No effusion. No pneumothorax. Cardiomediastinal contours: Unremarkable Bones: No acute osseous abnormality. IMPRESSION: 1. Lines and tubes as described. 2. Nonspecific diffuse bilateral interstitial opacities. Repeat chest xry revealed: Lines and Tubes: Endotracheal tube terminating 4.5 cm above the lois. Enteric tube crosses the diaphragm near midline and descends into the left upper quadrant. Right neck central venous catheter terminates over the SVC. Lungs: No focal consolidation. Diffuse bilateral interstitial opacities. Pleura: No effusion. No pneumothorax. Cardiomediastinal contours: Unremarkable Bones: No acute osseous abnormality. IMPRESSION: 1. Lines and tubes as described. 2. Nonspecific diffuse bilateral interstitial opacities. Repeat chest xry revealed: 1. Interval removal of the endotracheal tube and enteric tube. Stable satisfactory positioning of the right internal jugular central venous catheter. 2. Mild perihilar opacities and left basilar opacity appear slightly more conspicuous compared to prior exams. CT of head reported: IMPRESSION: 1. No acute intracranial process. Venous Doppler of lower extremities reported: Impression: 1. No right or left femoropopliteal venous thrombosis. V/Q scan: Impression: 1. Based on PIOPED criteria, intermediate probability for pulmonary embolism. CTA of chest revealed: IMPRESSION: 1. No pulmonary embolism. 2. Bilateral pleural effusions with associated bibasilar atelectasis and consolidation. Nodular airspace disease in the bilateral upper lobes associated with the 1st costosternal junction. Clinical correlation and continued follow-up is recommended. Left thyroid nodule. Consider thyroid ultrasound. EKG revealed sinus rhythm with no ST-T changes Tele reveals sinus rhythm Echocardiogram revealed: Left ventricle: Left ventricular systolic function was preserved. LDL was around 60% predicted there was no gross wall motion abnormality. Right ventricle was normal size with normal systolic function. Both atria were normal size. Aortic valve was not well visualized. There was no aortic insufficiency/stenosis. There was trivial mitral/tricuspid regurgitation. Pulmonic valve was not well visualized. Right ventricular systolic pressure was assessed around 38 mm Hg. There was no pericardial effusion. Patient is a 78-year-old female who presented to the hospital with shortness of breath/respiratory distress. Reportedly, the patient had arrest. She was intubated and on vent support. Presentation and troponin is against acute coronary syndrome. Patient's D-dimer has been elevated and pulmonary emboli as a cause for presentation should be ruled out. It is of note that venous Doppler of lower extremities have been nonrevealing. Evaluation and management depends on regaining higher brain function status. Also, as per son, patient had been specifically refusing any contrast/iodine related tests/CT scans (which by comparison include cardiac cath). Family wanted us to wait until patient regains consciousness and decide herself. Echo revealed good LV systolic function, valves are working ok. Patient is seen by Neurology who is contemplating Hypoxic Encephalopathy. Pulmonary on the case. Patient was later extubated. She has regained higher brain function. We had long discussion about the presentation and abnormal labs (D-dimer). She was told about suggestions for possible left heart catheterization and also CT angio of the lungs. She verbalized understanding. She originally refused any kind of contrast/iodine related study. She mentioned that she understands the risks but does not want contrast related tests. 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 She was told that V/Q scan can still be performed and she agreed. V/Q scan was intermediate probability for PE. A/C was advised. Pulmonary follow up and advise for A/C. Patient talked to her outside physician on the phone yesterday and decided to proceed with contrast studies. As she was on Eliquis, it was held and patient was restarted on Lovenox. Will arrange for possible LHC next week. CTA of lungs (performed) ruled out pulmonary emboli. Was found to have thyroid nodule. Arrest Respiratory failure, acute s/p Intubation and later extubation History of asthma/COPD Encephalopathy, Hypoxic? , Metabolic? Diabetes mellitus Cataract Osteoarthritis Septic shock Throid nodule Abnormal d-dimer Pulmonary Emboli, ruled out Cardiac suggestion for management: Manage in tele Follow-up electrolytes and kidney function tests and correct abnormalities. Keep potassium above 4 and magnesium above 2. Avoid hyperkalemia. Lipitor: 10 mg at night is suggested Was on Eliquis. As patient at this point agreed with contrast studies (she talked to her outside physician on the phone), Eliquis was stopped, on Lovenox for now. Continue ASA for now Possible LHC next week (Wednesday afternoon) Thyroid ultrasound Neurology follow up Further evaluation and management depends on the above and clinical course A total of 55 minutes was spent reviewing the patient record, examining the patient, making a diagnostic and therapeutic plan, discussing this plan with medical personnel, following up on diagnostic studies and following the patient for clinical stability excluding any and all procedures. At least 50% of this time was spent in direct, [id number] contact. Thank you for allowing me to participate in this patient's care. Further recommendations will depend on patient's clinical course. Please do not hesitate to contact me if you have any questions or concerns. This medical document was created using electronic medical record system with [employer] dictation system. Although this document has been carefully reviewed, there may still be some phonetic and typographical errors. These areas are purely typographical due to the imperfection of the software programs, and do not reflect any compromise in the patient's medical care. Dietary Evaluation Review Comments: 1) If GI is accessible consider Glucerna 1.2 @ 50ml/hr x 24hr goal rate as tolerated 2) If pt remains NPO >7 days consider TPN to meet 75% of estimated needs 3) Advance pt diet when medically feasible to a CCHO 45g/Cardiac diet 4) Continue current plan of care Expected Outcomes/Goals: 1) Pt to receive adequate nutrition support within 7 days of NPO status 2) Pt diet to advance 3) F/U in 2-3 days Plan discussed with: Patient, Other (nurse) DEBORAH FREIRE MD Feb 11, 2024 06:22
--- NOTE | 2024-02-11 08:49 | DVH ---
ULTRASOUND SOFT TISSUE HEAD AND NECK CLINICAL INDICATION: Thyroid nodule TECHNIQUE: Multiple real time sonographic images of the thyroid were obtained. Comparison: CT dated 02/10/2024 FINDINGS: The right thyroid gland measures 4.5 x 2.2 x 1.1 cm. The left thyroid gland measures approximately 7.3 x 2.8 x 4.0 cm. The isthmus measures 0.4 cm. Benign cyst in the right upper pole measures 0.9 cm, TR 1. Mixed cystic and solid nodule in the right lower pole measures 1.3 cm, TR 3. Isoechoic nodule in the left lower pole measures 2.3 cm, TR 3. IMPRESSION: Benign cyst in the right upper pole measures 0.9 cm, TR 1. Mixed cystic and solid nodule in the right lower pole measures 1.3 cm, TR 3. Isoechoic nodule in the left lower pole measures 2.3 cm, TR 3. [employer] TI-RADS Categories and Recommendations (2017): TR1: 0 points, Benign, No FNA TR2: 2 points, Not suspicious, No FNA TR3: 3 points, Mildly suspicious, FNA if > or = 2.5 cm, Follow if > or = 1.5 cm TR4: 4-6 points, Moderately Suspicious, FNA if > or = 1.5 cm, Follow if > or = 1.0 cm TR5: 7+ points, Highly Suspicious, FNA if > or = 1.0 cm, Follow if > or = 0.5 cm Follow-up ultrasound guidelines: TR5: yearly for 5 years, if no growth or change in TI-RADS level TR4: at 1, 2, 3 and 5 years, if no growth or change in TI-RADS level TR3: at 1, 3 and 5 years, if no growth or change in TI-RADS level If increased but below threshold for FNA, repeat in one year. Source: ACR Thyroid Imaging, Reporting and Data System (TI-RADS): White Paper of the ACR TI-RADS Committee. [employer] et al., J Am Mich Radiol 2017;14:587-595.
[2024-02-11] MEDS: VANCOMYCIN 1GM/250ML KIT 250 ML IV SCH (11:02)
[2024-02-11] MEDS: FUROSEMIDE 40 MG TAB PO SCH (11:04)
[2024-02-11] MEDS: ACETAMINOPHEN 325 MG TAB PO PRN (11:19)
--- NOTE | 2024-02-11 16:45 | DVHPN2 ---
Progress Note - Dictate Date Seen: Feb 11, 2024 Medical Necessity Reason Pt with a Central, PICC or Fol: No The following are medically ne: Meng Catheter Reason for meng catheter: Strict I&O Subjective Patient seen at bedside sleeping comfortably She is currently on supplemental oxygen and appears to be stable She denies any GI bleeding; hemoglobin 9.7 and stable, creatinine 1.13 She has not had any prior endoscopy or colonoscopy as per her recollection vital signs Vital Sign Date Time Temp Pulse Resp B/P (MAP) Pulse Ox O2 Delivery O2 Flow Rate FiO2 02/11/24 15:27 82 16 100 02/11/24 15:21 Nasal Cannula 3.0 02/11/24 15:21 32 02/11/24 13:07 98.6 132/67 (88) 98.6 Total Intake and Output 02/10/24 02/10/24 02/11/24 15:00 23:00 07:00 Intake Total 100 ml 780 ml 340 ml Output Total 800 ml 600 ml Balance 100 ml -20 ml -260 ml medications Current Medications Medications Dose Ordered Sig/Anastacio Route Start Time Stop Time Status Last Admin Dose Admin Ondansetron HCl 4 mg Q4HP PRN IV 02/01/24 21:45 02/07/24 20:34 4 MG Nitroglycerin 0.4 mg Q5MINP PRN SL 02/01/24 21:45 Pantoprazole Sodium 40 mg DAILY IV 02/02/24 10:00 02/11/24 11:04 40 MG Atorvastatin Calcium 10 mg HS PO 02/02/24 22:00 02/10/24 22:51 10 MG Albuterol 2.5 mg Q6HPRN PRN NEB 02/03/24 03:30 02/11/24 15:21 2.5 MG Vancomycin HCl 0 ml @ 0 mls/hr UD IV 02/03/24 13:45 Hydralazine HCl 10 mg Q6HP PRN IV 02/04/24 14:45 02/09/24 20:35 10 MG Piperacillin Sod/ Tazobactam Sod 100 ml @ 25 mls/hr Q8HR IV 02/05/24 01:00 02/11/24 14:35 25 MLS/HR Lorazepam 0.5 mg Q6HP PRN IV 02/05/24 14:15 02/05/24 21:52 0.5 MG Ipratropium [place] 0.5 mg Q4HP PRN NEB 02/05/24 21:45 02/11/24 15:21 0.5 MG Acetaminophen 650 mg Q6HP PRN [place] 02/06/24 09:45 02/06/24 11:14 650 MG Diagnostic Test (Pha) 1 strip ACHS 02/06/24 17:00 02/11/24 11:21 1 STRIP Insulin Human Regular ACHS SC 02/06/24 17:00 02/11/24 11:26 6 UNITS Dextrose 50 ml UD PRN IV 02/06/24 12:30 Metoprolol Succinate 25 mg DAILY PO 02/06/24 13:00 02/11/24 11:07 25 MG Brimonidine Tartrate 1 drop BID LEFTEYE 02/07/24 10:00 02/11/24 11:03 1 DROP Latanoprost 1 drop HS LEFTEYE 02/07/24 22:00 02/07/24 22:41 1 DROP Throat Lozenges 1 onel Q2HP PRN [place] 02/08/24 16:30 02/09/24 20:35 1 ONEL Aspirin 81 mg DAILY PO 02/10/24 10:00 02/11/24 11:06 81 MG Enoxaparin Sodium 110 mg Q12HR SC 02/10/24 10:00 02/11/24 11:02 110 MG Furosemide 40 mg DAILY PO 02/11/24 10:00 02/11/24 11:04 40 MG Acetaminophen 650 mg Q4HP PRN PO 02/10/24 20:45 02/11/24 11:19 650 MG Vancomycin HCl 250 ml @ 250 mls/hr DAILY@1100 IV 02/11/24 11:00 02/11/24 11:02 250 MLS/HR objective Awake and alert x3 HEENT: EOMI, PERRLA, normal external inspect of ears, no icterus, no nasal drainage Neck: no carotid bruit, no jugular venous distention (JVD), no lymphadenopathy Respiratory: clear to auscultation, normal air movement Cardiovascular: regular rate and rhythm, no diastolic murmur, no jugular venous distention (JVD), Abdominal: soft, no hepatomegaly, no mass, no splenomegaly, no tenderness Musculoskeletal: no joint tenderness, no swelling Extremities: normal pulses, no calf tenderness, no clubbing, no cyanosis, no edema Skin: no bruising, no jaundice, no rash Neurological: alert, No focal deficit laboratory and microbiology Laboratory Tests 02/11/24 05:00 02/10/24 05:17 Test 02/10/24 05:17 Range/Units Serum Glucose 195 H 74-106 mg/dL Problems(with codes): (1) Lung infiltrate (2) Anemia (3) Cardiac arrest (4) Acute respiratory failure Prognosis Plan Patient is scheduled for left heart catheterization on Wednesday CTA showed bilateral pleural effusions and atelectasis no pulmonary embolism Thyroid ultrasound showed benign nodules Chest CT showed trace pleural effusion Her H&H is stable and stool for occult blood is negative Continue supportive care Patient likely has anemia of chronic disease Monitor labs Outpatient follow up once she has recovered completely from her current illness to discuss elective colonoscopy Dietary Evaluation Review Comments: 1) If GI is accessible consider Glucerna 1.2 @ 50ml/hr x 24hr goal rate as tolerated 2) If pt remains NPO >7 days consider TPN to meet 75% of estimated needs 3) Advance pt diet when medically feasible to a CCHO 45g/Cardiac diet 4) Continue current plan of care Expected Outcomes/Goals: 1) Pt to receive adequate nutrition support within 7 days of NPO status 2) Pt diet to advance 3) F/U in 2-3 days Plan discussed with: Other (None) JIMMY SINGH MD Feb 11, 2024 16:45
--- NOTE | 2024-02-11 19:07 | DVHPN2 ---
Progress Note Date Seen: Feb 11, 2024 Medical Necessity Reason Pt with a Central, PICC or Fol: No The following are medically ne: Meng Catheter Reason for meng catheter: Strict I&O Subjective Patient reports: No new complaints Review of Systems: RESPIRATORY:Normal, GI:Normal, NEURO:Normal Objective vital signs Vital Sign Date Time Temp Pulse Resp B/P (MAP) Pulse Ox O2 Delivery O2 Flow Rate FiO2 02/11/24 17:43 155/78 02/11/24 17:22 98.5 85 19 99 98.5 02/11/24 15:21 Nasal Cannula 3.0 02/11/24 15:21 32 Total Intake and Output 02/10/24 02/10/24 02/11/24 15:00 23:00 07:00 Intake Total 100 ml 780 ml 340 ml Output Total 800 ml 600 ml Balance 100 ml -20 ml -260 ml medications Current Medications Medications Dose Ordered Sig/Anastacio Route Start Time Stop Time Status Last Admin Dose Admin Ondansetron HCl 4 mg Q4HP PRN IV 02/01/24 21:45 02/07/24 20:34 4 MG Nitroglycerin 0.4 mg Q5MINP PRN SL 02/01/24 21:45 Pantoprazole Sodium 40 mg DAILY IV 02/02/24 10:00 02/11/24 11:04 40 MG Atorvastatin Calcium 10 mg HS PO 02/02/24 22:00 02/10/24 22:51 10 MG Albuterol 2.5 mg Q6HPRN PRN NEB 02/03/24 03:30 02/11/24 15:21 2.5 MG Vancomycin HCl 0 ml @ 0 mls/hr UD IV 02/03/24 13:45 Hydralazine HCl 10 mg Q6HP PRN IV 02/04/24 14:45 02/11/24 17:43 10 MG Piperacillin Sod/ Tazobactam Sod 100 ml @ 25 mls/hr Q8HR IV 02/05/24 01:00 02/11/24 14:35 25 MLS/HR Lorazepam 0.5 mg Q6HP PRN IV 02/05/24 14:15 02/05/24 21:52 0.5 MG Ipratropium [place] 0.5 mg Q4HP PRN NEB 02/05/24 21:45 02/11/24 15:21 0.5 MG Acetaminophen 650 mg Q6HP PRN [place] 02/06/24 09:45 02/06/24 11:14 650 MG Diagnostic Test (Pha) 1 strip ACHS 02/06/24 17:00 02/11/24 16:37 1 STRIP Insulin Human Regular ACHS SC 02/06/24 17:00 02/11/24 16:39 4 UNITS Dextrose 50 ml UD PRN IV 02/06/24 12:30 Metoprolol Succinate 25 mg DAILY PO 02/06/24 13:00 02/11/24 11:07 25 MG Brimonidine Tartrate 1 drop BID LEFTEYE 02/07/24 10:00 02/11/24 11:03 1 DROP Latanoprost 1 drop HS LEFTEYE 02/07/24 22:00 02/07/24 22:41 1 DROP Throat Lozenges 1 onel Q2HP PRN [place] 02/08/24 16:30 02/09/24 20:35 1 ONEL Aspirin 81 mg DAILY PO 02/10/24 10:00 02/11/24 11:06 81 MG Enoxaparin Sodium 110 mg Q12HR SC 02/10/24 10:00 02/11/24 11:02 110 MG Furosemide 40 mg DAILY PO 02/11/24 10:00 02/11/24 11:04 40 MG Acetaminophen 650 mg Q4HP PRN PO 02/10/24 20:45 02/11/24 11:19 650 MG Vancomycin HCl 250 ml @ 250 mls/hr DAILY@1100 IV 02/11/24 11:00 02/11/24 11:02 250 MLS/HR Examination: GENERAL:Normal, LUNGS:Normal, CVS:Normal, ABDOMEN:Normal, SKIN:Normal, NEURO:Normal laboratory and microbiology Laboratory Tests 02/11/24 05:00 02/10/24 05:17 Test 02/10/24 05:17 Range/Units Serum Glucose 195 H 74-106 mg/dL Microbiology Date/Time Source Procedure Growth Status 02/03/24 04:44 Nose MRSA Screen - Final Complete 02/01/24 20:35 Blood Blood Culture - Final NO GROWTH AFTER 5 DAYS OF INCUBATION. Complete 02/01/24 19:42 Voided Urine Urine Culture - Final Complete 02/01/24 19:42 Sputum Gram Stain - Final Complete 12/10/24 19:42 Sputum Respiratory Culture - Final Complete Labs and/or images reviewed: Labs reviewed by me, Image(s) reviewed by me Problem List/Assessment/Plan Problem List/Assessment/Plan 1. Acute hypoxic respiratory failure Monitor, pulmonary consult 2. Status post cardio pulmonology arrest Monitor, cardiology consult, neurology consult, echocardiogram, CTA of chest, Doppler BLE to rule out DVT, full dose Lovenox 3. COPD exacerbation Monitor, IV antibiotics, IV fluids 4. Obesity Monitor, PPI 5. Benign essential hypertension Monitor 6. Pneumonia Monitor, Pulmonary consult, IV antibiotics, Med-Neb treatments 7. Septic shock Monitor, IV antibiotics, IV fluids, vasopressors as needed 8. Elevated troponins Monitor, Cardiology consult, trend troponin levels, monitor EKG 9. Elevated D-dimer Monitor, VQ scan Assessment/Plan Subjective Patient is awake and alert Objective Patient was admitted for shortness of breath. Patient is status post cardiac arrest with emergent intubation. Patient was successfully weaned off ventilator. Patient was septic with pneumonia. Patient had elevated D-dimer. Her son did refuse contrast studeies to evaluate for PE. Patient's VQ scan did show an intermediate probability for PE. Patient underwent a CTA today which was negative for PE. Patient initially was refusing left heart catheterization however now she is agreeable and we will plan for left heart catheterization on Wednesday. Plan Angiogram on Wednesday, monitor EKG, GI consult appreciated Plan discussed with: Patient Dietary Evaluation Review Comments: 1) If GI is accessible consider Glucerna 1.2 @ 50ml/hr x 24hr goal rate as tolerated 2) If pt remains NPO >7 days consider TPN to meet 75% of estimated needs 3) Advance pt diet when medically feasible [facility]Cardiac [facility] 4) Continue current plan of care Expected Outcomes/Goals: 1) Pt to receive adequate nutrition support within 7 days of NPO status 2) Pt diet to advance 3) F/U in 2-3 days Date of Service: Feb 11, 2024 Billing Provider: BERTHA RICKS MD Common Visit Codes: [id number] INP/OBS CARE (MOD) [employer] Feb 11, 2024 19:06
--- NOTE | 2024-02-11 23:13 | DVHPN2 ---
Progress Note - Dictate Date Seen: Feb 11, 2024 Medical Necessity Reason Pt with a Central, PICC or Fol: No The following are medically ne: Meng Catheter Reason for meng catheter: Strict I&O Subjective Patient seen and examined at bedside. Remains on supplemental oxygen. Overnight events reviewed. vital signs Vital Sign Date Time Temp Pulse Resp B/P (MAP) Pulse Ox O2 Delivery O2 Flow Rate FiO2 02/11/24 22:14 99.0 107 18 144/64 (90) 93 99.0 02/11/24 21:10 Nasal Cannula 3.0 02/11/24 21:10 32 Total Intake and Output 02/10/24 02/10/24 02/11/24 15:00 23:00 07:00 Intake Total 100 ml 780 ml 340 ml Output Total 800 ml 600 ml Balance 100 ml -20 ml -260 ml medications Current Medications Medications Dose Ordered Sig/Anastacio Route Start Time Stop Time Status Last Admin Dose Admin Ondansetron HCl 4 mg Q4HP PRN IV 02/01/24 21:45 02/07/24 20:34 4 MG Nitroglycerin 0.4 mg Q5MINP PRN SL 02/01/24 21:45 Pantoprazole Sodium 40 mg DAILY IV 02/02/24 10:00 02/11/24 11:04 40 MG Atorvastatin Calcium 10 mg HS PO 02/02/24 22:00 02/11/24 20:11 10 MG Albuterol 2.5 mg Q6HPRN PRN NEB 02/03/24 03:30 02/11/24 21:35 2.5 MG Vancomycin HCl 0 ml @ 0 mls/hr UD IV 02/03/24 13:45 Hydralazine HCl 10 mg Q6HP PRN IV 02/04/24 14:45 02/11/24 17:43 10 MG Piperacillin Sod/ Tazobactam Sod 100 ml @ 25 mls/hr Q8HR IV 02/05/24 01:00 02/11/24 20:10 25 MLS/HR Lorazepam 0.5 mg Q6HP PRN IV 02/05/24 14:15 02/05/24 21:52 0.5 MG Ipratropium [place] 0.5 mg Q4HP PRN NEB 02/05/24 21:45 02/11/24 21:35 0.5 MG Acetaminophen 650 mg Q6HP PRN [place] 02/06/24 09:45 02/06/24 11:14 650 MG Diagnostic Test (Pha) 1 strip ACHS 02/06/24 17:00 02/11/24 20:12 1 STRIP Insulin Human Regular ACHS SC 02/06/24 17:00 02/11/24 22:45 6 UNITS Dextrose 50 ml UD PRN IV 02/06/24 12:30 Metoprolol Succinate 25 mg DAILY PO 02/06/24 13:00 02/11/24 11:07 25 MG Brimonidine Tartrate 1 drop BID LEFTEYE 02/07/24 10:00 02/11/24 20:10 1 DROP Latanoprost 1 drop HS LEFTEYE 02/07/24 22:00 02/11/24 22:42 1 DROP Throat Lozenges 1 onel Q2HP PRN MT 02/08/24 16:30 02/09/24 20:35 1 ONEL Aspirin 81 mg DAILY PO 02/10/24 10:00 02/11/24 11:06 81 MG Enoxaparin Sodium 110 mg Q12HR SC 02/10/24 10:00 02/11/24 20:10 110 MG Furosemide 40 mg DAILY PO 02/11/24 10:00 02/11/24 11:04 40 MG Acetaminophen 650 mg Q4HP PRN PO 02/10/24 20:45 02/11/24 20:11 650 MG Vancomycin HCl 250 ml @ 250 mls/hr DAILY@1100 IV 02/11/24 11:00 02/11/24 11:02 250 MLS/HR objective Gen.: Patient lying in bed in no apparent distress. On supplemental oxygen. Head: Normocephalic, atraumatic. Eyes: EOMI/PERRLA. Ears: Normal hearing. Normal anatomy. Neck/trachea: Trachea midline, supple. Nose: Normal external anatomy. Mouth: Moist mucous membranes. Chest: Decreased air entry bilaterally. No wheezing or rhonchi. Bilateral crackles. Cardiovascular: Positive S1, positive S2. Regular rate and rhythm. Abdomen: Positive bowel sounds in all 4 quadrants. Soft, non-tender, non- distended. : Deferred. Rectal: Deferred. Skin: Warm, dry. Intact. Extremities: 2+ radial pulses bilaterally. No lower extremity edema. Neuro: Awake, alert, oriented x3. No gross motor or sensory deficits. Cranial nerves II through XII intact. Gait not assessed. laboratory and microbiology Laboratory Tests 02/11/24 05:00 02/10/24 05:17 Test 02/10/24 05:17 Range/Units Serum Glucose 195 H 74-106 mg/dL Assessment/Plan Impression: Acute hypoxic respiratory failure S/p cardiopulmonary arrest Acute hypercarbic respiratory failure Elevated troponin Septic shock Obesity Pulmonary edema Events: Remains on supplemental oxygen, 3 LPM NC Taper O2 as tolerated Plan for left heart catheterization on Wednesday. Continue bronchodilators Continue antibiotics - Zosyn IS. PT evaluation. HOB elevation Aspiration precautions Diurese w/ Lasix as tolerated Monitor renal function. Monitor electrolytes. Supplement as necessary. CPAP for JEREMY. Disposition per hospitalist. Labs and imaging reviewed. Rest of plan as noted below. Plan: s/p extubation on 02/05/24. Supplemental oxygen Titrate to keep O2 sats above 92%. Off sedation S/p right IJ central line placement. Elevated troponin - Cardiology recommendations appreciated. Continue antibiotics. F/u cultures. Pressors if necessary for hemodynamic support Titrate to keep mean arterial pressure greater than 65 mmHg - currently off, hemodynamically stable. Monitor renal function Monitor electrolytes. Supplement as necessary. Monitor ins and outs. GI/DVT prophylaxis. Prognosis: Poor given patient's multiple co-morbidities. Rest of plan per hospitalist and other consultants. Thank you, Rhea Gibson NP, for allowing me to participate in this patient's care. Further recommendations will depend on the patient's clinical course. Please do not hesitate to contact me if you have any questions or concerns. This medical document was created using an electronic medical record system with [employer] dictation system. Although these documentations are being carefully reviewed, there may still be some phonetic and typographical changes. The errors are purely typographical, due to imperfection on the software program, and do not reflect any compromise in the patient's medical care. Dietary Evaluation Review Comments: 1) If GI is accessible consider Glucerna 1.2 @ 50ml/hr x 24hr goal rate as tolerated 2) If pt remains NPO >7 days consider TPN to meet 75% of estimated needs 3) Advance pt diet when medically feasible to a CCHO 45g/Cardiac diet 4) Continue current plan of care Expected Outcomes/Goals: 1) Pt to receive adequate nutrition support within 7 days of NPO status 2) Pt diet to advance 3) F/U in 2-3 days Plan discussed with: Patient, Other ([facility]) MARI KILGORE MD Feb 11, 2024 23:13
[2024-02-12] VITALS (15 sets, daily range): BP systolic 125–150; BP diastolic 66–68; PULSE 90–114; RESP 16–18; TEMP 98.1–99.3; O2SAT 93–100
[2024-02-12 07:15] LABS: Basophils # (auto) 0.1 10 ^3/uL (0-0.2); Eosinophils # (auto) 0.3 10 ^3/uL (0-0.8); Eosinophils % (auto) 4.5 % (0.0-7.0); Hematocrit 29.4 % (36.0-46.0); Hemoglobin 9.1 g/dL (12.2-16.2); Lymphocytes # (auto) 1.1 10 ^3/uL (0.4-5.4); Lymphocytes % (auto) 15.9 % (10.0-50.0); Mean Corpuscular Hemoglobin 29.3 pg (28.0-32.0); Mean Corpuscular Volume 94.5 fL (80.0-100.0); Monocytes # (auto) 0.8 10 ^3/uL (0-1.3); Monocytes % (auto) 11.8 % (0.0-12.0); Neutrophils # (auto) 4.6 10 ^3/uL (1.6-8.6); Neutrophils % (auto) 66.8 % (37.0-80.0); Platelet Count (auto) 326 10^3/uL (140-450); Red Blood Cells 3.12 10^6/uL (4.0-5.20); Red Cell Distribution Width 16.6 % (11.8-14.3); White Blood Cell 6.9 10^3/uL (4.4-10.8)
[2024-02-12 07:26] LABS: Anion Gap 4 (5-15); Chloride 100 mmol/L (98-107); Sodium 142 mmol/L (136-145)
[2024-02-12 07:27] LABS: Calcium 10.3 mg/dL (8.7-10.4)
[2024-02-12 07:32] LABS: BUN/Creatinine Ratio 10.9 (10.0-20.0); Blood Urea Nitrogen 15 mg/dL (9-23)
[2024-02-12 07:34] LABS: Carbon Dioxide 38 mmol/L (20-31); Glucose 267 mg/dL (74-106); Potassium 3.5 mmol/L (3.5-5.1)
--- NOTE | 2024-02-12 10:19 | DVHPN2 ---
Progress Note - Dictate Date Seen: Feb 12, 2024 Medical Necessity Reason Pt with a Central, PICC or Fol: No The following are medically ne: Meng Catheter Reason for meng catheter: Strict I&O Subjective Ms. Hardwick is a 78 years old female with a history of hypertension, diabetes, asthma, COPD, the patient was [facility] the [facility] for altered mental status/cardiopulmonary arrest. I have seen and examined the patient, discussed with her nurse, I have talked to her respiratory therapist she is alert, oriented x3, still has respiratory distress sometimes, She was only able to walk around bed with her physical therapist She going through respiratory treatment UDS, 02/01/2024: Urinalysis, 02/01/2024: Unremarkable ABG, 02/01/2024: Respiratory acidosis WBC/HB/PLT/MCV, 02/02/2024: 9.4/11.5/219/93.2 HCO3, 02/01/2024: 32, 02/02/2024: 37 BUN/CR, 02/01/2024: 23/1.34. 02/02/2024: 25/1.33 Lactic acid, 02/01/2024: 5.5 TG/HDL/LDL/HDL, 02/02/2024: 55/125/48/55 TSH, 02/03/2024: 1.36 VQ, 02/07/2024: Based on PIOPED criteria, intermediate probability for pulmonary embolism CT head, 02/02/2024:No acute intracranial process vital signs Vital Sign Date Time Temp Pulse Resp B/P (MAP) Pulse Ox O2 Delivery O2 Flow Rate FiO2 02/12/24 09:49 105 18 96 02/12/24 09:49 Nasal Cannula* 3 32 02/12/24 08:48 98.5 144/68 (93) 98.5 Total Intake and Output 02/11/24 02/11/24 02/12/24 15:00 23:00 07:00 Intake Total 350 ml 400 ml 400 ml Balance 350 ml 400 ml 400 ml medications Current Medications Medications Dose Ordered Sig/Anastacio Route Start Time Stop Time Status Last Admin Dose Admin Ondansetron HCl 4 mg Q4HP PRN IV 02/01/24 21:45 02/07/24 20:34 4 MG Nitroglycerin 0.4 mg Q5MINP PRN SL 12/10/24 21:45 Pantoprazole Sodium 40 mg DAILY IV 02/02/24 10:00 02/11/24 11:04 40 MG Atorvastatin Calcium 10 mg HS PO 02/02/24 22:00 02/11/24 20:11 10 MG Albuterol 2.5 mg Q6HPRN PRN NEB 02/03/24 03:30 02/12/24 09:49 2.5 MG Vancomycin HCl 0 ml @ 0 mls/hr UD IV 02/03/24 13:45 Hydralazine HCl 10 mg Q6HP PRN IV 02/04/24 14:45 02/11/24 17:43 10 MG Piperacillin Sod/ Tazobactam Sod 100 ml @ 25 mls/hr Q8HR IV 02/05/24 01:00 02/12/24 06:38 25 MLS/HR Lorazepam 0.5 mg Q6HP PRN IV 02/05/24 14:15 02/05/24 21:52 0.5 MG Ipratropium [place] 0.5 mg Q4HP PRN NEB 02/05/24 21:45 02/12/24 09:49 0.5 MG Diagnostic Test (Pha) 1 strip ACHS 02/06/24 17:00 02/12/24 06:39 1 STRIP Insulin Human Regular ACHS SC 02/06/24 17:00 02/12/24 07:19 6 UNITS Dextrose 50 ml UD PRN IV 02/06/24 12:30 Metoprolol Succinate 25 mg DAILY PO 02/06/24 13:00 02/11/24 11:07 25 MG Brimonidine Tartrate 1 drop BID LEFTEYE 02/07/24 10:00 02/11/24 20:10 1 DROP Latanoprost 1 drop HS LEFTEYE 02/07/24 22:00 02/11/24 22:42 1 DROP Throat Lozenges 1 onel Q2HP PRN [place] 02/08/24 16:30 02/09/24 20:35 1 ONEL Aspirin 81 mg DAILY PO 02/10/24 10:00 02/11/24 11:06 81 MG Enoxaparin Sodium 110 mg Q12HR SC 02/10/24 10:00 02/11/24 20:10 110 MG Furosemide 40 mg DAILY PO 02/11/24 10:00 12/20/24 11:04 40 MG Vancomycin HCl 250 ml @ 250 mls/hr DAILY@1100 IV 02/11/24 11:00 02/11/24 11:02 250 MLS/HR Acetaminophen/ Hydrocodone Bitart 1 tab Q6HPRN PRN PO 02/12/24 09:45 Acetaminophen 650 mg Q4HP PRN PO 02/12/24 10:00 objective The patient is well-nourished and well-developed with no distress. MENTAL STATUS: Subjective CRANIAL NERVES: Pupils are equal round and reactive to light briskly, normal external eye movement, normal sensation and motor examination in the lateral trigeminal nerve distribution, no facial weakness SENSATION: Normal to pinprick and light touch MOTOR: Normal tone in the upper and lower extremity. Normal muscle bulk. No fasciculations. She moves the arms and legs REFLEXES: Deep tendon reflexes are symmetrical. No pathological reflexes. CEREBELLAR/COORDINATION: Deferred GAIT/STATION: deferred. laboratory and microbiology Laboratory Tests 02/12/24 06:42 Test 02/12/24 06:42 Range/Units Serum Glucose 267 H 74-106 mg/dL Problem List Coma, resolved Hypoxic encephalopathy Metabolic encephalopathy Respiratory failure, resolved Respiratory acidosis resolved Chronic kidney failure Glaucoma She keeps improving Assessment/Plan Monitoring Supportive treatment Oxygen Xalatan eye drops Brimonidine eyedrops GI prophylaxis Cardiology on case Pulmonology on case Up to chair Physical therapy evaluation More recommendation per clinical course I am prescribing Brimonidine eyedrop for her left eye glaucoma, meanwhile She is to call family confirm her glaucoma eye drop This medical document was created using an electronic medical record system with [employer] dictation system. Although this document has been carefully reviewed, there may still be some phonetic and typographical errors. These areas are purely typographical due to imperfections of the software programs, and do not reflect any compromise in the patient's medical care. Prognosis poor Dietary Evaluation Review Comments: 1) If GI is accessible consider Glucerna 1.2 @ 50ml/hr x 24hr goal rate as tolerated 2) If pt remains NPO >7 days consider TPN to meet 75% of estimated needs 3) Advance pt diet when medically feasible to a CCHO 45g/Cardiac diet 4) Continue current plan of care Expected Outcomes/Goals: 1) Pt to receive adequate nutrition support within 7 days of NPO status 2) Pt diet to advance 3) F/U in 2-3 days Plan discussed with: Patient, Other SARAH LALA MD Feb 12, 2024 10:19
[2024-02-12] MEDS: HYDROcodone-ACET 5/325MG TAB PO PRN (10:30)
--- NOTE | 2024-02-12 11:24 | DVHPN2 ---
Progress Note - Dictate Date Seen: Feb 12, 2024 Medical Necessity Reason Pt with a Central, PICC or Fol: No The following are medically ne: Meng Catheter Reason for meng catheter: Strict I&O vital signs Vital Sign Date Time Temp Pulse Resp B/P (MAP) Pulse Ox O2 Delivery O2 Flow Rate FiO2 02/12/24 10:30 107 144/68 02/12/24 09:49 18 96 02/12/24 09:49 Nasal Cannula* 3 32 02/12/24 08:48 98.5 98.5 Total Intake and Output 02/11/24 02/11/24 02/12/24 15:00 23:00 07:00 Intake Total 350 ml 400 ml 400 ml Balance 350 ml 400 ml 400 ml medications Current Medications Medications Dose Ordered Sig/Anastacio Route Start Time Stop Time Status Last Admin Dose Admin Ondansetron HCl 4 mg Q4HP PRN IV 02/01/24 21:45 02/07/24 20:34 4 MG Nitroglycerin 0.4 mg Q5MINP PRN SL 02/01/24 21:45 Pantoprazole Sodium 40 mg DAILY IV 02/02/24 10:00 02/12/24 10:29 40 MG Atorvastatin Calcium 10 mg HS PO 02/02/24 22:00 02/11/24 20:11 10 MG Albuterol 2.5 mg Q6HPRN PRN NEB 02/03/24 03:30 02/12/24 09:49 2.5 MG Vancomycin HCl 0 ml @ 0 mls/hr UD IV 02/03/24 13:45 Hydralazine HCl 10 mg Q6HP PRN IV 02/04/24 14:45 02/11/24 17:43 10 MG Piperacillin Sod/ Tazobactam Sod 100 ml @ 25 mls/hr Q8HR IV 02/05/24 01:00 02/12/24 06:38 25 MLS/HR Lorazepam 0.5 mg Q6HP PRN IV 02/05/24 14:15 02/05/24 21:52 0.5 MG Ipratropium [place] 0.5 mg Q4HP PRN NEB 02/05/24 21:45 02/12/24 09:49 0.5 MG Diagnostic Test (Pha) 1 strip ACHS 02/06/24 17:00 02/12/24 06:39 1 STRIP Insulin Human Regular ACHS SC 02/06/24 17:00 02/12/24 07:19 6 UNITS Dextrose 50 ml UD PRN IV 02/06/24 12:30 Metoprolol Succinate 25 mg DAILY PO 02/06/24 13:00 02/12/24 10:30 25 MG Brimonidine Tartrate 1 drop BID LEFTEYE 02/07/24 10:00 02/12/24 10:31 1 DROP Latanoprost 1 drop HS LEFTEYE 02/07/24 22:00 02/11/24 22:42 1 DROP Throat Lozenges 1 onel Q2HP PRN MT 02/08/24 16:30 02/09/24 20:35 1 ONEL Aspirin 81 mg DAILY PO 02/10/24 10:00 02/12/24 10:30 81 MG Enoxaparin Sodium 110 mg Q12HR SC 02/10/24 10:00 02/12/24 10:29 110 MG Furosemide 40 mg DAILY PO 02/11/24 10:00 02/12/24 10:29 40 MG Vancomycin HCl 250 ml @ 250 mls/hr DAILY@1100 IV 02/11/24 11:00 02/11/24 11:02 250 MLS/HR Acetaminophen/ Hydrocodone Bitart 1 tab Q6HPRN PRN PO 02/12/24 09:45 02/12/24 10:30 1 TAB Acetaminophen 650 mg Q4HP PRN PO 02/12/24 10:00 laboratory and microbiology Laboratory Tests 02/12/24 06:42 Test 02/12/24 06:42 Range/Units Serum Glucose 267 H 74-106 mg/dL Assessment/Plan Patient is a 78-year-old female who presented with shortness of breath. She is intubated at the time of evaluation and not source of history. Information was obtained by reviewing the chart and communicating with staff. Reportedly, the patient lives in a nursing facility and EMS were called because the patient had used all of her medications for asthma and was still short of breath. Reportedly, while transferring the patient to the hospital the patient suffered Arrest and CPR was performed successfully. Patient was intubated. There has been no tele/EKG rhythm at the time of arrest to review. At the time of evaluation patient is nonresponsive. Cardiology is involved for cardiac aspects of care. There is questionable old history of myocardial infarction as per staff. Review of the transfer notes from nursing facility do not comment on any coronary artery disease. female, Extubated. No JVD. No JVD. Mucosa is pink and wet. Scattered rhonchi in the lungs is heard. Cardiac: Regular, no thrill/gallop. Systolic murmur 2/6 in apex is heard. Abdomen is soft. Bowel sound is positive. There is no gross mass/hepatomegaly. Extremities do not reveal edema. Dorsalis pedis is 1+ bilateral Reported past medical history includes COPD/asthma, cataract, osteoarthritis, diabetes mellitus, obstructive sleep apnea. As per communications from nursing facility, the patient uses walker for ambulation and reportedly patient has been frail prior to this presentation. Creatinine: 1.34 - 1.33 - 0.92 - 0.96 - 0.99 - 1.06 - 1.12 - 1.16 - 1.01 - 1.14 - 1.38 Potassium: 5.9 - 3.9 - 4.7 - 3.9 - 3.7 - 3.1 - 3.9 - 3.3 - 3.9 - 3.5 Lactic acid: 5.5 - 1.1 AST/ALT: 75/99 - 94/135 - 16/36 - 24/32 BNP: 68.68 - 61.15 - 44.75 - 109.22 Troponin (high sensitive): 7 - 9 - 26 - 39 LDL: 48 - 38 TSH: 0.96 - 1.36 HgbA1c: 7.0 D-dimer: >35.20 Chest x-ray revealed: Lines and Tubes: Endotracheal tube terminating 4.5 cm above the lois. Enteric tube crosses the diaphragm near midline and descends into the left upper quadrant. Right neck central venous catheter terminates over the SVC. Lungs: No focal consolidation. Diffuse bilateral interstitial opacities. Pleura: No effusion. No pneumothorax. Cardiomediastinal contours: Unremarkable Bones: No acute osseous abnormality. IMPRESSION: 1. Lines and tubes as described. 2. Nonspecific diffuse bilateral interstitial opacities. Repeat chest xry reported: Lines and Tubes: Endotracheal tube terminating 4.5 cm above the lois. Enteric tube crosses the diaphragm near midline and descends into the left upper quadrant. Right neck central venous catheter terminates over the SVC. Lungs: No focal consolidation. Diffuse bilateral interstitial opacities. Pleura: No effusion. No pneumothorax. Cardiomediastinal contours: Unremarkable Bones: No acute osseous abnormality. IMPRESSION: 1. Lines and tubes as described. 2. Nonspecific diffuse bilateral interstitial opacities. Repeat chest xry revealed: Lines and Tubes: Endotracheal tube terminating 4.5 cm above the lois. Enteric tube crosses the diaphragm near midline and descends into the left upper quadrant. Right neck central venous catheter terminates over the SVC. Lungs: No focal consolidation. Diffuse bilateral interstitial opacities. Pleura: No effusion. No pneumothorax. Cardiomediastinal contours: Unremarkable Bones: No acute osseous abnormality. IMPRESSION: 1. Lines and tubes as described. 2. Nonspecific diffuse bilateral interstitial opacities. Repeat chest xry revealed: 1. Interval removal of the endotracheal tube and enteric tube. Stable satisfactory positioning of the right internal jugular central venous catheter. 2. Mild perihilar opacities and left basilar opacity appear slightly more conspicuous compared to prior exams. CT of head reported: IMPRESSION: 1. No acute intracranial process. Venous Doppler of lower extremities reported: Impression: 1. No right or left femoropopliteal venous thrombosis. V/Q scan: Impression: 1. Based on PIOPED criteria, intermediate probability for pulmonary embolism. CTA of chest revealed: IMPRESSION: 1. No pulmonary embolism. 2. Bilateral pleural effusions with associated bibasilar atelectasis and consolidation. Nodular airspace disease in the bilateral upper lobes associated with the 1st costosternal junction. Clinical correlation and continued follow-up is recommended. Left thyroid nodule. Consider thyroid ultrasound. Thyroid Ultrasound reported: IMPRESSION: Benign cyst in the right upper pole measures 0.9 cm, TR 1. Mixed cystic and solid nodule in the right lower pole measures 1.3 cm, TR 3. Isoechoic nodule in the left lower pole measures 2.3 cm, TR 3. [employer] TI-RADS Categories and Recommendations (2017): TR1: 0 points, Benign, No FNA TR2: 2 points, Not suspicious, No FNA TR3: 3 points, Mildly suspicious, FNA if > or = 2.5 cm, Follow if > or = 1.5 cm EKG revealed sinus rhythm with no ST-T changes Tele reveals sinus rhythm Echocardiogram revealed: Left ventricle: Left ventricular systolic function was preserved. LDL was around 60% predicted there was no gross wall motion abnormality. Right ventricle was normal size with normal systolic function. Both atria were normal size. Aortic valve was not well visualized. There was no aortic insufficiency/stenosis. There was trivial mitral/tricuspid regurgitation. Pulmonic valve was not well visualized. Right ventricular systolic pressure was assessed around 38 mm Hg. There was no pericardial effusion. Patient is a 78-year-old female who presented to the hospital with shortness of breath/respiratory distress. Reportedly, the patient had arrest. She was intubated and on vent support. Presentation and troponin is against acute coronary syndrome. Patient's D-dimer has been elevated and pulmonary emboli as a cause for presentation should be ruled out. It is of note that venous Doppler of lower extremities have been nonrevealing. Evaluation and management depends on regaining higher brain function status. Also, as per son, patient had been specifically refusing any contrast/iodine related tests/CT scans (which by comparison include cardiac cath). Family wanted us to wait until patient regains consciousness and decide herself. Echo revealed good LV systolic function, valves are working ok. Patient is seen by Neurology who is contemplating Hypoxic Encephalopathy. Pulmonary on the case. Patient was later extubated. She has regained higher brain function. We had long discussion about the presentation and abnormal labs (D-dimer). She was told about suggestions for possible left heart catheterization and also CT angio of the lungs. She verbalized understanding. She originally refused any kind of contrast/iodine related study. She mentioned that she understands the risks but does not want contrast related tests. 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 She was told that V/Q scan can still be performed and she agreed. V/Q scan was intermediate probability for PE. A/C was advised. Pulmonary follow up and advise for A/C. Patient talked to her outside physician on the phone yesterday and decided to proceed with contrast studies. As she was on Eliquis, it was held and patient was restarted on Lovenox. Will arrange for possible LHC next week. CTA of lungs (performed) ruled out pulmonary emboli. Was found to have thyroid nodule. Arrest Respiratory failure, acute s/p Intubation and later extubation History of asthma/COPD Encephalopathy, Hypoxic? , Metabolic? Diabetes mellitus Cataract Osteoarthritis Septic shock Throid nodule Abnormal d-dimer Pulmonary Emboli, ruled out Cardiac suggestion for management: Manage in tele Follow-up electrolytes and kidney function tests and correct abnormalities. Keep potassium above 4 and magnesium above 2. Avoid hyperkalemia. Lipitor: 10 mg at night is suggested Was on Eliquis. As patient at this point agreed with contrast studies (she talked to her outside physician on the phone), Eliquis was stopped, on Lovenox for now. Continue ASA for now Possible LHC next week (Wednesday afternoon) Neurology follow up Further evaluation and management depends on the above and clinical course A total of 55 minutes was spent reviewing the patient record, examining the patient, making a diagnostic and therapeutic plan, discussing this plan with medical personnel, following up on diagnostic studies and following the patient for clinical stability excluding any and all procedures. At least 50% of this time was spent in direct, dnee-ro-enip contact. Thank you for allowing me to participate in this patient's care. Further recommendations will depend on patient's clinical course. Please do not hesitate to contact me if you have any questions or concerns. This medical document was created using electronic medical record system with [employer] computerized dictation system. Although this document has been carefully reviewed, there may still be some phonetic and typographical errors. These areas are purely typographical due to the imperfection of the software programs, and do not reflect any compromise in the patient's medical care. Dietary Evaluation Review Comments: 1) If GI is accessible consider Glucerna 1.2 @ 50ml/hr x 24hr goal rate as tolerated 2) If pt remains NPO >7 days consider TPN to meet 75% of estimated needs 3) Advance pt diet when medically feasible to a CCHO 45g/Cardiac diet 4) Continue current plan of care Expected Outcomes/Goals: 1) Pt to receive adequate nutrition support within 7 days of NPO status 2) Pt diet to advance 3) F/U in 2-3 days Plan discussed with: Patient, Son (at bedside), Other (nurse) DEBORAH FREIRE MD Feb 12, 2024 11:24
--- NOTE | 2024-02-12 16:36 | DVHPN2 ---
Progress Note - Dictate Date Seen: Feb 12, 2024 Medical Necessity Reason Pt with a Central, PICC or Fol: No The following are medically ne: Meng Catheter Reason for meng catheter: Strict I&O Subjective Patient seen and examined at bedside. Remains on supplemental oxygen. Overnight events reviewed. vital signs Vital Sign Date Time Temp Pulse Resp B/P (MAP) Pulse Ox O2 Delivery O2 Flow Rate FiO2 02/12/24 15:56 96 18 98 02/12/24 15:29 Nasal Cannula 3.0 02/12/24 15:29 32 02/12/24 13:00 98.6 135/67 (89) 98.6 Total Intake and Output 02/11/24 02/11/24 02/12/24 15:00 23:00 07:00 Intake Total 350 ml 400 ml 400 ml Balance 350 ml 400 ml 400 ml medications Current Medications Medications Dose Ordered Sig/Anastacio Route Start Time Stop Time Status Last Admin Dose Admin Ondansetron HCl 4 mg Q4HP PRN IV 02/01/24 21:45 02/07/24 20:34 4 MG Nitroglycerin 0.4 mg Q5MINP PRN SL 02/01/24 21:45 Pantoprazole Sodium 40 mg DAILY IV 02/02/24 10:00 02/12/24 10:29 40 MG Atorvastatin Calcium 10 mg HS PO 02/02/24 22:00 02/11/24 20:11 10 MG Albuterol 2.5 mg Q6HPRN PRN NEB 02/03/24 03:30 02/12/24 15:29 2.5 MG Vancomycin HCl 0 ml @ 0 mls/hr UD IV 02/03/24 13:45 Hydralazine HCl 10 mg Q6HP PRN IV 02/04/24 14:45 02/11/24 17:43 10 MG Piperacillin Sod/ Tazobactam Sod 100 ml @ 25 mls/hr Q8HR IV 02/05/24 01:00 02/12/24 15:34 25 MLS/HR Lorazepam 0.5 mg Q6HP PRN IV 02/05/24 14:15 02/05/24 21:52 0.5 MG Ipratropium [place] 0.5 mg Q4HP PRN NEB 02/05/24 21:45 02/12/24 15:29 0.5 MG Diagnostic Test (Pha) 1 strip ACHS 02/06/24 17:00 02/12/24 11:30 1 STRIP Insulin Human Regular ACHS SC 02/06/24 17:00 02/12/24 12:14 6 UNITS Dextrose 50 ml UD PRN IV 02/06/24 12:30 Metoprolol Succinate 25 mg DAILY PO 02/06/24 13:00 02/12/24 10:30 25 MG Brimonidine Tartrate 1 drop BID LEFTEYE 02/07/24 10:00 02/12/24 10:31 1 DROP Latanoprost 1 drop HS LEFTEYE 02/07/24 22:00 02/11/24 22:42 1 DROP Throat Lozenges 1 onel Q2HP PRN MT 02/08/24 16:30 02/09/24 20:35 1 ONEL Aspirin 81 mg DAILY PO 02/10/24 10:00 02/12/24 10:30 81 MG Enoxaparin Sodium 110 mg Q12HR SC 02/10/24 10:00 02/12/24 10:29 110 MG Furosemide 40 mg DAILY PO 02/11/24 10:00 02/12/24 10:29 40 MG Vancomycin HCl 250 ml @ 250 mls/hr DAILY@1100 IV 02/11/24 11:00 02/12/24 12:06 250 MLS/HR Acetaminophen/ Hydrocodone Bitart 1 tab Q6HPRN PRN PO 02/12/24 09:45 02/12/24 10:30 1 TAB Acetaminophen 650 mg Q4HP PRN PO 02/12/24 10:00 objective Gen.: Patient lying in bed in no apparent distress. On supplemental oxygen. Head: Normocephalic, atraumatic. Eyes: EOMI/PERRLA. Ears: Normal hearing. Normal anatomy. Neck/trachea: Trachea midline, supple. Nose: Normal external anatomy. Mouth: Moist mucous membranes. Chest: Decreased air entry bilaterally. No wheezing or rhonchi. Bilateral crackles. Cardiovascular: Positive S1, positive S2. Regular rate and rhythm. Abdomen: Positive bowel sounds in all 4 quadrants. Soft, non-tender, non- distended. : Deferred. Rectal: Deferred. Skin: Warm, dry. Intact. Extremities: 2+ radial pulses bilaterally. No lower extremity edema. Neuro: Awake, alert, oriented x3. No gross motor or sensory deficits. Cranial nerves II through XII intact. Gait not assessed. laboratory and microbiology Laboratory Tests 02/12/24 06:42 Test 02/12/24 06:42 Range/Units Serum Glucose 267 H 74-106 mg/dL Assessment/Plan Impression: Acute hypoxic respiratory failure S/p cardiopulmonary arrest Acute hypercarbic respiratory failure Elevated troponin Septic shock Obesity Pulmonary edema Events: Remains on supplemental oxygen, 2 LPM NC Taper O2 as tolerated Plan for left heart catheterization on Wednesday. Continue bronchodilators Continue antibiotics IS. PT evaluation. HOB elevation Aspiration precautions Diurese w/ Lasix as tolerated Monitor renal function. Monitor electrolytes. Supplement as necessary. CPAP for JEREMY. Disposition per hospitalist. Labs and imaging reviewed. Rest of plan as noted below. Plan: s/p extubation on 02/05/24. Supplemental oxygen Titrate to keep O2 sats above 92%. Off sedation S/p right IJ central line placement. Elevated troponin - Cardiology recommendations appreciated. Continue antibiotics. F/u cultures. Pressors if necessary for hemodynamic support Titrate to keep mean arterial pressure greater than 65 mmHg - currently off, hemodynamically stable. Monitor renal function Monitor electrolytes. Supplement as necessary. Monitor ins and outs. GI/DVT prophylaxis. Prognosis: Poor given patient's multiple co-morbidities. Rest of plan per hospitalist and other consultants. Thank you, Rhea Gibson NP, for allowing me to participate in this patient's care. Further recommendations will depend on the patient's clinical course. Please do not hesitate to contact me if you have any questions or concerns. This medical document was created using an electronic medical record system with [employer] dictation system. Although these documentations are being carefully reviewed, there may still be some phonetic and typographical changes. The errors are purely typographical, due to imperfection on the software program, and do not reflect any compromise in the patient's medical care. Dietary Evaluation Review Comments: 1) If GI is accessible consider Glucerna 1.2 @ 50ml/hr x 24hr goal rate as tolerated 2) If pt remains NPO >7 days consider TPN to meet 75% of estimated needs 3) Advance pt diet when medically feasible to a CCHO 45g/Cardiac diet 4) Continue current plan of care Expected Outcomes/Goals: 1) Pt to receive adequate nutrition support within 7 days of NPO status 2) Pt diet to advance 3) F/U in 2-3 days Plan discussed with: Patient, Other (EMMA Bingham/Junaid) MARI KILGORE MD Feb 12, 2024 16:36
--- NOTE | 2024-02-12 16:57 | DVHPN2 ---
Progress Note Date Seen: Feb 12, 2024 Medical Necessity Reason Pt with a Central, PICC or Fol: No The following are medically ne: Meng Catheter Reason for meng catheter: Strict I&O Subjective Review of Systems: CVS:Normal, RESPIRATORY:Normal, :Normal, NEURO:Normal Objective vital signs Vital Sign Date Time Temp Pulse Resp B/P (MAP) Pulse Ox O2 Delivery O2 Flow Rate FiO2 02/12/24 16:51 98.6 102 16 150/68 (95) 99 98.6 02/12/24 15:29 Nasal Cannula 3.0 02/12/24 15:29 32 Total Intake and Output 02/11/24 02/11/24 02/12/24 15:00 23:00 07:00 Intake Total 350 ml 400 ml 400 ml Balance 350 ml 400 ml 400 ml medications Current Medications Medications Dose Ordered Sig/Anastacio Route Start Time Stop Time Status Last Admin Dose Admin Ondansetron HCl 4 mg Q4HP PRN IV 02/01/24 21:45 02/07/24 20:34 4 MG Nitroglycerin 0.4 mg Q5MINP PRN SL 02/01/24 21:45 Pantoprazole Sodium 40 mg DAILY IV 02/02/24 10:00 02/12/24 10:29 40 MG Atorvastatin Calcium 10 mg HS PO 02/02/24 22:00 02/11/24 20:11 10 MG Albuterol 2.5 mg Q6HPRN PRN NEB 02/03/24 03:30 02/12/24 15:29 2.5 MG Vancomycin HCl 0 ml @ 0 mls/hr UD IV 02/03/24 13:45 Hydralazine HCl 10 mg Q6HP PRN IV 02/04/24 14:45 02/11/24 17:43 10 MG Piperacillin Sod/ Tazobactam Sod 100 ml @ 25 mls/hr Q8HR IV 02/05/24 01:00 02/12/24 15:34 25 MLS/HR Lorazepam 0.5 mg Q6HP PRN IV 02/05/24 14:15 02/05/24 21:52 0.5 MG Ipratropium [place] 0.5 mg Q4HP PRN NEB 02/05/24 21:45 02/12/24 15:29 0.5 MG Diagnostic Test (Pha) 1 strip ACHS 02/06/24 17:00 02/12/24 11:30 1 STRIP Insulin Human Regular ACHS SC 02/06/24 17:00 02/12/24 12:14 6 UNITS Dextrose 50 ml UD PRN IV 02/06/24 12:30 Metoprolol Succinate 25 mg DAILY PO 02/06/24 13:00 02/12/24 10:30 25 MG Brimonidine Tartrate 1 drop BID LEFTEYE 02/07/24 10:00 02/12/24 10:31 1 DROP Latanoprost 1 drop HS LEFTEYE 02/07/24 22:00 02/11/24 22:42 1 DROP Throat Lozenges 1 onel Q2HP PRN MT 02/08/24 16:30 02/09/24 20:35 1 ONEL Aspirin 81 mg DAILY PO 02/10/24 10:00 02/12/24 10:30 81 MG Enoxaparin Sodium 110 mg Q12HR SC 02/10/24 10:00 02/12/24 10:29 110 MG Furosemide 40 mg DAILY PO 02/11/24 10:00 02/12/24 10:29 40 MG Vancomycin HCl 250 ml @ 250 mls/hr DAILY@1100 IV 02/11/24 11:00 02/12/24 12:06 250 MLS/HR Acetaminophen/ Hydrocodone Bitart 1 tab Q6HPRN PRN PO 02/12/24 09:45 02/12/24 10:30 1 TAB Acetaminophen 650 mg Q4HP PRN PO 02/12/24 10:00 Examination: GENERAL:Normal, LUNGS:Normal, ABDOMEN:Normal, SKIN:Normal, NEURO:Normal laboratory and microbiology Laboratory Tests 02/12/24 06:42 Test 02/12/24 06:42 Range/Units Serum Glucose 267 H 74-106 mg/dL Microbiology Date/Time Source Procedure Growth Status 02/03/24 04:44 Nose MRSA Screen - Final Complete 02/01/24 20:35 Blood Blood Culture - Final NO GROWTH AFTER 5 DAYS OF INCUBATION. Complete 02/01/24 19:42 Voided Urine Urine Culture - Final Complete 02/01/24 19:42 Sputum Gram Stain - Final Complete 02/01/24 19:42 Sputum Respiratory Culture - Final Complete Labs and/or images reviewed: Labs reviewed by me, Image(s) reviewed by me Problem List/Assessment/Plan Problem List/Assessment/Plan 1. Acute hypoxic respiratory failure Monitor, pulmonary consult 2. Status post cardio pulmonology arrest Monitor, cardiology consult, neurology consult, echocardiogram, CTA of chest, Doppler BLE to rule out DVT, full dose Lovenox 3. COPD exacerbation Monitor, IV antibiotics, IV fluids 4. Obesity Monitor, PPI 5. Benign essential hypertension Monitor 6. Pneumonia Monitor, Pulmonary consult, IV antibiotics, Med-Neb treatments 7. Septic shock Monitor, IV antibiotics, IV fluids, vasopressors as needed 8. Elevated troponins Monitor, Cardiology consult, trend troponin levels, monitor EKG 9. Elevated D-dimer Monitor, VQ scan Assessment/Plan Subjective Patient is awake and alert Objective Patient was admitted for shortness of breath. Patient is status post cardiac arrest with emergent intubation. Patient was successfully weaned off ventilator. Patient was septic with pneumonia. Patient had elevated D-dimer. Her son did refuse contrast studeies to evaluate for PE. Patient's VQ scan did show an intermediate probability for PE. Patient underwent a CTA today which was negative for PE. Patient initially was refusing left heart catheterization however now she is agreeable and we will plan for left heart catheterization on Wednesday. Plan Angiogram on Wednesday, monitor EKG, GI consult appreciated Plan discussed with: Patient My Orders My Orders Orders - KAN SWIFT Procedure Category Date Status Time Hydrocodone-Acet PHA 02/12/24 In Process 5/325mg Tab ([place] 09:45 Dietary Evaluation Review Comments: 1) If GI is accessible consider Glucerna 1.2 @ 50ml/hr x 24hr goal rate as tolerated 2) If pt remains NPO >7 days consider TPN to meet 75% of estimated needs 3) Advance pt diet when medically feasible to a CCHO 45g/Cardiac diet 4) Continue current plan of care Expected Outcomes/Goals: 1) Pt to receive adequate nutrition support within 7 days of NPO status 2) Pt diet to advance 3) F/U in 2-3 days Date of Service: Feb 12, 2024 Billing Provider: BERTHA RICKS MD Common Visit Codes: [id number]-[id number] INP/OBS CARE (MOD) KAN SWIFT Feb 12, 2024 16:57
[2024-02-12] MEDS: SODIUM CHLORIDE 0.9% 1,000 ML IV SCH (17:00)
[2024-02-12] MEDS: ACETAMINOPHEN 325 MG TAB PO PRN (19:55)
--- NOTE | 2024-02-12 19:56 | DVHPN2 ---
Progress Note - Dictate Date Seen: Feb 12, 2024 Medical Necessity Reason Pt with a Central, PICC or Fol: No The following are medically ne: Meng Catheter Reason for meng catheter: Strict I&O Subjective Patient seen at bedside sleeping comfortably She is currently on supplemental oxygen and appears to be stable She denies any GI bleeding; hemoglobin 9.7 and stable, creatinine 1.13 She has not had any prior endoscopy or colonoscopy as per her recollection vital signs Vital Sign Date Time Temp Pulse Resp B/P (MAP) Pulse Ox O2 Delivery O2 Flow Rate FiO2 02/12/24 16:51 98.6 102 16 150/68 (95) 99 98.6 02/12/24 15:29 Nasal Cannula 3.0 02/12/24 15:29 32 Total Intake and Output 02/11/24 02/11/24 02/12/24 15:00 23:00 07:00 Intake Total 350 ml 400 ml 400 ml Balance 350 ml 400 ml 400 ml medications Current Medications Medications Dose Ordered Sig/Anastacio Route Start Time Stop Time Status Last Admin Dose Admin Ondansetron HCl 4 mg Q4HP PRN IV 02/01/24 21:45 02/07/24 20:34 4 MG Nitroglycerin 0.4 mg Q5MINP PRN SL 02/01/24 21:45 Pantoprazole Sodium 40 mg DAILY IV 02/02/24 10:00 02/12/24 10:29 40 MG Atorvastatin Calcium 10 mg HS PO 02/02/24 22:00 02/11/24 20:11 10 MG Albuterol 2.5 mg Q6HPRN PRN NEB 02/03/24 03:30 02/12/24 15:29 2.5 MG Vancomycin HCl 0 ml @ 0 mls/hr UD IV 02/03/24 13:45 Hydralazine HCl 10 mg Q6HP PRN IV 02/04/24 14:45 02/11/24 17:43 10 MG Piperacillin Sod/ Tazobactam Sod 100 ml @ 25 mls/hr Q8HR IV 02/05/24 01:00 02/12/24 15:34 25 MLS/HR Lorazepam 0.5 mg Q6HP PRN IV 02/05/24 14:15 02/05/24 21:52 0.5 MG Ipratropium [place] 0.5 mg Q4HP PRN NEB 02/05/24 21:45 02/12/24 15:29 0.5 MG Diagnostic Test (Pha) 1 strip ACHS 02/06/24 17:00 02/12/24 17:28 1 STRIP Insulin Human Regular ACHS SC 02/06/24 17:00 02/12/24 17:28 8 UNITS Dextrose 50 ml UD PRN IV 02/06/24 12:30 Metoprolol Succinate 25 mg DAILY PO 02/06/24 13:00 02/12/24 10:30 25 MG Brimonidine Tartrate 1 drop BID LEFTEYE 02/07/24 10:00 02/12/24 10:31 1 DROP Latanoprost 1 drop HS LEFTEYE 02/07/24 22:00 02/11/24 22:42 1 DROP Throat Lozenges 1 onel Q2HP PRN MT 02/08/24 16:30 02/09/24 20:35 1 ONEL Aspirin 81 mg DAILY PO 02/10/24 10:00 02/12/24 10:30 81 MG Enoxaparin Sodium 110 mg Q12HR SC 02/10/24 10:00 02/12/24 10:29 110 MG Furosemide 40 mg DAILY PO 02/11/24 10:00 02/12/24 10:29 40 MG Vancomycin HCl 250 ml @ 250 mls/hr DAILY@1100 IV 02/11/24 11:00 02/12/24 12:06 250 MLS/HR Acetaminophen/ Hydrocodone Bitart 1 tab Q6HPRN PRN PO 02/12/24 09:45 02/12/24 10:30 1 TAB Acetaminophen 650 mg Q4HP PRN PO 02/12/24 10:00 02/12/24 19:55 650 MG Sodium Chloride 1,000 ml @ 50 mls/hr Q20H IV 02/12/24 17:00 02/12/24 17:00 50 MLS/HR objective Awake and alert x3 HEENT: EOMI, PERRLA, normal external inspect of ears, no icterus, no nasal drainage Neck: no carotid bruit, no jugular venous distention (JVD), no lymphadenopathy Respiratory: clear to auscultation, normal air movement Cardiovascular: regular rate and rhythm, no diastolic murmur, no jugular venous distention (JVD), Abdominal: soft, no hepatomegaly, no mass, no splenomegaly, no tenderness Musculoskeletal: no joint tenderness, no swelling Extremities: normal pulses, no calf tenderness, no clubbing, no cyanosis, no edema Skin: no bruising, no jaundice, no rash Neurological: alert, No focal deficit laboratory and microbiology Laboratory Tests 02/12/24 06:42 Test 02/12/24 06:42 Range/Units Serum Glucose 267 H 74-106 mg/dL Problems(with codes): (1) Lung infiltrate (2) Anemia (3) Cardiac arrest (4) Acute respiratory failure Prognosis Plan Patient is scheduled for left heart catheterization on Wednesday CTA showed bilateral pleural effusions and atelectasis no pulmonary embolism Thyroid ultrasound showed benign nodules Chest CT showed trace pleural effusion Her H&H is stable and stool for occult blood is negative Continue supportive care Patient likely has anemia of chronic disease Monitor labs Outpatient follow up once she has recovered completely from her current illness to discuss elective colonoscopy Dietary Evaluation Review Comments: 1) If GI is accessible consider Glucerna 1.2 @ 50ml/hr x 24hr goal rate as tolerated 2) If pt remains NPO >7 days consider TPN to meet 75% of estimated needs 3) Advance pt diet when medically feasible to a CCHO 45g/Cardiac diet 4) Continue current plan of care Expected Outcomes/Goals: 1) Pt to receive adequate nutrition support within 7 days of NPO status 2) Pt diet to advance 3) F/U in 2-3 days Plan discussed with: Patient JIMMY SINGH MD Feb 12, 2024 19:56
[2024-02-13] VITALS (19 sets, daily range): BP systolic 109–151; BP diastolic 59–72; PULSE 78–106; RESP 16–97; TEMP 97.7–98.4; O2SAT 95–100
[2024-02-13] MEDS: IPRATROPIUM BROM 0.5 MG/2.5ML INH SOL NEB SCH (06:59)
[2024-02-13] MEDS: ALBUTEROL SULF 2.5 MG/0.5ML(0.5%) NEB SOLN NEB SCH (06:59)
--- NOTE | 2024-02-13 07:59 | DVHPN2 ---
Progress Note - Dictate Date Seen: Feb 13, 2024 Medical Necessity Reason Pt with a Central, PICC or Fol: No The following are medically ne: Meng Catheter Reason for meng catheter: Strict I&O vital signs Vital Sign Date Time Temp Pulse Resp B/P (MAP) Pulse Ox O2 Delivery O2 Flow Rate FiO2 02/13/24 06:59 94 20 100 02/13/24 06:49 Nasal Cannula 3.0 02/13/24 06:49 32 02/13/24 05:00 98.4 129/69 (89) 98.4 Total Intake and Output 02/12/24 02/12/24 02/13/24 15:00 23:00 07:00 Intake Total 100 ml 450 ml Output Total 2 ml Balance 100 ml 448 ml medications Current Medications Medications Dose Ordered Sig/Anastacio Route Start Time Stop Time Status Last Admin Dose Admin Ondansetron HCl 4 mg Q4HP PRN IV 02/01/24 21:45 02/07/24 20:34 4 MG Nitroglycerin 0.4 mg Q5MINP PRN SL 02/01/24 21:45 Pantoprazole Sodium 40 mg DAILY IV 02/02/24 10:00 02/12/24 10:29 40 MG Atorvastatin Calcium 10 mg HS PO 02/02/24 22:00 02/11/24 20:11 10 MG Vancomycin HCl 0 ml @ 0 mls/hr UD IV 02/03/24 13:45 Hydralazine HCl 10 mg Q6HP PRN IV 02/04/24 14:45 02/11/24 17:43 10 MG Piperacillin Sod/ Tazobactam Sod 100 ml @ 25 mls/hr Q8HR IV 02/05/24 01:00 02/13/24 05:33 25 MLS/HR Lorazepam 0.5 mg Q6HP PRN IV 02/05/24 14:15 02/05/24 21:52 0.5 MG Diagnostic Test (Pha) 1 strip ACHS 02/06/24 17:00 02/13/24 05:50 1 STRIP Insulin Human Regular ACHS SC 02/06/24 17:00 02/13/24 05:50 4 UNITS Dextrose 50 ml UD PRN IV 02/06/24 12:30 Metoprolol Succinate 25 mg DAILY PO 02/06/24 13:00 02/12/24 10:30 25 MG Brimonidine Tartrate 1 drop BID LEFTEYE 02/07/24 10:00 02/12/24 21:34 1 DROP Latanoprost 1 drop HS LEFTEYE 02/07/24 22:00 02/12/24 21:34 1 DROP Throat Lozenges 1 onel Q2HP PRN MT 02/08/24 16:30 02/09/24 20:35 1 ONEL Aspirin 81 mg DAILY PO 02/10/24 10:00 02/12/24 10:30 81 MG Enoxaparin Sodium 110 mg Q12HR SC 02/10/24 10:00 02/12/24 21:03 110 MG Furosemide 40 mg DAILY PO 02/11/24 10:00 02/12/24 10:29 40 MG Vancomycin HCl 250 ml @ 250 mls/hr DAILY@1100 IV 02/11/24 11:00 02/12/24 12:06 250 MLS/HR Acetaminophen/ Hydrocodone Bitart 1 tab Q6HPRN PRN PO 02/12/24 09:45 02/12/24 10:30 1 TAB Acetaminophen 650 mg Q4HP PRN PO 02/12/24 10:00 02/13/24 03:21 650 MG Sodium Chloride 1,000 ml @ 50 mls/hr Q20H IV 02/12/24 17:00 02/12/24 17:00 50 MLS/HR Albuterol 2.5 mg Q6HR NEB 02/13/24 06:00 02/13/24 06:59 2.5 MG Ipratropium [place] 0.5 mg Q6HR NEB 02/13/24 06:00 02/13/24 06:59 0.5 MG laboratory and microbiology Laboratory Tests 02/12/24 06:42 Test 02/12/24 06:42 Range/Units Serum Glucose 267 H 74-106 mg/dL Assessment/Plan Patient is a 78-year-old female who presented with shortness of breath. She is intubated at the time of evaluation and not source of history. Information was obtained by reviewing the chart and communicating with staff. Reportedly, the patient lives in a nursing facility and EMS were called because the patient had used all of her medications for asthma and was still short of breath. Reportedly, while transferring the patient to the hospital the patient suffered Arrest and CPR was performed successfully. Patient was intubated. There has been no tele/EKG rhythm at the time of arrest to review. At the time of evaluation patient is nonresponsive. Cardiology is involved for cardiac aspects of care. There is questionable old history of myocardial infarction as per staff. Review of the transfer notes from nursing facility do not comment on any coronary artery disease. female, Extubated. No JVD. No JVD. Mucosa is pink and wet. Scattered rhonchi in the lungs is heard. Cardiac: Regular, no thrill/gallop. Systolic murmur 2/6 in apex is heard. Abdomen is soft. Bowel sound is positive. There is no gross mass/hepatomegaly. Extremities do not reveal edema. Dorsalis pedis is 1+ bilateral Reported past medical history includes COPD/asthma, cataract, osteoarthritis, diabetes mellitus, obstructive sleep apnea. As per communications from nursing facility, the patient uses walker for ambulation and reportedly patient has been frail prior to this presentation. Creatinine: 1.34 - 1.33 - 0.92 - 0.96 - 0.99 - 1.06 - 1.12 - 1.16 - 1.01 - 1.14 - 1.38 Potassium: 5.9 - 3.9 - 4.7 - 3.9 - 3.7 - 3.1 - 3.9 - 3.3 - 3.9 - 3.5 Lactic acid: 5.5 - 1.1 AST/ALT: 75/99 - 94/135 - 16/36 - 24/32 BNP: 68.68 - 61.15 - 44.75 - 109.22 Troponin (high sensitive): 7 - 9 - 26 - 39 LDL: 48 - 38 TSH: 0.96 - 1.36 HgbA1c: 7.0 D-dimer: >35.20 Chest x-ray revealed: Lines and Tubes: Endotracheal tube terminating 4.5 cm above the lois. Enteric tube crosses the diaphragm near midline and descends into the left upper quadrant. Right neck central venous catheter terminates over the SVC. Lungs: No focal consolidation. Diffuse bilateral interstitial opacities. Pleura: No effusion. No pneumothorax. Cardiomediastinal contours: Unremarkable Bones: No acute osseous abnormality. IMPRESSION: 1. Lines and tubes as described. 2. Nonspecific diffuse bilateral interstitial opacities. Repeat chest xry reported: Lines and Tubes: Endotracheal tube terminating 4.5 cm above the lois. Enteric tube crosses the diaphragm near midline and descends into the left upper quadrant. Right neck central venous catheter terminates over the SVC. Lungs: No focal consolidation. Diffuse bilateral interstitial opacities. Pleura: No effusion. No pneumothorax. Cardiomediastinal contours: Unremarkable Bones: No acute osseous abnormality. IMPRESSION: 1. Lines and tubes as described. 2. Nonspecific diffuse bilateral interstitial opacities. Repeat chest xry revealed: Lines and Tubes: Endotracheal tube terminating 4.5 cm above the lois. Enteric tube crosses the diaphragm near midline and descends into the left upper quadrant. Right neck central venous catheter terminates over the SVC. Lungs: No focal consolidation. Diffuse bilateral interstitial opacities. Pleura: No effusion. No pneumothorax. Cardiomediastinal contours: Unremarkable Bones: No acute osseous abnormality. IMPRESSION: 1. Lines and tubes as described. 2. Nonspecific diffuse bilateral interstitial opacities. Repeat chest xry revealed: 1. Interval removal of the endotracheal tube and enteric tube. Stable satisfactory positioning of the right internal jugular central venous catheter. 2. Mild perihilar opacities and left basilar opacity appear slightly more conspicuous compared to prior exams. CT of head reported: IMPRESSION: 1. No acute intracranial process. Venous Doppler of lower extremities reported: Impression: 1. No right or left femoropopliteal venous thrombosis. V/Q scan: Impression: 1. Based on PIOPED criteria, intermediate probability for pulmonary embolism. CTA of chest revealed: IMPRESSION: 1. No pulmonary embolism. 2. Bilateral pleural effusions with associated bibasilar atelectasis and consolidation. Nodular airspace disease in the bilateral upper lobes associated with the 1st costosternal junction. Clinical correlation and continued follow-up is recommended. Left thyroid nodule. Consider thyroid ultrasound. Thyroid Ultrasound reported: IMPRESSION: Benign cyst in the right upper pole measures 0.9 cm, TR 1. Mixed cystic and solid nodule in the right lower pole measures 1.3 cm, TR 3. Isoechoic nodule in the left lower pole measures 2.3 cm, TR 3. [employer] TI-RADS Categories and Recommendations (2017): TR1: 0 points, Benign, No FNA TR2: 2 points, Not suspicious, No FNA TR3: 3 points, Mildly suspicious, FNA if > or = 2.5 cm, Follow if > or = 1.5 cm EKG revealed sinus rhythm with no ST-T changes Tele reveals sinus rhythm Echocardiogram revealed: Left ventricle: Left ventricular systolic function was preserved. LDL was around 60% predicted there was no gross wall motion abnormality. Right ventricle was normal size with normal systolic function. Both atria were normal size. Aortic valve was not well visualized. There was no aortic insufficiency/stenosis. There was trivial mitral/tricuspid regurgitation. Pulmonic valve was not well visualized. Right ventricular systolic pressure was assessed around 38 mm Hg. There was no pericardial effusion. Patient is a 78-year-old female who presented to the hospital with shortness of breath/respiratory distress. Reportedly, the patient had arrest. She was intubated and on vent support. Presentation and troponin is against acute coronary syndrome. Patient's D-dimer has been elevated and pulmonary emboli as a cause for presentation should be ruled out. It is of note that venous Doppler of lower extremities have been nonrevealing. Evaluation and management depends on regaining higher brain function status. Also, as per son, patient had been specifically refusing any contrast/iodine related tests/CT scans (which by comparison include cardiac cath). Family wanted us to wait until patient regains consciousness and decide herself. Echo revealed good LV systolic function, valves are working ok. Patient is seen by Neurology who is contemplating Hypoxic Encephalopathy. Pulmonary on the case. Patient was later extubated. She has regained higher brain function. We had long discussion about the presentation and abnormal labs (D-dimer). She was told about suggestions for possible left heart catheterization and also CT angio of the lungs. She verbalized understanding. She originally refused any kind of contrast/iodine related study. She mentioned that she understands the risks but does not want contrast related tests. 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 She was told that V/Q scan can still be performed and she agreed. V/Q scan was intermediate probability for PE. A/C was advised. Pulmonary follow up and advise for A/C. Patient talked to her outside physician on the phone yesterday and decided to proceed with contrast studies. As she was on Eliquis, it was held and patient was restarted on Lovenox. Will arrange for possible LHC next week. CTA of lungs (performed) ruled out pulmonary emboli. Was found to have thyroid nodule. Arrest Respiratory failure, acute s/p Intubation and later extubation History of asthma/COPD Encephalopathy, Hypoxic? , Metabolic? Diabetes mellitus Cataract Osteoarthritis Septic shock Throid nodule Abnormal d-dimer Pulmonary Emboli, ruled out Cardiac suggestion for management: Manage in tele Follow-up electrolytes and kidney function tests and correct abnormalities. Keep potassium above 4 and magnesium above 2. Avoid hyperkalemia. Lipitor: 10 mg at night is suggested Was on Eliquis. As patient at this point agreed with contrast studies (she talked to her outside physician on the phone), Eliquis was stopped, on Lovenox for now. Continue ASA for now Possible C next week (Wednesday afternoon) Neurology follow up Further evaluation and management depends on the above and clinical course A total of 55 minutes was spent reviewing the patient record, examining the patient, making a diagnostic and therapeutic plan, discussing this plan with medical personnel, following up on diagnostic studies and following the patient for clinical stability excluding any and all procedures. At least 50% of this time was spent in direct, [id number] contact. Thank you for allowing me to participate in this patient's care. Further recommendations will depend on patient's clinical course. Please do not hesitate to contact me if you have any questions or concerns. This medical document was created using electronic medical record system with [employer] computerized dictation system. Although this document has been carefully reviewed, there may still be some phonetic and typographical errors. These areas are purely typographical due to the imperfection of the software programs, and do not reflect any compromise in the patient's medical care. Dietary Evaluation Review Comments: 1) If GI is accessible consider Glucerna 1.2 @ 50ml/hr x 24hr goal rate as tolerated 2) If pt remains NPO >7 days consider TPN to meet 75% of estimated needs 3) Advance pt diet when medically feasible to a CCHO 45g/Cardiac diet 4) Continue current plan of care Expected Outcomes/Goals: 1) Pt to receive adequate nutrition support within 7 days of NPO status 2) Pt diet to advance 3) F/U in 2-3 days Plan discussed with: Patient, Other (nurse) DEBORAH FREIRE MD Feb 13, 2024 07:59
[2024-02-13 09:20] LABS: Basophils # (auto) 0 10 ^3/uL (0-0.2); Basophils % (auto) 0.5 % (0.0-2.0); Eosinophils # (auto) 0.4 10 ^3/uL (0-0.8); Eosinophils % (auto) 4.3 % (0.0-7.0); Hematocrit 28.1 % (36.0-46.0); Hemoglobin 8.5 g/dL (12.2-16.2); Lymphocytes # (auto) 1.4 10 ^3/uL (0.4-5.4); Lymphocytes % (auto) 16.4 % (10.0-50.0); Mean Corpuscular Hemoglobin 29.1 pg (28.0-32.0); Mean Corpuscular Hgb Conc. 30.3 g/dL (32.0-36.0); Mean Corpuscular Volume 96.1 fL (80.0-100.0); Monocytes # (auto) 0.8 10 ^3/uL (0-1.3); Monocytes % (auto) 9.3 % (0.0-12.0); Neutrophils # (auto) 6.1 10 ^3/uL (1.6-8.6); Neutrophils % (auto) 69.5 % (37.0-80.0); Nucleated Red Blood Cells % 0.1 %; Platelet Count (auto) 298 10^3/uL (140-450); Red Blood Cells 2.93 10^6/uL (4.0-5.20); Red Cell Distribution Width 17.1 % (11.8-14.3); White Blood Cell 8.8 10^3/uL (4.4-10.8)
--- NOTE | 2024-02-13 15:17 | DVHPN2 ---
Progress Note Date Seen: Feb 13, 2024 Medical Necessity Reason Pt with a Central, PICC or Fol: No The following are medically ne: Meng Catheter Reason for meng catheter: Strict I&O Subjective Review of Systems: CVS:Normal, RESPIRATORY:Normal, :Normal, NEURO:Normal Objective vital signs Vital Sign Date Time Temp Pulse Resp B/P (MAP) Pulse Ox O2 Delivery O2 Flow Rate FiO2 02/13/24 13:00 97.9 86 18 115/61 (79) 99 97.9 02/13/24 08:03 3.0 32 02/13/24 06:49 Nasal Cannula Total Intake and Output 02/12/24 02/12/24 02/13/24 15:00 23:00 07:00 Intake Total 250 ml 200 ml 450 ml Output Total 2 ml Balance 250 ml 200 ml 448 ml medications Current Medications Medications Dose Ordered Sig/Anastacio Route Start Time Stop Time Status Last Admin Dose Admin Ondansetron HCl 4 mg Q4HP PRN IV 02/01/24 21:45 02/07/24 20:34 4 MG Nitroglycerin 0.4 mg Q5MINP PRN SL 02/01/24 21:45 Pantoprazole Sodium 40 mg DAILY IV 02/02/24 10:00 02/13/24 10:15 40 MG Atorvastatin Calcium 10 mg HS PO 02/02/24 22:00 02/11/24 20:11 10 MG Vancomycin HCl 0 ml @ 0 mls/hr UD IV 02/03/24 13:45 Hydralazine HCl 10 mg Q6HP PRN IV 02/04/24 14:45 02/11/24 17:43 10 MG Piperacillin Sod/ Tazobactam Sod 100 ml @ 25 mls/hr Q8HR IV 02/05/24 01:00 02/13/24 14:47 25 MLS/HR Lorazepam 0.5 mg Q6HP PRN IV 02/05/24 14:15 02/05/24 21:52 0.5 MG Diagnostic Test (Pha) 1 strip ACHS 02/06/24 17:00 02/13/24 10:48 1 STRIP Insulin Human Regular ACHS SC 02/06/24 17:00 02/13/24 11:18 4 UNITS Dextrose 50 ml UD PRN IV 02/06/24 12:30 Metoprolol Succinate 25 mg DAILY PO 02/06/24 13:00 02/13/24 10:39 25 MG Brimonidine Tartrate 1 drop BID LEFTEYE 02/07/24 10:00 02/13/24 10:15 1 DROP Latanoprost 1 drop HS LEFTEYE 02/07/24 22:00 02/12/24 21:34 1 DROP Throat Lozenges 1 onel Q2HP PRN MT 02/08/24 16:30 02/09/24 20:35 1 ONEL Aspirin 81 mg DAILY PO 02/10/24 10:00 02/13/24 10:14 81 MG Enoxaparin Sodium 110 mg Q12HR SC 02/10/24 10:00 02/13/24 10:15 110 MG Furosemide 40 mg DAILY PO 02/11/24 10:00 02/13/24 10:14 40 MG Vancomycin HCl 250 ml @ 250 mls/hr DAILY@1100 IV 02/11/24 11:00 02/13/24 10:42 250 MLS/HR Acetaminophen/ Hydrocodone Bitart 1 tab Q6HPRN PRN PO 02/12/24 09:45 02/12/24 10:30 1 TAB Acetaminophen 650 mg Q4HP PRN PO 02/12/24 10:00 02/13/24 03:21 650 MG Sodium Chloride 1,000 ml @ 50 mls/hr Q20H IV 02/12/24 17:00 02/13/24 14:00 50 MLS/HR Albuterol 2.5 mg Q6HR NEB 02/13/24 06:00 02/13/24 12:31 2.5 MG Ipratropium [place] 0.5 mg Q6HR NEB 02/13/24 06:00 02/13/24 12:32 0.5 MG Examination: GENERAL:Normal, LUNGS:Normal, CVS:Normal, ABDOMEN:Normal, SKIN:Normal, NEURO:Normal laboratory and microbiology Laboratory Tests 02/13/24 08:43 Test 02/13/24 08:43 Range/Units Serum Glucose Pending Microbiology Date/Time Source Procedure Growth Status 02/03/24 04:44 Nose MRSA Screen - Final Complete 02/01/24 20:35 Blood Blood Culture - Final NO GROWTH AFTER 5 DAYS OF INCUBATION. Complete 02/01/24 19:42 Voided Urine Urine Culture - Final Complete 02/01/24 19:42 Sputum Gram Stain - Final Complete 02/01/24 19:42 Sputum Respiratory Culture - Final Complete Labs and/or images reviewed: Labs reviewed by me, Image(s) reviewed by me Problem List/Assessment/Plan Problem List/Assessment/Plan 1. Acute hypoxic respiratory failure Monitor, pulmonary consult 2. Status post cardio pulmonology arrest Monitor, cardiology consult, neurology consult, echocardiogram, CTA of chest, Doppler BLE to rule out DVT, full dose Lovenox 3. COPD exacerbation Monitor, IV antibiotics, IV fluids 4. Obesity Monitor, PPI 5. Benign essential hypertension Monitor 6. Pneumonia Monitor, Pulmonary consult, IV antibiotics, Med-Neb treatments 7. Septic shock Monitor, IV antibiotics, IV fluids, vasopressors as needed 8. Elevated troponins Monitor, Cardiology consult, trend troponin levels, monitor EKG 9. Elevated D-dimer Monitor, VQ scan 10. MICHELLE superimposed on CKD likely vasomotor Gentle IV hydration Assessment/Plan Subjective Patient is awake and alert Objective Patient was admitted for shortness of breath. Patient is status post cardiac arrest with emergent intubation. Patient was successfully weaned off ventilator. Patient was septic with pneumonia. Patient had elevated D-dimer. Her son did refuse contrast studeies to evaluate for PE. Patient's VQ scan did show an intermediate probability for PE. Patient underwent a CTA today which was negative for PE. Patient initially was refusing left heart catheterization however now she is agreeable and we will plan for left heart catheterization on Wednesday. Patient appears to have MICHELLE with creatinine at 1.26 and GFR is 44, patient was placed on gentle IV hydration. Plan Angiogram on Wednesday, monitor EKG, GI consult appreciated, gentle IV hydration, monitor renal function Plan discussed with: Patient My Orders My Orders Orders - [employer] Procedure Category Date Status Time Sodium Chloride 0.9% PHA 02/12/24 In Process 17:00 Comprehensive LAB 02/14/24 Verified Metabolic Panel 05:00 Dietary Evaluation Review Comments: 1) If GI is accessible consider Glucerna 1.2 @ 50ml/hr x 24hr goal rate as tolerated 2) If pt remains NPO >7 days consider TPN to meet 75% of estimated needs 3) Advance pt diet when medically feasible to a CCHO 45g/Cardiac diet 4) Continue current plan of care Expected Outcomes/Goals: 1) Pt to receive adequate nutrition support within 7 days of NPO status 2) Pt diet to advance 3) F/U in 2-3 days Date of Service: Feb 13, 2024 Billing Provider: BERTHA RICKS MD Common Visit Codes: [id number] INP/OBS CARE (MOD) [employer]ER Feb 13, 2024 15:17
[2024-02-13 15:24] LABS: Alanine Aminotransferase 29 U/L (7-40); Albumin 3.4 g/dL (3.2-4.8); Alkaline Phosphatase 54 U/L (46-116); Anion Gap 5 (5-15); Aspartate Aminotransferase 19 U/L (13-40); BUN/Creatinine Ratio 16.4 (10.0-20.0); Blood Urea Nitrogen 19 mg/dL (9-23); Calcium 9.6 mg/dL (8.7-10.4); Carbon Dioxide 36 mmol/L (20-31); Chloride 103 mmol/L (98-107); Potassium 3.9 mmol/L (3.5-5.1); Sodium 144 mmol/L (136-145)
[2024-02-13 15:25] LABS: Bilirubin, Total < 0.2 mg/dL (0.2-1.0); Glucose 222 mg/dL (74-106); Total Protein 5.4 g/dL (5.7-8.2)
--- NOTE | 2024-02-13 22:57 | DVHPN2 ---
Progress Note - Dictate Date Seen: Feb 13, 2024 Medical Necessity Reason Pt with a Central, PICC or Fol: No The following are medically ne: Meng Catheter Reason for meng catheter: Strict I&O Subjective Patient seen at bedside sleeping comfortably She is currently on supplemental oxygen and appears to be stable She denies any GI bleeding; hemoglobin 8.5 and stable, creatinine 1.16 She has not had any prior endoscopy or colonoscopy as per her recollection vital signs Vital Sign Date Time Temp Pulse Resp B/P (MAP) Pulse Ox O2 Delivery O2 Flow Rate FiO2 02/13/24 21:00 98.1 94 17 146/70 (95) 100 98.1 02/13/24 19:21 Nasal Cannula 3.0 02/13/24 19:21 32 Total Intake and Output 02/12/24 02/12/24 02/13/24 15:00 23:00 07:00 Intake Total 250 ml 200 ml 450 ml Output Total 2 ml Balance 250 ml 200 ml 448 ml medications Current Medications Medications Dose Ordered Sig/Anastacio Route Start Time Stop Time Status Last Admin Dose Admin Ondansetron HCl 4 mg Q4HP PRN IV 02/01/24 21:45 02/07/24 20:34 4 MG Nitroglycerin 0.4 mg Q5MINP PRN SL 02/01/24 21:45 Pantoprazole Sodium 40 mg DAILY IV 02/02/24 10:00 02/13/24 10:15 40 MG Atorvastatin Calcium 10 mg HS PO 02/02/24 22:00 02/11/24 20:11 10 MG Vancomycin HCl 0 ml @ 0 mls/hr UD IV 02/03/24 13:45 Hydralazine HCl 10 mg Q6HP PRN IV 02/04/24 14:45 02/11/24 17:43 10 MG Piperacillin Sod/ Tazobactam Sod 100 ml @ 25 mls/hr Q8HR IV 02/05/24 01:00 02/13/24 21:06 25 MLS/HR Lorazepam 0.5 mg Q6HP PRN IV 02/05/24 14:15 02/05/24 21:52 0.5 MG Diagnostic Test (Pha) 1 strip ACHS 02/06/24 17:00 02/13/24 22:00 1 STRIP Insulin Human Regular ACHS SC 02/06/24 17:00 02/13/24 21:21 4 UNITS Dextrose 50 ml UD PRN IV 02/06/24 12:30 Metoprolol Succinate 25 mg DAILY PO 02/06/24 13:00 02/13/24 10:39 25 MG Brimonidine Tartrate 1 drop BID LEFTEYE 02/07/24 10:00 02/13/24 22:00 1 DROP Latanoprost 1 drop HS LEFTEYE 02/07/24 22:00 02/13/24 22:00 1 DROP Throat Lozenges 1 onel Q2HP PRN MT 02/08/24 16:30 02/09/24 20:35 1 ONEL Aspirin 81 mg DAILY PO 02/10/24 10:00 02/13/24 10:14 81 MG Enoxaparin Sodium 110 mg Q12HR SC 02/10/24 10:00 02/13/24 21:06 110 MG Furosemide 40 mg DAILY PO 02/11/24 10:00 02/13/24 10:14 40 MG Vancomycin HCl 250 ml @ 250 mls/hr DAILY@1100 IV 02/11/24 11:00 02/13/24 10:42 250 MLS/HR Acetaminophen/ Hydrocodone Bitart 1 tab Q6HPRN PRN PO 02/12/24 09:45 02/13/24 20:34 1 TAB Acetaminophen 650 mg Q4HP PRN PO 02/12/24 10:00 02/13/24 03:21 650 MG Sodium Chloride 1,000 ml @ 50 mls/hr Q20H IV 02/12/24 17:00 02/13/24 14:00 50 MLS/HR Albuterol 2.5 mg Q6HR NEB 02/13/24 06:00 02/13/24 19:21 2.5 MG Ipratropium [place] 0.5 mg Q6HR NEB 02/13/24 06:00 02/13/24 19:21 0.5 MG objective Awake and alert x3 HEENT: EOMI, PERRLA, normal external inspect of ears, no icterus, no nasal drainage Neck: no carotid bruit, no jugular venous distention (JVD), no lymphadenopathy Respiratory: clear to auscultation, normal air movement Cardiovascular: regular rate and rhythm, no diastolic murmur, no jugular venous distention (JVD), Abdominal: soft, no hepatomegaly, no mass, no splenomegaly, no tenderness Musculoskeletal: no joint tenderness, no swelling Extremities: normal pulses, no calf tenderness, no clubbing, no cyanosis, no edema Skin: no bruising, no jaundice, no rash Neurological: alert, No focal deficit laboratory and microbiology Laboratory Tests 02/13/24 08:43 Test 02/13/24 08:43 Range/Units Serum Glucose 222 H 74-106 mg/dL Problems(with codes): (1) Lung infiltrate (2) Anemia (3) Cardiac arrest (4) Acute respiratory failure Prognosis Plan Patient is scheduled for left heart catheterization on Wednesday CTA showed bilateral pleural effusions and atelectasis no pulmonary embolism Thyroid ultrasound showed benign nodules Chest CT showed trace pleural effusion Her H&H is stable and stool for occult blood is negative Continue supportive care Patient likely has anemia of chronic disease Monitor labs Outpatient follow up once she has recovered completely from her current illness to discuss elective colonoscopy Dietary Evaluation Review Comments: 1) If GI is accessible consider Glucerna 1.2 @ 50ml/hr x 24hr goal rate as tolerated 2) If pt remains NPO >7 days consider TPN to meet 75% of estimated needs 3) Advance pt diet when medically feasible to a CCHO 45g/Cardiac diet 4) Continue current plan of care Expected Outcomes/Goals: 1) Pt to receive adequate nutrition support within 7 days of NPO status 2) Pt diet to advance 3) F/U in 2-3 days Plan discussed with: Patient JIMMY SINGH MD Feb 13, 2024 22:57
--- NOTE | 2024-02-13 23:45 | DVHPN2 ---
Progress Note - Dictate Date Seen: Feb 13, 2024 Medical Necessity Reason Pt with a Central, PICC or Fol: No The following are medically ne: Meng Catheter Reason for meng catheter: Strict I&O Subjective Patient seen and examined at bedside. Remains on supplemental oxygen. Overnight events reviewed. vital signs Vital Sign Date Time Temp Pulse Resp B/P (MAP) Pulse Ox O2 Delivery O2 Flow Rate FiO2 02/13/24 21:00 98.1 94 17 146/70 (95) 100 98.1 02/13/24 19:21 Nasal Cannula 3.0 02/13/24 19:21 32 Total Intake and Output 02/12/24 02/12/24 02/13/24 15:00 23:00 07:00 Intake Total 250 ml 200 ml 450 ml Output Total 2 ml Balance 250 ml 200 ml 448 ml medications Current Medications Medications Dose Ordered Sig/Anastacio Route Start Time Stop Time Status Last Admin Dose Admin Ondansetron HCl 4 mg Q4HP PRN IV 02/01/24 21:45 02/07/24 20:34 4 MG Nitroglycerin 0.4 mg Q5MINP PRN SL 02/01/24 21:45 Pantoprazole Sodium 40 mg DAILY IV 02/02/24 10:00 02/13/24 10:15 40 MG Atorvastatin Calcium 10 mg HS PO 02/02/24 22:00 02/11/24 20:11 10 MG Vancomycin HCl 0 ml @ 0 mls/hr UD IV 02/03/24 13:45 Hydralazine HCl 10 mg Q6HP PRN IV 02/04/24 14:45 02/11/24 17:43 10 MG Piperacillin Sod/ Tazobactam Sod 100 ml @ 25 mls/hr Q8HR IV 02/05/24 01:00 02/13/24 21:06 25 MLS/HR Lorazepam 0.5 mg Q6HP PRN IV 02/05/24 14:15 02/05/24 21:52 0.5 MG Diagnostic Test (Pha) 1 strip ACHS 02/06/24 17:00 02/13/24 22:00 1 STRIP Insulin Human Regular ACHS SC 02/06/24 17:00 02/13/24 21:21 4 UNITS Dextrose 50 ml UD PRN IV 02/06/24 12:30 Metoprolol Succinate 25 mg DAILY PO 02/06/24 13:00 02/13/24 10:39 25 MG Brimonidine Tartrate 1 drop BID LEFTEYE 02/07/24 10:00 02/13/24 22:00 1 DROP Latanoprost 1 drop HS LEFTEYE 02/07/24 22:00 02/13/24 22:00 1 DROP Throat Lozenges 1 onel Q2HP PRN MT 02/08/24 16:30 02/09/24 20:35 1 ONEL Aspirin 81 mg DAILY PO 02/10/24 10:00 02/13/24 10:14 81 MG Enoxaparin Sodium 110 mg Q12HR SC 02/10/24 10:00 02/13/24 21:06 110 MG Furosemide 40 mg DAILY PO 02/11/24 10:00 02/13/24 10:14 40 MG Vancomycin HCl 250 ml @ 250 mls/hr DAILY@1100 IV 02/11/24 11:00 02/13/24 10:42 250 MLS/HR Acetaminophen/ Hydrocodone Bitart 1 tab Q6HPRN PRN PO 02/12/24 09:45 02/13/24 20:34 1 TAB Acetaminophen 650 mg Q4HP PRN PO 02/12/24 10:00 02/13/24 03:21 650 MG Sodium Chloride 1,000 ml @ 50 mls/hr Q20H IV 02/12/24 17:00 02/13/24 14:00 50 MLS/HR Albuterol 2.5 mg Q6HR NEB 02/13/24 06:00 02/13/24 19:21 2.5 MG Ipratropium [place] 0.5 mg Q6HR NEB 02/13/24 06:00 02/13/24 19:21 0.5 MG objective Gen.: Patient lying in bed in no apparent distress. On supplemental oxygen. Head: Normocephalic, atraumatic. Eyes: EOMI/PERRLA. Ears: Normal hearing. Normal anatomy. Neck/trachea: Trachea midline, supple. Nose: Normal external anatomy. Mouth: Moist mucous membranes. Chest: Decreased air entry bilaterally. No wheezing or rhonchi. Bilateral crackles. Cardiovascular: Positive S1, positive S2. Regular rate and rhythm. Abdomen: Positive bowel sounds in all 4 quadrants. Soft, non-tender, non- distended. : Deferred. Rectal: Deferred. Skin: Warm, dry. Intact. Extremities: 2+ radial pulses bilaterally. No lower extremity edema. Neuro: Awake, alert, oriented x3. No gross motor or sensory deficits. Cranial nerves II through XII intact. Gait not assessed. laboratory and microbiology Laboratory Tests 02/13/24 08:43 Test 02/13/24 08:43 Range/Units Serum Glucose 222 H 74-106 mg/dL Assessment/Plan Impression: Acute hypoxic respiratory failure S/p cardiopulmonary arrest Acute hypercarbic respiratory failure Elevated troponin Septic shock Obesity Pulmonary edema Events: Remains on supplemental oxygen, 2 LPM NC Taper O2 as tolerated Plan for left heart catheterization in the AM. Continue bronchodilators Continue antibiotics IS. HOB elevation Aspiration precautions Diurese w/ Lasix as tolerated Monitor renal function. Monitor electrolytes. Supplement as necessary. CPAP for JEREMY. Labs and imaging reviewed. Rest of plan as noted below. Plan: s/p extubation on 02/05/24. Supplemental oxygen Titrate to keep O2 sats above 92%. Off sedation S/p right IJ central line placement. Elevated troponin - Cardiology recommendations appreciated. Continue antibiotics. F/u cultures. Pressors if necessary for hemodynamic support Titrate to keep mean arterial pressure greater than 65 mmHg - currently off, hemodynamically stable. Monitor renal function Monitor electrolytes. Supplement as necessary. Monitor ins and outs. GI/DVT prophylaxis. Prognosis: Poor given patient's multiple co-morbidities. Rest of plan per hospitalist and other consultants. Thank you, Rhea Gibson NP, for allowing me to participate in this patient's care. Further recommendations will depend on the patient's clinical course. Please do not hesitate to contact me if you have any questions or concerns. This medical document was created using an electronic medical record system with [employer] dictation system. Although these documentations are being carefully reviewed, there may still be some phonetic and typographical changes. The errors are purely typographical, due to imperfection on the software program, and do not reflect any compromise in the patient's medical care. Dietary Evaluation Review Comments: 1) If GI is accessible consider Glucerna 1.2 @ 50ml/hr x 24hr goal rate as tolerated 2) If pt remains NPO >7 days consider TPN to meet 75% of estimated needs 3) Advance pt diet when medically feasible to a CCHO 45g/Cardiac diet 4) Continue current plan of care Expected Outcomes/Goals: 1) Pt to receive adequate nutrition support within 7 days of NPO status 2) Pt diet to advance 3) F/U in 2-3 days Plan discussed with: Patient, Other (RN Tamiko) MARI KILGORE MD Feb 13, 2024 23:45
[2024-02-14] VITALS (23 sets, daily range): BP systolic 127–181; BP diastolic 7–79; PULSE 69–113; RESP 15–23; TEMP 97.7–99.2; O2SAT 92–100
[2024-02-14 06:04] LABS: Alanine Aminotransferase 33 U/L (7-40); Albumin 3.7 g/dL (3.2-4.8); Alkaline Phosphatase 56 U/L (46-116); Anion Gap 6 (5-15); Aspartate Aminotransferase 22 U/L (13-40); BUN/Creatinine Ratio 15.3 (10.0-20.0); Blood Urea Nitrogen 18 mg/dL (9-23); Calcium 9.8 mg/dL (8.7-10.4); Chloride 101 mmol/L (98-107); Sodium 145 mmol/L (136-145)
[2024-02-14 06:21] LABS: Bilirubin, Total 0.2 mg/dL (0.2-1.0); Carbon Dioxide 38 mmol/L (20-31); Glucose 198 mg/dL (74-106); Potassium 3.4 mmol/L (3.5-5.1)
--- NOTE | 2024-02-14 08:19 | DVHPN2 ---
Progress Note - Dictate Date Seen: Feb 14, 2024 Medical Necessity Reason Pt with a Central, PICC or Fol: No The following are medically ne: Meng Catheter Reason for meng catheter: Strict I&O vital signs Vital Sign Date Time Temp Pulse Resp B/P (MAP) Pulse Ox O2 Delivery O2 Flow Rate FiO2 02/14/24 06:32 98 20 100 02/14/24 06:24 Nasal Cannula* 3 32 02/14/24 05:00 98.2 131/60 (83) 98.2 Total Intake and Output 02/13/24 02/13/24 02/14/24 15:00 23:00 07:00 Intake Total 1550 ml 1080 ml 500 ml Output Total 1150 ml Balance 1550 ml -70 ml 500 ml medications Current Medications Medications Dose Ordered Sig/Anastacio Route Start Time Stop Time Status Last Admin Dose Admin Ondansetron HCl 4 mg Q4HP PRN IV 02/01/24 21:45 02/07/24 20:34 4 MG Nitroglycerin 0.4 mg Q5MINP PRN SL 02/01/24 21:45 Pantoprazole Sodium 40 mg DAILY IV 02/02/24 10:00 02/13/24 10:15 40 MG Atorvastatin Calcium 10 mg HS PO 02/02/24 22:00 02/11/24 20:11 10 MG Vancomycin HCl 0 ml @ 0 mls/hr UD IV 02/03/24 13:45 Hydralazine HCl 10 mg Q6HP PRN IV 02/04/24 14:45 02/11/24 17:43 10 MG Piperacillin Sod/ Tazobactam Sod 100 ml @ 25 mls/hr Q8HR IV 02/05/24 01:00 02/14/24 05:21 25 MLS/HR Lorazepam 0.5 mg Q6HP PRN IV 02/05/24 14:15 02/05/24 21:52 0.5 MG Diagnostic Test (Pha) 1 strip ACHS 02/06/24 17:00 02/14/24 05:44 1 STRIP Insulin Human Regular ACHS SC 02/06/24 17:00 02/14/24 05:39 4 UNITS Dextrose 50 ml UD PRN IV 02/06/24 12:30 Metoprolol Succinate 25 mg DAILY PO 02/06/24 13:00 02/13/24 10:39 25 MG Brimonidine Tartrate 1 drop BID LEFTEYE 02/07/24 10:00 02/13/24 22:00 1 DROP Latanoprost 1 drop HS LEFTEYE 02/07/24 22:00 02/13/24 22:00 1 DROP Throat Lozenges 1 onel Q2HP PRN MT 02/08/24 16:30 02/14/24 05:28 1 ONEL Aspirin 81 mg DAILY PO 02/10/24 10:00 02/13/24 10:14 81 MG Enoxaparin Sodium 110 mg Q12HR SC 02/10/24 10:00 02/13/24 21:06 110 MG Furosemide 40 mg DAILY PO 02/11/24 10:00 02/13/24 10:14 40 MG Vancomycin HCl 250 ml @ 250 mls/hr DAILY@1100 IV 02/11/24 11:00 02/13/24 10:42 250 MLS/HR Acetaminophen/ Hydrocodone Bitart 1 tab Q6HPRN PRN PO 02/12/24 09:45 02/13/24 20:34 1 TAB Acetaminophen 650 mg Q4HP PRN PO 02/12/24 10:00 02/13/24 03:21 650 MG Sodium Chloride 1,000 ml @ 50 mls/hr Q20H IV 02/12/24 17:00 02/13/24 14:00 50 MLS/HR Albuterol 2.5 mg Q6HR NEB 02/13/24 06:00 02/14/24 06:24 2.5 MG Ipratropium [place] 0.5 mg Q6HR NEB 02/13/24 06:00 02/14/24 06:24 0.5 MG laboratory and microbiology Laboratory Tests 02/14/24 05:20 02/13/24 08:43 Test 02/14/24 05:20 Range/Units Serum Glucose 198 H 74-106 mg/dL Assessment/Plan Patient is a 78-year-old female who presented with shortness of breath. She is intubated at the time of evaluation and not source of history. Information was obtained by reviewing the chart and communicating with staff. Reportedly, the patient lives in a nursing facility and EMS were called because the patient had used all of her medications for asthma and was still short of breath. Reportedly, while transferring the patient to the hospital the patient suffered Arrest and CPR was performed successfully. Patient was intubated. There has been no tele/EKG rhythm at the time of arrest to review. At the time of evaluation patient is nonresponsive. Cardiology is involved for cardiac aspects of care. There is questionable old history of myocardial infarction as per staff. Review of the transfer notes from nursing facility do not comment on any coronary artery disease. female, Extubated. No JVD. No JVD. Mucosa is pink and wet. Scattered rhonchi in the lungs is heard. Cardiac: Regular, no thrill/gallop. Systolic murmur 2/6 in apex is heard. Abdomen is soft. Bowel sound is positive. There is no gross mass/hepatomegaly. Extremities do not reveal edema. Dorsalis pedis is 1+ bilateral Reported past medical history includes COPD/asthma, cataract, osteoarthritis, diabetes mellitus, obstructive sleep apnea. As per communications from nursing facility, the patient uses walker for ambulation and reportedly patient has been frail prior to this presentation. Creatinine: 1.34 - 1.33 - 0.92 - 0.96 - 0.99 - 1.06 - 1.12 - 1.16 - 1.01 - 1.14 - 1.38 - 1.26 - 1.16 - 1.18 Potassium: 5.9 - 3.9 - 4.7 - 3.9 - 3.7 - 3.1 - 3.9 - 3.3 - 3.9 - 3.5 - 3.9 - 3.4 Lactic acid: 5.5 - 1.1 AST/ALT: 75/99 - 94/135 - 16/36 - 24/32 - 19/29 - 22/33 BNP: 68.68 - 61.15 - 44.75 - 109.22 Troponin (high sensitive): 7 - 9 - 26 - 39 LDL: 48 - 38 TSH: 0.96 - 1.36 HgbA1c: 7.0 D-dimer: >35.20 Chest x-ray revealed: Lines and Tubes: Endotracheal tube terminating 4.5 cm above the lois. Enteric tube crosses the diaphragm near midline and descends into the left upper quadrant. Right neck central venous catheter terminates over the SVC. Lungs: No focal consolidation. Diffuse bilateral interstitial opacities. Pleura: No effusion. No pneumothorax. Cardiomediastinal contours: Unremarkable Bones: No acute osseous abnormality. IMPRESSION: 1. Lines and tubes as described. 2. Nonspecific diffuse bilateral interstitial opacities. Repeat chest xry reported: Lines and Tubes: Endotracheal tube terminating 4.5 cm above the lois. Enteric tube crosses the diaphragm near midline and descends into the left upper quadrant. Right neck central venous catheter terminates over the SVC. Lungs: No focal consolidation. Diffuse bilateral interstitial opacities. Pleura: No effusion. No pneumothorax. Cardiomediastinal contours: Unremarkable Bones: No acute osseous abnormality. IMPRESSION: 1. Lines and tubes as described. 2. Nonspecific diffuse bilateral interstitial opacities. Repeat chest xry revealed: Lines and Tubes: Endotracheal tube terminating 4.5 cm above the lois. Enteric tube crosses the diaphragm near midline and descends into the left upper quadrant. Right neck central venous catheter terminates over the SVC. Lungs: No focal consolidation. Diffuse bilateral interstitial opacities. Pleura: No effusion. No pneumothorax. Cardiomediastinal contours: Unremarkable Bones: No acute osseous abnormality. IMPRESSION: 1. Lines and tubes as described. 2. Nonspecific diffuse bilateral interstitial opacities. Repeat chest xry revealed: 1. Interval removal of the endotracheal tube and enteric tube. Stable satisfactory positioning of the right internal jugular central venous catheter. 2. Mild perihilar opacities and left basilar opacity appear slightly more conspicuous compared to prior exams. CT of head reported: IMPRESSION: 1. No acute intracranial process. Venous Doppler of lower extremities reported: Impression: 1. No right or left femoropopliteal venous thrombosis. V/Q scan: Impression: 1. Based on PIOPED criteria, intermediate probability for pulmonary embolism. CTA of chest revealed: IMPRESSION: 1. No pulmonary embolism. 2. Bilateral pleural effusions with associated bibasilar atelectasis and consolidation. Nodular airspace disease in the bilateral upper lobes associated with the 1st costosternal junction. Clinical correlation and continued follow-up is recommended. Left thyroid nodule. Consider thyroid ultrasound. Thyroid Ultrasound reported: IMPRESSION: Benign cyst in the right upper pole measures 0.9 cm, TR 1. Mixed cystic and solid nodule in the right lower pole measures 1.3 cm, TR 3. Isoechoic nodule in the left lower pole measures 2.3 cm, TR 3. [employer] TI-RADS Categories and Recommendations (2017): TR1: 0 points, Benign, No FNA TR2: 2 points, Not suspicious, No FNA TR3: 3 points, Mildly suspicious, FNA if > or = 2.5 cm, Follow if > or = 1.5 cm EKG revealed sinus rhythm with no ST-T changes Tele reveals sinus rhythm Echocardiogram revealed: Left ventricle: Left ventricular systolic function was preserved. LDL was around 60% predicted there was no gross wall motion abnormality. Right ventricle was normal size with normal systolic function. Both atria were normal size. Aortic valve was not well visualized. There was no aortic insufficiency/stenosis. There was trivial mitral/tricuspid regurgitation. Pulmonic valve was not well visualized. Right ventricular systolic pressure was assessed around 38 mm Hg. There was no pericardial effusion. Patient is a 78-year-old female who presented to the hospital with shortness of breath/respiratory distress. Reportedly, the patient had arrest. She was intubated and on vent support. Presentation and troponin is against acute coronary syndrome. Patient's D-dimer has been elevated and pulmonary emboli as a cause for presentation should be ruled out. It is of note that venous Doppler of lower extremities have been nonrevealing. Evaluation and management depends on regaining higher brain function status. Also, as per son, patient had been specifically refusing any contrast/iodine related tests/CT scans (which by comparison include cardiac cath). Family wanted us to wait until patient regains consciousness and decide herself. Echo revealed good LV systolic function, valves are working ok. Patient is seen by Neurology who is contemplating Hypoxic Encephalopathy. Pulmonary on the case. Patient was later extubated. She has regained higher brain function. We had long discussion about the presentation and abnormal labs (D-dimer). She was told about suggestions for possible left heart catheterization and also CT angio of the lungs. She verbalized understanding. She originally refused any kind of contrast/iodine related study. She mentioned that she understands the risks but does not want contrast related tests. She mentioned that she also has an outpatient housing case manager (does not recall the name). She was told that V/Q scan can still be performed and she agreed. V/Q scan was intermediate probability for PE. A/C was advised. Pulmonary follow up and advise for A/C. Patient talked to her outside physician on the phone yesterday and decided to proceed with contrast studies. As she was on Eliquis, it was held and patient was restarted on Lovenox. Will arrange for possible LHC next week. CTA of lungs (performed) ruled out pulmonary emboli. Was found to have thyroid nodule. Arrest Respiratory failure, acute s/p Intubation and later extubation History of asthma/COPD Encephalopathy, Hypoxic? , Metabolic? Diabetes mellitus Cataract Osteoarthritis Septic shock Throid nodule Abnormal d-dimer Pulmonary Emboli, ruled out Cardiac suggestion for management: Manage in tele Follow-up electrolytes and kidney function tests and correct abnormalities. Keep potassium above 4 and magnesium above 2. Avoid hyperkalemia. Lipitor: 10 mg at night is suggested Was on Eliquis. As patient agreed with contrast studies, CTA was performed and Pulmonary Emboli was ruled out: no further indication for Anticoagulation. It was stopped. Continue ASA for now LHC, later today Neurology follow up Further evaluation and management depends on the above and clinical course A total of 55 minutes was spent reviewing the patient record, examining the patient, making a diagnostic and therapeutic plan, discussing this plan with medical personnel, following up on diagnostic studies and following the patient for clinical stability excluding any and all procedures. At least 50% of this time was spent in direct, [id number] contact. Thank you for allowing me to participate in this patient's care. Further recommendations will depend on patient's clinical course. Please do not hesitate to contact me if you have any questions or concerns. This medical document was created using electronic medical record system with [employer] computerized dictation system. Although this document has been carefully reviewed, there may still be some phonetic and typographical errors. These areas are purely typographical due to the imperfection of the software programs, and do not reflect any compromise in the patient's medical care. Dietary Evaluation Review Comments: 1) If GI is accessible consider Glucerna 1.2 @ 50ml/hr x 24hr goal rate as tolerated 2) If pt remains NPO >7 days consider TPN to meet 75% of estimated needs 3) Advance pt diet when medically feasible to a CCHO 45g/Cardiac diet 4) Continue current plan of care Expected Outcomes/Goals: 1) Pt to receive adequate nutrition support within 7 days of NPO status 2) Pt diet to advance 3) F/U in 2-3 days Plan discussed with: Patient, Other (nurse) DEBORAH FREIRE MD Feb 14, 2024 08:19
--- NOTE | 2024-02-14 12:44 | DVHPN2 ---
Progress Note - Dictate Date Seen: Feb 14, 2024 Medical Necessity Reason Pt with a Central, PICC or Fol: No The following are medically ne: Meng Catheter Reason for meng catheter: Strict I&O vital signs Vital Sign Date Time Temp Pulse Resp B/P (MAP) Pulse Ox O2 Delivery O2 Flow Rate FiO2 02/14/24 11:30 98 Nasal Cannula* 3 32 02/14/24 11:30 102 18 02/14/24 09:00 97.9 143/69 (93) 97.9 Total Intake and Output 02/13/24 02/13/24 02/14/24 14:59 22:59 06:59 Intake Total 1550 ml 1080 ml 500 ml Output Total 1150 ml Balance 1550 ml -70 ml 500 ml medications Current Medications Medications Dose Ordered Sig/Anastacio Route Start Time Stop Time Status Last Admin Dose Admin Ondansetron HCl 4 mg Q4HP PRN IV 02/01/24 21:45 02/07/24 20:34 4 MG Nitroglycerin 0.4 mg Q5MINP PRN SL 02/01/24 21:45 Pantoprazole Sodium 40 mg DAILY IV 02/02/24 10:00 02/14/24 08:17 40 MG Atorvastatin Calcium 10 mg HS PO 02/02/24 22:00 02/11/24 20:11 10 MG Vancomycin HCl 0 ml @ 0 mls/hr UD IV 02/03/24 13:45 Hydralazine HCl 10 mg Q6HP PRN IV 02/04/24 14:45 02/11/24 17:43 10 MG Piperacillin Sod/ Tazobactam Sod 100 ml @ 25 mls/hr Q8HR IV 02/05/24 01:00 02/14/24 05:21 25 MLS/HR Lorazepam 0.5 mg Q6HP PRN IV 02/05/24 14:15 02/05/24 21:52 0.5 MG Diagnostic Test (Pha) 1 strip ACHS 02/06/24 17:00 02/14/24 11:46 1 STRIP Insulin Human Regular ACHS SC 02/06/24 17:00 02/14/24 05:39 4 UNITS Dextrose 50 ml UD PRN IV 02/06/24 12:30 Metoprolol Succinate 25 mg DAILY PO 02/06/24 13:00 02/14/24 08:22 25 MG Brimonidine Tartrate 1 drop BID LEFTEYE 02/07/24 10:00 02/14/24 08:23 1 DROP Latanoprost 1 drop HS LEFTEYE 02/07/24 22:00 02/13/24 22:00 1 DROP Throat Lozenges 1 onel Q2HP PRN MT 02/08/24 16:30 02/14/24 12:01 1 ONEL Aspirin 81 mg DAILY PO 02/10/24 10:00 02/14/24 08:17 81 MG Enoxaparin Sodium 110 mg Q12HR SC 02/10/24 10:00 02/14/24 08:24 110 MG Furosemide 40 mg DAILY PO 02/11/24 10:00 02/14/24 08:23 40 MG Vancomycin HCl 250 ml @ 250 mls/hr DAILY@1100 IV 02/11/24 11:00 02/14/24 11:46 250 MLS/HR Acetaminophen/ Hydrocodone Bitart 1 tab Q6HPRN PRN PO 02/12/24 09:45 02/14/24 08:17 1 TAB Acetaminophen 650 mg Q4HP PRN PO 02/12/24 10:00 02/13/24 03:21 650 MG Sodium Chloride 1,000 ml @ 50 mls/hr Q20H IV 02/12/24 17:00 02/13/24 14:00 50 MLS/HR Albuterol 2.5 mg Q6HR NEB 02/13/24 06:00 02/14/24 11:30 2.5 MG Ipratropium [place] 0.5 mg Q6HR NEB 02/13/24 06:00 02/14/24 11:30 0.5 MG objective General Appearance: alert, no distress HEENT: EOMI, PERRLA, normal external inspect of ears, no icterus, no nasal drainage Neck: no carotid bruit, no jugular venous distention (JVD), no lymphadenopathy Chest: normal thorax Respiratory: clear to auscultation, normal air movement Cardiovascular: regular rate and rhythm, no diastolic murmur, no jugular venous distention (JVD), no rub, no systolic murmur Abdominal: soft, no hepatomegaly, no mass, no splenomegaly, no tenderness Genitourinary: grossly normal external Musculoskeletal: no joint tenderness, no swelling Extremities: normal pulses, no calf tenderness, no clubbing, no cyanosis, no edema Skin: no bruising, no jaundice, no rash Neurological: alert, No focal deficit laboratory and microbiology Laboratory Tests 02/14/24 10:25 02/14/24 05:20 02/13/24 08:43 Test 02/14/24 05:20 Range/Units Serum Glucose 198 H 74-106 mg/dL Problem List 1. Acute hypoxic respiratory failure Monitor, pulmonary consult 2. Status post cardio pulmonology arrest Monitor, cardiology consult, neurology consult, echocardiogram, CTA of chest, Doppler BLE to rule out DVT, full dose Lovenox 3. COPD exacerbation Monitor, IV antibiotics, IV fluids 4. Obesity Monitor, PPI 5. Benign essential hypertension Monitor 6. Pneumonia Monitor, Pulmonary consult, IV antibiotics, Med-Neb treatments 7. Septic shock Monitor, IV antibiotics, IV fluids, vasopressors as needed 8. Elevated troponins Monitor, Cardiology consult, trend troponin levels, monitor EKG 9. Elevated D-dimer Monitor, VQ scan Assessment/Plan Subjective Patient was not in room during assessment. Objective Patient mated for shortness of breath status post cardiac arrest. Patient has elevated D-dimer. CTA is negative for PE. Anticoagulation was discontinued. Patient is currently downstairs for heart cath with Dr. Puente. Plan Continue current treatment. Monitor EKG. Cardiology recommendations appreciated. Dietary Evaluation Review Comments: 1) If GI is accessible consider Glucerna 1.2 @ 50ml/hr x 24hr goal rate as tolerated 2) If pt remains NPO >7 days consider TPN to meet 75% of estimated needs 3) Advance pt diet when medically feasible to a CCHO 45g/Cardiac diet 4) Continue current plan of care Expected Outcomes/Goals: 1) Pt to receive adequate nutrition support within 7 days of NPO status 2) Pt diet to advance 3) F/U in 2-3 days Plan discussed with: Patient, Other JORY LINDSEY CELLAR PACKER Feb 14, 2024 12:44
[2024-02-14] MEDS: IODIXANOL 320MG/ML 100ML BTL IV ONE (14:21)
[2024-02-14] MEDS: ANGIOMAX 250 MG VIAL IV ONE (14:41)
[2024-02-14] MEDS: HEPARIN SODIUM (PORCINE) 5000 UNITS/ML 1ML VIAL ONE (14:41)
[2024-02-14] MEDS: VERAPAMIL 2.5MG/ML INJ 2ML VIAL IV ONE (14:42)
[2024-02-14] MEDS: SODIUM CHL 0.9% 0 ML ONE (14:42)
[2024-02-14] MEDS: fentaNYL CITRATE 100 MCG/2 ML VL ONE (14:42)
[2024-02-14] MEDS: MIDAZOLAM HCL 2MG/2ML 2ml VIAL (1mg/ml) ONE (14:42)
[2024-02-14] MEDS: LIDOCAINE 2%HCL (LOCAL ANESTH.) INJ 20ML MDV ONE (14:42)
--- NOTE | 2024-02-14 15:21 | DVHPN2 ---
Progress Note - Dictate Date Seen: Feb 14, 2024 Medical Necessity Reason Pt with a Central, PICC or Fol: No The following are medically ne: Meng Catheter Reason for meng catheter: Strict I&O Subjective Ms. Hardwick is a 78 years old female with a history of hypertension, diabetes, asthma, COPD, the patient was brought to the [facility] from her custodial for altered mental status/cardiopulmonary arrest. I have seen and examined the patient, discussed with her nurse, she is alert, oriented x3, She was only able to walk a little bit Cataract catheterization today UDS, 02/01/2024: Urinalysis, 02/01/2024: Unremarkable ABG, 02/01/2024: Respiratory acidosis WBC/HB/PLT/MCV, 02/02/2024: 9.4/11.5/219/93.2 HCO3, 02/01/2024: 32, 02/02/2024: 37 BUN/CR, 02/01/2024: 23/1.34. 02/02/2024: 25/1.33 Lactic acid, 02/01/2024: 5.5 TG/HDL/LDL/HDL, 02/02/2024: 55/125/48/55 TSH, 02/03/2024: 1.36 VQ, 02/07/2024: Based on PIOPED criteria, intermediate probability for pulmonary embolism CT head, 02/02/2024:No acute intracranial process vital signs Vital Sign Date Time Temp Pulse Resp B/P (MAP) Pulse Ox O2 Delivery O2 Flow Rate FiO2 02/14/24 13:00 97.7 92 21 129/51 (77) 98 97.7 02/14/24 11:30 Nasal Cannula* 3 32 Total Intake and Output 02/13/24 02/13/24 02/14/24 15:00 23:00 07:00 Intake Total 1550 ml 1080 ml 500 ml Output Total 1150 ml Balance 1550 ml -70 ml 500 ml medications Current Medications Medications Dose Ordered Sig/Anastacio Route Start Time Stop Time Status Last Admin Dose Admin Ondansetron HCl 4 mg Q4HP PRN IV 02/01/24 21:45 02/07/24 20:34 4 MG Nitroglycerin 0.4 mg Q5MINP PRN SL 02/01/24 21:45 Pantoprazole Sodium 40 mg DAILY IV 02/02/24 10:00 02/14/24 08:17 40 MG Atorvastatin Calcium 10 mg HS PO 02/02/24 22:00 02/11/24 20:11 10 MG Vancomycin HCl 0 ml @ 0 mls/hr UD IV 02/03/24 13:45 Hydralazine HCl 10 mg Q6HP PRN IV 02/04/24 14:45 02/11/24 17:43 10 MG Piperacillin Sod/ Tazobactam Sod 100 ml @ 25 mls/hr Q8HR IV 02/05/24 01:00 02/14/24 05:21 25 MLS/HR Lorazepam 0.5 mg Q6HP PRN IV 02/05/24 14:15 02/05/24 21:52 0.5 MG Diagnostic Test (Pha) 1 strip ACHS 02/06/24 17:00 02/14/24 11:46 1 STRIP Insulin Human Regular ACHS SC 02/06/24 17:00 02/14/24 05:39 4 UNITS Dextrose 50 ml UD PRN IV 02/06/24 12:30 Metoprolol Succinate 25 mg DAILY PO 02/06/24 13:00 02/14/24 08:22 25 MG Brimonidine Tartrate 1 drop BID LEFTEYE 02/07/24 10:00 02/14/24 08:23 1 DROP Latanoprost 1 drop HS LEFTEYE 02/07/24 22:00 02/13/24 22:00 1 DROP Throat Lozenges 1 onel Q2HP PRN MT 02/08/24 16:30 02/14/24 12:01 1 ONEL Aspirin 81 mg DAILY PO 02/10/24 10:00 02/14/24 08:17 81 MG Enoxaparin Sodium 110 mg Q12HR SC 02/10/24 10:00 02/14/24 08:24 110 MG Furosemide 40 mg DAILY PO 02/11/24 10:00 02/14/24 08:23 40 MG Vancomycin HCl 250 ml @ 250 mls/hr DAILY@1100 IV 02/11/24 11:00 02/14/24 11:46 250 MLS/HR Acetaminophen/ Hydrocodone Bitart 1 tab Q6HPRN PRN PO 02/12/24 09:45 02/14/24 08:17 1 TAB Acetaminophen 650 mg Q4HP PRN PO 02/12/24 10:00 02/13/24 03:21 650 MG Sodium Chloride 1,000 ml @ 50 mls/hr Q20H IV 02/12/24 17:00 02/13/24 14:00 50 MLS/HR Albuterol 2.5 mg Q6HR NEB 02/13/24 06:00 02/14/24 11:30 2.5 MG Ipratropium [place] 0.5 mg Q6HR NEB 02/13/24 06:00 02/14/24 11:30 0.5 MG objective The patient is well-nourished and well-developed with no distress. MENTAL STATUS: Subjective CRANIAL NERVES: Pupils are equal round and reactive to light briskly, normal external eye movement, normal sensation and motor examination in the lateral trigeminal nerve distribution, no facial weakness SENSATION: Normal to pinprick and light touch MOTOR: Normal tone in the upper and lower extremity. Normal muscle bulk. No fasciculations. She moves the arms and legs REFLEXES: Deep tendon reflexes are symmetrical. No pathological reflexes. CEREBELLAR/COORDINATION: Deferred GAIT/STATION: deferred. laboratory and microbiology Laboratory Tests 02/14/24 10:25 02/14/24 05:20 02/13/24 08:43 Test 02/14/24 05:20 Range/Units Serum Glucose 198 H 74-106 mg/dL Problem List Coma, resolved Hypoxic encephalopathy Metabolic encephalopathy Respiratory failure, resolved Respiratory acidosis resolved Chronic kidney failure Glaucoma She keeps improving Assessment/Plan Monitoring Supportive treatment Oxygen Xalatan eye drops Brimonidine eyedrops GI prophylaxis Cardiology on case Pulmonology on case Up to chair Physical therapy evaluation More recommendation per clinical course This medical document was created using an electronic medical record system with [employer] dictation system. Although this document has been carefully reviewed, there may still be some phonetic and typographical errors. These areas are purely typographical due to imperfections of the software programs, and do not reflect any compromise in the patient's medical care. Prognosis poor Dietary Evaluation Review Comments: 1) If GI is accessible consider Glucerna 1.2 @ 50ml/hr x 24hr goal rate as tolerated 2) If pt remains NPO >7 days consider TPN to meet 75% of estimated needs 3) Advance pt diet when medically feasible to a CCHO 45g/Cardiac diet 4) Continue current plan of care Expected Outcomes/Goals: 1) Pt to receive adequate nutrition support within 7 days of NPO status 2) Pt diet to advance 3) F/U in 2-3 days Plan discussed with: SARAH Holliday MD Feb 14, 2024 15:21
--- NOTE | 2024-02-14 15:32 | DVHOP2 ---
Operative Report Procedures performed: Left heart catheterization and bilateral coronary angiogram Moderate sedation Diagnosis: Nonobstructive coronary artery disease 31 mm Hg peak to peak pressure gradient across aortic valve At most, mild aortic stenosis Preserved left ventricular systolic function LVEF of 65% Cardiac suggestion for management: Optimized medical therapy Lifestyle and risk factor modifications Findings: LVEF: 65% LVEDP: 9 mm Hg 31 mm Hg peak to peak pressure gradient across aortic valve Left main: Left main was coming off the left sinus of Valsalva. There was no angiographic evidence of disease in left main. LAD: LAD was coming off the left main. Proximal LAD had mild disease. Proximal LAD had area of ectasia. Mid LAD had focal disease up to 50%. There was a large diagonal with mild disease. LCX: LCX was coming off the left main. LCX provided LPDA and was the dominant vessel. OM1 was a small-sized vessel. OM2 was a large-sized vessel. OM2 was a medium-sized. Left posterolateral branch was large-sized vessel. Left PDA was medium-sized vessel. LCX throughout its course and branches revealed mild disease. Ramus intermedius: Ramus intermedius was a medium sized vessel which came off the left main. It revealed minimal luminal irregularities. RCA: RCA was coming off the right sinus of Valsalva. It was nondominant and small vessel. Presentation: Patient is a 78-year-old female who originally presented to the hospital after arrest. There was question about respiratory versus cardiac arrest. Patient was originally intubated and on vent support. Later improved. At 1st, the patient had refused left heart catheterization, recognizing it needs iodine and the patient feared iodine because of her mother's bad experience with iodine. Later, after communicating with her outside physician, the patient decided to proceed with contrast studies. CT angiography of the lungs ruled out pulmonary emboli. Echocardiogram had revealed preserved left ventricular systolic function and no specific valvular disease. Patient was sent for cardiac catheterization. Procedure: After obtaining informed consent, the patient was brought to the [employer]. She was prepped and draped in sterile fashion. Right radial artery was used for access site. 1 mg of Versed and 25 mcg of fentanyl were used for moderate sedation. Using modified Seldinger technique, the right radial artery was accessed and a 6 Polish slender sheath was inserted into it. 2.5 mg of verapamil and 100 mcg of nitroglycerin were given as a cocktail into the right radial sheath. 5000 units of heparin was given peripherally. Five Polish tiger 4 diagnostic catheter was used to perform left heart catheterization (obtaining pressures and performing left ventriculography) and bilateral coronary angiography. We did recognize mild disease in the coronaries and ectatic area in proximal LAD. 30 mm Hg to peak pressure gradient across aortic valve was in favor of at most mild aortic stenosis. No transcatheter revascularization was indicated. There was no dissection/hematoma/perforation. Patient tolerated procedure with no complication. Right radial artery access site was managed by deploying a TR band. Fluoroscopy time: 2.5 minutes contrast: 30 mL of MattipaDEBORAH Moreno MD Feb 14, 2024 15:32
--- NOTE | 2024-02-14 23:07 | DVHPN2 ---
Progress Note - Dictate Date Seen: Feb 14, 2024 Medical Necessity Reason Pt with a Central, PICC or Fol: No The following are medically ne: Meng Catheter Reason for meng catheter: Strict I&O Subjective Patient seen and examined at bedside. Remains on supplemental oxygen. Overnight events reviewed. vital signs Vital Sign Date Time Temp Pulse Resp B/P (MAP) Pulse Ox O2 Delivery O2 Flow Rate FiO2 02/14/24 21:00 99.2 105 18 144/68 (93) 98 99.2 02/14/24 20:00 Nasal Cannula* 3 32 Total Intake and Output 02/13/24 02/13/24 02/14/24 15:00 23:00 07:00 Intake Total 1550 ml 1080 ml 500 ml Output Total 1150 ml Balance 1550 ml -70 ml 500 ml medications Current Medications Medications Dose Ordered Sig/Anastacio Route Start Time Stop Time Status Last Admin Dose Admin Ondansetron HCl 4 mg Q4HP PRN IV 02/01/24 21:45 02/07/24 20:34 4 MG Nitroglycerin 0.4 mg Q5MINP PRN SL 02/01/24 21:45 Pantoprazole Sodium 40 mg DAILY IV 02/02/24 10:00 02/14/24 08:17 40 MG Atorvastatin Calcium 10 mg HS PO 02/02/24 22:00 02/11/24 20:11 10 MG Hydralazine HCl 10 mg Q6HP PRN IV 02/04/24 14:45 02/14/24 16:20 10 MG Piperacillin Sod/ Tazobactam Sod 100 ml @ 25 mls/hr Q8HR IV 02/05/24 01:00 02/14/24 21:56 25 MLS/HR Lorazepam 0.5 mg Q6HP PRN IV 02/05/24 14:15 02/05/24 21:52 0.5 MG Diagnostic Test (Pha) 1 strip ACHS 02/06/24 17:00 02/14/24 22:05 1 STRIP Insulin Human Regular ACHS SC 02/06/24 17:00 02/14/24 22:05 6 UNITS Dextrose 50 ml UD PRN IV 02/06/24 12:30 Metoprolol Succinate 25 mg DAILY PO 02/06/24 13:00 02/14/24 08:22 25 MG Brimonidine Tartrate 1 drop BID LEFTEYE 02/07/24 10:00 02/14/24 21:57 1 DROP Latanoprost 1 drop HS LEFTEYE 02/07/24 22:00 02/14/24 21:57 1 DROP Throat Lozenges 1 onel Q2HP PRN MT 02/08/24 16:30 02/14/24 19:47 1 ONEL Aspirin 81 mg DAILY PO 02/10/24 10:00 02/14/24 08:17 81 MG Enoxaparin Sodium 110 mg Q12HR SC 02/10/24 10:00 02/14/24 21:57 110 MG Furosemide 40 mg DAILY PO 02/11/24 10:00 02/14/24 08:23 40 MG Vancomycin HCl 250 ml @ 250 mls/hr DAILY@1100 IV 02/11/24 11:00 02/14/24 11:46 250 MLS/HR Acetaminophen/ Hydrocodone Bitart 1 tab Q6HPRN PRN PO 02/12/24 09:45 02/14/24 08:17 1 TAB Acetaminophen 650 mg Q4HP PRN PO 02/12/24 10:00 02/13/24 03:21 650 MG Sodium Chloride 1,000 ml @ 50 mls/hr Q20H IV 02/12/24 17:00 02/13/24 14:00 50 MLS/HR Albuterol 2.5 mg Q6HR NEB 02/13/24 06:00 02/14/24 18:18 2.5 MG Ipratropium [place] 0.5 mg Q6HR NEB 02/13/24 06:00 02/14/24 18:18 0.5 MG objective Gen.: Patient lying in bed in no apparent distress. On supplemental oxygen. Head: Normocephalic, atraumatic. Eyes: EOMI/PERRLA. Ears: Normal hearing. Normal anatomy. Neck/trachea: Trachea midline, supple. Nose: Normal external anatomy. Mouth: Moist mucous membranes. Chest: Decreased air entry bilaterally. No wheezing or rhonchi. Bilateral crackles. Cardiovascular: Positive S1, positive S2. Regular rate and rhythm. Abdomen: Positive bowel sounds in all 4 quadrants. Soft, non-tender, non- distended. : Deferred. Rectal: Deferred. Skin: Warm, dry. Intact. Extremities: 2+ radial pulses bilaterally. No lower extremity edema. Neuro: Awake, alert, oriented x3. No gross motor or sensory deficits. Cranial nerves II through XII intact. Gait not assessed. laboratory and microbiology Laboratory Tests 02/14/24 10:25 02/14/24 05:20 02/13/24 08:43 Test 02/14/24 05:20 Range/Units Serum Glucose 198 H 74-106 mg/dL Assessment/Plan Impression: Acute hypoxic respiratory failure S/p cardiopulmonary arrest Acute hypercarbic respiratory failure Elevated troponin Septic shock Obesity Pulmonary edema Events: Remains on supplemental oxygen, 2 LPM NC Taper O2 as tolerated Patient is s/p left heart catheterization. Cardiology recommendations appreciated. Continue bronchodilators Continue antibiotics IS. HOB elevation Aspiration precautions Diurese w/ Lasix as tolerated Monitor renal function. Monitor electrolytes. Supplement as necessary. Monitor ins and outs CPAP for JEREMY. Labs and imaging reviewed. Rest of plan as noted below. Plan: s/p extubation on 02/05/24. Supplemental oxygen Titrate to keep O2 sats above 92%. Off sedation S/p right IJ central line placement. Elevated troponin - Cardiology recommendations appreciated. Continue antibiotics. F/u cultures. Pressors if necessary for hemodynamic support Titrate to keep mean arterial pressure greater than 65 mmHg - currently off, hemodynamically stable. Monitor renal function Monitor electrolytes. Supplement as necessary. Monitor ins and outs. GI/DVT prophylaxis. Prognosis: Poor given patient's multiple co-morbidities. Rest of plan per hospitalist and other consultants. Thank you, Rhea Gibson NP, for allowing me to participate in this patient's care. Further recommendations will depend on the patient's clinical course. Please do not hesitate to contact me if you have any questions or concerns. This medical document was created using an electronic medical record system with [employer] dictation system. Although these documentations are being carefully reviewed, there may still be some phonetic and typographical changes. The errors are purely typographical, due to imperfection on the software program, and do not reflect any compromise in the patient's medical care. Dietary Evaluation Review Comments: 1) If GI is accessible consider Glucerna 1.2 @ 50ml/hr x 24hr goal rate as tolerated 2) If pt remains NPO >7 days consider TPN to meet 75% of estimated needs 3) Advance pt diet when medically feasible to a CCHO 45g/Cardiac diet 4) Continue current plan of care Expected Outcomes/Goals: 1) Pt to receive adequate nutrition support within 7 days of NPO status 2) Pt diet to advance 3) F/U in 2-3 days Plan discussed with: Patient, Other (EMMA Byrne/Keily) MARI KILGORE MD Feb 14, 2024 23:07
[2024-02-15] VITALS (17 sets, daily range): BP systolic 101–143; BP diastolic 60–68; PULSE 84–103; RESP 16–20; TEMP 97.5–98.6; O2SAT 96–100
--- NOTE | 2024-02-15 07:41 | DVHPN2 ---
Progress Note - Dictate Date Seen: Feb 15, 2024 Medical Necessity Reason Pt with a Central, PICC or Fol: No The following are medically ne: Meng Catheter Reason for meng catheter: Strict I&O vital signs Vital Sign Date Time Temp Pulse Resp B/P (MAP) Pulse Ox O2 Delivery O2 Flow Rate FiO2 02/15/24 07:01 99 19 98 02/15/24 06:55 Nasal Cannula* 5 40 02/15/24 05:00 98.4 101/60 (74) 98.4 Total Intake and Output 02/14/24 02/14/24 02/15/24 15:00 23:00 07:00 Intake Total 350 ml 612 ml 300 ml Balance 350 ml 612 ml 300 ml medications Current Medications Medications Dose Ordered Sig/Anastacio Route Start Time Stop Time Status Last Admin Dose Admin Ondansetron HCl 4 mg Q4HP PRN IV 02/01/24 21:45 02/07/24 20:34 4 MG Nitroglycerin 0.4 mg Q5MINP PRN SL 02/01/24 21:45 Pantoprazole Sodium 40 mg DAILY IV 02/02/24 10:00 02/14/24 08:17 40 MG Atorvastatin Calcium 10 mg HS PO 02/02/24 22:00 02/11/24 20:11 10 MG Hydralazine HCl 10 mg Q6HP PRN IV 02/04/24 14:45 02/14/24 16:20 10 MG Piperacillin Sod/ Tazobactam Sod 100 ml @ 25 mls/hr Q8HR IV 02/05/24 01:00 02/15/24 06:20 25 MLS/HR Lorazepam 0.5 mg Q6HP PRN IV 02/05/24 14:15 02/05/24 21:52 0.5 MG Diagnostic Test (Pha) 1 strip ACHS 02/06/24 17:00 02/14/24 22:05 1 STRIP Insulin Human Regular ACHS SC 02/06/24 17:00 02/15/24 06:24 4 UNITS Dextrose 50 ml UD PRN IV 02/06/24 12:30 Metoprolol Succinate 25 mg DAILY PO 02/06/24 13:00 02/14/24 08:22 25 MG Brimonidine Tartrate 1 drop BID LEFTEYE 02/07/24 10:00 02/14/24 21:57 1 DROP Latanoprost 1 drop HS LEFTEYE 02/07/24 22:00 02/14/24 21:57 1 DROP Throat Lozenges 1 onel Q2HP PRN MT 02/08/24 16:30 02/14/24 19:47 1 ONEL Aspirin 81 mg DAILY PO 02/10/24 10:00 02/14/24 08:17 81 MG Enoxaparin Sodium 110 mg Q12HR SC 02/10/24 10:00 02/14/24 21:57 110 MG Furosemide 40 mg DAILY PO 02/11/24 10:00 02/14/24 08:23 40 MG Vancomycin HCl 250 ml @ 250 mls/hr DAILY@1100 IV 02/11/24 11:00 02/14/24 11:46 250 MLS/HR Acetaminophen/ Hydrocodone Bitart 1 tab Q6HPRN PRN PO 02/12/24 09:45 02/14/24 08:17 1 TAB Acetaminophen 650 mg Q4HP PRN PO 02/12/24 10:00 02/13/24 03:21 650 MG Sodium Chloride 1,000 ml @ 50 mls/hr Q20H IV 02/12/24 17:00 02/15/24 05:08 50 MLS/HR Albuterol 2.5 mg Q6HR NEB 02/13/24 06:00 02/15/24 06:55 2.5 MG Ipratropium [place] 0.5 mg Q6HR NEB 02/13/24 06:00 02/15/24 06:55 0.5 MG laboratory and microbiology Laboratory Tests 02/15/24 05:53 02/14/24 05:20 02/13/24 08:43 Test 02/14/24 05:20 Range/Units Serum Glucose 198 H 74-106 mg/dL Assessment/Plan Patient is a 78-year-old female who presented with shortness of breath. She is intubated at the time of evaluation and not source of history. Information was obtained by reviewing the chart and communicating with staff. Reportedly, the patient lives in a nursing facility and EMS were called because the patient had used all of her medications for asthma and was still short of breath. Reportedly, while transferring the patient to the hospital the patient suffered Arrest and CPR was performed successfully. Patient was intubated. There has been no tele/EKG rhythm at the time of arrest to review. At the time of evaluation patient is nonresponsive. Cardiology is involved for cardiac aspects of care. There is questionable old history of myocardial infarction as per staff. Review of the transfer notes from nursing facility do not comment on any coronary artery disease. female, Extubated. No JVD. No JVD. Mucosa is pink and wet. Scattered rhonchi in the lungs is heard. Cardiac: Regular, no thrill/gallop. Systolic murmur 2/6 in apex is heard. Abdomen is soft. Bowel sound is positive. There is no gross mass/hepatomegaly. Extremities do not reveal edema. Dorsalis pedis is 1+ bilateral Reported past medical history includes COPD/asthma, cataract, osteoarthritis, diabetes mellitus, obstructive sleep apnea. As per communications from nursing facility, the patient uses walker for ambulation and reportedly patient has been frail prior to this presentation. Creatinine: 1.34 - 1.33 - 0.92 - 0.96 - 0.99 - 1.06 - 1.12 - 1.16 - 1.01 - 1.14 - 1.38 - 1.26 - 1.16 - 1.18 - 1.20 - 1.25 Potassium: 5.9 - 3.9 - 4.7 - 3.9 - 3.7 - 3.1 - 3.9 - 3.3 - 3.9 - 3.5 - 3.9 - 3.4 Lactic acid: 5.5 - 1.1 AST/ALT: 75/99 - 94/135 - 16/36 - 24/32 - 19/29 - 22/33 BNP: 68.68 - 61.15 - 44.75 - 109.22 Troponin (high sensitive): 7 - 9 - 26 - 39 LDL: 48 - 38 TSH: 0.96 - 1.36 HgbA1c: 7.0 D-dimer: >35.20 Chest x-ray revealed: Lines and Tubes: Endotracheal tube terminating 4.5 cm above the lois. Enteric tube crosses the diaphragm near midline and descends into the left upper quadrant. Right neck central venous catheter terminates over the SVC. Lungs: No focal consolidation. Diffuse bilateral interstitial opacities. Pleura: No effusion. No pneumothorax. Cardiomediastinal contours: Unremarkable Bones: No acute osseous abnormality. IMPRESSION: 1. Lines and tubes as described. 2. Nonspecific diffuse bilateral interstitial opacities. Repeat chest xry reported: Lines and Tubes: Endotracheal tube terminating 4.5 cm above the lois. Enteric tube crosses the diaphragm near midline and descends into the left upper quadrant. Right neck central venous catheter terminates over the SVC. Lungs: No focal consolidation. Diffuse bilateral interstitial opacities. Pleura: No effusion. No pneumothorax. Cardiomediastinal contours: Unremarkable Bones: No acute osseous abnormality. IMPRESSION: 1. Lines and tubes as described. 2. Nonspecific diffuse bilateral interstitial opacities. Repeat chest xry revealed: Lines and Tubes: Endotracheal tube terminating 4.5 cm above the lois. Enteric tube crosses the diaphragm near midline and descends into the left upper quadrant. Right neck central venous catheter terminates over the SVC. Lungs: No focal consolidation. Diffuse bilateral interstitial opacities. Pleura: No effusion. No pneumothorax. Cardiomediastinal contours: Unremarkable Bones: No acute osseous abnormality. IMPRESSION: 1. Lines and tubes as described. 2. Nonspecific diffuse bilateral interstitial opacities. Repeat chest xry revealed: 1. Interval removal of the endotracheal tube and enteric tube. Stable satisfactory positioning of the right internal jugular central venous catheter. 2. Mild perihilar opacities and left basilar opacity appear slightly more conspicuous compared to prior exams. CT of head reported: IMPRESSION: 1. No acute intracranial process. Venous Doppler of lower extremities reported: Impression: 1. No right or left femoropopliteal venous thrombosis. V/Q scan: Impression: 1. Based on PIOPED criteria, intermediate probability for pulmonary embolism. CTA of chest revealed: IMPRESSION: 1. No pulmonary embolism. 2. Bilateral pleural effusions with associated bibasilar atelectasis and consolidation. Nodular airspace disease in the bilateral upper lobes associated with the 1st costosternal junction. Clinical correlation and continued follow-up is recommended. Left thyroid nodule. Consider thyroid ultrasound. Thyroid Ultrasound reported: IMPRESSION: Benign cyst in the right upper pole measures 0.9 cm, TR 1. Mixed cystic and solid nodule in the right lower pole measures 1.3 cm, TR 3. Isoechoic nodule in the left lower pole measures 2.3 cm, TR 3. [employer] TI-RADS Categories and Recommendations (2017): TR1: 0 points, Benign, No FNA TR2: 2 points, Not suspicious, No FNA TR3: 3 points, Mildly suspicious, FNA if > or = 2.5 cm, Follow if > or = 1.5 cm EKG revealed sinus rhythm with no ST-T changes Tele reveals sinus rhythm Echocardiogram revealed: Left ventricle: Left ventricular systolic function was preserved. LDL was around 60% predicted there was no gross wall motion abnormality. Right ventricle was normal size with normal systolic function. Both atria were normal size. Aortic valve was not well visualized. There was no aortic insufficiency/stenosis. There was trivial mitral/tricuspid regurgitation. Pulmonic valve was not well visualized. Right ventricular systolic pressure was assessed around 38 mm Hg. There was no pericardial effusion. Left heart cath: Diagnosis: Nonobstructive coronary artery disease; 31 mm Hg peak to peak pressure gradient across aortic valve; At most, mild aortic stenosis; Preserved left ventricular systolic function; LVEF of 65%; Cardiac suggestion for management: Optimized medical therapy; Lifestyle and risk factor modifications Patient is a 78-year-old female who presented to the hospital with shortness of breath/respiratory distress. Reportedly, the patient had arrest. She was intubated and on vent support. Presentation and troponin is against acute coronary syndrome. Patient's D-dimer has been elevated and pulmonary emboli as a cause for presentation should be ruled out. It is of note that venous Doppler of lower extremities have been nonrevealing. Evaluation and management depends on regaining higher brain function status. Also, as per son, patient had been specifically refusing any contrast/iodine related tests/CT scans (which by comparison include cardiac cath). Family wanted us to wait until patient regains consciousness and decide herself. Echo revealed good LV systolic function, valves are working ok. Patient is seen by Neurology who is contemplating Hypoxic Encephalopathy. Pulmonary on the case. Patient was later extubated. She has regained higher brain function. We had long discussion about the presentation and abnormal labs (D-dimer). She was told about suggestions for possible left heart catheterization and also CT angio of the lungs. She verbalized understanding. She originally refused any kind of contrast/iodine related study. She mentioned that she understands the risks but does not want contrast related tests. 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 She was told that V/Q scan can still be performed and she agreed. V/Q scan was intermediate probability for PE. A/C was advised. Pulmonary follow up and advise for A/C. Patient talked to her outside physician on the phone yesterday and decided to proceed with contrast studies. As she was on Eliquis, it was held and patient was restarted on Lovenox. Will arrange for possible LHC next week. CTA of lungs (performed) ruled out pulmonary emboli. Was found to have thyroid nodule. s/p LHC: non-obstructive CAD, some transaortic valve pressure gradient in favor of at most mild Aortic Stenosis. Arrest Respiratory failure, acute s/p Intubation and later extubation History of asthma/COPD Encephalopathy, Hypoxic? , Metabolic? Diabetes mellitus Cataract Osteoarthritis Septic shock Throid nodule Abnormal d-dimer Pulmonary Emboli, ruled out Non-obstructive CAD Mild Aortic Stenosis Cardiac suggestion for management: Manage in tele Follow-up electrolytes and kidney function tests and correct abnormalities. Keep potassium above 4 and magnesium above 2. Avoid hyperkalemia. Lipitor: 10 mg at night is suggested No need for full anticoagulation Cardiac clemens, can be followed as outpatient Further evaluation and management depends on the above and clinical course A total of 55 minutes was spent reviewing the patient record, examining the patient, making a diagnostic and therapeutic plan, discussing this plan with medical personnel, following up on diagnostic studies and following the patient for clinical stability excluding any and all procedures. At least 50% of this time was spent in direct, [id number] contact. Thank you for allowing me to participate in this patient's care. Further recommendations will depend on patient's clinical course. Please do not hesitate to contact me if you have any questions or concerns. This medical document was created using electronic medical record system with [employer] computerized dictation system. Although this document has been carefully reviewed, there may still be some phonetic and typographical errors. These areas are purely typographical due to the imperfection of the software programs, and do not reflect any compromise in the patient's medical care. Dietary Evaluation Review Comments: 1) If GI is accessible consider Glucerna 1.2 @ 50ml/hr x 24hr goal rate as tolerated 2) If pt remains NPO >7 days consider TPN to meet 75% of estimated needs 3) Advance pt diet when medically feasible to a CCHO 45g/Cardiac diet 4) Continue current plan of care Expected Outcomes/Goals: 1) Pt to receive adequate nutrition support within 7 days of NPO status 2) Pt diet to advance 3) F/U in 2-3 days Plan discussed with: Patient, Other (nurse) DEBORAH FREIRE MD Feb 15, 2024 07:41
[2024-02-15] MEDS: ENOXAPARIN SOD 40 MG/0.4 ML SYRINGE SC SCH (09:05)
[2024-02-15] MEDS ORDERED: METO-6 PO (12:15)
[2024-02-15] MEDS ORDERED: ATOR20TA50 PO (12:15)
--- NOTE | 2024-02-15 12:18 | DVHDS2 ---
Discharge Summary Date of Admission Feb 01, 2024 at 20:47 Date of Discharge: Feb 15, 2024 Labs/Diagnostic Data: Laboratory Results Test 02/15/24 10:37 02/15/24 05:53 02/14/24 10:25 02/14/24 05:20 POC Glucose 294 mg/dl (70-106) Creatinine 1.25 mg/dL (0.550-1.02) Glomerular Filtration Rate Calc 45 mL/min (>90) Vancomycin Level Trough 16.0 ug/mL (5-10) Sodium Level 145 mmol/L (136-145) Potassium Level 3.4 mmol/L (3.5-5.1) Chloride Level 101 mmol/L (98-107) Carbon Dioxide Level 38 mmol/L (20-31) Anion Gap 6 (5-15) Blood Urea Nitrogen 18 mg/dL (9-23) BUN/Creatinine Ratio 15.3 (10.0-20.0) Serum Glucose 198 mg/dL (74-106) Calcium Level 9.8 mg/dL (8.7-10.4) Total Bilirubin 0.2 mg/dL (0.2-1.0) Aspartate Amino Transferase (AST) 22 U/L (13-40) Alanine Aminotransferase (ALT) 33 U/L (7-40) Alkaline Phosphatase 56 U/L (46-116) Total Protein 6.0 g/dL (5.7-8.2) Albumin 3.7 g/dL (3.2-4.8) Test 02/13/24 08:43 02/11/24 05:00 02/10/24 05:17 02/08/24 11:10 White Blood Count 8.8 10^3/uL (4.4-10.8) Red Blood Count 2.93 10^6/uL (4.0-5.20) Hemoglobin 8.5 g/dL (12.2-16.2) Hematocrit 28.1 % (36.0-46.0) Mean Corpuscular Volume 96.1 fL (80.0-100.0) Mean Corpuscular Hemoglobin 29.1 pg (28.0-32.0) Mean Corpuscular Hemoglobin Concent 30.3 g/dL (32.0-36.0) Red Cell Distribution Width 17.1 % (11.8-14.3) Platelet Count 298 10^3/uL (140-450) Mean Platelet Volume 8.5 fL (6.9-10.8) Neutrophils (%) (Auto) 69.5 % (37.0-80.0) Lymphocytes (%) (Auto) 16.4 % (10.0-50.0) Monocytes (%) (Auto) 9.3 % (0.0-12.0) Eosinophils (%) (Auto) 4.3 % (0.0-7.0) Basophils (%) (Auto) 0.5 % (0.0-2.0) Neutrophils # (Auto) 6.1 10 ^3/uL (1.6-8.6) Lymphocytes # (Auto) 1.4 10 ^3/uL (0.4-5.4) Monocytes # (Auto) 0.8 10 ^3/uL (0-1.3) Eosinophils # (Auto) 0.4 10 ^3/uL (0-0.8) Basophils # (Auto) 0 10 ^3/uL (0-0.2) Nucleated Red Blood Cells 0.1 % Random Vancomycin Level 15.8 ug/mL (5-10) Magnesium Level 1.9 mg/dL (1.6-2.6) Stool Occult Blood Negative (Negative) Stool Occult Blood Sample #3 (Negative) Test 02/07/24 03:15 02/06/24 07:54 02/05/24 14:27 02/05/24 10:05 Phosphorus Level 2.1 mg/dL (2.4-5.1) Iron Level 21 ug/dL (50-170) Total Iron Binding Capacity 187 ug/dL (250-425) Percent Iron Saturation 11.2 % (15-50) Vitamin B12 Level 932 pg/mL (211-911) Folic Acid 16.07 ng/mL (>5.38) B-Type Natriuretic Peptide 109.22 pg/mL (0-100) Blood Gas Specimen Type Arterial Blood Gas Sample Site Right radial Blood Gas Patient Temperature 37.0 Arterial Blood Date Drawn [id number] Arterial Blood pH 7.335 (7.350-7.450) Arterial Blood Partial Pressure CO2 53.6 mmHg (32.0-45.0) Arterial Blood Partial Pressure O2 117.1 mmHg (83.0-108.0) Arterial Blood HCO3 27.9 mmol/L (21.0-28.0) Arterial Blood Oxygen Saturation 95.6 % (94.0-98.0) Arterial Blood Base Excess 1.5 mmol/L (-2.0-3.0) Arterial Blood Oxyhemoglobin 94.4 % (94.0-98.0) Arterial Blood Carboxyhemoglobin 1.2 % (0.5-1.5) Arterial Blood Methemoglobin 0.1 % (0.0-1.5) Maximino Test Yes Blood Gas Total Hemoglobin 10.10 g/dL (12.0-16.0) Blood Gas Set Respiration Rate 14.0 Blood Gas Modality Mask - bipap FiO2 % 40.0 Blood Gas Pressure Support 7 Blood Gas EPAP 7 Blood Gas IPAP 14 Blood Gas Tidal Volume 450.0 Blood Gas PEEP or CPAP 5.0 Test 02/04/24 03:43 02/03/24 09:30 02/03/24 04:49 02/02/24 06:50 Estimated GFR () 76 mL/min Estimated GFR (Non- 63 mL/min Blood Gas Spontaneous Rate 18 Hemoglobin A1c 7.0 % A1C (<5.7) Triglycerides Level 105 mg/dL (< 150) Cholesterol Level 101 mg/dL (< 200) LDL Cholesterol 38 mg/dL (< 100) HDL Cholesterol 38 mg/dL (40-59) Thyroid Stimulating Hormone (TSH) 1.36 uIU/mL (0.55-4.78) Influenza Type A Antigen Negative (Negative) Influenza Type B Antigen Negative (Negative) SARS-CoV-2 Antigen (Rapid) Negative (NEGATIVE) Test 02/02/24 00:30 02/01/24 20:35 02/01/24 20:18 02/01/24 19:42 Troponin I High Sensitivity 39 ng/L (</=34) Lactic Acid Level 1.1 mmol/L (0.4-2.0) Blood Gas Critical Value Read Back Yes Blood Gas Notified Whom Dr. pilo dougherty Blood Gas Notified Time [id number] Blood Gas Notified By Rt don dsouza Urine Color Light-yellow (Yellow) Urine Clarity Clear (Clear) Urine pH 6.0 (5.0-9.0) Urine Specific [place] 1.009 (1.001-1.035) Urine Protein Negative (Negative) Urine Ketones Negative (Negative) Urine Blood Negative /uL (Negative) Urine Nitrite Negative (Negative) Urine Bilirubin Negative (Negative) Urine Urobilinogen Normal mg/dL (Negative) Urine Leukocyte Esterase Negative /uL (Negative) Urine RBC 1 /hpf (0 - 4) Urine WBC <1 /hpf (0 - 5) Urine Squamous Epithelial Cells Few /hpf (<5) Urine Bacteria None seen /hpf (None Seen) Urine Glucose Normal mg/dL (Normal) Test 02/01/24 19:05 Differential Total Cells Counted 100.0 (100) Neutrophils % (Manual) 29 (37.0-80.0) Band Neutrophils % (Manual) 0 Lymphocytes % (Manual) 51 (10.0-50.0) Monocytes % (Manual) 10 (0-12) Eosinophils % (Manual) 10 (0-7) Basophils % (Manual) 0 (0.0-2.0) Metamyelocytes % (manual) 0 Myelocytes % (Manual) 0 Promyelocytes % (Manual) 0 Blast Cells % (Manual) 0 Reactive Lymphocytes 0 Platelet Estimate Adequate Poikilocytosis (manual) Slight Anisocytosis (manual) Slight Prothrombin Time 10.3 sec (9.3-11.8) Prothrombin Time INR 0.97 (0.9-1.15) Activated Partial Thromboplast Time 23.1 SEC (24.5-34.5) D-Dimer, Quantitative > 35.20 mg/L FEU (0.0-0.49) Lipase 31 U/L (12-53) Other Laboratory Tests 02/15/24 05:53 02/14/24 05:20 02/13/24 08:43 Brief Hx & Hospital Course: Patient was admitted on February 01, 2024 status post cardiac arrest. Patient was emergently intubated. patient was found have acute hypoxic respiratory failure with an elevated D-dimer. CTA was negative for PE. Patient also was NSTEMI. Patient started status post heart cath. Patient has nonobstructive coronary artery disease. Ultrasound venous doppler to the lower extremities was negative for DVT. Estimated EF is 60%. Patient was cleared for discharge home by cardiology. Home health was arranged for home safety follow-up. Patient will follow-up with cardiology in 2 weeks. The patient received proper medical treatment and medications. Vital signs, Imaging and Laboratory Work was monitored daily. All consults recommendations were followed as provided. There were no complaints or new complaints upon discharge, all questions and concerns were answered. Patient was advised to return to the ER or call 911 if any headaches, dizziness, shortness of breath, chest pain, bleeding, fevers, or worsening of medical condition. Patient/Family was counseled about treatment plan, medications, possible side effects, patient verbalized understanding. All questions were answered to the best of my ability. The patient symptoms improved and they are okay to be DC. Condition at Discharge: Stable Final Diagnosis/Problems List Acute hypoxic respiratory failure Status post cardio pulmonology arrest COPD exacerbation Obesity Benign essential hypertension Pneumonia Septic shock Elevated troponins Elevated D-dimer Discharge Disposition: Home with Health Services Discharge Instruct/Medications Diet: Cardiac 2g Na,low cholest Activity: No Restrictions, As Tolerated Follow Up/Referral: PCP 1 WEEK Discharge Statement: "Patient was advised to return to the ER or call 911 if any headaches, dizziness, shortness of breath, chest pain, abdominal pain, bleeding, fevers, or worsening of medical condition. Patient was counseled about treatment plan, medications, possible side effects, patientverbalized understanding. All questions were answered to the best of my ability. This discharge took greater then 30 minutes in planning, reviewing documentation, counseling the patient, and discussing with other team members." ASSESSMENT ASSESSMENT Assessment S/P CARDIAC ARREST RESPIRATORY JORY VIRK NP Feb 15, 2024 12:18
--- NOTE | 2024-02-15 14:58 | DVHPN2 ---
Progress Note - Dictate Date Seen: Feb 15, 2024 Medical Necessity Reason Pt with a Central, PICC or Fol: No The following are medically ne: Meng Catheter Reason for meng catheter: Strict I&O Subjective Patient seen at bedside sleeping comfortably She is currently on supplemental oxygen and appears to be stable She denies any GI bleeding; hemoglobin 8.5 and stable, creatinine 1.16 She has not had any prior endoscopy or colonoscopy as per her recollection Cardiac catheterization results noted Diagnosis: Nonobstructive coronary artery disease 31 mm Hg peak to peak pressure gradient across aortic valve At most, mild aortic stenosis Preserved left ventricular systolic function LVEF of 65% Cardiac suggestion for management: Optimized medical therapy Lifestyle and risk factor modifications vital signs Vital Sign Date Time Temp Pulse Resp B/P (MAP) Pulse Ox O2 Delivery O2 Flow Rate FiO2 02/15/24 12:58 97.5 89 18 127/61 (83) 99 97.5 02/15/24 11:20 Nasal Cannula* 5 40 Total Intake and Output 02/14/24 02/14/24 02/15/24 15:00 23:00 07:00 Intake Total 350 ml 612 ml 300 ml Balance 350 ml 612 ml 300 ml medications Current Medications Medications Dose Ordered Sig/Anastacio Route Start Time Stop Time Status Last Admin Dose Admin Ondansetron HCl 4 mg Q4HP PRN IV 02/01/24 21:45 02/07/24 20:34 4 MG Nitroglycerin 0.4 mg Q5MINP PRN SL 02/01/24 21:45 Pantoprazole Sodium 40 mg DAILY IV 02/02/24 10:00 02/15/24 09:04 40 MG Atorvastatin Calcium 10 mg HS PO 02/02/24 22:00 02/11/24 20:11 10 MG Hydralazine HCl 10 mg Q6HP PRN IV 02/04/24 14:45 02/14/24 16:20 10 MG Piperacillin Sod/ Tazobactam Sod 100 ml @ 25 mls/hr Q8HR IV 02/05/24 01:00 02/15/24 13:51 25 MLS/HR Lorazepam 0.5 mg Q6HP PRN IV 02/05/24 14:15 02/05/24 21:52 0.5 MG Diagnostic Test (Pha) 1 strip ACHS 02/06/24 17:00 02/15/24 10:50 1 STRIP Insulin Human Regular ACHS SC 02/06/24 17:00 02/15/24 10:56 6 UNITS Dextrose 50 ml UD PRN IV 02/06/24 12:30 Metoprolol Succinate 25 mg DAILY PO 02/06/24 13:00 02/15/24 09:05 25 MG Brimonidine Tartrate 1 drop BID LEFTEYE 02/07/24 10:00 02/15/24 09:06 1 DROP Latanoprost 1 drop HS LEFTEYE 02/07/24 22:00 02/14/24 21:57 1 DROP Throat Lozenges 1 onel Q2HP PRN MT 02/08/24 16:30 02/14/24 19:47 1 ONEL Aspirin 81 mg DAILY PO 02/10/24 10:00 02/15/24 09:05 81 MG Furosemide 40 mg DAILY PO 02/11/24 10:00 02/15/24 09:06 40 MG Vancomycin HCl 250 ml @ 250 mls/hr DAILY@1100 IV 02/11/24 11:00 02/15/24 10:50 250 MLS/HR Acetaminophen/ Hydrocodone Bitart 1 tab Q6HPRN PRN PO 02/12/24 09:45 02/15/24 13:56 1 TAB Acetaminophen 650 mg Q4HP PRN PO 02/12/24 10:00 02/13/24 03:21 650 MG Sodium Chloride 1,000 ml @ 50 mls/hr Q20H IV 02/12/24 17:00 02/15/24 05:08 50 MLS/HR Albuterol 2.5 mg Q6HR NEB 02/13/24 06:00 02/15/24 11:20 2.5 MG Ipratropium [place] 0.5 mg Q6HR NEB 02/13/24 06:00 02/15/24 11:20 0.5 MG Enoxaparin Sodium 40 mg DAILY SC 02/15/24 10:00 02/15/24 09:05 40 MG objective Awake and alert x3 HEENT: EOMI, PERRLA, normal external inspect of ears, no icterus, no nasal drainage Neck: no carotid bruit, no jugular venous distention (JVD), no lymphadenopathy Respiratory: clear to auscultation, normal air movement Cardiovascular: regular rate and rhythm, no diastolic murmur, no jugular venous distention (JVD), Abdominal: soft, no hepatomegaly, no mass, no splenomegaly, no tenderness Musculoskeletal: no joint tenderness, no swelling Extremities: normal pulses, no calf tenderness, no clubbing, no cyanosis, no edema Skin: no bruising, no jaundice, no rash Neurological: alert, No focal deficit laboratory and microbiology Laboratory Tests 02/15/24 05:53 02/14/24 05:20 02/13/24 08:43 Test 02/14/24 05:20 Range/Units Serum Glucose 198 H 74-106 mg/dL Problems(with codes): (1) Lung infiltrate (2) Anemia (3) Cardiac arrest (4) Acute respiratory failure Prognosis Plan Discharge planning is in progress Patient was given my contact information to arrange outpatient elective follow up for panendoscopy once medically stabilized Once again thank you for allowing me to participate in the care of this patient Dietary Evaluation Review Comments: 1) If GI is accessible consider Glucerna 1.2 @ 50ml/hr x 24hr goal rate as tolerated 2) If pt remains NPO >7 days consider TPN to meet 75% of estimated needs 3) Advance pt diet when medically feasible to a CCHO 45g/Cardiac diet 4) Continue current plan of care Expected Outcomes/Goals: 1) Pt to receive adequate nutrition support within 7 days of NPO status 2) Pt diet to advance 3) F/U in 2-3 days Plan discussed with: Patient JIMMY SINGH MD Feb 15, 2024 14:58
--- NOTE | 2024-02-15 21:19 | DVHPN2 ---
Progress Note - Dictate Date Seen: Feb 15, 2024 Medical Necessity Reason Pt with a Central, PICC or Fol: No The following are medically ne: Meng Catheter Reason for meng catheter: Strict I&O Subjective Patient seen and examined at bedside. Remains on supplemental oxygen. Overnight events reviewed. vital signs Vital Sign Date Time Temp Pulse Resp B/P (MAP) Pulse Ox O2 Delivery O2 Flow Rate FiO2 02/15/24 18:13 84 18 99 02/15/24 18:07 Nasal Cannula 2.0 02/15/24 18:07 28 02/15/24 16:50 97.8 135/63 (87) 97.8 Total Intake and Output 02/14/24 02/14/24 02/15/24 14:59 22:59 06:59 Intake Total 350 ml 612 ml 300 ml Balance 350 ml 612 ml 300 ml medications Current Medications Medications Dose Ordered Sig/Anastacio Route Start Time Stop Time Status Last Admin Dose Admin Ondansetron HCl 4 mg Q4HP PRN IV 02/01/24 21:45 02/07/24 20:34 4 MG Nitroglycerin 0.4 mg Q5MINP PRN SL 02/01/24 21:45 Pantoprazole Sodium 40 mg DAILY IV 02/02/24 10:00 02/15/24 09:04 40 MG Atorvastatin Calcium 10 mg HS PO 02/02/24 22:00 02/11/24 20:11 10 MG Hydralazine HCl 10 mg Q6HP PRN IV 02/04/24 14:45 02/14/24 16:20 10 MG Piperacillin Sod/ Tazobactam Sod 100 ml @ 25 mls/hr Q8HR IV 02/05/24 01:00 02/15/24 13:51 25 MLS/HR Lorazepam 0.5 mg Q6HP PRN IV 02/05/24 14:15 02/05/24 21:52 0.5 MG Diagnostic Test (Pha) 1 strip ACHS 02/06/24 17:00 02/15/24 16:22 1 STRIP Insulin Human Regular ACHS SC 02/06/24 17:00 02/15/24 16:23 6 UNITS Dextrose 50 ml UD PRN IV 02/06/24 12:30 Metoprolol Succinate 25 mg DAILY PO 02/06/24 13:00 02/15/24 09:05 25 MG Brimonidine Tartrate 1 drop BID LEFTEYE 02/07/24 10:00 02/15/24 09:06 1 DROP Latanoprost 1 drop HS LEFTEYE 02/07/24 22:00 02/14/24 21:57 1 DROP Throat Lozenges 1 onel Q2HP PRN MT 02/08/24 16:30 02/14/24 19:47 1 ONEL Aspirin 81 mg DAILY PO 02/10/24 10:00 02/15/24 09:05 81 MG Furosemide 40 mg DAILY PO 02/11/24 10:00 02/15/24 09:06 40 MG Vancomycin HCl 250 ml @ 250 mls/hr DAILY@1100 IV 02/11/24 11:00 02/15/24 10:50 250 MLS/HR Acetaminophen/ Hydrocodone Bitart 1 tab Q6HPRN PRN PO 02/12/24 09:45 02/15/24 13:56 1 TAB Acetaminophen 650 mg Q4HP PRN PO 02/12/24 10:00 02/13/24 03:21 650 MG Sodium Chloride 1,000 ml @ 50 mls/hr Q20H IV 02/12/24 17:00 02/15/24 05:08 50 MLS/HR Albuterol 2.5 mg Q6HR NEB 02/13/24 06:00 02/15/24 18:07 2.5 MG Ipratropium [place] 0.5 mg Q6HR NEB 02/13/24 06:00 02/15/24 18:07 0.5 MG Enoxaparin Sodium 40 mg DAILY SC 02/15/24 10:00 02/15/24 09:05 40 MG objective Gen.: Patient lying in bed in no apparent distress. On supplemental oxygen. Head: Normocephalic, atraumatic. Eyes: EOMI/PERRLA. Ears: Normal hearing. Normal anatomy. Neck/trachea: Trachea midline, supple. Nose: Normal external anatomy. Mouth: Moist mucous membranes. Chest: Decreased air entry bilaterally. No wheezing or rhonchi. Bilateral crackles. Cardiovascular: Positive S1, positive S2. Regular rate and rhythm. Abdomen: Positive bowel sounds in all 4 quadrants. Soft, non-tender, non- distended. : Deferred. Rectal: Deferred. Skin: Warm, dry. Intact. Extremities: 2+ radial pulses bilaterally. No lower extremity edema. Neuro: Awake, alert, oriented x3. No gross motor or sensory deficits. Cranial nerves II through XII intact. Gait not assessed. laboratory and microbiology Laboratory Tests 02/15/24 05:53 02/14/24 05:20 02/13/24 08:43 Test 02/14/24 05:20 Range/Units Serum Glucose 198 H 74-106 mg/dL Assessment/Plan Impression: Acute hypoxic respiratory failure S/p cardiopulmonary arrest Acute hypercarbic respiratory failure Elevated troponin Septic shock Obesity Pulmonary edema Events: Remains on supplemental oxygen, 4 LPM NC Taper O2 as tolerated Patient is s/p left heart catheterization. Cardiology recommendations appreciated. Continue bronchodilators Complete antibiotic course IS. HOB elevation Aspiration precautions Diurese w/ Lasix as tolerated Monitor renal function. Monitor electrolytes. Supplement as necessary. Monitor ins and outs CPAP for JEREMY. Patient is stable for discharge from the pulmonary standpoint. Follow up in 2-3 weeks in Pulmonary Clinic. Labs and imaging reviewed. Rest of plan as noted below. Plan: s/p extubation on 02/05/24. Supplemental oxygen Titrate to keep O2 sats above 92%. Off sedation S/p right IJ central line placement. Elevated troponin - Cardiology recommendations appreciated. Continue antibiotics. F/u cultures. Pressors if necessary for hemodynamic support Titrate to keep mean arterial pressure greater than 65 mmHg - currently off, hemodynamically stable. Monitor renal function Monitor electrolytes. Supplement as necessary. Monitor ins and outs. GI/DVT prophylaxis. Prognosis: Poor given patient's multiple co-morbidities. Rest of plan per hospitalist and other consultants. Thank you, Rhea Gibson NP, for allowing me to participate in this patient's care. Further recommendations will depend on the patient's clinical course. Please do not hesitate to contact me if you have any questions or concerns. This medical document was created using an electronic medical record system with [employer] dictation system. Although these documentations are being carefully reviewed, there may still be some phonetic and typographical changes. The errors are purely typographical, due to imperfection on the software program, and do not reflect any compromise in the patient's medical care. Dietary Evaluation Review Comments: 1) If GI is accessible consider Glucerna 1.2 @ 50ml/hr x 24hr goal rate as tolerated 2) If pt remains NPO >7 days consider TPN to meet 75% of estimated needs 3) Advance pt diet when medically feasible to a CCHO 45g/Cardiac diet 4) Continue current plan of care Expected Outcomes/Goals: 1) Pt to receive adequate nutrition support within 7 days of NPO status 2) Pt diet to advance 3) F/U in 2-3 days Plan discussed with: Patient, Other (EMMA Wilcox) MARI KILGORE MD Feb 15, 2024 21:19
== END 2024-02-15 19:12 | disposition home health service (06) | DRG 871 ==
LOC: EDSEX 18:48 → EDBD 18:48 → ER 18:48 → TELE 20:47 → ICU WEST 02-03 04:13 → DOU IN ICU 02-07 16:44 → TELE-EAST 02-07 22:00
PROVIDERS: ADMIT Nurse Practitioner; ATTEND Nurse Practitioner
PROC: 5A1945Z Respiratory Ventilation, 24-96 Consecutive Hours (ICD-10-PCS; principal; 2024-02-01)
PROC: 0BH17EZ Insertion of Endotracheal Airway into Trachea, Via Natural or Artificial Opening (ICD-10-PCS; 2024-02-01)
PROC: 5A12012 Performance of Cardiac Output, Single, Manual (ICD-10-PCS; 2024-02-01)
PROC: 02HV33Z Insertion of Infusion Device into Superior Vena Cava, Percutaneous Approach (ICD-10-PCS; 2024-02-01)
PROC: 5A09357 Assistance with Respiratory Ventilation, Less than 24 Consecutive Hours, Continuous Positive Airway Pressure (ICD-10-PCS; 2024-02-05)
PROC: 5A09357 Assistance with Respiratory Ventilation, Less than 24 Consecutive Hours, Continuous Positive Airway Pressure (ICD-10-PCS; 2024-02-06)
PROC: 5A09357 Assistance with Respiratory Ventilation, Less than 24 Consecutive Hours, Continuous Positive Airway Pressure (ICD-10-PCS; 2024-02-07)
PROC: 5A09357 Assistance with Respiratory Ventilation, Less than 24 Consecutive Hours, Continuous Positive Airway Pressure (ICD-10-PCS; 2024-02-08)
PROC: 5A09357 Assistance with Respiratory Ventilation, Less than 24 Consecutive Hours, Continuous Positive Airway Pressure (ICD-10-PCS; 2024-02-10)
PROC: 5A09357 Assistance with Respiratory Ventilation, Less than 24 Consecutive Hours, Continuous Positive Airway Pressure (ICD-10-PCS; 2024-02-11)
PROC: B211YZZ Fluoroscopy of Multiple Coronary Arteries using Other Contrast (ICD-10-PCS; 2024-02-14)
PROC: B215YZZ Fluoroscopy of Left Heart using Other Contrast (ICD-10-PCS; 2024-02-14)
PROC: 4A023N7 Measurement of Cardiac Sampling and Pressure, Left Heart, Percutaneous Approach (ICD-10-PCS; 2024-02-14)
DX: A41.9 Sepsis, unspecified organism (principal); G93.41 Metabolic encephalopathy; J96.01 Acute respiratory failure with hypoxia; I46.9 Cardiac arrest, cause unspecified; J96.02 Acute respiratory failure with hypercapnia; R65.21 Severe sepsis with septic shock; I26.99 Other pulmonary embolism without acute cor pulmonale; J15.69 Pneumonia due to other Gram-negative bacteria; J15.9 Unspecified bacterial pneumonia; E87.4 Mixed disorder of acid-base balance; G93.1 Anoxic brain damage, not elsewhere classified; J44.1 Chronic obstructive pulmonary disease with (acute) exacerbation; J44.0 Chronic obstructive pulmonary disease with (acute) lower respiratory infection; I24.9 Acute ischemic heart disease, unspecified; J81.1 Chronic pulmonary edema; N17.9 Acute kidney failure, unspecified; E11.22 Type 2 diabetes mellitus with diabetic chronic kidney disease; E66.9 Obesity, unspecified; R54 Age-related physical debility; Z20.822 Contact with and (suspected) exposure to COVID-19; G47.33 Obstructive sleep apnea (adult) (pediatric); I12.9 Hypertensive chronic kidney disease with stage 1 through stage 4 chronic kidney disease, or unspecified chronic kidney disease; E87.70 Fluid overload, unspecified; N18.9 Chronic kidney disease, unspecified; I25.10 Atherosclerotic heart disease of native coronary artery without angina pectoris; E11.36 Type 2 diabetes mellitus with diabetic cataract; D64.9 Anemia, unspecified; I25.2 Old myocardial infarction; Z87.01 Personal history of pneumonia (recurrent); Z83.3 Family history of diabetes mellitus; Z82.49 Family history of ischemic heart disease and other diseases of the circulatory system; Z79.82 Long term (current) use of aspirin; Z79.01 Long term (current) use of anticoagulants; Z79.4 Long term (current) use of insulin; Z79.899 Other long term (current) drug therapy; Z68.38 Body mass index [BMI] 38.0-38.9, adult
CPT/HCPCS: 36415; 36600; 70450; 71045; 71275; 76536; 76604; 78582; 80048; 80053; 80061; 80069; 80202; 81001; 82270; 82565; 82607; 82746; 82805; 82962; 83036; 83540; 83550; 83605; 83690; 83735; 83880; 84100; 84132; 84443; 84484; 85007; 85025; 85027; 85379; 85610; 85730; 87040; 87070; 87081; 87086; 87205; 87426; 87804; 92610; 93005; 93306; 93458; 93970; 94002; 94003; 94640; 94660; 95819; 97110; 97116; 97163; 97530; 99291; 99292; G0378; J1815; J2250; J2405; J2470; J2543; J3480; J7060; Q9967

== ENCOUNTER 2024-11-07 18:42 | Emergency (ER) | payer OTHER, MEDICAID ==
[~2024-11-07] VITALS: Ht 170.2 cm; Wt 99.0 kg
[~2024-11-07 18:42] MED LIST changes: +ATOR20TA50 PO; +BRIN1SUS LEFTEYE; +METO-6 PO
[2024-11-07 18:43] VITALS: BP 176/88; PULSE 87; RESP 18; TEMP 98.7; O2SAT 100
--- NOTE | 2024-11-07 19:30 | ED.PDOC ---
Back pain HPI HPI Comments WALT: FALL HPI: Poor Historian. 79-year-old female presents to emergency department status post mechanical fall from a standing position while she was ambulating with a walker two weeks ago. The next day she started developing some right hip pain radiating to her right proximal thigh. Denies any pain anywhere else. She did hit the back of her head when she fell but no loss of consciousness. She has been ambulatory at her baseline with her walker since then. Her pain got worse today and decided to come here for further evaluation. Denies any acute numbness or tingling sensation anywhere in her body. Patient is on aspirin. Past Medical History: Hypertension, hyperlipidemia, diabetes Past Surgical History: REVIEW OF SYSTEMS: CONSTITUTIONAL: Denies acute: fever, diaphoresis, chills, generalized weakness. HEAD: Denies acute: headache, photophobia Eyes: Denies acute: Double vision, vision loss, eye pain, eye discharge. EARS: Denies acute: tinnitus, hearing loss, ear discharge, ear pain, THROAT: Denies acute: sore throat, swelling, difficulty swallowing , pain with swallowing, change in voice. NECK: Denies acute: neck pain, neck swelling, stiff neck. HEART: Denies acute : chest pain, palpitations, LUNGS: Denies acute: SOB, wheezing, cough, hemoptysis ABDOMEN: Denies acute: abdominal pain, Nausea, Vomiting, diarrhea, melena , hematemesis, hematochezia SKIN: Denies acute: rash, redness, lesions, itchiness. EXTREMITIES: Denies acute: calf pain, numbness, tingling, weakness, Denies acute: Low back pain. Neuro: Denies acute: focal neurological deficit, motor or sensory focal neurological deficit, tremors, seizure like activity, confusion, dizziness, change in mental status, loss of bowel or bladder function, cauda equina like symptoms. : Denies acute: dysuria, hematuria, flank pain, increase in urinary frequency. PSYCH: Denies acute: hallucination, suicidal ideation, homicidal ideation. FEMALE: Denies acute: abnormal vaginal bleeding, foul odor, unusual discharge. PHYSICAL EXAM: General: ---mild-----acute distress, awake and alert. Head: normocephalic, atraumatic. Neck: supple, trachea is midline, no swelling. Throat: Normal phonation. Eyes:, no erythema, no purulent discharge, no proptosis, no icterus. Heart: regular rate, regular rhythm, no significant murmur appreciated. Lungs: no apparent respiratory distress, Able to speak in full sentences. No wheezing, no rhonchi, no crackles. No stridors Clear to auscultation bilaterally. Abdomen: non tender to palpation, non distended, soft, no guarding, no rebound, + bowel sounds. Obese Neuro: Awake, Alert, oriented to name, self, situation, follows commands GCS=15. Speech is normal. Skin: no petechia, no purpura, no cyanosis, non-pale, not jaundice. Lower extremities: --no - Pitting edema no deformity, no focal swelling, no calf TTP. Makes eye contact. moves all four extremities. Face: no apparent facial droop. Pedal pulses are palpable. ED COURSE: DISCLAIMER: This medical document was created using an electronic medical record system with voice recognition software and computerized dictation system. Although this document has been carefully reviewed, there might still be some phonetic and typographical errors. Occasional wrong-word or "sound-alike" substitutions may have occurred due to the inherent limitations of voice recognition software. These areas are purely typographical due to imperfections of the software programs and do not reflect any compromise in the patient's medical care. Please read the chart carefully and recognize, using context, where these substitutions have occurred. Chief Complaint: Fall Injury Time Seen by MD: 18:52 Reviewed Notes: Medications, Allergies Allergies: Coded Allergies: Penicillins (Verified Allergy, Unknown, 02/05/24) Sulfa Antibiotics (Verified Allergy, Unknown, 02/05/24) Home Meds Active Scripts Metoprolol Succinate (Toprol Xl) 50 Mg Tab, 25 MG PO DAILY for 30 Days, #15 TAB Prov:JORY LINDSEY X RAY INSPECTOR 02/15/24 Atorvastatin Calcium (ATORVASTATIN CALCIUM) 20 Mg Tab, 10 MG PO HS for 30 Days, #15 TAB Prov:JORY LINDSEY X RAY INSPECTOR 02/15/24 Reported Medications Clotrimazole (Topical) (Clotrimazole Anti-Fungal) 1 % Cre, 1 APPLIC EX UD for 30 Days, #45 02/02/24 Fluticasone-Salmeterol (Advair Hfa 115-21 Mcg/Act) 1 Aer Aer, 1 AER IN UD for 90 Days, #12 02/02/24 Diclofenac Sodium (Topical) (Diclofenac Sodium) 1 % Gel, 1 APPLIC TD UD for 30 Days, #100 02/02/24 Insulin Glargine (Lantus Solostar) 100 Unit/Ml Inj, UNIT SC UD for 60 Days, #15 02/02/24 Montelukast Sodium (MONTELUKAST SODIUM) 10 Mg Tab, 1 TAB PO DAILY for 90 Days, #90 02/02/24 Semaglutide (Ozempic) 2 Mg/3 Ml Inj, 0.5 MG SC QWEEKLY for 28 Days, #3 02/02/24 Brinzolamide (Brinzolamide) 1 % Libby, 1 DROP LEFTEYE TID for 55 Days, #10 02/02/24 Folic Acid (Folic Acid) 1 Mg Tab, 1 TAB PO DAILY for 30 Days, #30 02/02/24 Magnesium Oxide (MAGNESIUM OXIDE) 400 Mg Tab, 1 TAB PO QPM for 30 Days, #30 02/02/24 Brimonidine Tartrate (Brimonidine Tartrate) 0.2 % Sydni, 1 DROP EACHEYE Q8HR for 30 Days, #5 02/02/24 Latanoprost (LATANOPROST) 0.005 % Sydni, 1 DROP EACHEYE QPM for 30 Days, #2.5 02/02/24 Furosemide (Furosemide) 40 Mg Tab, 1 TAB PO DAILY for 30 Days, #30 02/02/24 Tramadol Hcl (Tramadol Hcl) 50 Mg Tab, 1 TAB PO BID PRN for 15 Days, #30 02/02/24 Omeprazole (Omeprazole Dr) 40 Mg Cap, 1 CAP PO DAILY for 30 Days, #30 02/02/24 Leflunomide (Arava) 20 Mg Tab, 1 TAB PO DAILY for 30 Days, #30 02/02/24 Metoprolol Succinate (Metoprolol Succinate Er) 25 Mg Tab, 1 TAB PO DAILY for 30 Days, #30 02/02/24 Albuterol Sulfate (Albuterol Sulfate Hfa) 108 Mcg/Act Aer, 2 PUFF IN Q6HR PRN for 25 Days, #18 02/02/24 Methotrexate (Methotrexate) 2.5 Mg Tab, 4 TAB PO QWEEKLY for 28 Days, #16 02/02/24 Information Source: Patient Mode of Arrival: Wheelchair Past Medical History PAST MEDICAL HISTORY: Asthma, COPD Surgical History: Unknown, Unobtainable 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 Was a procedure done?: No X-Ray, Labs, Meds, VS Vital Signs Date Time Temp Pulse Resp B/P (MAP) Pulse Ox O2 Delivery O2 Flow Rate FiO2 11/07/24 18:43 98.7 87 18 176/88 100 98.7 Lab Test 11/07/24 19:44 Range/Units White Blood Count 4.9 4.4-10.8 10^3/uL Red Blood Count 4.13 4.0-5.20 10^6/uL Hemoglobin 12.7 12.2-16.2 g/dL Hematocrit 39.8 36.0-46.0 % Mean Corpuscular Volume 96.4 80.0-100.0 fL Mean Corpuscular Hemoglobin 30.7 28.0-32.0 pg Mean Corpuscular Hemoglobin Concent 31.8 L 32.0-36.0 g/dL Red Cell Distribution Width 19.3 H 11.8-14.3 % Platelet Count 209 140-450 10^3/uL Mean Platelet Volume 8.4 6.9-10.8 fL Neutrophils (%) (Auto) 54.2 37.0-80.0 % Lymphocytes (%) (Auto) 32.8 10.0-50.0 % Monocytes (%) (Auto) 7.2 0.0-12.0 % Eosinophils (%) (Auto) 4.5 0.0-7.0 % Basophils (%) (Auto) 1.3 0.0-2.0 % Neutrophils # (Auto) 2.6 1.6-8.6 10 ^3/uL Lymphocytes # (Auto) 1.6 0.4-5.4 10 ^3/uL Monocytes # (Auto) 0.3 0-1.3 10 ^3/uL Eosinophils # (Auto) 0.2 0-0.8 10 ^3/uL Basophils # (Auto) 0.1 0-0.2 10 ^3/uL Nucleated Red Blood Cells 0.2 % Sodium Level 142 136-145 mmol/L Potassium Level 4.6 3.5-5.1 mmol/L Chloride Level 103 98-107 mmol/L Carbon Dioxide Level 28 20-31 mmol/L Anion Gap 11 5-15 Blood Urea Nitrogen 17 9-23 mg/dL Creatinine 1.24 H 0.550-1.02 mg/dL Glomerular Filtration Rate Calc 45 >90 mL/min BUN/Creatinine Ratio 13.7 10.0-20.0 Serum Glucose 124 H 74-106 mg/dL Calcium Level 10.4 8.7-10.4 mg/dL Total Bilirubin 0.3 0.2-1.0 mg/dL Aspartate Amino Transferase (AST) 23 13-40 U/L Alanine Aminotransferase (ALT) 20 7-40 U/L Alkaline Phosphatase 69 46-116 U/L Total Protein 8.0 5.7-8.2 g/dL Albumin 4.8 3.2-4.8 g/dL [place] [address] Ph: [phone] DIAGNOSTIC IMAGING Diagnostic Imaging Report : [id number] Signed PATIENT: INESSA GODOY ACCT: [id number] UNIT: [id number] : 1945 LOC: ER ROOM / BED: / AGE / SEX: 79 / F ADM STATUS: REG ER SERVICE 22 ORDERING PHYSICIAN: VICENTE PEREZ DO PROCEDURE(s): HWOCT - HEAD WITHOUT CONTRAST REASON: fall ORDER NUMBER(s): [id number], ACCESSION NUMBER(s): [id number] Procedure: CT HEAD WITHOUT CONTRAST Study Date and Requested Time: 11/07/2024 07:40 PM History: fall Comparison: CT HEAD WITHOUT CONTRAST on DOS: 02/02/24 Dose: CTDI: 58.53 mGy DLP: 1.71 mGycm Technique: Multiplanar images obtained through the brain without intravenous contrast. Findings: Mild Diffuse brain atrophy. Mild chronic small vessel ischemic changes. Calcifications of the falx. Bilateral basal ganglia calcification. No hemorrhages, masses, mass effect, midline shift, herniation or cytotoxic edema following a large vascular territory. No intra-axial or extra-axial fluid collections. No evidence of hydrocephalus. The basal cisterns are patent. The pituitary gland, sella and parasellar regions are unremarkable. The cerebellar tonsils are in normal position. The cerebellum is unremarkable. Right-sided glaucoma drainage implant. Bilateral lens replacement. Otherwise, orbits and globes are unremarkable. The paranasal sinuses and mastoids are clear. There are no worrisome calvarial lesions. Left last maxillary tooth periapical lucency. Impression: No evidence of acute intracranial abnormality. ATED BY: JIMENA LANGE DO DICTATED DATE/TIME: 11/07/242019 SIGNED BY: JIMENA LANGE DO SIGNED DATE/TIME: 11/07/242019 CC: [place] [address] Ph: [phone] DIAGNOSTIC IMAGING Diagnostic Imaging Report : [id number] Signed PATIENT: INESSA GODOY ACCT: [id number] UNIT: [id number] : 1945 LOC: ER ROOM / BED: / AGE / SEX: 79 / F ADM STATUS: REG ER SERVICE 22 ORDERING PHYSICIAN: VICENTE PEREZ DO PROCEDURE(s): ABPL - CT AB PEL WO CON-NO ORAL OR IV REASON: r hip pain, fall ORDER NUMBER(s): [id number], ACCESSION NUMBER(s): [id number] CLINICAL HISTORY: r hip pain, fall TECHNIQUE: CT of the abdomen and pelvis was performed without IV contrast. This exam was performed according to our departmental dose optimization program. Up-to-date CT equipment and radiation dose reduction techniques are utilized as appropriate. CTDI 24.9 DLP 1272.2 COMPARISON: None FINDINGS: Abdomen/Pelvis: The spleen, pancreas, kidneys, liver, left renal gland, and bladder are grossly unremarkable. There is a 1.4 cm right adrenal myelolipoma. The gallbladder is absent. Scattered uterine myometrial calcifications likely represent underlying fibroids. The abdominal aorta is normal in course and caliber. There are minimal atherosclerotic calcifications. There is no free intraperitoneal air or fluid. There is no enlarged abdominal pelvic lymph node. There is no bowel wall thickening or dilatation. Other: The imaged lower thorax demonstrates coronary artery calcifications. No acute osseous abnormality is evident. Impression: No acute noncontrast CT abnormality in the abdomen or pelvis. 1.4 cm right adrenal myelolipoma. Cholecystectomy. Probable uterine fibroids. Bronchitis with bronchiolitis. ATED BY: BERNADINE LITTLE MD DICTATED DATE/TIME: 11/07/242023 SIGNED BY: BERNADINE LITTLE MD SIGNED DATE/TIME: 11/07/242023 CC: Time of 1ST Reevaluation: 20:50 Reevaluation 1ST: Unchanged Patient Education/Counseling: Diagnosis, Treatment Family Education/Counseling: No Family Present Departure 1 Departure Time of Disposition: 20:50 Impression: Primary Impression: Fall Additional Impressions: Right hip pain Closed head injury Disposition: HOME / SELF CARE / HOMELESS Condition: Stable Additional Instructions: Additional instructions: Please read all instructions provided in this packet carefully. You MUST follow-up with your primary care/family doctor in 1 to 2 days. If you are unable to see your primary care/family doctor, please return to our emergency room for re-assessment and re-evaluation in 1 to 2 days. Return to the emergency room here in our facility or to the nearest ER [facility] if your symptoms change or worsen. CONSULTATIONS: you MUST Follow-up for consultation as soon as possible with: --orthopedic doctor in 1-2 days. Please call for appointment. You MUST call the consultants office yourself to make an appointment. You may need to arrange that through your insurance and/or your primary/family doctor. If you are unable to see the hematology oncology consultant in 1 to 2 days, you must return to our emergency room (or any other ER of your choice) for re-assessment and re- evaluation. Adequate fluid hydration. Although you have been discharged from the Emergency Department, this does not mean that you have a "clean bill of health". No definitive diagnosis for your symptoms has been made today. It is possible that you are in the process of developing a serious illness. This is why you must return to the ED without fail if any new or worsening symptoms develop. Ambulates with the assistance at all times. Fall precautions. Below is a copy of your radiological report for follow up: [place] [address] Ph: [phone] DIAGNOSTIC IMAGING Diagnostic Imaging Report : [id number] Signed PATIENT: INESSA GODOY ACCT: [id number] UNIT: [id number] : 1945 LOC: ER ROOM / BED: / AGE / SEX: 79 / F ADM STATUS: REG ER SERVICE 22 ORDERING PHYSICIAN: VICENTE PEREZ DO PROCEDURE(s): HWOCT - HEAD WITHOUT CONTRAST REASON: fall ORDER NUMBER(s): [id number], ACCESSION NUMBER(s): [id number] Procedure: CT HEAD WITHOUT CONTRAST Study Date and Requested Time: 11/07/2024 07:40 PM History: fall Comparison: CT HEAD WITHOUT CONTRAST on DOS: 02/02/24 Dose: CTDI: 58.53 mGy DLP: 1.71 mGycm Technique: Multiplanar images obtained through the brain without intravenous contrast. Findings: Mild Diffuse brain atrophy. Mild chronic small vessel ischemic changes. Calcifications of the falx. Bilateral basal ganglia calcification. No hemorrhages, masses, mass effect, midline shift, herniation or cytotoxic edema following a large vascular territory. No intra-axial or extra-axial fluid collections. No evidence of hydrocephalus. The basal cisterns are patent. The pituitary gland, sella and parasellar regions are unremarkable. The cerebellar tonsils are in normal position. The cerebellum is unremarkable. Right-sided glaucoma drainage implant. Bilateral lens replacement. Otherwise, orbits and globes are unremarkable. The paranasal sinuses and mastoids are clear. There are no worrisome calvarial lesions. Left last maxillary tooth periapical lucency. Impression: No evidence of acute intracranial abnormality. ATED BY: JIMENA LANGE DO DICTATED DATE/TIME: 11/07/242019 SIGNED BY: JIMENA LANGE DO SIGNED DATE/TIME: 11/07/242019 CC: [address] [id number] Ph: [phone] DIAGNOSTIC IMAGING Diagnostic Imaging Report : [id number] Signed PATIENT: INESSA GODOY ACCT: [id number] UNIT: [id number] : 1945 LOC: ER ROOM / BED: / AGE / SEX: 79 / F ADM STATUS: REG ER SERVICE 22 ORDERING PHYSICIAN: VICENTE PEREZ DO PROCEDURE(s): ABPL - CT AB PEL WO CON-NO ORAL OR IV REASON: r hip pain, fall ORDER NUMBER(s): [id number], ACCESSION NUMBER(s): [id number] CLINICAL HISTORY: r hip pain, fall TECHNIQUE: CT of the abdomen and pelvis was performed without IV contrast. This exam was performed according to our departmental dose optimization program. Up-to-date CT equipment and radiation dose reduction techniques are utilized as appropriate. CTDI 24.9 DLP 1272.2 COMPARISON: None FINDINGS: Abdomen/Pelvis: The spleen, pancreas, kidneys, liver, left renal gland, and bladder are grossly unremarkable. There is a 1.4 cm right adrenal myelolipoma. The gallbladder is absent. Scattered uterine myometrial calcifications likely represent underlying fibroids. The abdominal aorta is normal in course and caliber. There are minimal atherosclerotic calcifications. There is no free intraperitoneal air or fluid. There is no enlarged abdominal pelvic lymph node. There is no bowel wall thickening or dilatation. Other: The imaged lower thorax demonstrates coronary artery calcifications. No acute osseous abnormality is evident. Impression: No acute noncontrast CT abnormality in the abdomen or pelvis. 1.4 cm right adrenal myelolipoma. Cholecystectomy. Probable uterine fibroids. Bronchitis with bronchiolitis. ATED BY: BERNADINE LITTLE MD DICTATED DATE/TIME: 11/07/242023 SIGNED BY: BERNADINE LITTLE MD SIGNED DATE/TIME: 11/07/242023 CC: Discharged With: Self Critical Care Note Critical Care Time?: No I personally scribed for VICENTE PEREZ DO ([email or web address]) on 11/07/24 at 20:49. Electronically submitted by Delmis Cabello ([email or web address]). VICENTE PEREZ DO Nov 07, 2024 19:30
[2024-11-07 20:07] LABS: Hematocrit 39.8 % (36.0-46.0); Hemoglobin 12.7 g/dL (12.2-16.2); Mean Corpuscular Hemoglobin 30.7 pg (28.0-32.0); Mean Corpuscular Volume 96.4 fL (80.0-100.0); Nucleated Red Blood Cells % 0.2 %
[2024-11-07 20:21] LABS: Alanine Aminotransferase 20 U/L (7-40); Alkaline Phosphatase 69 U/L (46-116); Anion Gap 11 (5-15); BUN/Creatinine Ratio 13.7 (10.0-20.0); Blood Urea Nitrogen 17 mg/dL (9-23); Calcium 10.4 mg/dL (8.7-10.4); Carbon Dioxide 28 mmol/L (20-31); Chloride 103 mmol/L (98-107); Potassium 4.6 mmol/L (3.5-5.1); Sodium 142 mmol/L (136-145); Total Protein 8.0 g/dL (5.7-8.2)
[2024-11-07 20:23] LABS: Albumin 4.8 g/dL (3.2-4.8); Bilirubin, Total 0.3 mg/dL (0.2-1.0); Glucose 124 mg/dL (74-106)
--- NOTE | 2024-11-07 20:23 | DVH ---
Procedure: CT HEAD WITHOUT CONTRAST Study Date and Requested Time: 11/07/2024 07:40 PM History: fall Comparison: CT HEAD WITHOUT CONTRAST on DOS: 02/02/24 Dose: CTDI: 58.53 mGy DLP: 1.71 mGycm Technique: Multiplanar images obtained through the brain without intravenous contrast. Findings: Mild Diffuse brain atrophy. Mild chronic small vessel ischemic changes. Calcifications of the falx. B ilateral basal ganglia calcification. No hemorrhages, masses, mass effect, midline shift, herniation or cytotoxic edema following a large v ascular territory. No intra-axial or extra-axial fluid collections. No evidence of hydrocephalus. The basal cisterns are patent. The pituitary gland, sella and parasellar regions are unremarkable. The cerebellar tonsils are in nor mal position. The cerebellum is unremarkable. Right-sided glaucoma drainage implant. Bilateral lens replacement. Otherwise, orbits and globes are unremarkable. The paranasal sinuses and mastoids are clear. There are no worrisome calvarial lesions. Left last maxillary tooth periapical lucency. Impression: No evidence of acute intracranial abnormality.
--- NOTE | 2024-11-07 20:27 | DVH ---
CLINICAL HISTORY: r hip pain, fall TECHNIQUE: CT of the abdomen and pelvis was performed without IV contrast. This exam was performed ac cording to our departmental dose optimization program. Up-to-date CT equipment and radiation dose red uction techniques are utilized as appropriate. CTDI 24.9 DLP 1272.2 COMPARISON: None FINDINGS: Abdomen/Pelvis: The spleen, pancreas, kidneys, liver, left renal gland, and bladder are grossly unremarkable. There is a 1.4 cm right adrenal myelolipoma. The gallbladder is absent. Scattered uterine myometrial calcifications likely represent underlying fibroids. The abdominal aorta is normal in course and caliber. There are minimal atherosclerotic calcifications . There is no free intraperitoneal air or fluid. There is no enlarged abdominal pelvic lymph node. There is no bowel wall thickening or dilatation. Other: The imaged lower thorax demonstrates coronary artery calcifications. No acute osseous abnormality is evident. Impression: No acute noncontrast CT abnormality in the abdomen or pelvis. 1.4 cm right adrenal myelolipoma. Cholecystectomy. Probable uterine fibroids. Bronchitis with bronchiolitis.
== END 2024-11-08 05:32 | disposition home or self-care (01) ==
LOC: ER 18:42
DX: S09.8XXA Other specified injuries of head, initial encounter (principal); M25.551 Pain in right hip; M79.651 Pain in right thigh; E78.5 Hyperlipidemia, unspecified; E11.9 Type 2 diabetes mellitus without complications; I10 Essential (primary) hypertension; F17.200 Nicotine dependence, unspecified, uncomplicated; Z79.82 Long term (current) use of aspirin; Z79.85 Long-term (current) use of injectable non-insulin antidiabetic drugs; Z79.899 Other long term (current) drug therapy; Z88.0 Allergy status to penicillin; Z88.2 Allergy status to sulfonamides; W18.39XA Other fall on same level, initial encounter; Y93.89 Activity, other specified; Y92.89 Other specified places as the place of occurrence of the external cause; Y99.8 Other external cause status
CPT/HCPCS: 36415; 70450; 74176; 80053; 85025

== ENCOUNTER 2024-12-08 14:51 | Emergency (ER) | payer OTHER, MEDICAID ==
[~2024-12-08] VITALS: Ht 167.6 cm; Wt 100.0 kg
--- NOTE | 2024-12-08 15:19 | ED.PDOC ---
Musculoskeletal HPI Comments 79 y.o female presents to the ED via EMS for a chief complaint of right sided hip pain s/p mechanical fall one month ago. Patient was seen s/p fall at the hospital, states had imaging done which showed no fractures or abnormalities. Patient states pain is constant and when she bears weight when ambulating via walker, pain increases from 6/10 to 8/10. Patient denies any recent falls since the first one nor re injuries. Chief Complaint: Lower Extremity Time Seen by MD: 15:00 Reviewed Notes: Nurses Notes, Assembler Movement Notes, Medications, Allergies Allergies: Coded Allergies: Penicillins (Verified Allergy, Unknown, 02/05/24) Sulfa Antibiotics (Verified Allergy, Unknown, 02/05/24) Home Meds Active Scripts Metoprolol Succinate (Toprol Xl) 50 Mg Tab, 25 MG PO DAILY for 30 Days, #15 TAB Prov:JORY LINDSEY LICENSED INSURANCE SALES AGENT 02/15/24 Atorvastatin Calcium (ATORVASTATIN CALCIUM) 20 Mg Tab, 10 MG PO HS for 30 Days, #15 TAB Prov:JORY LINDSEY [employer]ICENSED INSURANCE SALES AGENT 02/15/24 Reported Medications Clotrimazole (Topical) (Clotrimazole Anti-Fungal) 1 % Cre, 1 APPLIC EX UD for 30 Days, #45 02/02/24 Fluticasone-Salmeterol (Advair Hfa 115-21 Mcg/Act) 1 Aer Aer, 1 AER IN UD for 90 Days, #12 02/02/24 Diclofenac Sodium (Topical) (Diclofenac Sodium) 1 % Gel, 1 APPLIC TD UD for 30 Days, #100 02/02/24 Insulin Glargine (Lantus Solostar) 100 Unit/Ml Inj, UNIT SC UD for 60 Days, #15 02/02/24 Montelukast Sodium (MONTELUKAST SODIUM) 10 Mg Tab, 1 TAB PO DAILY for 90 Days, #90 02/02/24 Semaglutide (Ozempic) 2 Mg/3 Ml Inj, 0.5 MG SC QWEEKLY for 28 Days, #3 02/02/24 Brinzolamide (Brinzolamide) 1 % Libby, 1 DROP LEFTEYE TID for 55 Days, #10 02/02/24 Folic Acid (Folic Acid) 1 Mg Tab, 1 TAB PO DAILY for 30 Days, #30 02/02/24 Magnesium Oxide (MAGNESIUM OXIDE) 400 Mg Tab, 1 TAB PO QPM for 30 Days, #30 02/02/24 Brimonidine Tartrate (Brimonidine Tartrate) 0.2 % Sydni, 1 DROP EACHEYE Q8HR for 30 Days, #5 02/02/24 Latanoprost (LATANOPROST) 0.005 % Sydni, 1 DROP EACHEYE QPM for 30 Days, #2.5 02/02/24 Furosemide (Furosemide) 40 Mg Tab, 1 TAB PO DAILY for 30 Days, #30 02/02/24 Tramadol Hcl (Tramadol Hcl) 50 Mg Tab, 1 TAB PO BID PRN for 15 Days, #30 02/02/24 Omeprazole (Omeprazole Dr) 40 Mg Cap, 1 CAP PO DAILY for 30 Days, #30 02/02/24 Leflunomide (Arava) 20 Mg Tab, 1 TAB PO DAILY for 30 Days, #30 02/02/24 Metoprolol Succinate (Metoprolol Succinate Er) 25 Mg Tab, 1 TAB PO DAILY for 30 Days, #30 02/02/24 Albuterol Sulfate (Albuterol Sulfate Hfa) 108 Mcg/Act Aer, 2 PUFF IN Q6HR PRN for 25 Days, #18 02/02/24 Methotrexate (Methotrexate) 2.5 Mg Tab, 4 TAB PO QWEEKLY for 28 Days, #16 02/02/24 Information Source: Patient, Emergency Med Personnel Mode of Arrival: EMS Location: Right Extremity Location: Hip Timing: Months (1) Severity: Moderate Able to Move Extremity: Yes Bear Weight: Limited Pain: Moderate Mechanism: None Circumstances: Fall Onset of Symptoms: After Trauma Symptoms: Pain DVT Risk Factors: NONE Associated signs and symptoms: Other Past Medical History PAST MEDICAL HISTORY: Asthma, COPD Surgical History: Unknown SOFTWARE IMPLEMENTATION SPECIALIST History: Denies all SOFTWARE IMPLEMENTATION SPECIALIST Hx Family History Family History: Unknown, Unobtainable Social History Smoker: Non-Smoker Alcohol: Denies ETOH Use Drugs: Denies Drug Use Lives In: [facility] Constitutional: denies: chills, diaphoresis, fatigue, fever, malaise, sweats, weakness, others EENTM: denies: blurred vision, double vision, ear bleeding, ear discharge, ear drainage, ear pain, ear ringing, eye pain, eye redness, hearing loss, mouth pain, mouth swelling, nasal discharge, nose bleeding, nose congestion, nose pain, photophobia, tearing, throat pain, throat swelling, voice changes, others Respiratory: denies: cough, hemoptysis, orthopnea, SOB at rest, shortness of breath, SOB with excertion, stridor, wheezing, others Cardiovascular: denies: chest pain, dizzy spells, diaphoresis, Dyspnea on exertion, edema, irregular heart beat, left arm pain, lightheadedness, palpitations, PND, syncope, others Gastrointestinal: denies: abdomen distended, abdominal pain, blood streaked bowels, constipated, diarrhea, dysphagia, difficulty swallowing, hematemesis, melena, nausea, poor appetite, poor fluid intake, rectal bleeding, rectal pain, vomiting, others Genitourinary: denies: abnormal vagina bleeding, burning, dyspareunia, dysuria, flank pain, frequency, hematuria, incontinence, pain, , vagina discharge, urgency, others Neurological: denies: dizziness, fainting, headache, left sided numbness, left sided weakness, numbness, paresthesia, pre-existing deficit, right sided numbn ess, right sided weakness, seizure, speech problems, tingling, tremors, weakness, others Musculoskeletal: reports: others (right hip pain ); denies: back pain, gout, joint pain, joint swelling, muscle pain, muscle stiffness, neck pain Integumetry: denies: bruises, change in color, change in hair/nails, dryness, laceration, lesions, lumps, rash, wounds, others Allergic/Immunocompromised: denies: Difficulty Healing, Frequent Infections, Hives, Itching, others Hematologic/Lymphatic: denies: anemia, blood clots, easy bleeding, easy bruising, swollen glands, others Endocrine: denies: excessive hunger, excessive sweating, excessive thirst, excessive urination, flushing, intolerance to cold, intolerance to heat, unexplained weight gain, unexplained weight loss, others Psychiatric: denies: anxiety, bipolar disorder, depression, hopeless, panic disorder, schizophrenia, sleepless, suicidal, others All Other Systems: Reviewed and Negative Physical Exam General Appearance: Moderate Distress HEENT: Normal ENT Inspection, Pharynx Normal, TMs Normal Neck: Full Range of Motion, Non-Tender, Normal, Normal Inspection Respiratory: Chest Non-Tender, Lungs Clear, No Accessory Muscle Use, No Respiratory Distress, Normal Breath Sounds Cardiovascular: No Edema, No JVD, No Murmur, No Gallop, Normal Peripheral Pulses, Regular Rate/Rhythm Breast Exam: Deferred Gastrointestinal: No Organomegaly, Non Tender, No Pulsatile Mass, Normal Bowel Sounds, Soft Genitalia: Deferred Pelvic: Deferred Rectal: Deferred Extremities: No calf tenderness, Normal capillary refill, Normal inspection, Normal range of motion, Non-tender, No pedal edema Musculoskeletal : Apperance: Normal Neurologic: Alert, safety manager II-XII nml as Tested, EOM Palsy, No Motor Deficits, Normal Affect, Normal Mood, No Sensory Deficits Cerebellar Function: NOT DONE Reflexes: NOT DONE Skin: Dry, Normal Color, Warm Lymphatic: No Adenopathy Was a procedure done? Was a procedure done?: No Differential Diagnosis EXT Differential Diagnosis: Sprain, Dislocation, Strain, Rheumatoid, Arthritis X-Ray, Labs, Meds, VS Vital Signs Date Time Temp Pulse Resp B/P (MAP) Pulse Ox O2 Delivery O2 Flow Rate FiO2 12/08/24 14:56 98.0 103 16 183/82 98 98.0 Patient alert. Came in because of right hip pain. Chronic. Vitals stable. Answering all questions. No sign of any recent injury. Saturation pristine on room air. Blood pressure slightly elevated. Was given clonidine. Was given [place]. X-ray reviewed does not show any acute changes. Explained to the patient. Was told to follow up with her primary care physician. Was told to come back if there is any problem. Time of 1ST Reevaluation: 15:15 Reevaluation 1ST: Improved Patient Education/Counseling: Diagnosis, Treatment, Prognosis Family Education/Counseling: No Family Present Departure 1 Departure Time of Disposition: 16:49 Impression: Primary Impression: Bilateral hip joint arthritis Additional Impression: Hypertensive urgency Disposition: 01 HOME / SELF CARE / HOMELESS Condition: Good e-Prescriptions Ibuprofen Micronized (MOTRIN TABLET) 600 Mg Tb 600 MG PO TID PRN for 5 Days, #15 TAB *Black box warning-NSAIDS can increase risk of OK & hypertension, GI irritation, ulceration, bleed, perferation. Do not use post cardiac surgery. Use short duration/lowest effective dose. Prov: MURPHY MORALES MD 12/08/24 Discharged With: Self Critical Care Note Critical Care Time?: No Stability Stability form required: No I personally scribed for MURPHY MORALES MD ([email or web address]) on 12/08/24 at 15:19. Electronically submitted by Tiffanie Sauceda ([facility]). MURPHY MORALES MD Dec 08, 2024 15:19
--- NOTE | 2024-12-08 15:55 | DVH ---
CLINICAL INDICATION: pain TECHNIQUE: 3 radiographic views of the pelvis and right hip were obtained. Comparison: None FINDINGS/IMPRESSION: Arthritic changes are noted of both hips with narrowing of the superior joint space bilaterally. There are no acute fractures or dislocations.
[2024-12-08] MEDS ORDERED: IBU600T PO (16:51)
[2024-12-08] MEDS: KETOROLAC TROMETH 60MG/2ML VIAL IM ONE (19:08)
[2024-12-08 19:51] VITALS: BP 150/77; PULSE 85; RESP 18; TEMP 97.7; O2SAT 98
== END 2024-12-08 20:29 | disposition home or self-care (01) ==
LOC: ER 14:51 → EDBD 14:51 → ER 20:29
DX: M16.0 Bilateral primary osteoarthritis of hip (principal); I16.0 Hypertensive urgency; J44.89 Other specified chronic obstructive pulmonary disease; J45.909 Unspecified asthma, uncomplicated; Z79.899 Other long term (current) drug therapy; Z88.0 Allergy status to penicillin; Z88.2 Allergy status to sulfonamides
CPT/HCPCS: 73502; 82947; 96372; 99283; J1885; 82962